=== PATIENT | female | born 1975 | race Caucasian/White ===

== ENCOUNTER 2018-11-13 15:52 | Outpatient (REF) | payer MEDICAID, SELFPAY ==
--- NOTE | 2018-11-13 15:00 | PAPFT_PTH ---
PATIENT: Fide Sandoval LOC: [facility] U#:[id number] AGE/SX: 43/F ROOM: RE11/13/[address]: Sue Sebastian : 1975 BED: DIS: 11/13/2018 SPEC #: [id number] RECD: 11/13/18 17:47 STATUS: BENNETT REQ #: [id number] TRESA: 11/13/18 15:[address]: Sue Sebastian DEPT: [facility] Cytology RECD BY: Mary Ellen Lama ENTERED: 11/13/18 17:48 SP TYPE: PAPFT OTHR DR: Edenilson Ceja Tissues: 1 - CX/ENDOCX FOR PAP SMEARS Procedures: PAP THIN PREP/UVM Screening HPV DNA PROBE Comments: [id number]
== END 2018-11-13 16:12 ==
LOC: LBN 15:52
PROVIDERS: PCP Family Medicine; Visit Provider Obstetrics & Gynecology Gynecology
DX: Z12.4 Encounter for screening for malignant neoplasm of cervix (principal); Z11.51 Encounter for screening for human papillomavirus (HPV)
CPT/HCPCS: 88142; 87624

== ENCOUNTER 2018-11-19 01:19 | Outpatient (CLI) | payer MEDICAID, SELFPAY ==
--- NOTE | 2018-11-19 16:00 | DI.MAMMO_ITS ---
SYMPTOM/DIAGNOSIS: SCREENING, Z12.31 MAMMOGRAM: Mammograms were interpreted according to the usual protocol including computer analysis with CAD system, tomosynthesis and C view imaging. Comparison with prior examinations. Breast density B. No suspicious masses or microcalcifications are seen. There is no definite evidence of malignancy. IMPRESSION: Negative mammogram. Routine screening is recommended. Category I. MQSA ASSESSMENT OF FINDINGS: Negative. Category 1. Patient will receive a letter notifying them of these results. BI-RADS category B. There are scattered areas of fibroglandular density.
== END 2018-11-19 01:39 ==
PROVIDERS: PCP Family Medicine; Visit Provider Obstetrics & Gynecology Gynecology
DX: Z12.31 Encounter for screening mammogram for malignant neoplasm of breast (principal)
CPT/HCPCS: 77063; 77067

== ENCOUNTER 2019-02-28 10:43 | Outpatient (CLI) | payer MEDICAID, SELFPAY ==
[2019-02-28 11:30] LABS: HGB 14.5 g/dL (12.0-15.5)
[2019-02-28 12:08] LABS: Ferritin 163 ng/mL (8-388)
== END 2019-02-28 11:03 ==
PROVIDERS: PCP Family Medicine; Visit Provider Internal Medicine Hematology & Oncology
DX: E83.119 Hemochromatosis, unspecified (principal)
CPT/HCPCS: 36415; 82728; 85018

== ENCOUNTER 2019-03-14 02:01 | Outpatient (RCR) | payer MEDICAID, SELFPAY | END 2019-03-23 23:59 | disposition home or self-care (01) | LOC: INF 02:01 | PROVIDERS: PCP Family Medicine; Visit Provider Family Medicine | DX: E83.119 Hemochromatosis, unspecified (principal) | CPT/HCPCS: 99195 ==

== ENCOUNTER 2019-03-14 02:08 | Outpatient (CLI) | payer MEDICAID, SELFPAY ==
[2019-03-14 11:13] LABS: HGB 13.9 g/dL (12.0-15.5)
[2019-03-14 12:05] LABS: Ferritin 91 ng/mL (8-388)
== END 2019-03-14 02:28 ==
PROVIDERS: PCP Family Medicine; Visit Provider Internal Medicine Hematology & Oncology
DX: E83.119 Hemochromatosis, unspecified (principal)
CPT/HCPCS: 36415; 82728; 85018

== ENCOUNTER 2019-03-21 00:58 | Outpatient (CLI) | payer MEDICAID, SELFPAY | END 2019-03-21 01:18 | PROVIDERS: PCP Family Medicine; Visit Provider Internal Medicine Hematology & Oncology | DX: R69 Illness, unspecified (principal) ==

== ENCOUNTER 2019-03-28 04:29 | Outpatient (RCR) | payer MEDICAID, SELFPAY | END 2019-04-22 23:59 | disposition home or self-care (01) | LOC: INF 04:29 | PROVIDERS: PCP Family Medicine; Visit Provider Family Medicine | DX: R69 Illness, unspecified (principal) ==

== ENCOUNTER 2019-04-22 10:56 | Outpatient (CLI) | payer MEDICAID, SELFPAY ==
[2019-04-22 11:37] LABS: HGB 14.5 g/dL (12.0-15.5)
[2019-04-22 13:18] LABS: Ferritin 68 ng/mL (8-388)
== END 2019-04-22 11:16 ==
PROVIDERS: PCP Family Medicine; Visit Provider Internal Medicine Hematology & Oncology
DX: E83.118 Other hemochromatosis (principal)
CPT/HCPCS: 36415; 82728; 85018

== ENCOUNTER 2019-09-24 14:31 | Emergency (ER) | payer MEDICAID, SELFPAY ==
[2019-09-24 15:06] LABS: Bilirubin Negative (Negative); Blood Trace-intact (Negative); Clarity Clear (Clear); Glucose Negative (Negative); Ketones Negative (Negative); Leukocyte Esterase Negative (Negative); Nitrite Negative (Negative); Specific Gravity 1.025 (1.005-1.025); Urobilinogen 0.2 EU/dL (Up TO 0.2)
[2019-09-24] MEDS: Normal Saline 1,000 ML 1000 ML IV (15:13)
[2019-09-24] MEDS: Ondansetron 4 MG/2 ML VIAL IVP (15:14)
[2019-09-24 15:18] LABS: Abs Immature Grans 0.01 k/cumm (0.0-0.09); Absolute Basophil Count 0.02 k/cumm (0.0-0.2); Absolute Eosinophil Count 0.16 k/cumm (0.0-0.7); Absolute Lymphocyte Count 3.37 k/cumm (1.2-3.4); Absolute Monocyte Count 0.73 k/cumm (0.11-0.7); Absolute Neutrophil Count 4.16 k/cumm (1.2-6.7); Basophils % 0.2; Eosinophils % 1.9; HCT 45.9 % (36.0-46.0); HGB 15.6 g/dL (12.0-15.5); Immature Grans % 0.1 %; Lymphocytes % 39.9; Mean Corpuscular Hemoglobin 29.2 pg (27.0-33.0); Monocytes % 8.6; Neutrophils % 49.3; Platelet Count 337 x1000/uL (130-400); RBC 5.34 m/cumm (4.00-5.20); RBC Distribution Width 12.4 % (11.7-14.6); White Blood Cell Count 8.45 k/cumm (4.4-10.8)
--- NOTE | 2019-09-24 15:29 | ED.GENADUL_ITS ---
Discharge Plan Disposition Patient Disposition: HOME Condition: Good Discharge Details Chief Complaint: Nausea/Vomit/Diar Clinical Impression: Addisons disease, Nausea & vomiting Primary Care Provider: Edenilson Ceja ED Provider: Adelia Wilkes Home Meds and New Rx's Prescriptions: New ondansetron 4 mg tablet,disintegrating 4 mg PO Q6H PRN (Reason: nausea and vomiting) Qty: 10 RF: 0 Continued esomeprazole magnesium [Nexium] 20 mg capsule,delayed release(DR/EC) 20 mg PO DAILY RF: 0 hydrocortisone 10 MG tablet 15 mg PO .QAM RF: 0 fludrocortisone 0.1 MG tablet 1 tab PO DAILY RF: 0 levothyroxine 175 mcg tablet 125 mcg PO DAILY@0730 RF: 0 potassium citrate 10 MEQ tablet extended release 10 meq PO DAILY 3 Days RF: 0 Discharge Instructions Instructions: Acute Nausea and Vomiting (ED) Additional Instructions: Encourage water intake. Zofran as prescribed if you have return of your nausea vomiting. Please follow-up with primary care in the next 48 hours for reevaluation. If you develop new or worsening symptoms please seek care urgently once again. Referrals: Edenilson Ceja [Primary Care Provider] - Discharge Data Discharge Date/Time-TO BE ENTERED AT DEPARTURE: 09/24/19 17:46 Medical Decision Making <ABEL Starks - Last Filed: 09/24/19 15:58> Patient is concerned that she may go into an Norberto's crisis requesting IV steroids. She currently appears well, nontoxic. Examination is non-emergent. Will obtain routine laboratory values, give IV fluids, Zofran, Solu-Cortef. We will then reassess. Labs benign. Upon reevaluation patient has not had any vomiting but reports feeling slightly nauseous. She would like a Tylenol. Will p.o. challenge and reassess. If she can successfully be p.o. challenge she is comfortable going home. Medical Records Medical records reviewed: Yes I reviewed the patient's medical records. Lab Data Lab results reviewed: Yes I reviewed the patient's lab results. Lab results narrative: Laboratory Tests Range/Units 09/24/19 09/24/19 09/24/19 14:50 14:53 14:53 WBC (4.4-10.8) k/cumm 8.45 RBC (4.00-5.20) m/cumm 5.34 H Hgb (12.0-15.5) g/dL 15.6 H Hct (36.0-46.0) % 45.9 MCV (80-95) fL 86.0 MCH (27.0-33.0) pg 29.2 MCHC (32.0-36.0) g/dL 34.0 RDW (11.7-14.6) % 12.4 Plt Count (130-400) x1000/uL 337 MPV (8.0-11.0) fL 10.0 Immature Gran % % 0.1 Neutrophils % 49.3 Lymphocytes % 39.9 Monocytes % 8.6 Eosinophils % 1.9 Basophils % 0.2 Absolute Neutrophils (1.2-6.7) k/cumm 4.16 Absolute Lymphocytes (1.2-3.4) k/cumm 3.37 Absolute Monocytes (0.11-0.7) k/cumm 0.73 H Absolute Eosinophils (0.0-0.7) k/cumm 0.16 Absolute Basophils (0.0-0.2) k/cumm 0.02 Sodium (136-145) mmol/L 138 Potassium (3.5-5.1) mmol/L 3.6 Chloride (98-107) mmol/L 101 Carbon Dioxide (21.0-32.0) mmol/L 26.4 Anion Gap (3-11) mmol/L 10.6 BUN (7-18) mg/dL 15 Creatinine (0.55-1.02) mg/dL 0.83 Estimated GFR/1.73 m2 (mL/min/1.73m2) >= 60.00 Glucose (74-106) mg/dL 80 Calcium (8.5-10.1) mg/dL 9.3 Total Bilirubin (0.2-1.0) mg/dL 0.6 AST (15-37) U/L 27 ALT (14-59) U/L 34 Alkaline Phosphatase (46-116) U/L 61 Total Protein (6.4-8.2) g/dL 8.1 Albumin (3.4-5.0) g/dL 4.1 TSH (0.36-3.74) uIU/mL 3.24 Urine Color (Yellow) Yellow Urine Clarity (Clear) Clear Urine pH (5-8) 7.0 Ur Specific [place] (1.005-1.025) 1.025 Urine Protein (Negative) mg/dL Negative Urine Ketones (Negative) mg/dL Negative Urine Blood (Negative) Trace-intact H Urine Nitrite (Negative) Negative Urine Bilirubin (Negative) Negative Urine Urobilinogen (Up TO 0.2) EU/dL 0.2 Ur Leukocyte Esterase (Negative) Negative Urine RBC (0-2) HPF 0-2 Urine WBC (0-5) HPF 0-2 Ur Epithelial Cells (Negative) HPF Few Urine Crystals (Negative) HPF Negative Urine Bacteria (Negative) HPF Moderate Urine Casts (Negative) LPF Negative Urine Mucus (Negative) Moderate Urine Other (Negative) Negative Ur Culture Indicated? No Urine Glucose (Negative) mg/dL Negative <ABEL Helms - Last Filed: 09/24/19 20:09> Care was transitioned to my self from Grover Plascencia PA-C, please see his note for initial presenting exam, history and laboratory evaluation. The time I assumed care, patient is being p.o. challenged. She received p.o. Tylenol is now endorsing return of her nausea. Is not actively vomiting. She reports that she has responded well to Reglan in the past. Will give 10 of Reglan and 25 Benadryl. Patient feeling much improved. Tolerating p.o. intake. Requesting discharge at this time. I did encourage close follow-up with primary care. She will return with any new or worsening symptoms. Will prescribe ODT Zofran, this is worked well for her historically. All of her questions and concerns were addressed and she is in agreement this plan. HPI <ABEL Starks - Last Filed: 09/24/19 15:58> General Mode of arrival: ambulatory . Date/Time Provider Initiated Documentation: 09/24/19 14:38 . Limitations to Documentation: no limitations . Information obtained by: patient . 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 She reports recently diagnosed with a sinus infection, took doxycycline and is again today initiating another 10-day course to her primary care provider as her infection did not resolve completely. Over the past 24 hours she developed nausea, vomiting, diarrhea and reports that this typically throws her into Norberto's crisis. She reports body aches and mild fever. Denies headache, chest pain, cough, shortness of breath, skin rash. She reports that she has been taking all of her routine medications as directed. She reports that she has had this happen before, wants to aggressively treat and not wait until things get worse. Related Data Home Medications Medication Instructions Recorded Confirmed hydrocortisone 15 mg PO .QAM 02/09/14 09/24/19 fludrocortisone 1 tab PO DAILY 07/06/14 09/24/19 potassium citrate 10 meq PO DAILY 3 Days tablet.er 09/20/17 09/24/19 esomeprazole magnesium 20 mg 20 mg PO DAILY cap 11/13/18 09/24/19 capsule,delayed release levothyroxine 175 mcg tablet 125 mcg PO DAILY@0730 tab 11/13/18 09/24/19 ondansetron 4 mg PO Q6H PRN #10 tab 09/24/19 Previous Rx's Medication Instructions Recorded potassium citrate 10 meq PO DAILY 3 Days tablet.er 09/20/17 ondansetron 4 mg PO Q6H PRN #10 tab 09/24/19 Allergies Allergy/AdvReac Type Severity Reaction Status Date / Time azithromycin Allergy Severe Anaphylaxsi Unverified 09/24/19 14:41 s erythromycin base Allergy Severe Anaphylaxsi Unverified 09/24/19 14:41 [Erythromycin Base] s morphine Allergy Severe extreme Verified 09/24/19 14:41 breathing issues Penicillins Allergy Severe Anaphylaxsi Unverified 09/24/19 14:41 s gabapentin Allergy Intermediate Swelling/Ed Unverified 09/24/19 14:41 rick iv contrast AdvReac Intermediate Swelling/Ed Uncoded 09/24/19 14:41 rick General Stated Complaint: Abd Prob MIKE: 2 Review of Systems <ABEL Starks - Last Filed: 09/24/19 15:58> Constitutional Constitutional: Denies fever(s) and Denies headache(s) Eyes Eyes: Denies change in vision ENT Ears, Nose, Mouth, and Throat: Denies headache(s) and Denies sore throat Cardiovascular Cardiovascular: Denies chest pain Respiratory Respiratory: Denies cough Gastrointestinal Gastrointestinal: Denies abdominal pain, Reports nausea and Reports vomiting Genitourinary Genitourinary: Denies dysuria Musculoskeletal Musculoskeletal: Reports myalgias Integumentary/Breasts Skin/Breast: Denies rash Neurologic Neurologic: Denies headache(s) PFSH <ABEL Starks - Last Filed: 09/24/19 15:58> Medical History Addisons disease (Chronic) Hx of Clostridium difficile infection (Resolved) Hx C/diff after knee surgery in 2010. No recurrences. Hypertension (Chronic) Hypothyroidism (Chronic) IUD (intrauterine device) in place (Chronic) Inserted 2015. On Depo-Provera for contraception (Resolved) Surgical History section (Inactive) X 2 Open Carpal Tunnel release (Inactive 04/24/15) RIGHT WRIST/DR. SCHILLING Family History Mother Diabetes Grandmother Breast cancer Mat Grandmother Breast cancer Pat Maternal Aunt Breast cancer Paternal Maternal Aunt Breast cancer Paternal Maternal Aunt Breast cancer Paternal Maternal Aunt Breast cancer Paternal Social History Smoking/Tobacco Use Status: Former Tobacco Use Alcohol Intake: never Drug use: Never Substance use type: does not use Household members: spouse, children and other Details: H-Oliver, D- teenager, S-Dionicio. 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 Rx with XRT. 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 Female Reproductive History Menstrual control method: progestin IUCD History History 2 Para Hx # Term Pregnancies 2 Multiple births Hx # Pregnancies Ectopic pregnancies AB induced Hx Number of Living Children AB spontaneous Exam <ABEL Starks - Last Filed: 09/24/19 15:58> Const General: cooperative, healthy appearing, comfortable and no acute distress Orientation: alert and awake HENAZ Head: normal to inspection, normocephalic and atraumatic General nose exam: external nose normal Face and sinus: normal facial exam Mouth: moist mucous membranes Throat: posterior oropharynx normal Eyes Conjunctivae: conjunctivae normal Sclera: sclerae normal Neck Neck: normal visual inspection, full ROM, no meningeal signs, trachea midline and supple Resp Effort & Inspection: normal respiratory effort and able to speak in complete sentences Auscultation: clear to auscultation bilaterally Cardio Rate: regular rate Rhythm: regular rhythm GI Inspection: normal to inspection Palpation: soft, not firm, no guarding and nontender Auscultation: normal bowel sounds Back/Spine/Pelvis Back: No back tenderness Skin General skin exam: no rashes or lesions noted Neuro General: alert, awake, moves all extremities and no focal motor deficits Sensory Exam: no sensory deficits noted Psych Appearance: grossly normal Mental Status: mental status grossly normal Course <ABEL Starks - Last Filed: 09/24/19 15:58> Vital Signs Vital signs: Respiratory Effort Non-Labored 09/24/19 14:36 Pain Level 6 09/24/19 14:36 Lab/Test Results Lab/Test Results: Laboratory Tests Range/Units 09/24/19 14:53 WBC (4.4-10.8) k/cumm 8.45 RBC (4.00-5.20) m/cumm 5.34 H Hgb (12.0-15.5) g/dL 15.6 H Hct (36.0-46.0) % 45.9 MCV (80-95) fL 86.0 MCH (27.0-33.0) pg 29.2 MCHC (32.0-36.0) g/dL 34.0 RDW (11.7-14.6) % 12.4 Plt Count (130-400) x1000/uL 337 MPV (8.0-11.0) fL 10.0 Immature Gran % % 0.1 Neutrophils % 49.3 Lymphocytes % 39.9 Monocytes % 8.6 Eosinophils % 1.9 Basophils % 0.2 Absolute Neutrophils (1.2-6.7) k/cumm 4.16 Absolute Lymphocytes (1.2-3.4) k/cumm 3.37 Absolute Monocytes (0.11-0.7) k/cumm 0.73 H Absolute Eosinophils (0.0-0.7) k/cumm 0.16 Absolute Basophils (0.0-0.2) k/cumm 0.02 Sign Out <ABEL Starks - Last Filed: 09/24/19 15:58> Sign Out Data: Sign Out Comment: Laboratory values are back, benign. Patient received medications. Awaiting p.o. challenge and reassessment. Will likely need Zofran prescription for discharge Last updated by Sanjiv Plascencia PA at 09/24/19 16:00
[2019-09-24 15:35] LABS: Epithelial Cells Few HPF (Negative); RBC 0-2 HPF (0-2); WBC 0-2 HPF (0-5)
[2019-09-24 15:36] LABS: Bacteria Moderate HPF (Negative); C & S Indicated? No; Casts Negative LPF (Negative); Crystals Negative HPF (Negative); Mucus Moderate (Negative); Other Cells Negative (Negative)
[2019-09-24 15:38] LABS: ALT 34 U/L (14-59); AST 27 U/L (15-37); Albumin 4.1 g/dL (3.4-5.0); Alkaline Phosphatase 61 U/L (46-116); Anion Gap 10.6 mmol/L (3-11); BUN 15 mg/dL (7-18); Bilirubin, Total 0.6 mg/dL (0.2-1.0); CO2 26.4 mmol/L (21.0-32.0); CREATININE 0.83 mg/dL (0.55-1.02); Calcium 9.3 mg/dL (8.5-10.1); Chloride 101 mmol/L (98-107); Glucose 80 mg/dL (74-106); Potassium 3.6 mmol/L (3.5-5.1); Sodium 138 mmol/L (136-145); TSH 3.24 uIU/mL (0.36-3.74); Total Protein 8.1 g/dL (6.4-8.2)
[2019-09-24] MEDS: Hydrocortisone SOD SUC. 100 MG VIAL IVP (15:39)
[2019-09-24 15:43] VITALS: BP 115/74; PULSE 84; RESP 15; O2SAT 98
[2019-09-24] MEDS: Acetaminophen 500 MG TAB 1000 MG PO (15:48)
--- NOTE | 2019-09-24 15:50 | NUR.NOTE ---
requested and given ice pack
--- NOTE | 2019-09-24 16:18 | NUR.NOTE ---
tolerated crackers and water
[2019-09-24] MEDS: diphenhydrAMINE 50 MG/ML VIAL 25 MG IVP (17:02)
[2019-09-24] MEDS: Metoclopramide 10 MG/2 ML VIAL IVP (17:06)
[2019-09-24] MEDS: Normal Saline 50 ML (17:20)
[2019-09-24 17:27] VITALS: BP 128/70; PULSE 76; RESP 15; O2SAT 98
== END 2019-09-24 17:46 | disposition home or self-care (01) ==
PROVIDERS: Physician Assistant; Emergency Provider Physician Assistant; PCP Family Medicine
DX: E27.1 Primary adrenocortical insufficiency (principal); R11.2 Nausea with vomiting, unspecified; I10 Essential (primary) hypertension
CPT/HCPCS: 80053; 96361; 96374; 96375; 99284; 81003; 81015; 84443; 85025; J1200; J1720; J2405; J2765

== ENCOUNTER 2019-12-31 12:49 | Outpatient (REF) | payer MEDICAID, SELFPAY ==
[2020-01-01 16:50] LABS: Chlamydia Result Negative (Negative); GC Result Negative (Negative)
== END 2019-12-31 13:09 ==
LOC: LBN 12:49
PROVIDERS: PCP Family Medicine; Visit Provider Nurse Practitioner Family
DX: Z11.3 Encounter for screening for infections with a predominantly sexual mode of transmission (principal)
CPT/HCPCS: 87491; 87591

== ENCOUNTER 2020-01-03 02:16 | Outpatient (CLI) | payer MEDICAID, SELFPAY ==
--- NOTE | 2020-01-03 08:00 | DI.US_ITS ---
EXAM: US PELVIS TRANSVAGINAL CLINICAL HISTORY: Pelvic pain with Hx Fibroid and has IUD,R10.2. TECHNIQUE: Transabdominal and transvaginal pelvic ultrasound was performed using standard protocol. COMPARISON: US PELVIS TRANSVAG from 12/14/2015 FINDINGS: KIDNEYS: Kidneys are symmetric in size. No evidence of renal calculi. No evidence of hydronephrosis. No renal mass or cyst identified. UTERUS: Position: Anteverted. Size: 6.9 long by 3.6 AP x 6.5 transverse cm Endometrium: 0.5 cm. Normal for patient's menstrual status. IUD is seen within the endometrial canal. Myometrium: There is a 1.6 x 2 x 2.5 cm mass in fundus of the uterus most consistent with a fibroid. Cervix: Unremarkable. OVARIES: Right: 1.7 x 1.1 x 1.3 cm Cyst or mass: None. Left: 2.9 x 1.9 x 1.7 cm Cyst or mass: Small follicular cyst. DOPPLER: Color: Symmetric and uniform flow to both ovaries. No hyperemia. CUL-DE-SAC: Free fluid: None. Other: None. IMPRESSION: 1. Normal sonographic appearance of the kidneys. 2. Uterine fibroid. IUD within the endometrial canal. 3. Unremarkable bilateral ovaries. DATA REPOSITORY:
== END 2020-01-03 02:36 ==
PROVIDERS: PCP Family Medicine; Visit Provider Nurse Practitioner Family
DX: R10.2 Pelvic and perineal pain (principal); D25.9 Leiomyoma of uterus, unspecified; Z97.5 Presence of (intrauterine) contraceptive device
CPT/HCPCS: 76830; 76856

== ENCOUNTER 2020-01-21 01:29 | Outpatient (CLI) | payer MEDICAID, SELFPAY ==
--- NOTE | 2020-01-21 11:02 | DI.MAMMO_ITS ---
EXAM: MG MAMMO SCREENING CLINICAL HISTORY: screening, Z12.39 TECHNIQUE: Bilateral full field digital CC and MLO mammographic images were obtained with 3D tomosyn thesis and utilizing computer aided detection (CAD). COMPARISON: Available for comparison. FINDINGS: Masses/Architectural Distortion: There is asymmetric breast tissue in the upper-outer quadrant of the right breast. Microcalcifications: No suspicious pleomorphic-type are seen. Skin Thickening/Nipple Retraction: None. IMPRESSION: 1. Asymmetric breast tissue in the upper-outer quadrant of the right breast. 2. Spot compression views and right breast ultrasound requested for further evaluation. BI-RADS Category 0 - Assessment Incomplete: Need additional imaging evaluation Breast Density - Category B - Scattered areas of fibroglandular density A negative radiographic report should not delay biopsy if a dominant or clinically suspicious mass is present. Up to ten percent of cancers are not identified on mammography. A negative report may reinforce clinical impression. Adenosis and dense breasts may obscure an underlying neoplasm. False positive reports average 6 to 10%. Patient will receive a letter notifying them of these results.
== END 2020-01-21 01:49 ==
PROVIDERS: PCP Family Medicine; Visit Provider Nurse Practitioner Family
DX: Z12.31 Encounter for screening mammogram for malignant neoplasm of breast (principal); R92.8 Other abnormal and inconclusive findings on diagnostic imaging of breast
CPT/HCPCS: 77063; 77067

== ENCOUNTER 2020-01-29 01:45 | Outpatient (CLI) | payer MEDICAID, SELFPAY ==
--- NOTE | 2020-01-29 | DI.MAMMO_ITS ---
EXAM: MG MAMMO SCREEN CALL BACK UNI CLINICAL HISTORY: ASYMMETRIC BREAST TISSUE RT BREAST, F/U MAMMO. TECHNIQUE: Spot compression views with tomosynthesis of the right breast and right breast ultrasound were performed. . COMPARISON: MG Screening Bilat Mammo from 06/04/2015 MG R. Spot - Same Day from 06/10/2015 MG Diagnostic Right Mammo from 12/14/2015 MG Screening Bilat Mammo from 08/21/2017 MG SCREENING - Call Back-Uni from 08/25/2017 MG MG mammo screening from 11/19/2018 MG MG MAMMO SCREENING from 01/21/2020 FINDINGS: Mammography/Tomosynthesis: Spot compression views of the superior right breast were performed for a questioned area of asymmetri c tissue. Masses/Architectural Distortion: None seen. Microcalcifictions: No suspicious pleomorphic-type are seen. Skin Thickening/Nipple Retraction: None. Right breast US: Echotexture: Normal appearance of the glandular tissue. Shadowing: No suspicious foci. Cyst: None. Solid lesions: None seen. Ductal dilation: None. IMPRESSION: 1. No evidence of malignancy is noted. 2. Unless there is more urgent need, follow-up screening mammography is recommended, as per [employer] guidelines. 3. The findings were discussed with the patient on the date of the examination. BI-RADS Category 1 - Negative Breast Density - Category B - Scattered areas of fibroglandular density A negative radiographic report should not delay biopsy if a dominant or clinically suspicious mass is present. Up to ten percent of cancers are not identified on mammography. A negative report may reinforce clinical impression. Adenosis and dense breasts may obscure an underlying neoplasm. False positive reports average 6 to 10%. Patient will receive a letter notifying them of these results.
== END 2020-01-29 02:05 ==
PROVIDERS: PCP Family Medicine; Visit Provider Nurse Practitioner Family
DX: Z12.31 Encounter for screening mammogram for malignant neoplasm of breast (principal); R92.8 Other abnormal and inconclusive findings on diagnostic imaging of breast; N64.59 Other signs and symptoms in breast
CPT/HCPCS: 76642; 77063; 77067

== ENCOUNTER 2020-12-08 17:32 | Inpatient (IN) | payer MEDICAID, SELFPAY ==
[2020-12-08] VITALS (23 sets, daily range): BP systolic 103–163; BP diastolic 67–119; PULSE 77–104; RESP 18–20; TEMP 36.6–37; O2SAT 95–100
--- NOTE | 2020-12-08 17:30 | RT.EKG_ITS ---
APPROVED REPORT Exam: Resting ECG Reason for Exam: anxiety Patient Location: E HR:100 bpm ECG Measurements Heart Rate 100 AXIS AL 158 P 65 QRSd 91 QRS 79 QT 336 T 39 QTc 434 Conclusion Sinus tachycardia...rate> 99 Low voltage, precordial leads...precordial leads <1.0mV I have reviewed and interpreted ECG and agree with software generated interpretation.
--- NOTE | 2020-12-08 17:36 | W.ED.GENAD ---
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 Blood pressure hypertensive, heart rate tachycardic. EKG notes a rate of 100, sinus, no STEMI, nondiagnostic. She appears restless and fidgety. She has no focal deficits. Her jaw, neck and anterior chest pain appears reproducible worse with head movement and palpation to her chest. We will check screening labs,, urine , and give a dose of 100 mg Solu-Cortef, 30 mg Toradol, and IV fluids. Will also check a portable chest x-ray to rule any acute disease. Labs reviewed. White blood cell count 11. Hemoglobin 18, which is similar to baseline. Sodium 126. Chloride 89. Potassium 4.7. Calcium 10.3. Troponin negative. TSH within normal limits. 1849 --patient reassessed and she is still complaining of cramping in her neck and legs. Will give a dose of Valium p.o. and Tylenol IV. 1914 --Case discussed with [facility] endocrinology. Would suspect hypotension rather than hypertension in setting of Tripp's crisis. Patient could have a viral process as she has vomiting and diarrhea which may explain her hypertension or stress response. Agree with plan to repeat metabolic panel and plan for admission overnight for repeat electrolytes in the a.m. Agree with plan for 100 mg SoluCortef given here with plan for 50 mg q 12 hr IV tomorrow, then 30 mg q 12 hr for 1 day, then 30 mg in the a.m. and 10 mg in the afternnoon for 1 day, then resume her regular dose of 15 mg in the a.m. and 5 mg in the afternoon. 1999 --repeat metabolic panel notes a minimal increase of sodium from 126 to 127. Calcium now normalized. Patient still complaining of neck pain and leg cramps. She states she cannot take morphine as it causes respiratory symptoms. She has taken tramadol in the past for her Tripp's crisis. Will order a dose of tramadol. 2029 --Case discussed with hospitalist who accepts patient for admission. Medical Records Medical records reviewed: Yes I reviewed the patient's medical records. Imaging Data Radiologic Study: Radiologist's impression: XR Chest Exam date and time: 12/08/2020 6:02 PM Age: 45 years old Clinical indication: Other: Anterior chest pain TECHNIQUE: Imaging protocol: XR of the chest. Views: 1 view. COMPARISON: No relevant prior studies available. FINDINGS: Lungs: Unremarkable. No consolidation. Pleural spaces: Unremarkable. No pleural effusion. No pneumothorax. Heart/Mediastinum: Unremarkable. No cardiomegaly. Bones/joints: Unremarkable. IMPRESSION: No acute findings. Lab Data Lab results reviewed: Yes I reviewed the patient's lab results. Labs: Laboratory Tests Range/Units 12/08/20 12/08/20 12/08/20 17:50 17:50 17:50 WBC (4.4-10.8) 10^3/uL 11.88 H RBC (3.93-5.22) 10^6/uL 6.19 H Hgb (11.2-15.7) g/dL 18.6 H Hct (36.0-46.0) % 52.8 H MCV (80-95) fL 85.3 MCH (27.0-33.0) pg 30.0 MCHC (32.0-36.0) % 35.2 RDW (11.7-14.6) % 11.2 L Plt Count (130-400) 10^3/uL 356 MPV (8.0-11.0) fL 9.9 Immature Gran % 0.5 Neutrophils % 62.3 Lymphocytes % 27.7 Monocytes % 8.0 Eosinophils % 0.8 Basophils % 0.7 Nucleated RBC % % 0 Absolute Neutrophils (1.2-6.7) 10^3/uL 7.40 H Absolute Lymphocytes (1.2-3.4) 10^3/uL 3.29 Absolute Monocytes (0.1-0.8) 10^3/uL 0.95 H Absolute Eosinophils (0.0-0.7) 10^3/uL 0.10 Absolute Basophils (0.0-0.2) 10^3/uL 0.08 PT (9.3-11.0) sec 10.3 INR (0.9-1.1) 1.0 APTT (21.0-27.5) sec 25.6 Sodium (136-145) mmol/L 126 L Potassium (3.5-5.1) mmol/L 4.7 Chloride (98-107) mmol/L 89 L Carbon Dioxide (21.0-32.0) mmol/L 25.0 Anion Gap (3-11) mmol/L 12.0 H BUN (7-18) mg/dL 16 Creatinine (0.55-1.02) mg/dL 1.0 Estimated GFR/1.73 m2 (mL/min/1.73m2) >= 60.00 Glucose (74-106) mg/dL 93 Calcium (8.5-10.1) mg/dL 10.3 H Magnesium (1.8-2.4) mg/dL 2.3 Total Bilirubin (0.2-1.0) mg/dL 0.8 AST (15-37) U/L 34 ALT (14-59) U/L 68 H Alkaline Phosphatase (46-116) U/L 73 Troponin I (<0.06) ng/mL < 0.05 Total Protein (6.4-8.2) g/dL 9.6 H Albumin (3.4-5.0) g/dL 4.9 TSH (0.36-3.74) uIU/mL 3.64 Range/Units 12/08/20 19:05 WBC (4.4-10.8) 10^3/uL RBC (3.93-5.22) 10^6/uL Hgb (11.2-15.7) g/dL Hct (36.0-46.0) % MCV (80-95) fL MCH (27.0-33.0) pg MCHC (32.0-36.0) % RDW (11.7-14.6) % Plt Count (130-400) 10^3/uL MPV (8.0-11.0) fL Immature Gran % Neutrophils % Lymphocytes % Monocytes % Eosinophils % Basophils % Nucleated RBC % % Absolute Neutrophils (1.2-6.7) 10^3/uL Absolute Lymphocytes (1.2-3.4) 10^3/uL Absolute Monocytes (0.1-0.8) 10^3/uL Absolute Eosinophils (0.0-0.7) 10^3/uL Absolute Basophils (0.0-0.2) 10^3/uL PT (9.3-11.0) sec INR (0.9-1.1) APTT (21.0-27.5) sec Sodium (136-145) mmol/L 127 L Potassium (3.5-5.1) mmol/L 4.8 Chloride (98-107) mmol/L 94 L Carbon Dioxide (21.0-32.0) mmol/L 23.9 Anion Gap (3-11) mmol/L 9.1 BUN (7-18) mg/dL 15 Creatinine (0.55-1.02) mg/dL 0.9 Estimated GFR/1.73 m2 (mL/min/1.73m2) >= 60.00 Glucose (74-106) mg/dL 93 Calcium (8.5-10.1) mg/dL 8.6 Magnesium (1.8-2.4) mg/dL Total Bilirubin (0.2-1.0) mg/dL 0.7 AST (15-37) U/L 28 ALT (14-59) U/L 56 Alkaline Phosphatase (46-116) U/L 63 Troponin I (<0.06) ng/mL Total Protein (6.4-8.2) g/dL 7.5 Albumin (3.4-5.0) g/dL 3.9 TSH (0.36-3.74) uIU/mL ECG Data Attestation: I personally reviewed and interpreted this ECG (s) as follows: Interpretation: Rate of 100, sinus, no acute ST elevation or depression. MA 158. QRS 89. QTc 434. HPI General Mode of arrival: wheelchair. Date/Time Provider Initiated Documentation: 12/08/20 17:36. Limitations to Documentation: no limitations. Information obtained by: patient. HPI Narrative: Patient is a 45-year-old female with a history of Norberto's disease, hypertension, hypothyroidism who presents to the ED with concerns for what she feels are consistent with an Tripp's crisis. Patient states she has dizziness that is worse with standing, generalized weakness, leg cramps for the past 2 days consistent with her usual Tripp's crisis. She states she has also had bilateral jaw and bilateral neck pain in addition to intermittent episodes of anterior chest pain that she states she is not does not have with her Norberto's crisis. Patient states she usually takes Solu-Cortef at home when she feels the symptoms but did not have any extra as her primary care provider is no longer in practice. She states she usually takes 15 mg of hydrocortisone in the morning and 5 mg of hydrocortisone in the afternoon and doubled the dose of the past 2 days. She states she was unable to take these doses today due to nausea and a few episodes of vomiting. She does also admits to a few episodes of large watery diarrhea over the past 2 days. She denies any fever, coughing, shortness of breath, urinary symptoms. Related Data Home Medications Medication Instructions Recorded Confirmed hydrocortisone 15 mg PO .QAM 02/09/14 12/08/20 fludrocortisone 1 tab PO DAILY 07/06/14 12/08/20 potassium citrate 10 meq PO DAILY 3 Days tablet.er 09/20/17 12/08/20 esomeprazole magnesium 20 mg 20 mg PO DAILY cap 11/13/18 12/08/20 capsule,delayed release levothyroxine 175 mcg tablet 125 mcg PO DAILY@0730 tab 11/13/18 12/08/20 ondansetron 4 mg PO Q6H PRN #10 tab 09/24/19 12/08/20 estradiol 10 mcg vaginal tablet 10 mcg VG DAILY #24 tab 12/31/19 01/13/20 metoprolol tartrate 25 mg tablet 25 mg PO DAILY 12/31/19 12/08/20 atorvastatin 20 mg tablet 20 mg PO DAILY 01/13/20 12/08/20 hydrocortisone 5 mg tablet 5 mg PO DAILY tab 01/13/20 12/08/20 Previous Rx's Medication Instructions Recorded potassium citrate 10 meq PO DAILY 3 Days tablet.er 09/20/17 ondansetron 4 mg PO Q6H PRN #10 tab 09/24/19 estradiol 10 mcg vaginal tablet 10 mcg VG DAILY #24 tab 12/31/19 Allergies Allergy/AdvReac Type Severity Reaction Status Date / Time azithromycin Allergy Severe Anaphylaxsi Verified 12/08/20 17:38 s erythromycin base Allergy Severe Anaphylaxsi Verified 12/08/20 17:38 [Erythromycin Base] s morphine Allergy Severe extreme Verified 12/08/20 17:38 breathing issues Penicillins Allergy Severe Anaphylaxsi Verified 12/08/20 17:38 s gabapentin Allergy Intermediate Swelling/Ed Verified 12/08/20 17:38 rick green pepper AdvReac Unverified 12/09/20 08:30 lactose AdvReac Unverified 12/09/20 08:30 peach AdvReac Unverified 12/09/20 08:30 iv contrast AdvReac Intermediate Swelling/Ed Uncoded 12/08/20 17:38 rick General MIKE: 2 Review of Systems All systems reviewed & are unremarkable except as noted in HPI and below Constitutional Constitutional: Reports as per HPI, Denies chills and Denies fever(s) Eyes Eyes: Denies blurry vision ENT Ears, Nose, Mouth, and Throat: Reports dizziness, Reports neck pain, Denies sore throat and Denies throat swelling Cardiovascular Cardiovascular: Denies chest pain and Denies dyspnea Respiratory Respiratory: Denies cough and Denies dyspnea Gastrointestinal Gastrointestinal: Denies abdominal pain, Denies diarrhea, Reports nausea and Reports vomiting Genitourinary Genitourinary: Denies hematuria and Denies dysuria Musculoskeletal Musculoskeletal: Denies back pain, Reports arthralgias, Reports muscle cramps, Reports neck pain and Denies numbness Integumentary/Breasts Skin/Breast: Denies lesions and Denies rash Neurologic Neurologic: Reports dizziness, Denies localized weakness and Denies numbness Allergic/Immunologic Allergic/Immunologic: Denies throat swelling PFS Medical History Addisons disease Michelle's syndrome Amenorrhea Hx of Clostridium difficile infection Hx C/diff after knee surgery in 2010. No recurrences. Hypertension Hypothyroidism IUD (intrauterine device) in place Inserted 2015. On Depo-Provera for contraception Surgical History section X 2 Open Carpal Tunnel release (04/24/15) RIGHT WRIST/DR. SCHILLING Family History Mother Diabetes Grandmother Breast cancer Mat Grandmother Breast cancer Pat Maternal Aunt Breast cancer Paternal Maternal Aunt Breast cancer Paternal Maternal Aunt Breast cancer Paternal Maternal Aunt Breast cancer Paternal Social History Smoking/Tobacco Use Status: Former Tobacco Use Smoking risk assessment performed?: Yes Alcohol Intake: never Drug use: Never Substance use type: does not use Household members: spouse, children and other Details: H-Oliver, D- teenager, S-Dionicio. 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 Rx with XRT. 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 Female Reproductive History Menstrual control method: progestin IUCD History History 2 Para Hx # Term Pregnancies 2 Multiple births Hx # Pregnancies Ectopic pregnancies AB induced Hx Number of Living Children AB spontaneous Exam Const General: cooperative and no acute distress Orientation: alert, awake and oriented x3 HENMT Head: normal to inspection Ears: hearing grossly normal bilaterally and external ears normal Face and sinus: normal facial exam Mouth: oral mucosae normal Throat: posterior oropharynx normal Eyes General: appearance normal, both eyes and all related structures Pupils: PERRL EOM: EOM intact bilaterally Neck Neck: normal visual inspection and No submandibular swelling Lymphatic: no lymphadenopathy noted Chest Chest: normal inspection of the chest and no tenderness Resp Effort & Inspection: normal respiratory effort and able to speak in complete sentences Auscultation: clear to auscultation bilaterally Cardio Rate: regular rate Rhythm: regular rhythm GI Inspection: normal to inspection Palpation: soft, not firm, not rigid and nontender Auscultation: normal bowel sounds Back/Spine/Pelvis Cervical Spine: cervical muscular tenderness (Bilateral) and pain with cervical ROM Skin General skin exam: no rashes or lesions noted Neuro General: patient alert, patient awake, patient oriented x3 and moves all extremities Cranial Nerves: CN's II-XI intact bilaterally Cognition: normal cognition Speech: speech normal Motor: muscle tone normal throughout and strength 5/5 throughout Sensory Exam: no sensory deficits noted Extrem General: normal to inspection, full ROM, capillary refill normal, no calf tenderness bilaterally and no edema Psych Appearance: grossly normal Mental Status: mental status grossly normal Speech and Movement: speech and movement normal Affect: normal affect
--- NOTE | 2020-12-08 18:00 | DI.RAD_ITS ---
Exam(s) XR PORTABLE CHEST AP EXAM: XR PORTABLE CHEST AP CLINICAL HISTORY: anterior chest pain, r/o acute disease. TECHNIQUE: 2D digital imaging was performed. COMPARISON: CR CHEST 2 VIEWS PA,LAT from 04/13/2012 FINDINGS: Heart size is normal. The mediastinum is not widened. Lungs are clear. No infiltrates nor obvious pleural effusions. IMPRESSION: No acute pulmonary findings on this single AP portable view of the chest. DATA REPOSITORY: RADIATION DOSE DELIVERED: All CT scans at this facility use at least one of these dose optimization techniques: automated exposure control; mA and/or kV adjustment per patient size (includes targeted e xams where dose is matched to clinical indication); or iterative reconstruction.
[2020-12-08 18:01] LABS: Abs Immature Grans 0.06 10^3/uL (0.0-0.06); Absolute Basophil Count 0.08 10^3/uL (0.0-0.2); Absolute Lymphocyte Count 3.29 10^3/uL (1.2-3.4); Absolute Monocyte Count 0.95 10^3/uL (0.1-0.8); Basophils % 0.7; Eosinophils % 0.8; HCT 52.8 % (36.0-46.0); HGB 18.6 g/dL (11.2-15.7); Immature Grans % 0.5; Lymphocytes % 27.7; MCHC 35.2 % (32.0-36.0); MCV 85.3 fL (80-95); MPV 9.9 fL (8.0-11.0); Neutrophils % 62.3; Nucleated RBC 0 %; Platelet Count 356 10^3/uL (130-400); RBC 6.19 10^6/uL (3.93-5.22); RDW 11.2 % (11.7-14.6); RDW-SD 34.6 fL; WBC 11.88 10^3/uL (4.4-10.8)
[2020-12-08] MEDS: Hydrocortisone SOD SUC. 100 MG VIAL IVP (18:09)
[2020-12-08] MEDS: Ketorolac 30 MG/ML VIAL IVP (18:09)
[2020-12-08] MEDS: Normal Saline 1,000 ML 1000 ML IV (18:10)
[2020-12-08 18:15] LABS: PTT Activated 25.6 sec (21.0-27.5); Prothrombin Time 10.3 sec (9.3-11.0)
[2020-12-08 18:25] LABS: ALT 68 U/L (14-59); AST 34 U/L (15-37); Albumin 4.9 g/dL (3.4-5.0); Alkaline Phosphatase 73 U/L (46-116); BUN 16 mg/dL (7-18); Bilirubin, Total 0.8 mg/dL (0.2-1.0); Calcium 10.3 mg/dL (8.5-10.1); Chloride 89 mmol/L (98-107); Glucose 93 mg/dL (74-106); Magnesium 2.3 mg/dL (1.8-2.4); Potassium 4.7 mmol/L (3.5-5.1); Sodium 126 mmol/L (136-145); TSH (W/Ref FT4) 3.64 uIU/mL (0.36-3.74); Total Protein 9.6 g/dL (6.4-8.2); Troponin I < 0.05 ng/mL (<0.06)
[2020-12-08] MEDS: ACETAMINOPHEN 1,000 MG/100 ML BTL 400 MG IVPB (19:14)
--- NOTE | 2020-12-08 19:14 | DI.VRAD_ITS ---
PROCEDURE INFORMATION: Exam: XR Chest Exam date and time: 12/08/2020 6:02 PM Age: 45 years old Clinical indication: Other: Anterior chest pain TECHNIQUE: Imaging protocol: XR of the chest. Views: 1 view. COMPARISON: No relevant prior studies available. FINDINGS: Lungs: Unremarkable. No consolidation. Pleural spaces: Unremarkable. No pleural effusion. No pneumothorax. Heart/Mediastinum: Unremarkable. No cardiomegaly. Bones/joints: Unremarkable. IMPRESSION: No acute findings. Dictated and Authenticated by: Sophie Rose MD. Ordering:ANN Alvarez MD
[2020-12-08] MEDS: diazePAM 5 MG TAB PO (19:15)
[2020-12-08] MEDS: Normal Saline 1,000 ML 125 ML IV (19:15)
[2020-12-08 19:28] LABS: ALT 56 U/L (14-59); AST 28 U/L (15-37); Albumin 3.9 g/dL (3.4-5.0); Alkaline Phosphatase 63 U/L (46-116); Anion Gap 9.1 mmol/L (3-11); BUN 15 mg/dL (7-18); Bilirubin, Total 0.7 mg/dL (0.2-1.0); CO2 23.9 mmol/L (21.0-32.0); CREATININE 0.9 mg/dL (0.55-1.02); Calcium 8.6 mg/dL (8.5-10.1); Chloride 94 mmol/L (98-107); Glucose 93 mg/dL (74-106); Potassium 4.8 mmol/L (3.5-5.1); Sodium 127 mmol/L (136-145); Total Protein 7.5 g/dL (6.4-8.2)
[2020-12-08] MEDS: Ondansetron 4 MG/2 ML VIAL IVP (19:29)
[2020-12-08] MEDS: traMADol 50 MG TAB 100 MG PO (20:37)
--- NOTE | 2020-12-08 20:53 | W.PM.HP.N ---
Date of service: 12/08/20 Time of Service: 20:54 Assessment and Plan Assessment and plan (1) Hyponatremia: Start date: 12/08/20 Status: Acute Assessment and plan: This is a 45-year-old lady admitted for hyponatremia likely secondary to increased stress recently and being steroid dependent with [place]'s disease. She has responded to IV steroid treatment with IV fluid resuscitation. We will trend labs and adjust treatment accordingly. Plans are for her to be on a 3-day wean of hydrocortisone with 50 mg IV every 8 hours day 1, then 30 mg IV every 12 hours for day 2 with 30 mg in the morning day 3. She is then to be converted to her oral steroid treatment at the usual dose of 15 mg in the morning and 5 mg in the afternoon if she is doing well. Her diet will be advanced as tolerated. (2) Addisons disease: Status: Chronic Assessment and plan: Patient does have occasional exacerbation of adrenal insufficiency and at this time either a viral gastroenteritis and or increased stress with panic and anxiety is the cause of her deficiency and decompensation with hyponatremia. Continue IV steroids with weaning back to her oral regimen as tolerated. (3) Hypothyroidism: Status: Chronic Assessment and plan: Stable with supplements with monitoring of labs. Qualifiers: Hypothyroidism type: acquired Qualified Code(s): E03.9 - Hypothyroidism, unspecified (4) Hypertension: Status: Chronic Assessment and plan: Patient presently is hypertensive and will continue antihypertensive treatment adjusting blood pressure. She does also have episodes of hypoglycemia and has been on Florinef in the past. 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 Not being hypotensive presently does not fit into the picture of adrenal insufficiency but this is multifactorial. Watch closely for overtreatment and hypotension. 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 She had increased stress recently and also possible viral gastroenteritis with nausea, vomiting and diarrhea resulted in hyponatremia and increased muscle spasm over her trunk and extremities diffusely. The patient had increased weakness and began to feel that she was in one of her Norberto's crisis, doubling her oral hydrocortisone for least 48 hours without relief and then reporting to the ED on the day of admission. In the ED she was found to be hyponatremic with a sodium of 126 usually running about 130, hypertensive and not hypotensive and hypoglycemic as one would see with [place]'s crisis. She is treated symptomatically at this point with tramadol for pain, IV fluid resuscitation and IV steroids all initiated in the ED. At the time I saw the patient she was feeling better except for some spasm especially over the neck with chronic neck pain. Recent evaluation of her neck pain revealed no significant arthritis or degenerative disc disease. She does have increased stress with psychological stressors and social chaos with the patient soon to be homeless, no financial support and minimal family support. Presently her 5-year-old child is with her mother with whom she has a stressed relationship. Review of Systems Narrative: 30 more review of systems otherwise unrevealing or stable. Patient has been losing weight without dieting which is of concern but most likely secondary to increased psychological stress and depression with severe panic. She has had no suicidal ideation. [facility] Medical History Addisons disease Michelle's syndrome Amenorrhea Hx of Clostridium difficile infection Hx C/diff after knee surgery in 2010. No recurrences. Hypertension Hypothyroidism IUD (intrauterine device) in place Inserted 2015. On Depo-Provera for contraception Surgical History section X 2 Open Carpal Tunnel release (04/24/15) RIGHT WRIST/DR. SCHILLING Family History Mother Diabetes Grandmother Breast cancer Mat Grandmother Breast cancer Pat Maternal Aunt Breast cancer Paternal Maternal Aunt Breast cancer Paternal Maternal Aunt Breast cancer Paternal Maternal Aunt Breast cancer Paternal Social History Smoking/Tobacco Use Status: Former Tobacco Use Smoking risk assessment performed?: Yes Alcohol Intake: never Drug use: Never Substance use type: does not use Household members: spouse, children and other Details: H-Oliver, D- teenager, S-Dionicio. 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 Rx with XRT. 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 Female Reproductive History Menstrual control method: progestin IUCD History History 2 Para Hx # Term Pregnancies 2 Multiple births Hx # Pregnancies Ectopic pregnancies AB induced Hx Number of Living Children AB spontaneous Meds Allergies and Home Medications Allergies Allergy/AdvReac Type Severity Reaction Status Date / Time azithromycin Allergy Severe Anaphylaxsi Verified 12/08/20 17:38 s erythromycin base Allergy Severe Anaphylaxsi Verified 12/08/20 17:38 [Erythromycin Base] s morphine Allergy Severe extreme Verified 12/08/20 17:38 breathing issues Penicillins Allergy Severe Anaphylaxsi Verified 12/08/20 17:38 s gabapentin Allergy Intermediate Swelling/Ed Verified 12/08/20 17:38 rick green pepper AdvReac Unverified 12/09/20 08:30 lactose AdvReac Unverified 12/09/20 08:30 peach AdvReac Unverified 12/09/20 08:30 iv contrast AdvReac Intermediate Swelling/Ed Uncoded 12/08/20 17:38 rick Home Medications Medication Instructions Recorded Confirmed Type hydrocortisone 15 mg PO .QAM 02/09/14 12/08/20 History fludrocortisone 1 tab PO DAILY 07/06/14 12/08/20 History potassium citrate 10 meq PO DAILY 3 Days tablet.er 09/20/17 12/08/20 Rx esomeprazole magnesium 20 mg 20 mg PO DAILY cap 11/13/18 12/08/20 History capsule,delayed release levothyroxine 175 mcg tablet 125 mcg PO DAILY@0730 tab 11/13/18 12/08/20 History ondansetron 4 mg PO Q6H PRN #10 tab 09/24/19 12/08/20 Rx estradiol 10 mcg vaginal tablet 10 mcg VG DAILY #24 tab 12/31/19 01/13/20 Rx metoprolol tartrate 25 mg tablet 25 mg PO DAILY 12/31/19 12/08/20 History atorvastatin 20 mg tablet 20 mg PO DAILY 01/13/20 12/08/20 History hydrocortisone 5 mg tablet 5 mg PO DAILY tab 01/13/20 12/08/20 History Exam Narrative Exam Narrative: General: Patient appears appropriate for age, alert and oriented x3 and slightly anxious with stable affect and good eye contact. She has moderate distress from her neck comfort. HEENT: Normocephalic, eyes with pupils equal and reactive to light symmetrically, extraocular movement intact and sclera anicteric. Oropharynx with moist mucosa and poor dentition with multiple carious teeth and discoloration. External ears and nose normal. Neck: Supple without JVD. No palpable thyromegaly. Decreased range of motion with stiffness and increased muscle spasm of the trapezius muscles guarding with discomfort to palpation and movement. Back: Normal posture, increased tone in paraspinal muscles diffusely with no spasm palpated. Decreased range of motion. No CVA tenderness. Lungs: Clear to auscultation percussion. Heart: Regular rate and rhythm with no murmurs or gallops appreciated. Breast: Exam deferred. Abdomen: Mildly obese contour, soft nontender to palpation with no palpable hepatosplenomegaly. Bowel sounds positive all quadrants. Genitalia/rectal: Exam deferred. Extremities: Without clubbing, cyanosis or pitting edema. Joints have fair range of motion. Peripheral pulses are intact. Skin: Normal color, warm and dry. Neuro: Cranial nerves II through XII grossly intact, no focalizing motor deficits. No Babinski's. No clonus. No tremors. Psych: Anxious, flattened affect with good eye contact and little variation. Depressed mood, tearful at times. No abnormal thought processes. Remote and recent memory intact. Results Imaging Imaging Studies: Exam: XR Chest Exam date and time: 12/08/2020 6:02 PM Age: 45 years old Clinical indication: Other: Anterior chest pain TECHNIQUE: Imaging protocol: XR of the chest. Views: 1 view. COMPARISON: No relevant prior studies available. FINDINGS: Lungs: Unremarkable. No consolidation. Pleural spaces: Unremarkable. No pleural effusion. No pneumothorax. Heart/Mediastinum: Unremarkable. No cardiomegaly. Bones/joints: Unremarkable. IMPRESSION: No acute findings. Labs Result diagrams: 12/09/20 06:39 12/09/20 06:39 Labs: Laboratory Results - last 24 hr 12/08/20 12/08/20 12/08/20 17:50 17:50 17:50 WBC 11.88 H RBC 6.19 H Hgb 18.6 H Hct 52.8 H MCV 85.3 MCH 30.0 MCHC 35.2 RDW 11.2 L Plt Count 356 MPV 9.9 Immature Gran % 0.5 Neutrophils % 62.3 Lymphocytes % 27.7 Monocytes % 8.0 Eosinophils % 0.8 Basophils % 0.7 Nucleated RBC % 0 Absolute Neutrophils 7.40 H Absolute Lymphocytes 3.29 Absolute Monocytes 0.95 H Absolute Eosinophils 0.10 Absolute Basophils 0.08 PT 10.3 INR 1.0 APTT 25.6 Sodium 126 L Potassium 4.7 Chloride 89 L Carbon Dioxide 25.0 Anion Gap 12.0 H BUN 16 Creatinine 1.0 Estimated GFR/1.73 m2 >= 60.00 Glucose 93 Calcium 10.3 H Magnesium 2.3 Total Bilirubin 0.8 AST 34 ALT 68 H Alkaline Phosphatase 73 Troponin I < 0.05 Total Protein 9.6 H Albumin 4.9 TSH 3.64 12/08/20 19:05 WBC RBC Hgb Hct MCV MCH MCHC RDW Plt Count MPV Immature Gran % Neutrophils % Lymphocytes % Monocytes % Eosinophils % Basophils % Nucleated RBC % Absolute Neutrophils Absolute Lymphocytes Absolute Monocytes Absolute Eosinophils Absolute Basophils PT INR APTT Sodium 127 L Potassium 4.8 Chloride 94 L Carbon Dioxide 23.9 Anion Gap 9.1 BUN 15 Creatinine 0.9 Estimated GFR/1.73 m2 >= 60.00 Glucose 93 Calcium 8.6 Magnesium Total Bilirubin 0.7 AST 28 ALT 56 Alkaline Phosphatase 63 Troponin I Total Protein 7.5 Albumin 3.9 TSH Last Vital Signs Temp 36.9 C 12/08/20 17:36 Pulse 91 H 12/08/20 20:30 Resp 20 12/08/20 17:36 BP 132/92 H 12/08/20 20:30 Pulse Ox 99 12/08/20 20:40 COVID-19 Screening Have you, or household traveled for leisure in last 14 days?: No Had IN PERSON contact w/suspected or confirmed C-19 person: No
[2020-12-08 21:35] LABS: Source Nasal/Nares
[2020-12-08 22:18] LABS: COVID-19 PCR Negative (Negative)
[2020-12-08] MEDS: Atorvastatin 20 MG TAB PO (23:39)
[2020-12-08] MEDS: Metoprolol 25 MG TAB PO (23:39)
[2020-12-08] MEDS: Acetaminophen 325 MG TAB 650 MG PO (23:39)
[2020-12-09] VITALS (10 sets, daily range): BP systolic 96–120; BP diastolic 59–78; PULSE 66–93; RESP 16–19; TEMP 36.1–36.7; O2SAT 98–100
[2020-12-09] MEDS: Hydrocortisone SOD SUC. 100 MG VIAL 50 MG IVP ×3 (02:27→18:08)
[2020-12-09 02:42] LABS: Bilirubin Negative (Negative); Blood Trace-intact (Negative); Clarity Clear (Clear); Glucose Negative (Negative); Ketones Trace mg/dL (Negative); Leukocyte Esterase Negative (Negative); Nitrite Negative (Negative); Specific Gravity >= 1.030 (1.005-1.025); Urobilinogen 0.2 EU/dL (Up TO 0.2)
[2020-12-09 02:44] LABS: Bacteria Few HPF (Negative); Crystals Negative HPF (Negative); Epithelial Cells Few HPF (Negative); RBC 0-2 HPF (0-2); WBC Negative HPF (0-5)
[2020-12-09 02:45] LABS: C & S Indicated? No; Casts Negative LPF (Negative); Mucus Heavy (Negative)
[2020-12-09] MEDS: Metoprolol 25 MG TAB PO ×2 (06:47→14:28)
[2020-12-09] MEDS: traMADol 50 MG TAB PO (06:47)
[2020-12-09] MEDS: Normal Saline 1,000 ML 125 ML IV ×2 (06:53→15:59)
[2020-12-09 07:01] LABS: Abs Immature Grans 0.06 10^3/uL (0.0-0.06); Absolute Basophil Count 0.02 10^3/uL (0.0-0.2); Absolute Eosinophil Count 0.01 10^3/uL (0.0-0.7); Absolute Lymphocyte Count 1.24 10^3/uL (1.2-3.4); Absolute Monocyte Count 0.35 10^3/uL (0.1-0.8); Absolute Neutrophil Count 7.04 10^3/uL (1.2-6.7); Basophils % 0.2; Eosinophils % 0.1; HCT 42.1 % (36.0-46.0); HGB 14.4 g/dL (11.2-15.7); Immature Grans % 0.7; Lymphocytes % 14.2; MCH 29.8 pg (27.0-33.0); MCHC 34.2 % (32.0-36.0); Neutrophils % 80.8; Nucleated RBC 0 %; Platelet Count 267 10^3/uL (130-400); RBC 4.84 10^6/uL (3.93-5.22); RDW 11.7 % (11.7-14.6); RDW-SD 37.4 fL; WBC 8.72 10^3/uL (4.4-10.8)
[2020-12-09 07:18] LABS: ALT 43 U/L (14-59); AST 21 U/L (15-37); Albumin 3.6 g/dL (3.4-5.0); Alkaline Phosphatase 49 U/L (46-116); BUN 10 mg/dL (7-18); Bilirubin, Total 0.8 mg/dL (0.2-1.0); CREATININE 0.8 mg/dL (0.55-1.02); Calcium 8.5 mg/dL (8.5-10.1); Chloride 99 mmol/L (98-107); Glucose 106 mg/dL (74-106); Sodium 130 mmol/L (136-145)
[2020-12-09] MEDS: Levothyroxine 125 MCG TAB PO (07:53)
[2020-12-09] MEDS: Normal Saline Flush 10 ML SYR IVP ×5 (08:39→22:44)
[2020-12-09] MEDS: Pantoprazole 40 MG VIAL IVP (08:39)
[2020-12-09] MEDS: Potassium Chloride 10 MEQ CAPCR PO (08:39)
--- NOTE | 2020-12-09 10:05 | PGE_ITS ---
Date of Service Date of service: 12/09/20 Time of Service: 13:00 Assessment and Plan Assessment and plan (1) Hyponatremia: Status: Acute Assessment and plan: improving with treatment (IV saline and steroids) (2) Hypothyroidism: Status: Chronic Assessment and plan: Stable with supplements with monitoring of labs. TSH 3.64 Qualifiers: Hypothyroidism type: acquired Qualified Code(s): E03.9 - Hypothyroidism, unspecified (3) Addisons disease: Status: Chronic Assessment and plan: Patient does have occasional exacerbation of adrenal insufficiency and at this time either a viral gastroenteritis and or increased stress with panic and anxiety is the cause of her deficiency and decompensation with hyponatremia. Continue IV steroids with weaning back to her oral regimen as tolerated. will also resume home oral steroids, taper tomorrow. (4) Hypertension: Status: Chronic Assessment and plan: Patient presently is hypertensive and not being hypotensive presently does not fit into the picture of adrenal insufficiency but this is multifactorial. Watch closely for overtreatment and hypotension. her fludrocortisone was held on admission, will resume and closely monitor pressure closely discussed with Dr Adams Qualifiers: Hypertension type: essential hypertension Qualified Code(s): I10 - Essential (primary) hypertension Subjective Subjective Patient reports: tolerating liquids well and tolerating a regular diet Interval history since last seen: patient continues to feel off and anxious. has been hemodynamically stable but blood pressures soft in afternoon. started back up on fluodrocortisone. tolerating PO well Exam Const General: cooperative and no acute distress Orientation: alert, awake and oriented x3 HENMT Head: normal to inspection Ears: hearing grossly normal bilaterally and external ears normal Face and sinus: normal facial exam Mouth: oral mucosae normal Throat: posterior oropharynx normal Eyes General: appearance normal, both eyes and all related structures Pupils: PERRL EOM: EOM intact bilaterally Neck Neck: normal visual inspection and No submandibular swelling Lymphatic: no lymphadenopathy noted Chest Chest: normal inspection of the chest and no tenderness Resp Effort & Inspection: normal respiratory effort and able to speak in complete sentences Auscultation: clear to auscultation bilaterally Cardio Rate: regular rate Rhythm: regular rhythm GI Inspection: normal to inspection Palpation: soft, not firm, not rigid and nontender Auscultation: normal bowel sounds Back/Spine/Pelvis Cervical Spine: cervical muscular tenderness (Bilateral) and pain with cervical ROM Skin General skin exam: no rashes or lesions noted Neuro General: patient alert, patient awake, patient oriented x3 and moves all extremities Cranial Nerves: CN's II-XI intact bilaterally Cognition: normal cognition Speech: speech normal Motor: muscle tone normal throughout and strength 5/5 throughout Sensory Exam: no sensory deficits noted Extrem General: normal to inspection, full ROM, capillary refill normal, no calf te nderness bilaterally and no edema Psych Appearance: grossly normal Mental Status: mental status grossly normal Speech and Movement: speech and movement normal Affect: normal affect Objective Last Vital Signs Temp 36.1 C L 12/09/20 07:46 Pulse 67 12/09/20 07:46 Resp 17 12/09/20 07:46 BP 104/71 12/09/20 07:46 Pulse Ox 98 12/09/20 07:46 Laboratory Results - last 24 hr 12/08/20 12/08/20 12/08/20 17:50 17:50 17:50 WBC 11.88 H RBC 6.19 H Hgb 18.6 H Hct 52.8 H MCV 85.3 MCH 30.0 MCHC 35.2 RDW 11.2 L Plt Count 356 MPV 9.9 Immature Gran % 0.5 Neutrophils % 62.3 Lymphocytes % 27.7 Monocytes % 8.0 Eosinophils % 0.8 Basophils % 0.7 Nucleated RBC % 0 Absolute Neutrophils 7.40 H Absolute Lymphocytes 3.29 Absolute Monocytes 0.95 H Absolute Eosinophils 0.10 Absolute Basophils 0.08 PT 10.3 INR 1.0 APTT 25.6 Sodium 126 L Potassium 4.7 Chloride 89 L Carbon Dioxide 25.0 Anion Gap 12.0 H BUN 16 Creatinine 1.0 Estimated GFR/1.73 m2 >= 60.00 Glucose 93 Calcium 10.3 H Magnesium 2.3 Total Bilirubin 0.8 AST 34 ALT 68 H Alkaline Phosphatase 73 Troponin I < 0.05 Total Protein 9.6 H Albumin 4.9 TSH 3.64 Urine Color Urine Clarity Urine pH Ur Specific [place] Urine Protein Urine Ketones Urine Blood Urine Nitrite Urine Bilirubin Urine Urobilinogen Ur Leukocyte Esterase Urine RBC Urine WBC Ur Epithelial Cells Urine Crystals Urine Bacteria Urine Casts Urine Mucus Ur Culture Indicated? Urine Glucose COVID-19 Source SARS-CoV-2 (PCR) 12/08/20 12/08/20 12/09/20 19:05 21:14 02:30 WBC RBC Hgb Hct MCV MCH MCHC RDW Plt Count MPV Immature Gran % Neutrophils % Lymphocytes % Monocytes % Eosinophils % Basophils % Nucleated RBC % Absolute Neutrophils Absolute Lymphocytes Absolute Monocytes Absolute Eosinophils Absolute Basophils PT INR APTT Sodium 127 L Potassium 4.8 Chloride 94 L Carbon Dioxide 23.9 Anion Gap 9.1 BUN 15 Creatinine 0.9 Estimated GFR/1.73 m2 >= 60.00 Glucose 93 Calcium 8.6 Magnesium Total Bilirubin 0.7 AST 28 ALT 56 Alkaline Phosphatase 63 Troponin I Total Protein 7.5 Albumin 3.9 TSH Urine Color Yellow Urine Clarity Clear Urine pH 6.0 Ur Specific [place] >= 1.030 H Urine Protein Negative Urine Ketones Trace H Urine Blood Trace-intact H Urine Nitrite Negative Urine Bilirubin Negative Urine Urobilinogen 0.2 Ur Leukocyte Esterase Negative Urine RBC 0-2 Urine WBC Negative Ur Epithelial Cells Few Urine Crystals Negative Urine Bacteria Few Urine Casts Negative Urine Mucus Heavy Ur Culture Indicated? No Urine Glucose Negative COVID-19 Source Nasal/nares SARS-CoV-2 (PCR) Negative 12/09/20 12/09/20 06:39 06:39 WBC 8.72 RBC 4.84 Hgb 14.4 D Hct 42.1 D MCV 87.0 MCH 29.8 MCHC 34.2 RDW 11.7 Plt Count 267 MPV 10.0 Immature Gran % 0.7 Neutrophils % 80.8 Lymphocytes % 14.2 Monocytes % 4.0 Eosinophils % 0.1 Basophils % 0.2 Nucleated RBC % 0 Absolute Neutrophils 7.04 H Absolute Lymphocytes 1.24 Absolute Monocytes 0.35 Absolute Eosinophils 0.01 Absolute Basophils 0.02 PT INR APTT Sodium 130 L Potassium 5.0 Chloride 99 Carbon Dioxide 22.0 Anion Gap 9.0 BUN 10 Creatinine 0.8 Estimated GFR/1.73 m2 >= 60.00 Glucose 106 Calcium 8.5 Magnesium Total Bilirubin 0.8 AST 21 ALT 43 Alkaline Phosphatase 49 Troponin I Total Protein 7.0 Albumin 3.6 TSH Urine Color Urine Clarity Urine pH Ur Specific [place] Urine Protein Urine Ketones Urine Blood Urine Nitrite Urine Bilirubin Urine Urobilinogen Ur Leukocyte Esterase Urine RBC Urine WBC Ur Epithelial Cells Urine Crystals Urine Bacteria Urine Casts Urine Mucus Ur Culture Indicated? Urine Glucose COVID-19 Source SARS-CoV-2 (PCR)
[2020-12-09] MEDS: Acetaminophen 500 MG TAB 1000 MG PO (12:58)
[2020-12-09] MEDS: Ketorolac 30 MG/ML VIAL IVP (12:58)
[2020-12-09] MEDS: LORazepam 2 MG/ML VIAL 0.5 MG IVP (13:14)
--- NOTE | 2020-12-09 13:57 | CHAPLAIN ---
Fide was sitting up in bed, the room was dark, when I visited. She was clearly uncomfortable and said so. She had not slept well either. She was waiting to meet with the doctor she said, to address the pain. IBIS Rodas, arrived shortly after I left. I explained my role to Adrianna and offered suppont.
[2020-12-09] MEDS: Fludrocortisone 0.1 MG TAB PO (16:26)
[2020-12-09] MEDS: Atorvastatin 20 MG TAB PO (22:44)
[2020-12-09] MEDS: Melatonin 3 MG TAB 6 MG PO (22:44)
[2020-12-09] MEDS: Hydrocortisone 10 MG TAB 5 MG PO (22:45)
[2020-12-10] MEDS: Normal Saline 1,000 ML 125 ML IV ×2 (00:06→08:03)
[2020-12-10] MEDS: Hydrocortisone SOD SUC. 100 MG VIAL 50 MG IVP (01:53)
[2020-12-10 06:35] VITALS: BP 97/63; PULSE 74; RESP 16; TEMP 36.5; O2SAT 97
[2020-12-10] MEDS: Levothyroxine 125 MCG TAB PO (06:36)
[2020-12-10] MEDS: Acetaminophen 325 MG TAB 650 MG PO (06:41)
[2020-12-10] MEDS: Normal Saline Flush 10 ML SYR IVP (07:57)
[2020-12-10] MEDS: Potassium Chloride 10 MEQ CAPCR PO (07:57)
[2020-12-10] MEDS: Hydrocortisone 10 MG TAB 15 MG PO (07:57)
[2020-12-10] MEDS: Pantoprazole 40 MG VIAL IVP (07:57)
[2020-12-10 08:32] VITALS: BP 128/83; PULSE 80; RESP 18; TEMP 36.7; O2SAT 99
[2020-12-10 09:04] VITALS: PULSE 66
[2020-12-10 10:50] LABS: Anion Gap 11.2 mmol/L (3-11); BUN 8 mg/dL (7-18); CO2 21.8 mmol/L (21.0-32.0); CREATININE 0.9 mg/dL (0.55-1.02); Calcium 8.1 mg/dL (8.5-10.1); Chloride 107 mmol/L (98-107); Glucose 117 mg/dL (74-106); Potassium 3.5 mmol/L (3.5-5.1); Sodium 140 mmol/L (136-145)
--- NOTE | 2020-12-10 10:57 | W.PM.DS.N ---
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 She had increased stress recently and also possible viral gastroenteritis with nausea, vomiting and diarrhea resulted in hyponatremia and increased muscle spasm over her trunk and extremities diffusely.? The patient had increased weakness and began to feel that she was in one of her [place]'s crisis, doubling her oral hydrocortisone for least 48 hours without relief and then reporting to the ED on the day of admission.? In the ED she was found to be hyponatremic with a sodium of 126 usually running about 130, hypertensive and not hypotensive and hypoglycemic as one would see with Norberto's crisis.? She was treated symptomatically at this point with tramadol for pain, IV fluid resuscitation and IV steroids all initiated in the ED.? At the time I saw the patient she was feeling better except for some spasm especially over the neck with chronic neck pain.? Recent evaluation of her neck pain revealed no significant arthritis or degenerative disc disease.? She does have increased stress with psychological stressors and social chaos with the patient soon to be homeless, no financial support and minimal family support.? Presently her 5-year-old child is with her mother with whom she has a stressed relationship. she was admitted to med/surg on IV saline and stress dose steroids. She responded to treatment, sodium normalized and symptoms resolved. case management did give her resources for social support in community. She is being discharge on steroid taper and will follow up with pcp outpatient. discharge discussed with Dr Bryan Blum Meds and New Rx's Prescriptions: New hydrocortisone 10 mg tablet 50 mg PO DAILY Qty: 20 RF: 0 Continued metoprolol tartrate 25 mg tablet 25 mg PO DAILY RF: 0 estradiol [Vagifem] 10 mcg tablet 10 mcg VG DAILY Qty: 24 RF: 4 esomeprazole magnesium [Nexium] 20 mg capsule,delayed release(DR/EC) 20 mg PO DAILY RF: 0 hydrocortisone 5 mg tablet 5 mg PO DAILY RF: 0 atorvastatin [Lipitor] 20 mg tablet 20 mg PO DAILY RF: 0 hydrocortisone 10 MG tablet 15 mg PO .QAM RF: 0 fludrocortisone 0.1 MG tablet 0.5 tab PO Q OTHER DAY RF: 0 levothyroxine 175 mcg tablet 125 mcg PO DAILY@0730 RF: 0 potassium citrate 10 MEQ tablet extended release 10 meq PO DAILY 3 Days RF: 0 ondansetron 4 mg tablet,disintegrating 4 mg PO Q6H PRN (Reason: nausea and vomiting) Qty: 10 RF: 0 Discharge Instructions Instructions: [place] Disease (DC) Additional Instructions: take 50 mg of hydrocortisone tomorrow then resume usual dosing, or as directed by endocrine. Stand Alone Forms: Nursing Discharge Form Referrals: ENDOCRINOLOGY,[facility] [place] [OTHER] - 12/14/20 2:45 pm Edenilson Ceja [Primary Care Provider] - 12/28/20 3:00 pm Activity:: Activity as Tolerated Equipment/Supplies:: No Equipment Needed Diet:: As Tolerated Discharge Orders Discharge Orders: Discharge Order (Routine); Ordered 12/10/20 Ordered By: Adrianna Chawla Discharge Data Discharge Date/Time-TO BE ENTERED AT DEPARTURE: 12/10/20 13:01 DS: Summary Time Spent with Patient providing and/or coordinating discharge services: Less than 30 minutes Status at Discharge Functional status at discharge: independent ambulation Overall status at discharge: patient is back to baseline Mental Status: mental status grossly normal Speech and Movement: speech and movement normal Mood: congruent mood Affect: normal affect Exam Const General: cooperative and no acute distress Orientation: alert, awake and oriented x3 HENMT Head: normal to inspection Ears: hearing grossly normal bilaterally and external ears normal Face and sinus: normal facial exam Mouth: oral mucosae normal Throat: posterior oropharynx normal Eyes General: appearance normal, both eyes and all related structures Pupils: PERRL EOM: EOM intact bilaterally Neck Neck: normal visual inspection and No submandibular swelling Lymphatic: no lymphadenopathy noted Chest Chest: normal inspection of the chest and no tenderness Resp Effort & Inspection: normal respiratory effort and able to speak in complete sentences Auscultation: clear to auscultation bilaterally Cardio Rate: regular rate Rhythm: regular rhythm GI Inspection: normal to inspection Palpation: soft, not firm, not rigid and nontender Auscultation: normal bowel sounds Back/Spine/Pelvis Cervical Spine: cervical muscular tenderness (Bilateral) and pain with cervical ROM Skin General skin exam: no rashes or lesions noted Neuro General: patient alert, patient awake, patient oriented x3 and moves all extremities Cranial Nerves: CN's II-XI intact bilaterally Cognition: normal cognition Speech: speech normal Motor: muscle tone normal throughout and strength 5/5 throughout Sensory Exam: no sensory deficits noted Extrem General: normal to inspection, full ROM, capillary refill normal, no calf tenderness bilaterally and no edema Psych Appearance: grossly normal Mental Status: mental status grossly normal Speech and Movement: speech and movement normal Mood: congruent mood Affect: normal affect DS: Data Vitals/I&O Vitals and I&O: Vital Signs Temperature 36.7 C 12/10/20 08:32 Temperature Source Tympanic 12/10/20 08:32 Pulse 66 12/10/20 09:04 Pulse Rhythm Regular 12/10/20 06:30 Respiratory Rate 18 12/10/20 08:32 Respiratory Effort 12/10/20 06:30 Respiratory Depth Normal 12/10/20 06:30 Respiratory Pattern Normal 12/10/20 06:30 Blood Pressure 128/83 12/10/20 08:32 Blood Pressure Mean 100 12/08/20 20:30 Blood Pressure Position Sitting 12/08/20 17:36 Pulse Oximetry 99 12/10/20 08:32 Oxygen Delivery Method Room Air 12/10/20 08:32 Oxygen Flow Rate 0 12/10/20 08:32 Pain Level 4 12/10/20 08:32 Comment 12/10/20 03:12 Intake & Output 12/09/20 12/09/20 12/10/20 11:59 23:59 11:59 Intake Total 1690 / 5250 3560 / 5250 1443.75 / 1443.75 Output Total 450 / 3775 3325 / 3775 Balance 1240 / 1475 235 / 1475 1443.75 / 1443.75 Weight 58.06 kg 60.8 kg Intake: IV 1999 / 1999 993.75 / 993.75 Oral 1690 / 3250 1560 / 3250 450 / 450 Output: Urine 450 / 3775 3325 / 3775 Other: Urine Color Yellow Urine Appearance Clear Clear Comment multiple voids using BR independently Voiding Methods Toilet Toilet Data Completed and Pending Labs on day of discharge: Labs from last 24 hours 12/10/20 10:25 Sodium 140 Potassium 3.5 D Chloride 107 Carbon Dioxide 21.8 Anion Gap 11.2 H BUN 8 Creatinine 0.9 Estimated GFR/1.73 m2 >= 60.00 Glucose 117 H Calcium 8.1 L PFSH Medical History Addisons disease Michelle's syndrome Amenorrhea Hx of Clostridium difficile infection Hx C/diff after knee surgery in 2010. No recurrences. Hypertension Hypothyroidism IUD (intrauterine device) in place Inserted 2015. On Depo-Provera for contraception Surgical History section X 2 Open Carpal Tunnel release (04/24/15) RIGHT WRIST/DR. SCHILLING Family History Mother Diabetes Grandmother Breast cancer Mat Grandmother Breast cancer Pat Maternal Aunt Breast cancer Paternal Maternal Aunt Breast cancer Paternal Maternal Aunt Breast cancer Paternal Maternal Aunt Breast cancer Paternal Social History Smoking/Tobacco Use Status: Former Tobacco Use Smoking risk assessment performed?: Yes Alcohol Intake: never Drug use: Never Substance use type: does not use Household members: spouse, children and other Details: H-Oliver, D- teenager, S-Dionicio. 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 Rx with XRT. 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 Female Reproductive History Menstrual control method: progestin IUCD History History 2 Para Hx # Term Pregnancies 2 Multiple births Hx # Pregnancies Ectopic pregnancies AB induced Hx Number of Living Children AB spontaneous
[2020-12-10 11:27] VITALS: BP 142/83; PULSE 89; RESP 18; TEMP 36.9; O2SAT 100
[2020-12-10] MEDS: Potassium Chloride 20 MEQ TABCR PO (12:41)
[2020-12-10 14:38] VITALS: PULSE 85
--- NOTE | 2020-12-10 16:18 | PDOC.CMDIS ---
Care Management Discharge Reason for Hospitalization: Hyponatremia, Norberto's Disease Discharge Plan: Fide will return home when ready per MD. She will follow up with her PCP and plan of care as prescribed. She will transport via private vehicle with her mother. Patient/Family Education Needs: Review discharge instructions, discuss Ask Me Three.
== END 2020-12-10 13:01 | disposition home or self-care (01) | DRG 641 ==
LOC: ER 20:59 → MS 21:16
PROVIDERS: Nurse Practitioner Acute Care; Physician Assistant; Admitting Provider Family Medicine; Emergency Provider Physician Assistant; PCP Family Medicine; Visit Provider Family Medicine
DX: E87.1 Hypo-osmolality and hyponatremia (principal); E27.1 Primary adrenocortical insufficiency; I10 Essential (primary) hypertension; E03.9 Hypothyroidism, unspecified; Z79.52 Long term (current) use of systemic steroids; E16.1 Other hypoglycemia; D33.3 Benign neoplasm of cranial nerves; Z20.822 Contact with and (suspected) exposure to COVID-19
CPT/HCPCS: 36415; 80048; 80053; 81025; 87635; 93005; 96361; 96365; 96375; 99285; 71045; 81003; 81015; 83735; 84443; 84484; 85025; 85610; 85730; 93010; 99233; 99238; J0131; J1720; J1885; J2060; J2405

== ENCOUNTER 2021-03-05 08:49 | Emergency (ER) | payer MEDICAID, SELFPAY ==
[2021-03-05] VITALS (41 sets, daily range): BP systolic 114–149; BP diastolic 65–95; PULSE 77–94; RESP 15–27; TEMP 36.4; O2SAT 95–100
--- OUTSIDE RECORDS SUMMARY | 2021-03-05 08:55 | XMS_ITS ---
:1975 Author Care Team Providers Name Role Phone NICHELLE SOUZA MD Facilities Officer [phone] TEOFILO CROSS MD Primary Care Provider [phone] HERIBERTO LAZO MD General Surgeon [phone] Allergies Code Code Name Reaction Severity Status Onset System 723 RxNorm Amoxicillin Other ? Active ? 474683 RxNorm Carafate Eye Swelling ? Active ? 20341027 RxNorm Compazine Respiratory ? Active ? Distress 30878 RxNorm Gabapentin Irregular Heart ? Active ? Rate ? ? ? Other ? Active ? Iodinated Arthralgia Severe Active ? Contrast Media (Joint Pain) ? Myalgias Severe Active ? (Muscle Pain) 7052 RxNorm Morphine Respiratory ? Active ? Distress Penicillins Hives Severe Active ? 19403 RxNorm Ropinirole Vomiting Moderate to Active ? Severe Sulfa Nausea Moderate to Active ? (Sulfonamide Severe Antibiotics) 57495 RxNorm Tramadol Respiratory ? Active ? Distress PEN-VEE K ? ? Deactivated ? Notes: No seafood allergy. Contr ast allergy. Updated 08/13/19-laf 08/06/2020 after endoscopies pt reported severe sneezing day of and day after procedure with versed. Medications Name Status Start Date Stop Date ? ? Afluria Qd 2018- (36 mos Completed ? 07/19 up)(PF)60 mcg (15 mcg x4)/0.5 mL IM syringe amitriptyline 25 mg tablet Completed ? 01/03 atorvastatin 20 mg tablet Completed ? 2019 Take 1 tablet every day by oral route for 90 days. benzonatate 100 mg capsule Completed ? 01/03 Carafate 100 mg/mL oral Completed ? 07/19/20 19 suspension clindamycin HCl 300 mg capsule Active ? N ot available Take 1 capsule 3 times a day by oral route as directed for 10 d ays. clotrimazole 10 mg hailee Active ? Not av ailable Take 1 tablet 3 times a day by oral route for 10 days. Compazine 10 mg tablet Completed ? 1 Take 1 tablet every 8 hours by oral route as needed for 30 days . Compazine 25 mg rectal suppository Completed ? 09/18/2020 Insert 1 suppository twice a day by rectal route as needed. cyanocobalamin (vit B-12) 1,000 mcg tablet Active ? Not available Take 1 tablet every day by oral route in the morning for 90 day s. cyclobenzaprine 10 mg tablet Completed ? Take 1 tablet 3 times a day by oral route as needed. dicyclomine 10 mg capsule Completed ? 2017 doxycycline hyclate 100 mg Completed ? 12/28 capsule doxycycline hyclate 100 mg tablet Completed ? 07/08/2020 Take 1 tablet twice a day by oral route for 14 days. erythromycin 5 mg/gram (0.5 %) Completed ? 0 01/11/2018 eye ointment estradiol 10 mcg vaginal tablet Active ? Not available Insert 1 tablet twice a week by vaginal route. famotidine 40 mg tablet Active ? Not avai lable Take 1 tablet twice a day by oral route as needed for 90 days. ferrous gluconate 324 mg (38 mg iron) tablet Completed ? 04/06/2020 take 1 tab with vitamin C 500mg daily ( >3 hours from thyroid med) for 90 days only fludrocortisone 0.1 mg tablet Active ? No t available Take 0.5 tablets every other day by oral route as directed for 90 days. fluticasone propionate 50 Completed ? 2018 mcg/actuation nasal spray,suspension hydrocodone 10 mg-acetaminophen Completed ? 01/03/2018 325 mg tablet hydrocodone 5 mg-acetaminophen Completed ? 1 09/19/2018 325 mg tablet hydrocortisone 10 mg tablet Completed ? 07/25 hydrocortisone 20 mg tablet Completed ? 12/23 hydrocortisone 5 mg tablet Active ? Not a vailable Take 3 tablets twice a day by oral route as directed for 90 day s. ibuprofen 800 mg tablet Completed ? 07/19/20 19 levothyroxine 125 mcg capsule Completed 07/19/2019 Take 1 capsule every day by oral route. levothyroxine 125 mcg tablet Active ? Not available Take 1 tablet every day by oral route for 90 days. levothyroxine 137 mcg tablet Completed ? levothyroxine 150 mcg tablet Completed ? levothyroxine 175 mcg tablet Completed ? levothyroxine 200 mcg tablet Completed ? Lipitor 10 mg tablet Active ? Not availab le Take 1 tablet every day by oral route for 90 days. loratadine 10 mg tablet Completed ? 10/20/19 21 Take 1 tablet every day by oral route for 90 days. lorazepam 0.5 mg tablet Completed ? 05/03/20 18 lorazepam 1 mg tablet Active ? Not availa ble Take 1 tablet twice a day by oral route as needed for 30 days. Lyrica 50 mg capsule Active ? Not availab le Take 1 capsule 3 times a day by oral route for 30 days. magnesium gluconate 27.5 mg magnesium (500 mg) tablet Active ? Not available Take 2 tabs twice daily; if diarrhea, can decrease dose meloxicam 15 mg tablet Completed ? 8 1 po daily prn metoclopramide 10 mg tablet Completed ? 12/22 metoclopramide 5 mg tablet Completed ? 07/19 metoprolol succinate ER 25 mg tablet,extended release 24 hr Acti ve ? Not available Take 2 tablets twice a day by oral route for 90 days. metoprolol tartrate 25 mg tablet Completed ? 08/14/2019 metoprolol tartrate 50 mg tablet Completed ? 01/03/2018 Mirena 20 mcg/24 hours (6 yrs) 52 mg intrauterine device Active 08/14/2019 Not available Take by intrauterine route as directed. mometasone 0.1 % topical cream Completed ? 0 01/03/2018 Nexium 40 mg capsule,delayed release Completed ? 07/19/2019 Take 1 capsule every day by oral route for 90 days. nystatin 100,000 unit/mL oral suspension Completed ? 01/20/2020 Take 5 mL 4 times a day by oral route for 14 days. omeprazole 40 mg capsule,delayed release Active ? Not available Take 1 capsule every day by oral route for 90 days. ondansetron 4 mg disintegrating Completed ? 01/11/2018 tablet ondansetron HCl 8 mg tablet Completed ? 12/22 potassium Completed 07/19/2019 08/05/2019 99 mg once daily potassium 20 mg chewable tablet Completed ? 08/05/2019 Take 1 tablet every day by oral route for 90 days. potassium bicarbonate-citric acid 20 mEq effervescent tablet Com pleted ? 08/05/2019 Take 1 tablet 4 times a day by oral route. potassium chloride ER 10 mEq tablet,extended release Active ? Not available Take 2 tablets every day by oral route for 90 days. potassium chloride ER 10 mEq Completed ? tablet,extended release(part/cryst) potassium chloride ER 20 mEq tablet,extended release Completed 08/14/2019 09/23/2019 Take 1 tablet every day by oral route for 90 days. potassium chloride ER 20 mEq Completed ? tablet,extended release(part/cryst) potassium citrate ER 10 mEq Completed ? 12/22 (1,080 mg) tablet,extended release ProAir HFA 90 mcg/actuation Completed ? 12/22 aerosol inhaler promethazine 25 mg tablet Active 08/14/2019 Not av ailable 1 tablet every 4 hours by oral route as needed. ranitidine 150 mg tablet Completed ? 018 ranitidine 75 mg tablet Completed ? 07/19/20 19 Take 1 tablet every day by oral route. Restasis 0.05 % eye drops in a Completed ? 0 01/11/2018 dropperette ropinirole 1 mg tablet Completed ? 0 Take 1 to 3 tabs at bedtime sertraline 50 mg tablet Completed ? 01/04/20 18 sulfamethoxazole 800 Completed ? 07/16/2018 mg-trimethoprim 160 mg tablet TobraDex 0.3 %-0.1 % eye drops,suspension Completed ? 01/26/2018 INSTILL 1 DROP INTO AFFECTED EYE(S) BY OPHTHALMIC ROUTE EVERY 6 HOURS Toprol XL 50 mg tablet,extended release Completed ? 10/17/2019 Take 1 tablet every day by oral route. tramadol 50 mg tablet Completed 08/14/2019 09/23/2019 Take 1 tablet every 8 hours by oral route as needed for 5 days. triamcinolone acetonide 0.1 % Completed ? topical cream Virtussin AC 10 mg-100 mg/5 mL Completed ? 0 12/28/2018 oral liquid Vitamin D3 50 mcg (2,000 unit) capsule Active ? Not available Take 1 capsule every day by oral route. Vitamins B Complex capsule Active ? Not a vailable Take 1 capsule every day by oral route in the morning. Xiidra 5 % eye drops in a Completed ? 2018 dropperette Zofran 4 mg tablet Active ? Not available Take 1 tablet every 6 hours by oral route as needed. Zylet 0.3 %-0.5 % eye Completed ? 07/19/2019 drops,suspension Notes: med rec updated 09/18/2020 Patient says takes a green otc gas pill before meals, and has tried reglan but i t didnt help Problems Name Status Onset Date Source ? 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 Intermittent Palpitations Unknown 01/26/2018 ? Atypical Chest Pain Active 01/26/2018 ? Irritable Bowel Syndrome with Diarrhea Active 8 ? Diarrhea Unknown 05/03/2018 ? Right Upper Quadrant Pain Active 05/03/2018 ? Elevated Liver Enzymes Level Unknown 05/03/2018 ? Acquired Hypothyroidism Active 05/17/2018 ? Persistent Insomnia Active 05/17/2018 ? Allergic Rhinitis Active 07/16/2018 ? Polyglandular Dysfunction Active 07/19/2018 ? 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 Carpal Tunnel Syndrome Active 07/19/2018 ? 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 Hypertensive Disorder Active 07/19/2018 ? Supraventricular Tachycardia Unknown 07/19/2018 ? Hemorrhoids Unknown 07/19/2018 ? Arthritis Active 07/19/2018 ? Fibromyalgia Active 07/19/2018 ? Sleep Disorder Active 07/19/2018 ? Platypnea Unknown 07/19/2018 ? Abdominal Pain Active 07/19/2018 ? Serum Iron Raised Unknown 01/15/2019 ? Rectal Hemorrhage Unknown 04/25/2019 ? Hypokalemia Active 08/05/2019 ? Premature Atrial Contraction Active 09/23/2019 ? Dental Abscess Active 10/07/2019 ? Hyperlipidemia Active 01/20/2020 ? Low Blood Pressure Active 01/20/2020 ? Elevated Liver Enzymes Level Active 02/18/2020 ? Neck Sprain Active 06/23/2020 ? Neck Pain Active 06/29/2020 ? Vitamin D Deficiency Active 10/05/2020 ? Hyponatremia Active 10/05/2020 ? Secondary Polycythemia Active 10/05/2020 ? Ophthalmic Migraine Active 10/05/2020 ? Cervical Radiculopathy Active 10/05/2020 ? Paresthesia of Upper Limb Active 10/05/2020 ? Claustrophobia Active 10/26/2020 ? Severe Anxiety (Panic) Active 12/07/2020 ? Procedures Date Name Performed by ? 08/05/2020 EGD/Endoscopy Information not avai lable Notes: mild gastritis. 08/05/2020 Upper Endoscopy (Egd) with Information n ot available Colonoscopy (Surg) 08/05/2020 Colonoscopy Information not avai lable Notes: WNL 2016 ? Carpal Tunnel Surgery Information not av ailable Notes: bilateral ? Thumb Surgery Information not avai lable Notes: 2012 right hand- both thumbs f or trigger finger ? Section Information not avai lable Notes: 2003, 2014 ? Arthroscopy Information not avai lable Notes: 2010 patella 01/04/2018 CT, Sinuses, W/o Contrast [facility] (Internal) [address] [place] [address] (Work Place) 01/26/2018 Electrocardiogram [facility] [address] [place] [phone] (Work Place) 05/03/2018 US, Abdomen, Limited [facility] (Internal) [address] [place] [address] (Work Place) 05/17/2018 NM, Hepatobiliary Scan, W/ CCK [facility] Rad[facility] (Internal) [address] [place] [address] (Work Place) 08/05/2019 Event Monitor [facility] Cardio pulmonary [address] [place] [address] (Work Place) 08/05/2019 US, Echocardiogram [facility] Radiology (Internal) [address] [place] [address] (Work Place) 11/07/2019 Exercise Stress Test [facility] (Internal) [address] [place] [address] (Work Place) 02/18/2020 US, Abdomen, Limited [facility] (Internal) [address] [place] [address] (Work Place) 04/06/2020 Electrocardiogram [facility] [address] [place] [phone] (Work Place) 05/05/2020 US, Echocardiogram [facility] (Internal) [address] [place] [address] (Work Place) 05/05/2020 Holter Monitor [facility] Cardio pulmonary [address] [place] [address] (Work Place) 05/26/2020 CT, Sinuses, W/o Contrast [facility] (Internal) [address] [place] [address] (Work Place) 06/29/2020 XR, Cervical Spine, [address] [facility] (Internal) [address] [place] [address] (Work Place) 10/05/2020 [facility] [address] [place] [address] (Work Place) 10/05/2020 MRI, Cervical Spine, W/o Contrast [facility] (Internal) [address] [place] [address] (Work Place) 10/05/2020 XR, Cervical Spine, [address] [facility] (Internal) [address] [place] [address] (Work Place) 10/06/2020 MRI, Brain, W/wo Contrast [facility] ri [address] [place] [address] (Work Place) Results Lab Results Date Name Specimen Result Interpretation Description Value Range Status Address ? 01/20/2021 CBC W/ BLD ? Wbc 9.2 10*3/uL 5.0-10.0 Final [place] Auto Diff 10*3/uL [facility] L ab (Internal) : [address] ? ? BLD ? Rbc 4.98 10*6/uL 4.10-5.30 Final N orth 10*6/uL [facility] L ab (Internal) : [address] ? ? BLD ? Hgb 15.4 g/dL 12.0-16.0 Final Nort h g/dL [facility] L ab (Internal) : [address] ? ? BLD ? Hct 45.3 % 37.0-47.[address] [facility] L ab (Internal) : [address] ? ? BLD ? Mcv 91.0 fL 80.0-96.0 Final [facility] Hospital L ab (Internal) : [address] ? ? BLD ? Mch 30.9 pg 26.0-32.0 Final [facility] L ab (Internal) : [address] ? ? BLD ? Mchc 34.0 g/dL 31.0-35.0 Final Nort h g/dL [facility] L ab (Internal) : [address] ? ? BLD ? Rdw 11.9 % 11.5-14.[address] [facility] L ab (Internal) : [address] ? ? BLD ? Plt 304 10*3/uL 130-450 Final Nort h 10*3/uL [facility] L ab (Internal) : [address] ? ? BLD ? Anc 6.60 10*3/uL ? Final Nort h [facility] L ab (Internal) : [address] ? ? BLD High Nlr 3.88 0.00-3.20 Final [facility] L ab (Internal) : [address] ? ? BLD ? Neutro 72.1 % 40.0-75.[address] [facility] L ab (Internal) : [address] ? ? BLD Low Lymph 18.6 % 20.0-50.[address] [facility] L ab (Internal) : [address] ? ? BLD ? [place] 7.5 % 2.0-10.[address] [facility] L ab (Internal) : [address] ? ? BLD ? Eos 1.0 % 1.0-6.0 % Final [facility] L ab (Internal) : [address] ? ? BLD ? Baso 0.5 % 0.0-1.0 % Final [facility] L ab (Internal) : [address] ? ? BLD ? Ig 0.3 % 0.0-0.9 % Final [facility] L ab (Internal) : [address] 01/20/2021 T4, Free, S ? Ft4 1.43 NG/dL 0.78-2.19 Fin al [place] Serum NG/dL [facility] L ab (Internal) : [address] 01/20/2021 TSH, Serum S ? Tsh 1.01 u[IU]/mL 0.47-4.68 Final [place] or Plasma u[IU]/mL Count Hospital L ab (Internal) : [address] 12/17/2020 Gamma-glut S High Ggt 95 U/L 12-43 U/L Final [facility] Lab e (Ggt), (Interna l): Serum [address] 12/17/2020 CMP, Serum S ? g/r 96 mg/dL 74-106 Final [place] or Plasma mg/dL [facility] L ab (Internal) : [address] t ? ? S ? Bun 13 mg/dL 7-17 Final [place] mg/dL [facility] L ab (Internal) : [address] t ? ? S ? Crea 0.80 mg/dL 0.52-1.04 Final Nor th mg/dL [facility] L ab (Internal) : [address] t ? ? S ? Ca 9.8 mg/dL 8.4-10.2 Final [place] mg/dL [facility] L ab (Internal) : [address] t ? ? S ? Na 139 mmol/L 137-145 Final [place] mmol/L [facility] L ab (Internal) : [address] t ? ? S ? K 4.5 mmol/L 3.5-5.1 Final [place] mmol/L [facility] L ab (Internal) : [address] t ? ? S ? Cl 99 mmol/L 98-107 Final [place] mmol/L [facility] L ab (Internal) : [address] t ? ? S ? Tco2 28.0 mmol/L 22.0-30.0 Final No rth mmol/L [facility] (Internal) : [address] t ? ? S ? Tp 8.2 g/dL 6.3-8.2 Final [place] g/dL [facility] L ab (Internal) : [address] t ? ? S ? Alb 4.7 g/dL 3.5-5.0 Final [place] g/dL [facility] L ab (Internal) : [address] t ? ? S ? Tbil 0.9 mg/dL 0.2-1.3 Final [place] mg/dL [facility] L ab (Internal) : [address] t ? ? S ? Alp 53 U/L 50-136 Final [place] U/L [facility] L ab (Internal) : [address] t ? ? S ? Alt 48 U/L 9-52 U/L Final [place] (Sgpt) [facility] L ab (Internal) : [address] t ? ? S High Ast 65 U/L 14-36 U/L Final [place] (Sgot) [facility] L ab (Internal) : [address] t 12/07/2020 CK S ? Cpk 51 U/L 30-135 Final [place] (Creatine U/L [facility] Hospital Lab Total, (Internal) : Serum [address] 12/07/2020 Hepatic S ? Tbil 0.7 mg/dL 0.2-1.3 Final N orth Function mg/dL [facility] L ab Serum (Internal) : [address] t ? ? S ? Dbil 0.3 mg/dL 0.0-0.3 Final [place] mg/dL [facility] L ab (Internal) : [address] t ? ? S ? Alp 70 U/L 50-136 Final [place] U/L [facility] L [facility] (Internal) : [address] t ? ? S High Alt 62 U/L 9-52 U/L Final [place] (Sgpt) [facility] L [facility] (Internal) : [address] t ? ? S High Ast 51 U/L 14-36 U/L Final [place] (Sgot) [facility] L [facility] (Internal) : [address] t ? ? S High Ggt 115 U/L 12-43 U/L Final [facility] L ab (Internal) : [address] t ? ? S High Tp 8.7 g/dL 6.3-8.2 Final [place] g/dL [facility] L ab (Internal) : [address] t ? ? S ? Alb 5.0 g/dL 3.5-5.0 Final [place] g/dL [facility] L ab (Internal) : [address] 12/07/2020 BMP, Serum S ? g/r 90 mg/dL 74-106 Final [facility] or Plasma mg/dL [facility] L [facility] (Internal) : [address] t ? ? S ? Bun 15 mg/dL 7-17 Final [facility] mg/dL [facility] L [facility] (Internal) : [address] t ? ? S ? Crea 0.80 mg/dL 0.52-1.04 Final Nor th mg/dL [facility] L ab (Internal) : [address] t ? ? S ? Ca 10.1 mg/dL 8.4-10.2 Final Nort h mg/dL [facility] L ab (Internal) : [address] t ? ? S Low Na 134 mmol/L 137-145 Final [place] mmol/L [facility] L [facility] (Internal) : [address] t ? ? S ? K 4.5 mmol/L 3.5-5.1 Final [place] mmol/L [facility] L [facility] (Internal) : [address] t ? ? S Low Cl 94 mmol/L 98-107 Final [place] mmol/L [facility] L [facility] (Internal) : [address] t ? ? S ? Tco2 25.0 mmol/L 22.0-30.0 Final No rth mmol/L [facility] L ab (Internal) : [address] 12/07/2020 Lipid S High Chol 216 mg/dL 50-200 Final Nor th Panel, mg/dL [facility] (Internal) : [address] t ? ? S High Trig 185 mg/dL 10-150 Final [facility] mg/dL [facility] L ab (Internal) : [address] t ? ? S ? Hdl 54 mg/dL 40-60 Final [facility] mg/dL [facility] L [facility] (Internal) : [address] t ? ? S ? Ldl 125 mg/dL 0-130 Final [place] mg/dL [facility] L [facility] (Internal) : [address] 12/07/2020 CRP, High S ? Rcrp 0.22 mg/dL 0.10-0.30 [facility] Sensitivit mg/dL Countr y y, Serum Hospital Lab or Plasma (Swatch Clerk al): [address] 12/07/2020 T4, Free, S ? Ft4 1.54 NG/dL 0.78-2.19 [facility] Serum NG/dL [facility] L ab (Internal) : [address] 12/07/2020 CBC W/ BLD ? Wbc 8.2 10*3/uL 5.0-10.0 Final [place] Auto Diff 10*3/uL [facility] L ab (Internal) : [address] t ? ? BLD High Rbc 5.65 10*6/uL 4.10-5.30 Final N orth 10*6/uL [facility] L ab (Internal) : [address] t ? ? BLD High Hgb 17.1 g/dL 12.0-16.0 Final Nort h g/dL [facility] L ab (Internal) : [address] t ? ? BLD High Hct 50.6 % 37.0-47.0 Final [place] % [facility] L ab (Internal) : [address] t ? ? BLD ? Mcv 89.6 fL 80.0-96.0 Final [place] fL [facility] L ab (Internal) : [address] ? ? BLD ? Mch 30.3 pg 26.0-32.0 Final [place] pg [facility] L ab (Internal) : [address] t ? ? BLD ? Mchc 33.8 g/dL 31.0-35.0 Final Nort h g/dL [facility] (Internal) : [address] [place] ? ? BLD ? Rdw 11.9 % 11.5-14.[address] [facility] L ab (Internal) : [address] ? ? BLD ? Plt 289 10*3/uL 130-450 Final Nort h 10*3/uL [facility] L ab (Internal) : [address] ? ? BLD ? Anc 3.59 10*3/uL ? Final Nort h [facility] L ab (Internal) : [address] [place] ? ? BLD ? Nlr 1.01 0.00-3.20 Final [facility] L ab (Internal) : [address] ? ? BLD ? Neutro 43.9 % 40.0-75.[address] [facility] L ab (Internal) : [address] ? ? BLD ? Lymph 43.4 % 20.0-50.[address] [facility] L ab (Internal) : [address] ? ? BLD ? [place] 9.7 % 2.0-10.[address] [facility] L ab (Internal) : [address] ? ? BLD ? Eos 2.2 % 1.0-6.0 % Final [facility] L ab (Internal) : [address] ? ? BLD ? Baso 0.6 % 0.0-1.0 % Final [facility] L ab (Internal) : [address] ? ? BLD ? Ig 0.2 % 0.0-0.9 % Final [facility] L ab (Internal) : [address] 12/07/2020 TSH, Serum S ? Tsh 2.44 u[IU]/mL 0.47-4.68 Final [facility] Plasma u[IU]/mL Count [facility] L ab (Internal) : [address] 12/07/2020 Ferritin, S ? Ferr 67 NG/mL 11-264 Final N orth Serum or NG/mL [facility] Hospital L ab (Internal) : [address] t 12/07/2020 Iron S ? Iron 158 ug/dL 37-170 Final [facility] Saturation ug/dL Countr y , Serum Hospital Lab (Internal) : [address] ? ? S ? Tibc 318 ug/dL 265-497 Final [place] ug/dL [facility] L ab (Internal) : [address] ? ? S ? Sat 50 % 20-55 % Final [facility] L ab (Internal) : [address] 12/07/2020 Osmolality Low Osmol, P 274 mOsm/kg 280-300 Final [place] , Serum mOsm/kg [facility] L ab (Internal) : [address] 12/07/2020 ESR BLD ? Esr 4 mm/h 0-30 mm/h Final [facility] (Erythrocy Countr y Hospital L ab Sedimentat (Inter nal): ion Rate), [address] 12/07/2020 Vitamin D, S ? 25-[place] <4.0 NG/mL ? Fi nal [place] 25-Hydroxy xy D2 Countr y , Total, Hospital Lab Serum (Internal) : [address] ? ? S ? 25-[place] 52 NG/mL ? Final [place] xy D3 [facility] L ab (Internal) : [address] ? ? S ? 25-[place] 52 NG/mL ? Final [place] xy D [facility] L ab (Internal) : [address] 12/07/2020 T3, Total, S ? T3, 141 NG/dL 97-169 Final [place] Serum Total NG/dL [facility] L ab (Internal) : [address] 11/16/2020 CBC W/ BLD ? Wbc 9.7 10*3/uL 5.0-10.0 Final [place] Auto Diff 10*3/uL [facility] L ab (Internal) : [address] ? ? BLD High Rbc 5.44 10*6/uL 4.10-5.30 Final N orth 10*6/uL [facility] L ab (Internal) : [address] ? ? BLD High Hgb 16.5 g/dL 12.0-16.0 Final Nort h g/dL [facility] L ab (Internal) : [address] ? ? BLD High Hct 49.0 % 37.0-47.0 Final [facility] Hospital L ab (Internal) : [address] ? ? BLD ? Mcv 90.1 fL 80.0-96.0 Final [facility] Hospital L ab (Internal) : [address] ? ? BLD ? Mch 30.3 pg 26.0-32.0 Final [facility] Hospital L ab (Internal) : [address] ? ? BLD ? Mchc 33.7 g/dL 31.0-35.0 [facility] L [facility] (Internal) : [address] ? ? BLD ? Rdw 11.6 % 11.5-14.[address] [facility] L ab (Internal) : [address] ? ? BLD ? Plt 315 10*3/uL 130-450 Final Nort h 10*3/uL [facility] L ab (Internal) : [address] ? ? BLD ? Anc 5.98 10*3/uL ? Final Nort h [facility] L ab (Internal) : [address] Ranjeet Rena Hernandez t ? ? BLD ? Nlr 2.15 0.00-3.20 Final [facility] L ab (Internal) : [address] ? ? BLD ? Neutro 62.0 % 40.0-75.[address] [facility] L ab (Internal) : [address] ? ? BLD ? Lymph 28.8 % 20.0-50.[address] [facility] L ab (Internal) : [address] ? ? BLD ? [place] 6.6 % 2.0-10.[address] [facility] L ab (Internal) : [address] ? ? BLD ? Eos 1.6 % 1.0-6.0 % Final [facility] L ab (Internal) : [address] ? ? BLD ? Baso 0.7 % 0.0-1.0 % Final [facility] L ab (Internal) : [address] ? ? BLD ? Ig 0.3 % 0.0-0.9 % Final [facility] L ab (Internal) : [address] t 11/16/2020 Gamma-glut S High Ggt 96 U/L 12-43 U/L Final [place] [facility] (Ggt), (Interna l): Serum [address] t 11/16/2020 CMP, Serum S High g/r 107 mg/dL 74-106 Final [facility] or Plasma mg/dL [facility] (Internal) : [address] t ? ? S ? Bun 11 mg/dL 7-17 Final [place] mg/dL [facility] L ab (Internal) : [address] t ? ? S ? Crea 0.90 mg/dL 0.52-1.04 Final Nor th mg/dL [facility] L ab (Internal) : [address] t ? ? S ? Ca 9.6 mg/dL 8.4-10.2 Final [facility] mg/dL [facility] L ab (Internal) : [address] t ? ? S Low Na 136 mmol/L 137-145 Final [place] mmol/L [facility] L ab (Internal) : [address] t ? ? S ? K 4.7 mmol/L 3.5-5.1 Final [place] mmol/L [facility] L ab (Internal) : [address] t ? ? S Low Cl 96 mmol/L 98-107 Final [place] mmol/L [facility] L ab (Internal) : [address] t ? ? S ? Tco2 27.0 mmol/L 22.0-30.0 Final No rth mmol/L [facility] ([facility]) : [address] t ? ? S High Tp 8.3 g/dL 6.3-8.2 Final [facility] g/dL [facility] ([facility]) : [address] t ? ? S ? Alb 4.9 g/dL 3.5-5.0 Final [place] g/dL [facility] L ab (Internal) : [address] t ? ? S ? Tbil 0.7 mg/dL 0.2-1.3 Final [facility] mg/dL [facility] ([facility]) : [address] t ? ? S ? Alp 61 U/L 50-136 Final [place] U/L [facility] L ab (Internal) : [address] t ? ? S High Alt 72 U/L 9-52 U/L Final [place] (Sgpt) [facility] L ab (Internal) : [address] t ? ? S High Ast 53 U/L 14-36 U/L Final [place] (Sgot) [facility] L ab (Internal) : [address] [facility] [place] 11/16/2020 TSH, Serum S ? Tsh 2.89 u[IU]/mL 0.47-4.68 Final [place] or Plasma u[IU]/mL [facility] L [facility] (Internal) : [address] [facility] 11/16/2020 Sodium, UR High Na, Spot 130 mmol/L 30-90 Final [place] Urine U mmol/L [facility] (Internal) : [address] [facility] T4, Free, S ? Ft4 1.38 NG/dL 0.78-2.19 Fin [facility] Serum NG/dL [facility] L ab (Internal) : [address] [place] 11/16/2020 Osmolality UR ? Osmol, U 683 mOsm/l 300-1300 Final [place] , Urine mOsm/l [facility] L ab (Internal) : [address] t 10/19/2020 CBC W/ BLD ? Wbc 9.1 10*3/uL 5.0-10.0 Final [place] Auto Diff 10*3/uL Countr [facility] L ab (Internal) : [address] t ? ? BLD ? Rbc 5.26 10*6/uL 4.10-5.30 Final N orth 10*6/uL [facility] L ab (Internal) : [address] t ? ? BLD High Hgb 16.1 g/dL 12.0-16.0 Final Nort h g/dL [facility] L ab (Internal) : [address] t ? ? BLD High Hct 47.4 % 37.0-47.0 Final [place] % [facility] L ab (Internal) : [address] t ? ? BLD ? Mcv 90.1 fL 80.0-96.0 Final [facility] L ab (Internal) : [address] ? ? BLD ? Mch 30.6 pg 26.0-32.0 Final [facility] L ab (Internal) : [address] ? ? BLD ? Mchc 34.0 g/dL 31.0-35.0 Final Nort h g/dL [facility] L ab (Internal) : [address] ? ? BLD ? Rdw 11.6 % 11.5-14.5 Final [facility] Hospital L ab (Internal) : [address] ? ? BLD ? Plt 303 10*3/uL 130-450 Final Nort h 10*3/uL [facility] L ab (Internal) : [address] ? ? BLD ? Anc 6.06 10*3/uL ? Final Nort h [facility] L ab (Internal) : [address] ? ? BLD ? Nlr 2.63 0.00-3.20 Final [facility] L ab (Internal) : [address] ? ? BLD ? Neutro 66.4 % 40.0-75.0 Final [facility] Hospital L ab (Internal) : [address] ? ? BLD ? Lymph 25.2 % 20.0-50.0 Final [facility] L ab (Internal) : [address] ? ? BLD ? [place] 6.1 % 2.0-10.0 Final [facility] Hospital L ab (Internal) : [address] ? ? BLD ? Eos 1.5 % 1.0-6.0 % Final [facility] L ab (Internal) : [address] ? ? BLD ? Baso 0.5 % 0.0-1.0 % Final [facility] L ab (Internal) : [address] ? ? BLD ? Ig 0.3 % 0.0-0.9 % Final [facility] L ab (Internal) : [address] 10/19/2020 BNP S ? Nt-probn <50 pg/mL 0-125 Final [facility] (B-type p pg/mL [facility] (Internal) : Peptide), [address] Prohormone Jennifer Hernandez N-terminal , Quant, Immunoassa y, Blood 10/19/2020 Renal S ? g/r 76 mg/dL 74-106 Final Nort h Function mg/dL [facility] L ab Serum (Internal) : [address] t ? ? S ? Bun 14 mg/dL 7-17 Final [facility] mg/dL [facility] ([facility]) : [address] t ? ? S ? Crea 0.80 mg/dL 0.52-1.04 Final [facility] mg/dL [facility] (Internal) : [address] t ? ? S ? Ca 9.7 mg/dL 8.4-10.2 Final [facility] mg/dL [facility] ([facility]) : [address] t ? ? S ? Phos 3.9 mg/dL 2.5-4.5 Final [facility] mg/dL [facility] (Internal) : [address] t ? ? S Low Na 136 mmol/L 137-145 Final [facility] mmol/L [facility] (Internal) : [address] t ? ? S ? K 4.0 mmol/L 3.5-5.1 Final [facility] mmol/L [facility] (Internal) : [address] t ? ? S Low Cl 97 mmol/L 98-107 Final [facility] mmol/L [facility] (Internal) : [address] t ? ? S ? Tco2 27.0 mmol/L 22.0-30.0 Final No rth mmol/L [facility] (Internal) : [address] t ? ? S ? Alb 4.6 g/dL 3.5-5.0 Final [facility] g/dL [facility] (Internal) : [address] t ? ? S Low GFR 78 >89 Final [facility] (Calc) [facility] (Internal) : [address] 10/19/2020 Hepatic S ? Tbil 0.6 mg/dL 0.2-1.3 Final N orth Function mg/dL [facility] Serum (Internal) : [address] t ? ? S ? Dbil 0.1 mg/dL 0.0-0.3 Final [facility] mg/dL [facility] (Internal) : [address] t ? ? S ? Alp 56 U/L 50-136 Final [place] U/L [facility] L ab (Internal) : [address] t ? ? S ? Alt 39 U/L 9-52 U/L Final [place] (Sgpt) [facility] (Internal) : [address] t ? ? S High Ast 39 U/L 14-36 U/L Final [place] (Sgot) [facility] (Internal) : [address] t ? ? S High Ggt 80 U/L 12-43 U/L Final [facility] L ab (Internal) : [address] t ? ? S ? Tp 7.9 g/dL 6.3-8.2 Final [facility] g/dL [facility] (Internal) : [address] t ? ? S ? Alb 4.6 g/dL 3.5-5.0 Final [facility] g/dL [facility] (Internal) : [address] 10/19/2020 Lipid S ? Chol 158 mg/dL 50-200 Final Nor th Panel, mg/dL [facility] (Internal) : [address] t ? ? S ? Trig 130 mg/dL 10-150 Final [facility] mg/dL [facility] L ab (Internal) : [address] t ? ? S ? Hdl 46 mg/dL 40-60 Final [facility] mg/dL [facility] L ab (Internal) : [address] t ? ? S ? Ldl 86 mg/dL 0-130 Final [facility] mg/dL [facility] L ab (Internal) : [address] 10/14/2020 Hematocrit BLD ? Hct 46.2 % 37.0-47.0 Final [facility] , Blood % [facility] (Internal) : [address] 10/05/2020 CBC W/ BLD ? Wbc 9.3 10*3/uL 5.0-10.0 Final [place] Auto Diff 10*3/uL [facility] L ab (Internal) : [address] ? ? BLD High Rbc 5.42 10*6/uL 4.10-5.30 Final N orth 10*6/uL [facility] L ab (Internal) : [address] ? ? BLD ? Hgb 16.0 g/dL 12.0-16.0 Final Nort h g/dL [facility] L ab (Internal) : [address] ? ? BLD High Hct 49.2 % 37.0-47.[address] [facility] L ab (Internal) : [address] ? ? BLD ? Mcv 90.8 fL 80.0-96.0 Final [facility] L ab (Internal) : [address] ? ? BLD ? Mch 29.5 pg 26.0-32.0 Final [facility] L ab (Internal) : [address] ? ? BLD ? Mchc 32.5 g/dL 31.0-35.0 Final Nort h g/dL [facility] L ab (Internal) : [address] ? ? BLD ? Rdw 11.9 % 11.5-14.[address] [facility] L ab (Internal) : [address] ? ? BLD ? Plt 303 10*3/uL 130-450 Final Nort h 10*3/uL [facility] L ab (Internal) : [address] ? ? BLD ? Anc 4.39 10*3/uL ? Final Nort h [facility] L ab (Internal) : [address] ? ? BLD ? Nlr 1.13 0.00-3.20 Final [facility] L ab (Internal) : [address] ? ? BLD ? Neutro 47.2 % 40.0-75.[address] [facility] L ab (Internal) : [address] ? ? BLD ? Lymph 41.6 % 20.0-50.0 Final [facility] % [facility] (Internal) : [address] ? ? BLD ? [place] 8.4 % 2.0-10.0 Final [facility] % [facility] (Internal) : [address] ? ? BLD ? Eos 2.1 % 1.0-6.0 % Final [facility] L ab (Internal) : [address] ? ? BLD ? Baso 0.5 % 0.0-1.0 % Final [facility] L ab (Internal) : [address] t ? ? BLD ? Ig 0.2 % 0.0-0.9 % Final [facility] L ab (Internal) : [address] 10/05/2020 BMP, Serum S ? g/r 87 mg/dL 74-106 Final [facility] or Plasma mg/dL [facility] (Internal) : [address] t ? ? S ? Bun 13 mg/dL 7-17 Final [place] mg/dL [facility] L ab (Internal) : [address] t ? ? S ? Crea 0.80 mg/dL 0.52-1.04 Final Nor th mg/dL [facility] L ab (Internal) : [address] t ? ? S ? Ca 9.3 mg/dL 8.4-10.2 Final [place] mg/dL [facility] L ab (Internal) : [address] t ? ? S Low Na 135 mmol/L 137-145 Final [place] mmol/L [facility] L ab (Internal) : [address] t ? ? S ? K 4.2 mmol/L 3.5-5.1 Final [facility] mmol/L [facility] (Internal) : [address] t ? ? S ? Cl 99 mmol/L 98-107 Final [facility] mmol/L [facility] L ab (Internal) : [address] t ? ? S ? Tco2 25.0 mmol/L 22.0-30.0 Final No rth mmol/L [facility] L ab (Internal) : [address] 10/05/2020 Iron S ? Iron 100 ug/dL 37-170 Final Nor th Saturation ug/dL Countr y , Serum Hospital Lab (Internal) : [address] t ? ? S ? Tibc 330 ug/dL 265-497 Final [place] ug/dL [facility] L ab (Internal) : [address] t ? ? S ? Sat 30 % 20-55 % Final [facility] L ab (Internal) : [address] 10/05/2020 Osmolality Low Osmol, P 274 mOsm/kg 280-300 Final [place] , Serum mOsm/kg [facility] L ab (Internal) : [address] 10/05/2020 Ferritin, S ? Ferr 43 NG/mL 11-264 Final N orth Serum or NG/mL [facility] Plasma Hospital L ab (Internal) : [address] 10/05/2020 Folate, S ? Folate 8.37 NG/mL 2.76-20.0 [place] Serum 0 NG/mL [facility] Hospital L ab (Internal) : [address] 10/05/2020 Vitamin S ? Vit B12 910.0 pg/mL 239.0-931 Fi [facility] B12, Serum .0 pg/mL Coun [facility] Hospital L ab (Internal) : [address] 10/05/2020 Vitamin D, S ? 25-[place] <4.0 NG/mL ? [facility] 25-Hydroxy xy D2 Countr y , Total, Hospital Lab Serum (Internal) : [address] ? ? S ? 25-[place] 48 NG/mL ? Final [place] xy D3 [facility] L ab (Internal) : [address] ? ? S ? 25-[place] 48 NG/mL ? Final [place] xy D [facility] Total Hospital L ab (Internal) : [address] 10/05/2020 Venipunctu ? Location Right ? ? P_nc Primary re Antecubital Care [place]: [address], [place] ? ? ? Needle 21g ? ? P_nc Prim carolann Vacutainer Care [place]: [address], [place] ? ? ? Number 1 ? ? P_nc Prim carolann of Care Attempts [place]: [address], [place] ? ? ? Successf Yes ? ? P_nc Pr imary ul Care [place]: [address], [place] ? ? ? Dressing Pressure ? ? P_nc Primary Band-aid Care Applied [place] zig[place]: [address], [place] ? ? ? Initials hj ? ? P_nc Pr imary Care [place]: [address], [place] 09/14/2020 CBC W/ BLD ? Wbc 8.5 10*3/uL 5.0-10.0 Final [place] Auto Diff 10*3/uL [facility] Hospital L ab (Internal) : [address] ? ? BLD High Rbc 5.97 10*6/uL 4.10-5.30 Final N orth 10*6/uL [facility] Hospital L ab (Internal) : [address] ? ? BLD High Hgb 17.8 g/dL 12.0-16.0 Final Nort h g/dL [facility] Hospital L ab (Internal) : [address] ? ? BLD High Hct 53.7 % 37.0-47.[address] [facility] L ab (Internal) : [address] ? ? BLD ? Mcv 89.9 fL 80.0-96.0 Final [facility] L ab (Internal) : [address] ? ? BLD ? Mch 29.8 pg 26.0-32.0 Final [facility] L ab (Internal) : [address] ? ? BLD ? Mchc 33.1 g/dL 31.0-35.0 Final Nort h g/dL [facility] Hospital L ab (Internal) : [address] ? ? BLD ? Rdw 11.9 % 11.5-14.[address] [facility] L ab (Internal) : [address] ? ? BLD ? Plt 301 10*3/uL 130-450 Final Nort h 10*3/uL [facility] Hospital L ab (Internal) : [address] ? ? BLD ? Anc 3.71 10*3/uL ? Final Nort h [facility] L ab (Internal) : [address] ? ? BLD ? Nlr 0.97 0.00-3.20 Final [facility] L ab (Internal) : [address] ? ? BLD ? Neutro 43.5 % 40.0-75.0 Final [place] % [facility] Hospital L ab (Internal) : [address] ? ? BLD ? Lymph 44.6 % 20.0-50.0 Final [place] % [facility] Hospital L ab (Internal) : [address] ? ? BLD ? [place] 8.9 % 2.0-10.0 Final [facility] Hospital L ab (Internal) : [address] ? ? BLD ? Eos 2.0 % 1.0-6.0 % Final [facility] L ab (Internal) : [address] ? ? BLD ? Baso 0.8 % 0.0-1.0 % Final [facility] L ab (Internal) : [address] ? ? BLD ? Ig 0.2 % 0.0-0.9 % Final [facility] L ab (Internal) : [address] t 09/14/2020 CMP, Serum S ? g/r 90 mg/dL 74-106 Final [facility] or Plasma mg/dL [facility] (Internal) : [address] ? ? S ? Bun 11 mg/dL 7-17 Final [facility] mg/dL [facility] (Internal) : [address] ? ? S ? Crea 0.90 mg/dL 0.52-1.04 Final [facility] mg/dL [facility] (Internal) : [address] ? ? S ? Ca 9.7 mg/dL 8.4-10.2 Final [facility] mg/dL [facility] (Internal) : [address] ? ? S Low Na 131 mmol/L 137-145 Final [place] mmol/L [facility] L ab (Internal) : [address] ? ? S ? K 4.4 mmol/L 3.5-5.1 Final [place] mmol/L [facility] L ab (Internal) : [address] ? ? S Low Cl 91 mmol/L 98-107 Final [facility] mmol/L [facility] (Internal) : [address] ? ? S ? Tco2 28.0 mmol/L 22.0-30.0 Final No rth mmol/L [facility] (Internal) : [address] t ? ? S High Tp 8.6 g/dL 6.3-8.2 Final [facility] g/dL [facility] (Internal) : [address] t ? ? S ? Alb 4.9 g/dL 3.5-5.0 Final [facility] g/dL [facility] (Internal) : [address] t ? ? S ? Tbil 1.0 mg/dL 0.2-1.3 Final [place] mg/dL [facility] Hospital L ab (Internal) : [address] t ? ? S ? Alp 55 U/L 50-136 Final [place] U/L [facility] Hospital L ab (Internal) : [address] t ? ? S ? Alt 48 U/L 9-52 U/L Final [place] (Sgpt) [facility] L ab (Internal) : [address] t ? ? S High Ast 49 U/L 14-36 U/L Final [place] (Sgot) [facility] L ab (Internal) : [address] 09/14/2020 Lipid S High Chol 259 mg/dL 50-200 Final Nor th Panel, mg/dL [facility] L [facility] (Internal) : [address] t ? ? S High Trig 158 mg/dL 10-150 Final [place] mg/dL [facility] L ab (Internal) : [address] t ? ? S ? Hdl 46 mg/dL 40-60 Final [facility] mg/dL [facility] L ab (Internal) : [address] t ? ? S High Ldl 181 mg/dL 0-130 Final [place] mg/dL [facility] L ab (Internal) : [address] 09/14/2020 T4, Free, S ? Ft4 1.61 NG/dL 0.78-2.19 Fin al [facility] Serum NG/dL [facility] (Internal) : [address] 09/14/2020 TSH, Serum S ? Tsh 2.48 u[IU]/mL 0.47-4.68 Final [place] or Plasma u[IU]/mL Count Hospital L ab (Internal) : [address] 08/05/2020 Pathology TISS ? Report (see below) ? Salena moreno [facility] L ab (Internal) : [address] 07/29/2020 SARS CoV 2 SWAB ? Covid-19 negative negative Fi nal [place] RNA Result [facility] (COVID-19) Hospit al Lab , , (Internal) : cold mill inspector-PCR, [address] Res[address]ator Jennifer Hernandez wport y Specimen ? ? SWAB ? Performi the broad ? Final Nort h ng [facility] L ab (Internal) : [address] 06/23/2020 CBC W/ BLD ? Wbc 8.3 10*3/uL 5.0-10.0 Final [place] Auto Diff 10*3/uL [facility] L ab (Internal) : [address] ? ? BLD ? Rbc 4.90 10*6/uL 4.10-5.30 Final N orth 10*6/uL [facility] Hospital L ab (Internal) : [address] ? ? BLD ? Hgb 14.6 g/dL 12.0-16.0 Final Nort h g/dL [facility] L ab (Internal) : [address] ? ? BLD ? Hct 43.7 % 37.0-47.[address] [facility] L ab (Internal) : [address] ? ? BLD ? Mcv 89.2 fL 80.0-96.0 Final [facility] L ab (Internal) : [address] ? ? BLD ? Mch 29.8 pg 26.0-32.0 Final [place] pg [facility] L ab (Internal) : [address] ? ? BLD ? Mchc 33.4 g/dL 31.0-35.0 Final Nort h g/dL [facility] L ab (Internal) : [address] ? ? BLD ? Rdw 11.9 % 11.5-14.5 Final [facility] Hospital L ab (Internal) : [address] ? ? BLD ? Plt 294 10*3/uL 130-450 Final Nort h 10*3/uL [facility] Hospital L ab (Internal) : [address] ? ? BLD ? Anc 5.58 10*3/uL ? Final Nort h [facility] L ab (Internal) : [address] ? ? BLD ? Nlr 3.08 0.00-3.20 Final [facility] L ab (Internal) : [address] ? ? BLD ? Neutro 67.7 % 40.0-75.0 Final [facility] Hospital L ab (Internal) : [address] ? ? BLD ? Lymph 21.9 % 20.0-50.[address] [facility] L ab (Internal) : [address] ? ? BLD ? [place] 8.2 % 2.0-10.[address] [facility] L ab (Internal) : [address] ? ? BLD ? Eos 1.5 % 1.0-6.0 % Final [facility] L ab (Internal) : [address] ? ? BLD ? Baso 0.5 % 0.0-1.0 % Final [facility] L ab (Internal) : [address] ? ? BLD ? Ig 0.2 % 0.0-0.9 % Final [facility] L ab (Internal) : [address] 06/23/2020 Hepatic S ? Tbil 0.6 mg/dL 0.2-1.3 Final N orth Function mg/dL [facility] L ab Serum (Internal) : [address] ? ? S ? Dbil 0.0 mg/dL 0.0-0.3 Final [place] mg/dL [facility] Hospital L ab (Internal) : [address] ? ? S ? Alp 58 U/L 50-136 Final [place] U/L [facility] Hospital L ab (Internal) : [address] ? ? S ? Alt 44 U/L 9-52 U/L Final [place] (Sgpt) [facility] Hospital L ab (Internal) : [address] t ? ? S High Ast 38 U/L 14-36 U/L Final [place] (Sgot) [facility] L ab (Internal) : [address] t ? ? S High Ggt 72 U/L 12-43 U/L Final [facility] L ab (Internal) : [address] t ? ? S ? Tp 7.5 g/dL 6.3-8.2 Final [facility] g/dL [facility] (Internal) : [address] t ? ? S ? Alb 4.3 g/dL 3.5-5.0 Final [facility] g/dL [facility] (Internal) : [address] 06/23/2020 BMP, Serum S ? g/r 93 mg/dL 74-106 Final [facility] or Plasma mg/dL [facility] (Internal) : [address] t ? ? S ? Bun 10 mg/dL 7-17 Final [facility] mg/dL [facility] (Internal) : [address] t ? ? S ? Crea 0.80 mg/dL 0.52-1.04 Final Nor th mg/dL [facility] (Internal) : [address] t ? ? S ? Ca 9.2 mg/dL 8.4-10.2 Final [facility] mg/dL [facility] (Internal) : [address] t ? ? S Low Na 136 mmol/L 137-145 Final [place] mmol/L [facility] Hospital L ab (Internal) : [address] t ? ? S ? K 3.9 mmol/L 3.5-5.1 Final [facility] mmol/L [facility] (Internal) : [address] t ? ? S ? Cl 100 mmol/L 98-107 Final [place] mmol/L [facility] Hospital L ab (Internal) : [address] t ? ? S ? Tco2 28.0 mmol/L 22.0-30.0 Final No rth mmol/L [facility] (Internal) : [address] 05/26/2020 CBC W/ BLD ? Wbc 9.8 10*3/uL 5.0-10.0 Final [place] Auto Diff 10*3/uL [facility] Hospital L ab (Internal) : [address] ? ? BLD ? Rbc 5.23 10*6/uL 4.10-5.30 Final N orth 10*6/uL [facility] Hospital L ab (Internal) : [address] ? ? BLD ? Hgb 15.9 g/dL 12.0-16.0 Final Nort h g/dL [facility] Hospital L ab (Internal) : [address] ? ? BLD ? Hct 45.4 % 37.0-47.0 Final [facility] Hospital L ab (Internal) : [address] ? ? BLD ? Mcv 86.8 fL 80.0-96.0 Final [facility] L ab (Internal) : [address] ? ? BLD ? Mch 30.4 pg 26.0-32.0 Final [facility] L ab (Internal) : [address] ? ? BLD ? Mchc 35.0 g/dL 31.0-35.0 Final Nort h g/dL [facility] Hospital L ab (Internal) : [address] ? ? BLD ? Rdw 11.9 % 11.5-14.[address] [facility] L ab (Internal) : [address] ? ? BLD ? Plt 335 10*3/uL 130-450 Final Nort h 10*3/uL [facility] Hospital L ab (Internal) : [address] ? ? BLD ? Anc 6.01 10*3/uL ? Final Nort h [facility] L ab (Internal) : [address] ? ? BLD ? Nlr 2.03 0.00-3.20 Final [facility] L ab (Internal) : [address] ? ? BLD ? Neutro 61.2 % 40.0-75.[address] [facility] L ab (Internal) : [address] ? ? BLD ? Lymph 30.1 % 20.0-50.[address] [facility] L ab (Internal) : [address] [place] ? ? BLD ? [place] 6.5 % 2.0-10.0 Final [place] % [facility] L ab (Internal) : [address] ? ? BLD ? Eos 1.3 % 1.0-6.0 % Final [facility] L ab (Internal) : [address] ? ? BLD ? Baso 0.6 % 0.0-1.0 % Final [facility] L ab (Internal) : [address] ? ? BLD ? Ig 0.3 % 0.0-0.9 % Final [facility] L ab (Internal) : [address], [place] t 05/26/2020 T4, Free, S ? Ft4 1.16 NG/dL 0.78-2.19 Fin al [place] Serum NG/dL [facility] L ab (Internal) : [address] t 05/26/2020 TSH, Serum S ? Tsh 0.95 u[IU]/mL 0.47-4.68 Final [place] or Plasma u[IU]/mL [facility] (Internal) : [address] 05/26/2020 CMP, Serum S High g/r 113 mg/dL 74-106 Final [place] or Plasma mg/dL [facility] L ab (Internal) : [address] t ? ? S ? Bun 17 mg/dL 7-17 Final [place] mg/dL [facility] L ab (Internal) : [address] t ? ? S ? Crea 0.80 mg/dL 0.52-1.04 Final Nor th mg/dL [facility] L ab (Internal) : [address] t ? ? S ? Ca 9.5 mg/dL 8.4-10.2 Final [place] mg/dL [facility] L ab (Internal) : [address] t ? ? S Low Na 136 mmol/L 137-145 Final [place] mmol/L [facility] L ab (Internal) : [address] t ? ? S ? K 4.4 mmol/L 3.5-5.1 Final [place] mmol/L [facility] L ab (Internal) : [address] t ? ? S ? Cl 101 mmol/L 98-107 Final [place] mmol/L [facility] L ab (Internal) : [address] t ? ? S ? Tco2 23.0 mmol/L 22.0-30.0 Final No rth mmol/L [facility] L ab (Internal) : [address] t ? ? S High Tp 8.5 g/dL 6.3-8.2 Final [place] g/dL [facility] L ab (Internal) : [address] t ? ? S ? Alb 4.9 g/dL 3.5-5.0 Final [place] g/dL [facility] L [facility] (Internal) : [address] t ? ? S ? Tbil 0.5 mg/dL 0.2-1.3 Final [place] mg/dL [facility] L [facility] (Internal) : [address] t ? ? S ? Alp 75 U/L 50-136 Final [place] U/L [facility] L [facility] (Internal) : [address] t ? ? S ? Alt 32 U/L 9-52 U/L Final [place] (Sgpt) [facility] L ab (Internal) : [address] t ? ? S High Ast 95 U/L 14-36 U/L Final [place] (Sgot) [facility] L [facility] (Internal) : [address] t 05/05/2020 CBC W/ BLD ? Wbc 8.3 10*3/uL 5.0-10.0 Final [place] Auto Diff 10*3/uL [facility] L ab (Internal) : [address] t ? ? BLD ? Rbc 5.02 10*6/uL 4.10-5.30 Final N orth 10*6/uL [facility] L [facility] (Internal) : [address] t ? ? BLD ? Hgb 15.1 g/dL 12.0-16.0 Final Nort h g/dL [facility] L ab (Internal) : [address] t ? ? BLD ? Hct 44.4 % 37.0-47.0 Final [place] % [facility] L [facility] (Internal) : [address] t ? ? BLD ? Mcv 88.4 fL 80.0-96.0 Final [facility] Hospital L ab (Internal) : [address] [place] ? ? BLD ? Mch 30.1 pg 26.0-32.0 Final [facility] L ab (Internal) : [address] [place] ? ? BLD ? Mchc 34.0 g/dL 31.0-35.0 Final [facility] h g/dL [facility] L ab (Internal) : [address] [place] ? ? BLD ? Rdw 12.0 % 11.5-14.5 Final [facility] Hospital L ab (Internal) : [address] , [place] ? ? BLD ? Plt 310 10*3/uL 130-450 Final Nort h 10*3/uL [facility] L ab (Internal) : [address] [place] ? ? BLD ? Anc 5.51 10*3/uL ? Final [facility] L ab (Internal) : [address] [place] ? ? BLD ? Nlr 2.85 0.00-3.20 Final [facility] L ab (Internal) : [address] [place] ? ? BLD ? Neutro 66.4 % 40.0-75.[address] [facility] L ab (Internal) : [address] [place] ? ? BLD ? Lymph 23.3 % 20.0-50.[address] [facility] L ab (Internal) : [address] [place] ? ? BLD ? [place] 8.2 % 2.0-10.[address] [facility] L [facility] (Internal) : [address] [place] ? ? BLD ? Eos 1.4 % 1.0-6.0 % Final [facility] L ab (Internal) : [address] [place] ? ? BLD ? Baso 0.5 % 0.0-1.0 % Final [facility] L [facility] (Internal) : [address] [place] ? ? BLD ? Ig 0.2 % 0.0-0.9 % Final [facility] L [facility] (Internal) : [address] [place] 05/05/2020 BMP, Serum S High g/r 110 mg/dL 74-106 Final [place] or Plasma mg/dL [facility] ([facility] : [address] t ? ? S ? Bun 12 mg/dL 7-17 Final [place] mg/dL [facility] L [facility] (Internal) : [address] t ? ? S ? Crea 0.80 mg/dL 0.52-1.04 Final [facility] mg/dL [facility] (Internal) : [address] t ? ? S ? Ca 9.7 mg/dL 8.4-10.2 Final [facility] mg/dL [facility] (Internal) : [address] t ? ? S ? Na 138 mmol/L 137-145 Final [place] mmol/L [facility] L [facility] (Internal) : [address] t ? ? S ? K 4.2 mmol/L 3.5-5.1 Final [place] mmol/L [facility] L [facility] (Internal) : [address] t ? ? S ? Cl 102 mmol/L 98-107 Final [place] mmol/L [facility] L [facility] (Internal) : [address] t ? ? S ? Tco2 27.0 mmol/L 22.0-30.0 Final No rth mmol/L [facility] (Internal) : [address] 05/05/2020 BNP S ? Nt-probn 68 pg/mL 0-125 Final N orth (B-type p pg/mL [facility] (Internal) : Peptide), [address] Prohormone Jennifer Hernandez N-terminal , Quant, Immunoassa y, Blood 05/05/2020 EKG Done ? No ? ? ? Nort h by Lab [facility] on Hospital L ab recorded. (Swatch Clerk al): [address] [facility] 04/24/2020 EKG Done ? No ? ? ? [facility]. (Swatch Clerk al): [address] 04/24/2020 CBC W/ BLD ? Wbc 7.9 10*3/uL 5.0-10.0 Final [place] Auto Diff 10*3/uL [facility] L [facility] (Internal) : [address] t ? ? BLD High Rbc 5.76 10*6/uL 4.10-5.30 Final N orth 10*6/uL [facility] L [facility] (Internal) : [address] ? ? BLD High Hgb 17.0 g/dL 12.0-16.0 Final Nort h g/dL [facility] L ab (Internal) : [address] ? ? BLD High Hct 50.1 % 37.0-47.0 Final [facility] Hospital L ab (Internal) : [address] ? ? BLD ? Mcv 87.0 fL 80.0-96.0 Final [facility] L ab (Internal) : [address] ? ? BLD ? Mch 29.5 pg 26.0-32.0 Final [facility] L ab (Internal) : [address] ? ? BLD ? Mchc 33.9 g/dL 31.0-35.0 Final Nort h g/dL [facility] L ab (Internal) : [address] ? ? BLD ? Rdw 11.9 % 11.5-14.[address] [facility] L [facility] (Internal) : [address] ? ? BLD ? Plt 301 10*3/uL 130-450 Final Nort h 10*3/uL [facility] L [facility] (Internal) : [address] ? ? BLD ? Anc 4.09 10*3/uL ? Final Nort h [facility] L ab (Internal) : [address] ? ? BLD ? Nlr 1.35 0.00-3.20 Final [facility] L [facility] (Internal) : [address] ? ? BLD ? Neutro 51.6 % 40.0-75.0 Final [facility] L ab (Internal) : [address] ? ? BLD ? Lymph 38.1 % 20.0-50.[address] [facility] L [facility] (Internal) : [address] ? ? BLD ? [place] 8.3 % 2.0-10.0 Final [facility] L ab (Internal) : [address] ? ? BLD ? Eos 1.3 % 1.0-6.0 % Final [facility] L ab (Internal) : [address] t ? ? BLD ? Baso 0.4 % 0.0-1.0 % Final [facility] L ab (Internal) : [address] t ? ? BLD ? Ig 0.3 % 0.0-0.9 % Final [facility] L ab (Internal) : [address] t 04/24/2020 CMP, Serum S ? g/r 102 mg/dL 74-106 Final [place] or Plasma mg/dL [facility] (Internal) : [address] t ? ? S ? Bun 14 mg/dL 7-17 Final [place] mg/dL [facility] L [facility] (Internal) : [address] t ? ? S ? Crea 0.80 mg/dL 0.52-1.04 Final Nor th mg/dL [facility] (Internal) : [address] t ? ? S ? Ca 9.8 mg/dL 8.4-10.2 Final [facility] mg/dL [facility] (Internal) : [address] t ? ? S Low Na 135 mmol/L 137-145 Final [place] mmol/L [facility] L [facility] (Internal) : [address] t ? ? S ? K 4.2 mmol/L 3.5-5.1 Final [place] mmol/L [facility] L [facility] (Internal) : [address] t ? ? S ? Cl 99 mmol/L 98-107 Final [place] mmol/L [facility] L [facility] (Internal) : [address] t ? ? S ? Tco2 27.0 mmol/L 22.0-30.0 Final No rth mmol/L [facility] (Internal) : [address] t ? ? S High Tp 8.3 g/dL 6.3-8.2 Final [place] g/dL [facility] L [facility] (Internal) : [address] t ? ? S ? Alb 4.8 g/dL 3.5-5.0 Final [facility] g/dL [facility] (Internal) : [address] t ? ? S ? Tbil 0.9 mg/dL 0.2-1.3 Final [place] mg/dL [facility] L [facility] (Internal) : [address] t ? ? S ? Alp 57 U/L 50-136 Final [place] U/L [facility] L [facility] (Internal) : [address] t ? ? S ? Alt 18 U/L 9-52 U/L Final [place] (Sgpt) [facility] L [facility] (Internal) : [address] t ? ? S ? Ast 31 U/L 14-36 U/L Final [place] (Sgot) [facility] L [facility] (Internal) : [address] 04/24/2020 Lipase, S ? Lip 77 U/L 23-300 Final [place] Serum or U/L [facility] L ab (Internal) : [address] 04/10/2020 Electrocar ? Rate & ? ? ? P _nc Primary diogram Rhythm Care [place]l [place]: [address], [place] ? ? ? Qrs ? ? ? P_nc Prima ry Care [place]: [address], [place] ? ? ? [place] ? ? ? P_nc Prima ry Interval [facility] [place] ns: [address], [place] ? ? ? QRS ? ? ? P_nc Prima ry Duration [facility] [place]: [address], [place] ? ? ? QT ? ? ? P_nc Prima ry Interval [facility] [place] ns: [address], [place] 03/18/2020 SARS CoV 2 SWAB ? Covid-19 negative negative Fi nal [place] RNA Result [facility] (COVID-[facility] Hospit al Lab , QL, (Internal) : cold mill inspector-PCR, [address] Respirator Jennifer Hernandez wport y Specimen ? ? SWAB ? Performi the broad ? Final Nort h ng Lab institute [facility] L ab (Internal) : [address] 03/16/2020 Gamma-glut S High Ggt 125 U/L 12-43 U/L Final [place] amyl [facility] e (Ggt), (Interna l): Serum [address] 03/16/2020 CMP, Serum S ? g/r 92 mg/dL 74-106 Final [place] or Plasma mg/dL [facility] (Internal) : [address] t ? ? S ? Bun 11 mg/dL 7-17 Final [place] mg/dL [facility] (Internal) : [address] t ? ? S ? Crea 0.70 mg/dL 0.52-1.04 Final [facility] mg/dL [facility] (Internal) : [address] t ? ? S ? Ca 9.6 mg/dL 8.4-10.2 Final [place] mg/dL [facility] (Internal) : [address] t ? ? S Low Na 136 mmol/L 137-145 Final [place] mmol/L [facility] (Internal) : [address] t ? ? S ? K 4.0 mmol/L 3.5-5.1 Final [place] mmol/L [facility] (Internal) : [address] t ? ? S ? Cl 101 mmol/L 98-107 Final [place] mmol/L [facility] (Internal) : [address] t ? ? S ? Tco2 25.0 mmol/L 22.0-30.0 Final No rth mmol/L [facility] (Internal) : [address] t ? ? S ? Tp 7.7 g/dL 6.3-8.2 Final [facility] g/dL [facility] (Internal) : [address] t ? ? S ? Alb 4.2 g/dL 3.5-5.0 Final [facility] g/dL [facility] (Internal) : [address] t ? ? S ? Tbil 0.4 mg/dL 0.2-1.3 Final [place] mg/dL [facility] (Internal) : [address] t ? ? S ? Alp 72 U/L 50-136 Final [facility] U/L [facility] (Internal) : [address] t ? ? S ? Alt 45 U/L 9-52 U/L Final [place] (Sgpt) [facility] (Internal) : [address], [place] ? ? S High Ast 47 U/L 14-36 U/L Final [place] (Sgot) [facility] L [facility] (Internal) : [address] 03/16/2020 CBC W/ BLD ? Wbc 6.8 10*3/uL 5.0-10.0 Final [place] Auto Diff 10*3/uL [facility] (Internal) : [address] t ? ? BLD ? Rbc 5.15 10*6/uL 4.10-5.30 Final N orth 10*6/uL [facility] L ab (Internal) : [address] ? ? BLD ? Hgb 15.2 g/dL 12.0-16.0 Final Nort h g/dL [facility] L ab (Internal) : [address] t ? ? BLD ? Hct 46.0 % 37.0-47.0 Final [facility] L ab (Internal) : [address] t ? ? BLD ? Mcv 89.3 fL 80.0-96.0 Final [facility] L ab (Internal) : [address] t ? ? BLD ? Mch 29.5 pg 26.0-32.0 Final [place] pg [facility] L [facility] (Internal) : [address] t ? ? BLD ? Mchc 33.0 g/dL 31.0-35.0 Final Nort h g/dL [facility] L ab (Internal) : [address] t ? ? BLD ? Rdw 11.9 % 11.5-14.5 Final [facility] L ab (Internal) : [address] t ? ? BLD ? Plt 304 10*3/uL 130-450 Final Nort h 10*3/uL [facility] L ab (Internal) : [address] t ? ? BLD ? Anc 2.83 10*3/uL ? Final Nort h [facility] L ab (Internal) : [address] t ? ? BLD ? Nlr 0.90 0.00-3.20 Final [facility] L ab (Internal) : [address] t ? ? BLD ? Neutro 41.6 % 40.0-75.[address] [facility] L ab (Internal) : [address] ? ? BLD ? Lymph 46.0 % 20.0-50.0 Final [facility] L ab (Internal) : [address] [place] ? ? BLD ? [place] 9.1 % 2.0-10.[address] [facility] L ab (Internal) : [address] ? ? BLD ? Eos 2.3 % 1.0-6.0 % Final [facility] L ab (Internal) : [address] ? ? BLD ? Baso 0.7 % 0.0-1.0 % Final [facility] L ab (Internal) : [address] ? ? BLD ? Ig 0.3 % 0.0-0.9 % Final [facility] L ab (Internal) : [address] t 03/04/2020 CBC W/ BLD ? Wbc 6.7 10*3/uL 5.0-10.0 Final [place] Auto Diff 10*3/uL [facility] L ab (Internal) : [address] ? ? BLD High Rbc 5.43 10*6/uL 4.10-5.30 Final N orth 10*6/uL [facility] L ab (Internal) : [address] t ? ? BLD ? Hgb 16.0 g/dL 12.0-16.0 Final Nort h g/dL [facility] L ab (Internal) : [address] ? ? BLD High Hct 49.1 % 37.0-47.0 Final [facility] L ab (Internal) : [address] ? ? BLD ? Mcv 90.4 fL 80.0-96.0 Final [facility] Hospital L ab (Internal) : [address] ? ? BLD ? Mch 29.5 pg 26.0-32.0 Final [facility] L ab (Internal) : [address] ? ? BLD ? Mchc 32.6 g/dL 31.0-35.0 Final Nort h g/dL [facility] L ab (Internal) : [address] ? ? BLD ? Rdw 11.9 % 11.5-14.5 Final [facility] Hospital L ab (Internal) : [address] ? ? BLD ? Plt 273 10*3/uL 130-450 Final Nort h 10*3/uL [facility] L ab (Internal) : [address] ? ? BLD ? Anc 3.24 10*3/uL ? Final Nort h [facility] L ab (Internal) : [address] ? ? BLD ? Nlr 1.20 0.00-3.20 Final [facility] L ab (Internal) : [address] ? ? BLD ? Neutro 48.5 % 40.0-75.[address] [facility] L ab (Internal) : [address] [place] ? ? BLD ? Lymph 40.4 % 20.0-50.0 Final [facility] L ab (Internal) : [address] Rena t ? ? BLD ? [place] 8.4 % 2.0-10.[address] [facility] L ab (Internal) : [address] ? ? BLD ? Eos 2.0 % 1.0-6.0 % Final [facility] L ab (Internal) : [address] ? ? BLD ? Baso 0.5 % 0.0-1.0 % Final [facility] L ab (Internal) : [address], [place] ? ? BLD ? Ig 0.2 % 0.0-0.9 % Final [facility] L ab (Internal) : [address], [place] t 03/04/2020 Gamma-glut S High Ggt 252 U/L 12-43 U/L Final [facility] Lab e (Ggt), (Interna l): Serum [address] 03/04/2020 CMP, Serum S ? g/r 88 mg/dL 74-106 Final [place] or Plasma mg/dL [facility] L ab (Internal) : [address] t ? ? S ? Bun 12 mg/dL 7-17 Final [place] mg/dL [facility] L ab (Internal) : [address], [place] ? ? S ? Crea 0.80 mg/dL 0.52-1.04 Final Nor th mg/dL [facility] (Internal) : [address] t ? ? S ? Ca 9.8 mg/dL 8.4-10.2 Final [facility] mg/dL [facility] (Internal) : [address] t ? ? S ? Na 140 mmol/L 137-145 Final [facility] mmol/L [facility] (Internal) : [address] ? ? S ? K 4.2 mmol/L 3.5-5.1 Final [place] mmol/L [facility] (Internal) : [address] t ? ? S ? Cl 100 mmol/L 98-107 Final [place] mmol/L [facility] L ab (Internal) : [address] t ? ? S ? Tco2 30.0 mmol/L 22.0-30.0 Final No rth mmol/L [facility] (Internal) : [address] t ? ? S ? Tp 8.0 g/dL 6.3-8.2 Final [facility] g/dL [facility] (Internal) : [address] t ? ? S ? Alb 4.5 g/dL 3.5-5.0 Final [place] g/dL [facility] L [facility] (Internal) : [address] t ? ? S ? Tbil 0.6 mg/dL 0.2-1.3 Final [facility] mg/dL [facility] (Internal) : [address] t ? ? S ? Alp 110 U/L 50-136 Final [place] U/L [facility] L ab (Internal) : [address] t ? ? S High Alt 172 U/L 9-52 U/L Final [place] (Sgpt) [facility] L ab (Internal) : [address] t ? ? S High Ast 90 U/L 14-36 U/L Final [place] (Sgot) [facility] L ab (Internal) : [address] t 02/18/2020 Iron, SERUM ? Iron 87 ug/dL 37-170 Final Nort h Serum ug/dL [facility] L [facility] (Internal) : [address] [facility] 02/18/2020 CRP, High S ? Rcrp 0.16 mg/dL 0.10-0.30 Fin [facility] Sensitivit mg/dL Countr y y, Serum Hospital Lab or Plasma (Swatch Clerk al): [address] [facility] 02/18/2020 CK S ? Cpk 49 U/L 30-135 Final [place] (Creatine U/L [facility] Kinase) Hospital Lab Total, (Internal) : Serum [address] [facility] 02/18/2020 Hepatic S ? Tbil 0.5 mg/dL 0.2-1.3 Final N orth Function mg/dL [facility] L ab Serum (Internal) : [address] t ? ? S ? Dbil 0.1 mg/dL 0.0-0.3 Final [place] mg/dL [facility] L ab (Internal) : [address] t ? ? S ? Alp 95 U/L 50-136 Final [place] U/L [facility] L ab (Internal) : [address] t ? ? S High Alt 97 U/L 9-52 U/L Final [place] (Sgpt) [facility] L ab (Internal) : [address] t ? ? S High Ast 51 U/L 14-36 U/L Final [place] (Sgot) [facility] L ab (Internal) : [address] ? ? S High Ggt 177 U/L 12-43 U/L Final [facility] L ab (Internal) : [address] t ? ? S ? Tp 8.1 g/dL 6.3-8.2 Final [place] g/dL [facility] L ab (Internal) : [address] ? ? S ? Alb 4.4 g/dL 3.5-5.0 Final [place] g/dL [facility] L ab (Internal) : [address] [facility] 02/18/2020 ESR BLD ? Esr 9 mm/h 0-30 mm/h Final Nor th (Erythrocy Countr y te Hospital L ab Sedimentat (Inter nal): ion Rate), [address] [facility] 02/18/2020 Hepatitis S ? Hepatiti negative negative Fin [facility] Panel s a IgM Country (A+B+C), Ab, S Hospital Lab Acute, (Internal) : Serum [address] ? ? S ? Hbs negative negative Final [place] Antigen, Country S Hospital L ab (Internal) : [address] ? ? S ? Hbc IgM negative negative Final Nort h Ab, S [facility] Hospital L ab (Internal) : [address] ? ? S ? HCV Ab, negative negative Final Nort h S [facility] Hospital L ab (Internal) : [address] t 02/06/2020 Gamma-glut S High Ggt 88 U/L 12-43 U/L Final [facility] amyl [facility] e (Ggt), (Interna l): Serum [address] 02/06/2020 CK S ? Cpk 54 U/L 30-135 Final [place] (Creatine U/L [facility] Kinase), Hospital Lab Total, (Internal) : Serum [address] gabe 02/06/2020 CMP, Serum S ? g/r 89 mg/dL 74-106 Final [facility] or Plasma mg/dL [facility] (Internal) : [address] t ? ? S ? Bun 10 mg/dL 7-17 Final [place] mg/dL [facility] (Internal) : [address] t ? ? S ? Crea 0.70 mg/dL 0.52-1.04 Final Nor th mg/dL [facility] (Internal) : [address] t ? ? S ? Ca 8.9 mg/dL 8.4-10.2 Final [facility] mg/dL [facility] (Internal) : [address] t ? ? S ? Na 137 mmol/L 137-145 Final [facility] mmol/L [facility] (Internal) : [address] t ? ? S ? K 4.3 mmol/L 3.5-5.1 Final [place] mmol/L [facility] Hospital L ab (Internal) : [address] t ? ? S ? Cl 103 mmol/L 98-107 Final [place] mmol/L [facility] Hospital L ab (Internal) : [address] t ? ? S ? Tco2 25.0 mmol/L 22.0-30.0 Final No rth mmol/L [facility] (Internal) : [address] t ? ? S ? Tp 7.5 g/dL 6.3-8.2 Final [facility] g/dL [facility] (Internal) : [address] t ? ? S ? Alb 4.1 g/dL 3.5-5.0 Final [facility] g/dL [facility] (Internal) : [address] ? ? S ? Tbil 0.6 mg/dL 0.2-1.3 Final [place] mg/dL [facility] (Internal) : [address] ? ? S ? Alp 66 U/L 50-136 Final [facility] U/L [facility] (Internal) : [address] t ? ? S ? Alt 52 U/L 9-52 U/L Final [place] (Sgpt) [facility] (Internal) : [address] t ? ? S High Ast 50 U/L 14-36 U/L Final [place] (Sgot) [facility] Hospital L ab (Internal) : [address] t 01/23/2020 Gamma-glut S High Ggt 83 U/L 12-43 U/L Final [place] amyl [facility] Lab e (Ggt), (Interna l): Serum [address] t 01/23/2020 CK S ? Cpk 105 U/L 30-135 Final [place] (Creatine U/L [facility] Kinase), Hospital Lab Total, (Internal) : Serum [address] t 01/23/2020 CMP, Serum S ? g/r 85 mg/dL 74-106 Final [facility] or Plasma mg/dL [facility] (Internal) : [address] ? ? S ? Bun 14 mg/dL 7-17 Final [place] mg/dL [facility] (Internal) : [address] t ? ? S ? Crea 0.80 mg/dL 0.52-1.04 Final Nor th mg/dL [facility] (Internal) : [address] t ? ? S ? Ca 9.3 mg/dL 8.4-10.2 Final [facility] mg/dL [facility] (Internal) : [address] ? ? S ? Na 138 mmol/L 137-145 Final [place] mmol/L [facility] Hospital L ab (Internal) : [address] ? ? S ? K 3.9 mmol/L 3.5-5.1 Final [place] mmol/L [facility] Hospital L ab (Internal) : [address] t ? ? S ? Cl 101 mmol/L 98-107 Final [place] mmol/L [facility] Hospital L ab (Internal) : [address] ? ? S ? Tco2 27.0 mmol/L 22.0-30.0 Final No rth mmol/L [facility] (Internal) : [address] t ? ? S ? Tp 7.8 g/dL 6.3-8.2 Final [place] g/dL [facility] Hospital L ab (Internal) : [address] ? ? S ? Alb 4.5 g/dL 3.5-5.0 Final [facility] g/dL [facility] : [address] t ? ? S ? Tbil 0.5 mg/dL 0.2-1.3 Final [place] mg/dL [facility] L ab (Internal) : [address] t ? ? S ? Alp 72 U/L 50-136 Final [place] U/L [facility] L ab (Internal) : [address] t ? ? S ? Alt 50 U/L 9-52 U/L Final [place] (Sgpt) [facility] L ab (Internal) : [address] t ? ? S High Ast 53 U/L 14-36 U/L Final [place] (Sgot) [facility] L [facility] (Internal) : [address] 01/23/2020 T4, Free, S ? Ft4 1.29 NG/dL 0.78-2.19 Fin al [place] Serum NG/dL [facility] L ab (Internal) : [address] 01/23/2020 Ferritin, S ? Ferr 27 NG/mL 11-264 Final N orth Serum or NG/mL [facility] (Internal) : [address] 01/23/2020 TSH, Serum S Low Tsh 0.16 u[IU]/mL 0.47-4.68 Final [place] or Plasma u[IU]/mL [facility] L ab (Internal) : [address] 01/23/2020 Vitamin S ? Vit B12 274.0 pg/mL 239.0-931 Fi [facility] B12, Serum .0 pg/mL Coun try Hospital L ab (Internal) : [address] 01/23/2020 Vitamin D, S ? 25-[place] <4.0 NG/mL ? Fi [facility] 25-Hydroxy xy D2 Countr y , Total, Hospital Lab Serum (Internal) : [address] t ? ? S ? 25-[place] 27 NG/mL ? Final [place] xy D3 [facility] ([facility]) : [address] t ? ? S ? 25-[place] 27 NG/mL ? Final [place] xy D [facility] L [facility] (Internal) : [address] 01/12/2020 CBC W/ BLD ? Wbc 8.0 10*3/uL 5.0-10.0 Final [place] Auto Diff 10*3/uL [facility] L ab (Internal) : [address] ? ? BLD High Rbc 5.49 10*6/uL 4.10-5.30 Final N orth 10*6/uL [facility] ([facility]) : [address] ? ? BLD High Hgb 16.4 g/dL 12.0-16.0 Final Nort h g/dL [facility] L ab (Internal) : [address] ? ? BLD High Hct 48.6 % 37.0-47.0 Final [place] % [facility] (Internal) : [address] ? ? BLD ? Mcv 88.5 fL 80.0-96.0 Final [place] fL [facility] L [facility] (Internal) : [address] ? ? BLD ? Mch 29.9 pg 26.0-32.0 Final [place] pg [facility] (Internal) : [address] ? ? BLD ? Mchc 33.7 g/dL 31.0-35.0 Final Nort h g/dL [facility] L ab (Internal) : [address] ? ? BLD ? Rdw 11.6 % 11.5-14.5 Final [facility] L ab (Internal) : [address] ? ? BLD ? Plt 254 10*3/uL 130-450 Final Nort h 10*3/uL [facility] L ab (Internal) : [address] ? ? BLD ? Anc 3.91 10*3/uL ? Final Nort h [facility] L ab (Internal) : [address] ? ? BLD ? Nlr 1.22 0.00-3.20 Final [facility] L ab (Internal) : [address] t ? ? BLD ? Neutro 49.0 % 40.0-75.[address] [facility] L ab (Internal) : [address] ? ? BLD ? Lymph 40.3 % 20.0-50.0 Final [facility] L ab (Internal) : [address] t ? ? BLD ? [place] 8.2 % 2.0-10.0 Final [facility] L ab (Internal) : [address] ? ? BLD ? Eos 1.8 % 1.0-6.0 % Final [facility] L ab (Internal) : [address] t ? ? BLD ? Baso 0.4 % 0.0-1.0 % Final [facility] L ab (Internal) : [address] ? ? BLD ? Ig 0.3 % 0.0-0.9 % Final [facility] L ab (Internal) : [address] t 01/12/2020 CMP, Serum S ? g/r 80 mg/dL 74-106 Final [place] or Plasma mg/dL [facility] (Internal) : [address] t ? ? S ? Bun 11 mg/dL 7-17 Final [place] mg/dL [facility] (Internal) : [address] t ? ? S ? Crea 0.70 mg/dL 0.52-1.04 Final [facility] th mg/dL [facility] ([facility] : [address] t ? ? S ? Ca 9.5 mg/dL 8.4-10.2 Final [facility] mg/dL [facility] ([facility] : [address] t ? ? S ? Na 139 mmol/L 137-145 Final [place] mmol/L [facility] (Internal) : [address] t ? ? S ? K 3.9 mmol/L 3.5-5.1 Final [facility] mmol/L [facility] ([facility] : [address] t ? ? S ? Cl 99 mmol/L 98-107 Final [place] mmol/L [facility] ([facility]) : [address] t ? ? S ? Tco2 28.0 mmol/L 22.0-30.0 Final No rth mmol/L [facility] (Internal) : [address] t ? ? S High Tp 8.5 g/dL 6.3-8.2 Final [facility] g/dL [facility] ([facility]) : [address] t ? ? S ? Alb 4.7 g/dL 3.5-5.0 Final [facility] g/dL [facility] ([facility] : [address] t ? ? S ? Tbil 0.9 mg/dL 0.2-1.3 Final [facility] mg/dL [facility] ([facility] : [address] t ? ? S ? Alp 86 U/L 50-136 Final [place] U/L [facility] (Internal) : [address] t ? ? S High Alt 77 U/L 9-52 U/L Final [place] (Sgpt) [facility] (Internal) : [address] t ? ? S High Ast 58 U/L 14-36 U/L Final [place] (Sgot) [facility] (Internal) : [address] 01/12/2020 Lipase, S ? Lip 60 U/L 23-300 Final [place] Serum or U/L [facility] (Internal) : [address] 01/12/2020 Urinalysis UR ? UA-color pale yellow pale F inal [place] , yellow [facility] Dipstick, Hospita l Lab Reflex (Internal) : Micro [address] [address] ? ? UR ? UA-appea clear clear Final [facility] ab (Internal) : [address], [place] ? ? UR ? UA-spec 1.015 1.003-1.0 Final [place] Grav 35 [facility] : [address] [place] [address] ? ? UR ? UA-pH 7.0 [pH] 4.6-8.0 Final [place] [pH] [facility] ([facility]) : [address] [place] ? ? UR ? UA-leuk negative negative Final [facility] ab (Internal) : [address] [place] ? ? UR ? UA-nitri negative negative Final [facility] ab (Internal) : [address] ? ? UR ? UA-prot negative negative Final [facility] ab (Internal) : [address] [place] ? ? UR ? UA-gluc negative negative Final [facility] (Internal) : [address] ? ? UR ? UA-[place] negative negative Final [facility] ab (Internal) : [address] ? ? UR ? UA-urobi normal normal Final [facility] ab (Internal) : [address] ? ? UR ? UA-bili negative negative Final [facility] ab (Internal) : [address] ? ? UR ? UA-blood negative negative Final [facility] ab (Internal) : [address] t 01/09/2020 EKG Done ? No ? ? ? [facility] [place] [facility] recorded. (Swatch Clerk al): [address] t 01/08/2020 CBC W/ BLD ? Wbc 7.1 10*3/uL 5.0-10.0 Final [place] Auto Diff 10*3/uL [facility] ab (Internal) : [address] t ? ? BLD ? Rbc 4.85 10*6/uL 4.10-5.30 Final N orth 10*6/uL [facility] L ab (Internal) : [address] ? ? BLD ? Hgb 14.2 g/dL 12.0-16.0 Final Nort h g/dL [facility] L ab (Internal) : [address] ? ? BLD ? Hct 44.1 % 37.0-47.[address] [facility] L ab (Internal) : [address] ? ? BLD ? Mcv 90.9 fL 80.0-96.0 Final [facility] L ab (Internal) : [address] ? ? BLD ? Mch 29.3 pg 26.0-32.0 Final [facility] L ab (Internal) : [address] ? ? BLD ? Mchc 32.2 g/dL 31.0-35.0 Final Nort h g/dL [facility] ab (Internal) : [address] ? ? BLD ? Rdw 11.9 % 11.5-14.[address] [facility] L ab (Internal) : [address] ? ? BLD ? Plt 249 10*3/uL 130-450 Final Nort h 10*3/uL [facility] L ab (Internal) : [address] ? ? BLD ? Anc 3.51 10*3/uL ? Final Nort h [facility] L ab (Internal) : [address] ? ? BLD ? Nlr 1.25 0.00-3.20 Final [facility] L ab (Internal) : [address] ? ? BLD ? Neutro 49.6 % 40.0-75.[address] [facility] L ab (Internal) : [address] ? ? BLD ? Lymph 39.6 % 20.0-50.[address] [facility] L ab (Internal) : [address] ? ? BLD ? [place] 7.6 % 2.0-10.[address] [facility] L ab (Internal) : [address] ? ? BLD ? Eos 2.5 % 1.0-6.0 % Final [facility] : [address] ? ? BLD ? Baso 0.4 % 0.0-1.0 % Final [facility] L ab (Internal) : [address] ? ? BLD ? Ig 0.3 % 0.0-0.9 % Final [facility] L ab (Internal) : [address] 01/08/2020 Lipid S ? Chol 151 mg/dL 50-200 Final [facility] th Panel, mg/dL [facility] (Internal) : [address] t ? ? S ? Trig 136 mg/dL 10-150 Final [place] mg/dL [facility] (Internal) : [address] t ? ? S ? Hdl 44 mg/dL 40-60 Final [place] mg/dL [facility] ab (Internal) : [address] t ? ? S ? Ldl 80 mg/dL 0-130 Final [place] mg/dL [facility] (Internal) : [address] 01/08/2020 Hepatic S ? Tbil 0.7 mg/dL 0.2-1.3 Final N orth Function mg/dL [facility] L ab Serum (Internal) : [address] t ? ? S ? Dbil 0.0 mg/dL 0.0-0.3 Final [place] mg/dL [facility] ab (Internal) : [address] ? ? S ? Alp 69 U/L 50-136 Final [place] U/L [facility] (Internal) : [address] t ? ? S High Alt 59 U/L 9-52 U/L Final [place] (Sgpt) [facility] (Internal) : [address] ? ? S High Ast 41 U/L 14-36 U/L Final [place] (Sgot) [facility] (Internal) : [address] t ? ? S High Ggt 92 U/L 12-43 U/L Final [facility] L ab (Internal) : [address] ? ? S ? Tp 7.2 g/dL 6.3-8.2 Final [place] g/dL [facility] ab (Internal) : [address] ? ? S ? Alb 4.1 g/dL 3.5-5.0 Final [place] g/dL [facility] ab (Internal) : [address] t 11/07/2019 CBC W/ BLD ? Wbc 8.3 10*3/uL 5.0-10.0 Final [place] Auto Diff 10*3/uL [facility] L ab (Internal) : [address] ? ? BLD High Rbc 5.32 10*6/uL 4.10-5.30 Final N orth 10*6/uL [facility] L ab (Internal) : [address] ? ? BLD ? Hgb 15.6 g/dL 12.0-16.0 Final Nort h g/dL [facility] ab (Internal) : [address] ? ? BLD ? Hct 46.2 % 37.0-47.[address] [facility] L ab (Internal) : [address] ? ? BLD ? Mcv 86.8 fL 80.0-96.0 Final [facility] L ab (Internal) : [address] ? ? BLD ? Mch 29.3 pg 26.0-32.0 Final [facility] L ab (Internal) : [address] ? ? BLD ? Mchc 33.8 g/dL 31.0-35.0 Final Nort h g/dL [facility] L ab (Internal) : [address] t ? ? BLD ? Rdw 12.0 % 11.5-14.[address] [facility] L ab (Internal) : [address] ? ? BLD ? Plt 298 10*3/uL 130-450 Final Nort h 10*3/uL [facility] L ab (Internal) : [address] ? ? BLD ? Anc 5.91 10*3/uL ? Final Nort h [facility] L ab (Internal) : [address] t ? ? BLD High Nlr 3.27 0.00-3.20 Final [facility] L ab (Internal) : [address] ? ? BLD ? Neutro 70.8 % 40.0-75.0 Final [facility] % [facility] (Internal) : [address] ? ? BLD ? Lymph 21.7 % 20.0-50.0 Final [facility] % [facility] (Internal) : [address] ? ? BLD ? [place] 5.5 % 2.0-10.0 Final [facility] % [facility] (Internal) : [address] ? ? BLD ? Eos 1.1 % 1.0-6.0 % Final [facility] (Internal) : [address] ? ? BLD ? Baso 0.5 % 0.0-1.0 % Final [facility] (Internal) : [address] t ? ? BLD ? Ig 0.4 % 0.0-0.9 % Final [facility] (Internal) : [address] t 11/07/2019 BMP, Serum S ? g/r 96 mg/dL 74-106 Final [place] or Plasma mg/dL [facility] (Internal) : [address] t ? ? S ? Bun 11 mg/dL 7-17 Final [place] mg/dL [facility] (Internal) : [address] t ? ? S ? Crea 0.70 mg/dL 0.52-1.04 Final [facility] th mg/dL [facility] (Internal) : [address] t ? ? S ? Ca 9.4 mg/dL 8.4-10.2 Final [facility] mg/dL [facility] (Internal) : [address] t ? ? S ? Na 140 mmol/L 137-145 Final [facility] mmol/L [facility] (Internal) : [address] t ? ? S ? K 4.1 mmol/L 3.5-5.1 Final [place] mmol/L [facility] (Internal) : [address] t ? ? S ? Cl 103 mmol/L 98-107 Final [place] mmol/L [facility] (Internal) : [address] ? ? S ? Tco2 25.0 mmol/L 22.0-30.0 Final No rth mmol/L [facility] L ab (Internal) : [address] 11/07/2019 Troponin S ? Trop <0.06 NG/mL 0.00-0.06 [facility], Serum NG/mL [facility] or Plasma Hospita l Lab (Internal) : [address] 11/07/2019 Troponin S ? Trop <0.06 NG/mL 0.00-0.06 [facility], Serum NG/mL [facility] or Plasma Hospita l Lab (Internal) : [address] t 10/10/2019 CBC W/ BLD ? Wbc 8.1 10*3/uL 5.0-10.0 Final [place] Auto Diff 10*3/uL [facility] L ab (Internal) : [address] t ? ? BLD High Rbc 5.82 10*6/uL 4.10-5.30 Final N orth 10*6/uL [facility] L ab (Internal) : [address] t ? ? BLD High Hgb 17.0 g/dL 12.0-16.0 Final Nort h g/dL [facility] L ab (Internal) : [address] t ? ? BLD High Hct 50.0 % 37.0-47.[address] [facility] L ab (Internal) : [address] t ? ? BLD ? Mcv 85.9 fL 80.0-96.0 Final [facility] L ab (Internal) : [address] t ? ? BLD ? Mch 29.2 pg 26.0-32.0 Final [facility] L ab (Internal) : [address] t ? ? BLD ? Mchc 34.0 g/dL 31.0-35.0 Final Nort h g/dL [facility] L ab (Internal) : [address] t ? ? BLD ? Rdw 11.9 % 11.5-14.[address] [facility] L ab (Internal) : [address] ? ? BLD ? Plt 295 10*3/uL 130-450 Final Nort h 10*3/uL [facility] (Internal) : [address] ? ? BLD ? Anc 4.02 10*3/uL ? Final Nort h [facility] L ab (Internal) : [address] ? ? BLD ? Neutro 50.0 % 40.0-75.0 Final [facility] Hospital L ab (Internal) : [address] ? ? BLD ? Lymph 38.9 % 20.0-50.0 Final [facility] Hospital L ab (Internal) : [address] ? ? BLD ? [place] 7.8 % 2.0-10.0 Final [facility] L ab (Internal) : [address] ? ? BLD ? Eos 2.5 % 1.0-6.0 % Final [facility] L ab (Internal) : [address] ? ? BLD ? Baso 0.6 % 0.0-1.0 % Final [facility] L ab (Internal) : [address] ? ? BLD ? Ig 0.2 % 0.0-0.9 % Final [facility] L ab (Internal) : [address] t 10/10/2019 CMP, Serum S ? g/r 83 mg/dL 74-106 Final [place] or Plasma mg/dL [facility] L ab (Internal) : [address] ? ? S ? Bun 14 mg/dL 7-17 Final [place] mg/dL [facility] (Internal) : [address] ? ? S ? Crea 0.90 mg/dL 0.52-1.04 Final [place] th mg/dL [facility] (Internal) : [address] ? ? S ? Ca 9.4 mg/dL 8.4-10.2 Final [place] mg/dL [facility] L ab (Internal) : [address] ? ? S ? Na 138 mmol/L 137-145 Final [place] mmol/L [facility] L ab (Internal) : [address] ? ? S ? K 3.9 mmol/L 3.5-5.1 Final [place] mmol/L [facility] L ab (Internal) : [address] t ? ? S ? Cl 98 mmol/L 98-107 Final [place] mmol/L [facility] (Internal) : [address] t ? ? S ? Tco2 23.0 mmol/L 22.0-30.0 Final No rth mmol/L [facility] (Internal) : [address] t ? ? S High Tp 8.7 g/dL 6.3-8.2 Final [place] g/dL [facility] (Internal) : [address] t ? ? S ? Alb 4.8 g/dL 3.5-5.0 Final [place] g/dL [facility] (Internal) : [address] t ? ? S ? Tbil 1.0 mg/dL 0.2-1.3 Final [place] mg/dL [facility] (Internal) : [address] t ? ? S ? Alp 71 U/L 50-136 Final [place] U/L [facility] (Internal) : [address] t ? ? S ? Alt 19 U/L 9-52 U/L Final [place] (Sgpt) [facility] (Internal) : [address] t ? ? S ? Ast 25 U/L 14-36 U/L Final [place] (Sgot) [facility] (Internal) : [address] 10/10/2019 Troponin S ? Trop <0.06 NG/mL 0.00-0.06 Fin al [place] I, Serum NG/mL [facility] or Plasma Hospita l Lab (Internal) : [address] 08/24/2019 Lipid S High Chol 246 mg/dL 50-200 Final Nor th Panel, mg/dL [facility] (Internal) : [address] t ? ? S High Trig 177 mg/dL 10-150 Final [place] mg/dL [facility] (Internal) : [address] ? ? S ? Hdl 49 mg/dL 40-60 Final [place] mg/dL [facility] (Internal) : [address] ? ? S High Ldl 162 mg/dL 0-130 Final [place] mg/dL [facility] (Internal) : [address] [facility] 08/24/2019 Magnesium, S ? mg 2.1 mg/dL 1.6-2.3 Final [place] QN, Serum mg/dL [facility] or [facility] Hospita l Lab (Internal) : [address] [facility] 08/24/2019 ESR BLD ? Esr 5 mm/h 0-30 mm/h Final [facility] th (Erythrocy Countr y Hospital L ab Sedimentat (Inter nal): ion Rate), [address] [facility] 08/24/2019 Iron S ? Iron 110 ug/dL 37-170 Final [facility] Saturation ug/dL Countr y , Serum Hospital Lab (Internal) : [address] [facility] t ? ? S ? Tibc 283 ug/dL 265-497 Final [place] ug/dL [facility] L ab (Internal) : [address] [facility] t ? ? S ? Sat 39 % 20-55 % Final [facility] L ab (Internal) : [address] [facility] 08/24/2019 TSH, Serum S ? Tsh 1.65 u[IU]/mL 0.47-4.68 Final [place] or Plasma u[IU]/mL [facility] Hospital L ab (Internal) : [address] [facility] 08/24/2019 Ferritin, S ? Ferr 43 NG/mL 11-264 Final N orth Serum or NG/mL [facility] L ab (Internal) : [address] [facility] 08/24/2019 T3, Total, S ? T3, 131 NG/dL 97-169 Final [place] Serum Total NG/dL [facility] L ab (Internal) : [address] [facility] 08/24/2019 Borrelia S ? Lyme negative negative Final [place]fer Antibody Coun try i Ab, Qual Hospit al Lab Immunoassa (Inter nal): y, Serum [address] [facility] 08/24/2019 Cortisol, S High Cortisol 1.910 mcg/dL ? F inal [place] Free, , Free, S [facility] L ab (Internal) : [address] [facility] 08/13/2019 CBC W/ BLD - Wbc 6.8 10*3/uL 5.0-10.0 Final [place] Auto Diff 10*3/uL [facility] Hospital L ab (Internal) : [address] ? ? BLD - Rbc 5.20 10*6/uL 4.10-5.30 Final N orth 10*6/uL [facility] ab (Internal) : [address] ? ? BLD - Hgb 15.2 g/dL 12.0-16.0 Final Nort h g/dL [facility] L ab (Internal) : [address] ? ? BLD - Hct 45.0 % 37.0-47.0 Final [facility] Hospital L ab (Internal) : [address] ? ? BLD - Mcv 86.5 fL 80.0-96.0 Final [facility] Hospital L ab (Internal) : [address] ? ? BLD - Mch 29.2 pg 26.0-32.0 Final [facility] Hospital L ab (Internal) : [address] ? ? BLD - Mchc 33.8 g/dL 31.0-35.0 Final Nort h g/dL [facility] L ab (Internal) : [address] ? ? BLD - Rdw 12.1 % 11.5-14.5 Final [facility] Hospital L ab (Internal) : [address] ? ? BLD - Plt 242 10*3/uL 130-450 Final Nort h 10*3/uL [facility] L ab (Internal) : [address] ? ? BLD - Anc 3.45 10*3/uL ? Final Nort [facility] L ab (Internal) : [address] [place] ? ? BLD - Neutro 50.5 % 40.0-75.0 Final [facility] Hospital L ab (Internal) : [address] gabe ? ? BLD - Lymph 38.1 % 20.0-50.0 Final [facility] Hospital L ab (Internal) : [address] ? ? BLD - [place] 7.6 % 2.0-10.0 Final [facility] Hospital L ab (Internal) : [address] ? ? BLD - Eos 2.9 % 1.0-6.0 % Final [facility] L ab (Internal) : [address] ? ? BLD - Baso 0.6 % 0.0-1.0 % Final [facility] L ab (Internal) : [address] t ? ? BLD - Ig 0.3 % 0.0-0.9 % Final [facility] L ab (Internal) : [address] t 08/13/2019 CMP, Serum S - g/r 88 mg/dL 74-106 Final [place] or Plasma mg/dL [facility] (Internal) : [address] t ? ? S - Bun 16 mg/dL 7-17 Final [place] mg/dL [facility] L ab (Internal) : [address] t ? ? S - Crea 0.80 mg/dL 0.52-1.04 Final [facility] th mg/dL [facility] ab (Internal) : [address] t ? ? S - Ca 9.8 mg/dL 8.4-10.2 Final [place] mg/dL [facility] (Internal) : [address] t ? ? S - Na 138 mmol/L 137-145 Final [place] mmol/L [facility] L ab (Internal) : [address] t ? ? S - K 3.6 mmol/L 3.5-5.1 Final [place] mmol/L [facility] (Internal) : [address] t ? ? S - Cl 99 mmol/L 98-107 Final [place] mmol/L [facility] L ab (Internal) : [address] t ? ? S - Tco2 29.0 mmol/L 22.0-30.0 Final No rth mmol/L [facility] ab (Internal) : [address] t ? ? S High Tp 8.3 g/dL 6.3-8.2 Final [place] g/dL [facility] (Internal) : [address] t ? ? S - Alb 4.6 g/dL 3.5-5.0 Final [place] g/dL [facility] (Internal) : [address] ? ? S - Tbil 0.7 mg/dL 0.2-1.3 Final [place] mg/dL [facility] L ab (Internal) : [address] [facility] ? ? S - Alp 59 U/L 50-136 Final [place] U/L [facility] L ab (Internal) : [address] [facility] ? ? S - Alt 16 U/L 9-52 U/L Final [place] (Sgpt) [facility] L ab (Internal) : [address] ? ? S - Ast 29 U/L 14-36 U/L Final [place] (Sgot) [facility] L ab (Internal) : [address] [facility] 08/13/2019 Troponin S - Trop <0.06 NG/mL 0.00-0.06 Fin [facility] I, Serum NG/mL [facility] Lab [facility] : [address] [facility] 08/13/2019 T4, Free, S - Ft4 1.35 NG/dL 0.78-2.19 Fin [facility] Serum NG/dL [facility] L ab (Internal) : [address] [facility] 08/13/2019 TSH, Serum S - Tsh 2.49 u[IU]/mL 0.47-4.68 Final [place] or Plasma u[IU]/mL Count Hospital L ab (Internal) : [address] [facility] 08/13/2019 Renin ? Renin 27 NG/mL/h ? Final No rth Activity, Activity, Coun try Plasma P Hospital L ab (Pra) (Internal) : [address] [facility] CBC W/ BLD - Wbc 6.7 10*3/uL 5.0-10.0 Final [place] Auto Diff 10*3/uL [facility] Hospital L ab (Internal) : [address] ? ? BLD - Rbc 4.94 10*6/uL 4.10-5.30 Final N orth 10*6/uL [facility] L ab (Internal) : [address] ? ? BLD - Hgb 14.3 g/dL 12.0-16.0 Final Nort h g/dL [facility] L ab (Internal) : [address] ? ? BLD - Hct 43.6 % 37.0-47.0 Final [facility] Hospital L ab (Internal) : [address] ? ? BLD - Mcv 88.3 fL 80.0-96.0 Final [facility] Hospital L ab (Internal) : [address] ? ? BLD - Mch 28.9 pg 26.0-32.0 Final [facility] Hospital L ab (Internal) : [address] ? ? BLD - Mchc 32.8 g/dL 31.0-35.0 [facility] Hospital L ab (Internal) : [address] ? ? BLD - Rdw 12.2 % 11.5-14.5 Final [facility] Hospital L ab (Internal) : [address] Rena t ? ? BLD - Plt 296 10*3/uL 130-450 Final Nort h 10*3/uL [facility] Hospital L ab (Internal) : [address], [place] ? ? BLD - Anc 4.20 10*3/uL ? [facility] Hospital L ab (Internal) : [address] ? ? BLD - Neutro 62.5 % 40.0-75.0 Final [facility] Hospital L ab (Internal) : [address] ? ? BLD - Lymph 29.5 % 20.0-50.[address] [facility] L ab (Internal) : [address], [place] ? ? BLD - [place] 4.9 % 2.0-10.[address] [facility] L ab (Internal) : [address] ? ? BLD - Eos 2.1 % 1.0-6.0 % Final [facility] Hospital L ab (Internal) : [address] ? ? BLD - Baso 0.7 % 0.0-1.0 % Final [facility] Hospital L ab (Internal) : [address] ? ? BLD - Ig 0.3 % 0.0-0.9 % Final [facility] Hospital L ab (Internal) : [address] t 08/01/2019 CK S - Cpk 31 U/L 30-135 Final [facility] (Creatine U/L [facility] Kinase), Hospital Lab Total, (Internal) : Serum [address] t 08/01/2019 CRP, High S High Rcrp 0.31 mg/dL 0.10-0.30 Fin [facility] Sensitivit mg/dL Countr y y, Serum Hospital Lab or Plasma (Swatch Clerk al): [address] [facility] t 08/01/2019 Troponin S - Trop <0.06 NG/mL 0.00-0.06 Fin tg [place] I, Serum NG/mL Country or Plasma Hospita l Lab (Internal) : [address] [facility] t 08/01/2019 CMP, Serum S High g/r 109 mg/dL 74-106 Final [facility] or Plasma mg/dL [facility] L ab (Internal) : [address] t ? ? S - Bun 13 mg/dL 7-17 Final [facility] mg/dL [facility] L ab (Internal) : [address] t ? ? S - Crea 0.70 mg/dL 0.52-1.04 Final Nor th mg/dL [facility] L ab (Internal) : [address] t ? ? S - Ca 9.3 mg/dL 8.4-10.2 Final [facility] mg/dL [facility] L ab (Internal) : [address] t ? ? S - Na 140 mmol/L 137-145 Final [facility] mmol/L [facility] L [facility] (Internal) : [address] t ? ? S Low K 3.4 mmol/L 3.5-5.1 Final [facility] mmol/L [facility] L [facility] (Internal) : [address] t ? ? S - Cl 102 mmol/L 98-107 Final [facility] mmol/L [facility] L [facility] (Internal) : [address] t ? ? S - Tco2 28.0 mmol/L 22.0-30.0 Final No rth mmol/L [facility] L [facility] (Internal) : [address] t ? ? S - Tp 7.7 g/dL 6.3-8.2 Final [facility] g/dL [facility] L [facility] (Internal) : [address] t ? ? S - Alb 4.1 g/dL 3.5-5.0 Final [place] g/dL [facility] Hospital L ab (Internal) : [address] ? ? S - Tbil 0.4 mg/dL 0.2-1.3 Final [place] mg/dL [facility] Hospital L ab (Internal) : [address] [place] ? ? S - Alp 54 U/L 50-136 Final [place] U/L [facility] Hospital L ab (Internal) : [address] ? ? S - Alt 20 U/L 9-52 U/L Final [place] (Sgpt) [facility] Hospital L ab (Internal) : [address] ? ? S - Ast 32 U/L 14-36 U/L Final [place] (Sgot) [facility] Hospital L ab (Internal) : [address] t 07/19/2019 CBC W/ BLD - Wbc 8.7 10*3/uL 5.0-10.0 Final [place] Auto Diff 10*3/uL [facility] Hospital L ab (Internal) : [address] ? ? BLD - Rbc 4.61 10*6/uL 4.10-5.30 Final N orth 10*6/uL [facility] Hospital L ab (Internal) : [address] t ? ? BLD - Hgb 13.4 g/dL 12.0-16.0 Final Nort h g/dL [facility] L ab (Internal) : [address] t ? ? BLD - Hct 39.8 % 37.0-47.0 Final [facility] Hospital L ab (Internal) : [address] t ? ? BLD - Mcv 86.3 fL 80.0-96.0 Final [place] fL [facility] Hospital L ab (Internal) : [address] t ? ? BLD - Mch 29.1 pg 26.0-32.0 Final [place] pg [facility] Hospital L ab (Internal) : [address] t ? ? BLD - Mchc 33.7 g/dL 31.0-35.0 Final Nort h g/dL [facility] Hospital L ab (Internal) : [address] t ? ? BLD - Rdw 11.9 % 11.5-14.5 Final [facility] Hospital L ab (Internal) : [address] ? ? BLD - Plt 211 10*3/uL 130-450 Final Nort h 10*3/uL [facility] Hospital L ab (Internal) : [address] ? ? BLD - Anc 6.78 10*3/uL ? Final Nort h [facility] Hospital L ab (Internal) : [address] ? ? BLD High Neutro 78.5 % 40.0-75.0 Final [facility] Hospital L ab (Internal) : [address], Rena t ? ? BLD Low Lymph 15.0 % 20.0-50.0 Final [facility] Hospital L ab (Internal) : [address] ? ? BLD - [place] 5.7 % 2.0-10.[address] [facility] L ab (Internal) : [address] t ? ? BLD Low Eos 0.2 % 1.0-6.0 % Final [facility] L ab (Internal) : [address] ? ? BLD - Baso 0.3 % 0.0-1.0 % Final [facility] Hospital L ab (Internal) : [address] ? ? BLD - Ig 0.3 % 0.0-0.9 % Final [facility] Hospital L ab (Internal) : [address] bernal 07/19/2019 BMP, Serum S High g/r 133 mg/dL 74-106 Final [place] or Plasma mg/dL [facility] Hospital L ab (Internal) : [address] t ? ? S Low Bun 3 mg/dL 7-17 Final [place] mg/dL [facility] Hospital L ab (Internal) : [address] t ? ? S Low Crea 0.50 mg/dL 0.52-1.04 Final Nor th mg/dL [facility] Hospital L ab (Internal) : [address] t ? ? S - Ca 8.5 mg/dL 8.4-10.2 Final [place] mg/dL [facility] Hospital L ab (Internal) : [address] t ? ? S - Na 139 mmol/L 137-145 Final [place] mmol/L [facility] Hospital L ab (Internal) : [address] t ? ? S - K 3.7 mmol/L 3.5-5.1 Final [place] mmol/L [facility] Hospital L ab (Internal) : [address] t ? ? S High Cl 109 mmol/L 98-107 Final [place] mmol/L [facility] Hospital L ab (Internal) : [address] ? ? S Low Tco2 21.0 mmol/L 22.0-30.0 Final No rth mmol/L [facility] Hospital L ab (Internal) : [address] 07/18/2019 Culture, BLD - Final microbiology ? Final [place] Blood 1 results [facility] Hospital L ab (Internal) : [address] 07/18/2019 CBC W/ BLD High Wbc 13.8 10*3/uL 5.0-10.0 Final [place] Auto Diff 10*3/uL [facility] Hospital L ab (Internal) : [address] ? ? BLD - Rbc 5.20 10*6/uL 4.10-5.30 Final N orth 10*6/uL [facility] Hospital L ab (Internal) : [address] ? ? BLD - Hgb 15.0 g/dL 12.0-16.0 Final Nort h g/dL [facility] Hospital L ab (Internal) : [address] ? ? BLD - Hct 44.1 % 37.0-47.[address] [facility] L ab (Internal) : [address] ? ? BLD - Mcv 84.8 fL 80.0-96.0 Final [facility] Hospital L ab (Internal) : [address] ? ? BLD - Mch 28.8 pg 26.0-32.0 Final [place] pg [facility] Hospital L ab (Internal) : [address] ? ? BLD - Mchc 34.0 g/dL 31.0-35.0 Final Nort h g/dL [facility] Hospital L ab (Internal) : [address] ? ? BLD - Rdw 11.8 % 11.5-14.[address] [facility] L ab (Internal) : [address], [place] ? ? BLD - Plt 240 10*3/uL 130-450 Final Nort h 10*3/uL [facility] Hospital L ab (Internal) : [address] gabe ? ? BLD - Anc 8.63 10*3/uL ? Final Nort h [facility] Hospital L ab (Internal) : [address] ? ? BLD - Neutro 62.8 % 40.0-75.[address] [facility] L ab (Internal) : [address] t ? ? BLD - Lymph 25.9 % 20.0-50.[address] [facility] L ab (Internal) : [address] ? ? BLD - [place] 9.8 % 2.0-10.[address] [facility] L ab (Internal) : [address] ? ? BLD Low Eos 0.9 % 1.0-6.0 % Final [facility] L ab (Internal) : [address] ? ? BLD - Baso 0.2 % 0.0-1.0 % Final [facility] L ab (Internal) : [address] ? ? BLD - Ig 0.4 % 0.0-0.9 % Final [facility] L ab (Internal) : [address] t 07/18/2019 Culture, BLD - Final microbiology ? Final [place] Blood 2 results [facility] Hospital L ab (Internal) : [address] 07/18/2019 Rapid THRT - Final microbiology ? Final [place] Strep results [facility] Lab Throat (Internal) : [address] t 07/18/2019 BMP, Serum S Low g/r 61 mg/dL 74-106 Final [place] or Plasma mg/dL [facility] Hospital L ab (Internal) : [address] ? ? S - Bun 11 mg/dL 7-17 Final [place] mg/dL [facility] Hospital L ab (Internal) : [address] ? ? S - Crea 0.80 mg/dL 0.52-1.04 Final Nor th mg/dL [facility] Hospital L ab (Internal) : [address] ? ? S - Ca 9.5 mg/dL 8.4-10.2 Final [facility] mg/dL [facility] (Internal) : [address] t ? ? S Low Na 134 mmol/L 137-145 Final [place] mmol/L [facility] L [facility] (Internal) : [address] t ? ? S Low K 3.1 mmol/L 3.5-5.1 Final [facility] mmol/L [facility] L [facility] (Internal) : [address] t ? ? S Low Cl 97 mmol/L 98-107 Final [place] mmol/L [facility] L [facility] (Internal) : [address] t ? ? S Low Tco2 20.0 mmol/L 22.0-30.0 Final No rth mmol/L [facility] L [facility] (Internal) : [address] t 07/18/2019 Rapid Flu NASAL - Final microbiology ? [place] l [place] (A+B) results [facility] L ab (Internal) : [address] t 07/18/2019 Lactic S - La 1.0 mmol/L 0.7-2.1 Final N orth Acid, mmol/L [facility] L ab (Internal) : [address] t 07/18/2019 Urinalysis UR - UA-color pale yellow pale F inal [place] , yellow [facility] Dipstick, Hospita l Lab Reflex (Internal) : Micro [address] ? ? UR - UA-appea clear clear Final North r [facility] Hospital L ab (Internal) : [address] ? ? UR - UA-spec 1.025 1.003-1.0 Final [facility] Grav 35 [facility] L ab (Internal) : [address] ? ? UR - UA-pH 5.5 [pH] 4.6-8.0 Final [place] [pH] [facility] L [facility] (Internal) : [address] ? ? UR - UA-leuk negative negative Final Nort [facility] L [facility] (Internal) : [address] ? ? UR - UA-nitri negative negative Final Nor th te [facility] L ab (Internal) : [address] ? ? UR - UA-prot negative negative Final Nort [facility] L ab (Internal) : [address] t ? ? UR - UA-gluc negative negative Final [facility] ([facility]) : [address] t ? ? UR ABNORMA UA-ket[place] 4+ negative Final [facility] e [facility] (Internal) : [address] ? ? UR - UA-urobi normal normal Final [facility] ab (Internal) : [address] t ? ? UR - UA-bili negative negative Final [facility] ab (Internal) : [address] ? ? UR ABNORMA UA-blood small negative Final [facility] ab (Internal) : [address] 07/18/2019 Urinalysis UR - UA-WBC 0-3 [hpf] 0-3 [hpf] Fi nal [place] , [facility] Lab c (Internal) : [address] ? ? UR - UA-RBC 0-2 [hpf] 0-2 [hpf] Final [facility] ab (Internal) : [address] ? ? UR - UA-bacte rare [hpf] none seen Final [place] veronica [hpf] [facility] (Internal) : [address] ? ? UR ABNORMA UA-epith few [hpf] none seen Final [place] L elial [hpf] [facility] (Internal) : [address] ? ? UR - UA-mucus none seen none seen Final N orth [hpf] [hpf] [facility] (Internal) : [address] 06/21/2019 Urinalysis UR - UA-color yellow pale Final [place] , yellow [facility] Dipstick, Hospita l Lab Reflex (Internal) : Micro [address] ? ? UR - UA-appea clear clear Final [place] [facility] (Internal) : [address] ? ? UR - UA-spec 1.015 1.003-1.0 Final [place] Grav 35 [facility] (Internal) : [address] ? ? UR - UA-pH 8.0 [pH] 4.6-8.0 Final [place] [pH] [facility] L ab (Internal) : [address] t ? ? UR - UA-leuk negative negative Final Nort h Est [facility] L ab (Internal) : [address] t ? ? UR - UA-nitri negative negative Final Nor th te [facility] L ab (Internal) : [address] t ? ? UR - UA-prot negative negative Final Nort h [facility] L ab (Internal) : [address] t ? ? UR - UA-gluc negative negative Final Nort [facility] (Internal) : [address] t ? ? UR - UA-[place] negative negative Final Nor [place] e [facility] (Internal) : [address] t ? ? UR - UA-urobi normal normal Final [facility] ab (Internal) : [address] t ? ? UR - UA-bili negative negative Final [facility] (Internal) : [address] t ? ? UR - UA-blood negative negative Final [facility] ab (Internal) : [address] t 06/21/2019 CBC W/ BLD - Wbc 7.4 10*3/uL 5.0-10.0 Final [place] Auto Diff 10*3/uL [facility] L ab (Internal) : [address] ? ? BLD - Rbc 5.14 10*6/uL 4.10-5.30 Final N orth 10*6/uL [facility] L ab (Internal) : [address] t ? ? BLD - Hgb 15.1 g/dL 12.0-16.0 Final Nort h g/dL [facility] L ab (Internal) : [address] ? ? BLD - Hct 44.4 % 37.0-47.[address] [facility] L ab (Internal) : [address] ? ? BLD - Mcv 86.4 fL 80.0-96.0 Final [facility] L ab (Internal) : [address] t ? ? BLD - Mch 29.4 pg 26.0-32.0 Final [place] pg [facility] Hospital L ab (Internal) : [address] ? ? BLD - Mchc 34.0 g/dL 31.0-35.0 Final Nort h g/dL [facility] Hospital L ab (Internal) : [address] ? ? BLD - Rdw 11.7 % 11.5-14.5 Final [facility] Hospital L ab (Internal) : [address] ? ? BLD - Plt 283 10*3/uL 130-450 Final Nort h 10*3/uL [facility] L ab (Internal) : [address] ? ? BLD - Anc 4.76 10*3/uL ? Final Nort h [facility] Hospital L ab (Internal) : [address] ? ? BLD - Neutro 64.0 % 40.0-75.0 Final [facility] Hospital L ab (Internal) : [address] ? ? BLD - Lymph 26.5 % 20.0-50.0 Final [facility] Hospital L ab (Internal) : [address] ? ? BLD - [place] 6.7 % 2.0-10.0 Final [facility] Hospital L ab (Internal) : [address] ? ? BLD - Eos 2.0 % 1.0-6.0 % Final [facility] Hospital L ab (Internal) : [address] ? ? BLD - Baso 0.5 % 0.0-1.0 % Final [facility] Hospital L ab (Internal) : [address] ? ? BLD - Ig 0.3 % 0.0-0.9 % Final [facility] Hospital L ab (Internal) : [address] 06/21/2019 CMP, Serum S - g/r 102 mg/dL 74-106 Final [place] or Plasma mg/dL [facility] Hospital L ab (Internal) : [address] ? ? S - Bun 14 mg/dL 7-17 Final [place] mg/dL [facility] L ab (Internal) : [address] ? ? S - Crea 0.70 mg/dL 0.52-1.04 Final Nor th mg/dL [facility] L ab (Internal) : [address] t ? ? S - Ca 9.3 mg/dL 8.4-10.2 Final [facility] mg/dL [facility] L ab (Internal) : [address] t ? ? S - Na 139 mmol/L 137-145 Final [facility] mmol/L [facility] L [facility] (Internal) : [address] t ? ? S - K 4.0 mmol/L 3.5-5.1 Final [facility] mmol/L [facility] L ab (Internal) : [address] t ? ? S - Cl 104 mmol/L 98-107 Final [facility] mmol/L [facility] L [facility] (Internal) : [address] t ? ? S - Tco2 24.0 mmol/L 22.0-30.0 Final No rth mmol/L [facility] L ab (Internal) : [address] ? ? S - Tp 8.1 g/dL 6.3-8.2 Final [facility] g/dL [facility] L [facility] (Internal) : [address] t ? ? S - Alb 4.3 g/dL 3.5-5.0 Final [facility] g/dL [facility] L [facility] (Internal) : [address] t ? ? S - Tbil 0.3 mg/dL 0.2-1.3 Final [facility] mg/dL [facility] L ab (Internal) : [address] ? ? S - Alp 70 U/L 50-136 Final [facility] U/L [facility] L [facility] (Internal) : [address] ? ? S - Alt 35 U/L 9-52 U/L Final [place] (Sgpt) [facility] L ab (Internal) : [address] ? ? S High Ast 44 U/L 14-36 U/L Final [place] (Sgot) [facility] L ab (Internal) : [address] 06/21/2019 Lipase, S - Lip 97 U/L 23-300 Final [place] Serum or U/L [facility] L ab (Internal) : [address] 06/21/2019 Troponin S - Trop <0.06 NG/mL 0.00-0.06 Fin al [place] I, Serum NG/mL [facility] or Plasma Hospita l Lab (Internal) : [address] t 06/21/2019 Mononucleo BLD - [place] negative negative Final [facility] Lab e Ab, (Internal) : Serum [address] 06/21/2019 TSH, Serum S Low Tsh 0.06 u[IU]/mL 0.47-4.68 Final [place] or Plasma u[IU]/mL Count Hospital L ab (Internal) : [address] 04/24/2019 CBC W/ BLD - Wbc 8.9 10*3/uL 5.0-10.0 Final [place] Auto Diff 10*3/uL [facility] Hospital L ab (Internal) : [address] ? ? BLD - Rbc 5.19 10*6/uL 4.10-5.30 Final N orth 10*6/uL [facility] L ab (Internal) : [address] ? ? BLD - Hgb 15.5 g/dL 12.0-16.0 Final Nort h g/dL [facility] L ab (Internal) : [address] ? ? BLD - Hct 45.6 % 37.0-47.[address] [facility] L ab (Internal) : [address] ? ? BLD - Mcv 87.9 fL 80.0-96.0 Final [facility] L ab (Internal) : [address] ? ? BLD - Mch 29.9 pg 26.0-32.0 Final [facility] L ab (Internal) : [address] ? ? BLD - Mchc 34.0 g/dL 31.0-35.0 Final Nort h g/dL [facility] L ab (Internal) : [address] ? ? BLD - Rdw 11.9 % 11.5-14.[address] [facility] L ab (Internal) : [address] ? ? BLD - Plt 282 10*3/uL 130-450 Final Nort h 10*3/uL [facility] L ab (Internal) : [address] ? ? BLD - Anc 5.24 10*3/uL ? Final Nort h [facility] Hospital L ab (Internal) : [address] Rena t ? ? BLD - Neutro 59.1 % 40.0-75.0 Final [facility] Hospital L ab (Internal) : [address] ? ? BLD - Lymph 33.9 % 20.0-50.0 Final [facility] Hospital L ab (Internal) : [address], Rena t ? ? BLD - [place] 5.3 % 2.0-10.0 Final [place] % [facility] Hospital L ab (Internal) : [address], [place] ? ? BLD Low Eos 0.9 % 1.0-6.0 % Final [facility] Hospital L ab (Internal) : [address] ? ? BLD - Baso 0.6 % 0.0-1.0 % Final [facility] Hospital L ab (Internal) : [address], [place] t ? ? BLD - Ig 0.2 % 0.0-0.9 % Final [facility] Hospital L ab (Internal) : [address] 04/24/2019 CMP, Serum S - g/r 97 mg/dL 74-106 Final [place] or Plasma mg/dL [facility] Hospital L ab (Internal) : [address] ? ? S - Bun 15 mg/dL 7-17 Final [place] mg/dL [facility] L ab (Internal) : [address] ? ? S - Crea 0.70 mg/dL 0.52-1.04 Final Nor th mg/dL [facility] Hospital L ab (Internal) : [address] ? ? S - Ca 9.6 mg/dL 8.4-10.2 Final [place] mg/dL [facility] Hospital L ab (Internal) : [address] ? ? S - Na 140 mmol/L 137-145 Final [place] mmol/L [facility] L ab (Internal) : [address] ? ? S - K 3.8 mmol/L 3.5-5.1 Final [place] mmol/L [facility] Hospital L ab (Internal) : [address] ? ? S - Cl 102 mmol/L 98-107 Final [place] mmol/L [facility] L ab (Internal) : [address] ? ? S - Tco2 27.0 mmol/L 22.0-30.0 Final No rth mmol/L [facility] L ab (Internal) : [address] ? ? S High Tp 8.9 g/dL 6.3-8.2 Final [place] g/dL [facility] L ab (Internal) : [address] ? ? S - Alb 4.6 g/dL 3.5-5.0 Final [place] g/dL [facility] Hospital L ab (Internal) : [address] ? ? S - Tbil 0.3 mg/dL 0.2-1.3 Final [place] mg/dL [facility] L ab (Internal) : [address] ? ? S - Alp 73 U/L 50-136 Final [place] U/L [facility] L ab (Internal) : [address] ? ? S - Alt 18 U/L 9-52 U/L Final [place] (Sgpt) [facility] L ab (Internal) : [address] ? ? S - Ast 28 U/L 14-36 U/L Final [place] (Sgot) [facility] L ab (Internal) : [address] 04/24/2019 Lipase, S - Lip 110 U/L 23-300 Final Nort h Serum or U/L [facility] L ab (Internal) : [address] 04/24/2019 Urinalysis UR - UA-color straw pale Final North , yellow [facility] Dipstick, Hospita l Lab Reflex (Internal) : Micro [address] ? ? UR - UA-appea clear clear Final [place] r [facility] L ab (Internal) : [address] ? ? UR - UA-spec 1.015 1.003-1.0 Final [place] Grav 35 [facility] L ab (Internal) : [address] ? ? UR - UA-pH 8.0 [pH] 4.6-8.0 Final [place] [pH] [facility] (Internal) : [address] t ? ? UR - UA-leuk negative negative Final Nort [facility] (Internal) : [address] ? ? UR - UA-nitri negative negative Final [place] te [facility] (Internal) : [address] ? ? UR - UA-prot negative negative Final Nort [facility] (Internal) : [address] t ? ? UR - UA-gluc negative negative Final [place] [facility] (Internal) : [address] t ? ? UR - UA-[place]on negative negative Final Nor [place] e [facility] (Internal) : [address] t ? ? UR - UA-urobi normal normal Final [facility] ab (Internal) : [address] t ? ? UR - UA-bili negative negative Final Nort [facility] ab (Internal) : [address] t ? ? UR ABNORMA UA-blood small negative [facility] [address] 04/24/2019 Urinalysis UR - UA-WBC 0-3 [hpf] 0-3 [hpf] Fi [facility] Hospit al Lab c (Internal) : [address] t ? ? UR - UA-RBC 0-2 [hpf] 0-2 [hpf] Final St [facility] ab (Internal) : [address] t ? ? UR - UA-bacte rare [hpf] none seen Final [place] veronica [hpf] [facility] [place] [address] t ? ? UR - UA-epith rare [hpf] none seen Final [place] elial [hpf] [facility] [place] [address] t ? ? UR - UA-mucus none seen none seen Final N [place] [hpf] [hpf] [facility] [place] [address] 11/28/2018 CBC W/ BLD - Wbc 6.7 10*3/uL 5.0-10.0 Final [place] Auto Diff 10*3/uL [facility] (Internal) : [address] ? ? BLD - Rbc 5.28 10*6/uL 4.10-5.30 Final N orth 10*6/uL [facility] ([facility] : [address] ? ? BLD - Hgb 15.9 g/dL 12.0-16.0 Final Nort h g/dL [facility] ab (Internal) : [address] ? ? BLD High Hct 47.1 % 37.0-47.0 Final [facility] (Internal) : [address] ? ? BLD - Mcv 89.2 fL 80.0-96.0 Final [facility] ab (Internal) : [address] ? ? BLD - Mch 30.1 pg 26.0-32.0 Final [facility] L ab (Internal) : [address] ? ? BLD - Mchc 33.8 g/dL 31.0-35.0 Final Nort h g/dL [facility] ab (Internal) : [address] ? ? BLD - Rdw 11.9 % 11.5-14.5 Final [facility] L ab (Internal) : [address] ? ? BLD - Plt 245 10*3/uL 130-450 Final Nort h 10*3/uL [facility] ab (Internal) : [address] ? ? BLD - Anc 4.64 10*3/uL ? Final Nort h [facility] ab (Internal) : [address] ? ? BLD - Neutro 69.7 % 40.0-75.0 Final [facility] ab (Internal) : [address] ? ? BLD - Lymph 22.7 % 20.0-50.0 Final [facility] ab (Internal) : [address] ? ? BLD - [place] 5.3 % 2.0-10.0 Final [facility] ab (Internal) : [address] ? ? BLD - Eos 1.5 % 1.0-6.0 % Final [facility] L ab (Internal) : [address] ? ? BLD - Baso 0.6 % 0.0-1.0 % Final [facility] ab (Internal) : [address] ? ? BLD - Ig 0.2 % 0.0-0.9 % Final [facility] ab (Internal) : [address] 11/28/2018 BMP, Serum S - g/r 83 mg/dL 74-106 Final [facility] or Plasma mg/dL [facility] ab (Internal) : [address] ? ? S - Bun 12 mg/dL 7-17 Final North mg/dL [facility] ab (Internal) : [address] ? ? S - Crea 0.60 mg/dL 0.52-1.04 Final Nor th mg/dL [facility] ab (Internal) : [address] ? ? S - Ca 9.2 mg/dL 8.4-10.2 Final [place] mg/dL [facility] ab (Internal) : [address] ? ? S - Na 141 mmol/L 137-145 Final [place] mmol/L [facility] ab (Internal) : [address] ? ? S - K 3.8 mmol/L 3.5-5.1 Final [place] mmol/L [facility] ab (Internal) : [address] ? ? S - Cl 101 mmol/L 98-107 Final [place] mmol/L [facility] ab (Internal) : [address] ? ? S - Tco2 29.0 mmol/L 22.0-30.0 Final No rth mmol/L [facility] ab (Internal) : [address] 10/05/2018 CBC W/ BLD - Wbc 8.6 10*3/uL 5.0-10.0 Final [place] Auto Diff 10*3/uL [facility] (Internal) : [address] ? ? BLD High Rbc 5.43 10*6/uL 4.10-5.30 Final N orth 10*6/uL [facility] (Internal) : [address] ? ? BLD High Hgb 16.4 g/dL 12.0-16.0 Final Nort h g/dL [facility] ab (Internal) : [address] ? ? BLD High Hct 47.8 % 37.0-47.0 Final [facility] ab (Internal) : [address] ? ? BLD - Mcv 88.0 fL 80.0-96.0 Final [facility] L ab (Internal) : [address] ? ? BLD - Mch 30.2 pg 26.0-32.0 Final [place] pg [facility] ab (Internal) : [address] ? ? BLD - Mchc 34.3 g/dL 31.0-35.0 Final Nort h g/dL [facility] ab (Internal) : [address] t ? ? BLD - Rdw 11.8 % 11.5-14.5 Final [facility] ab (Internal) : [address] ? ? BLD - Plt 302 10*3/uL 130-450 Final Nort h 10*3/uL [facility] ab (Internal) : [address] ? ? BLD - Anc 4.64 10*3/uL ? Final Nort h [facility] ab (Internal) : [address] ? ? BLD - Neutro 53.8 % 40.0-75.0 Final [facility] L ab (Internal) : [address] ? ? BLD - Lymph 34.8 % 20.0-50.0 Final [facility] L ab (Internal) : [address] ? ? BLD - [place] 8.9 % 2.0-10.[address] [facility] L ab (Internal) : [address] ? ? BLD - Eos 1.6 % 1.0-6.0 % Final [facility] L ab (Internal) : [address] ? ? BLD - Baso 0.7 % 0.0-1.0 % Final [facility] L ab (Internal) : [address] t ? ? BLD - Ig 0.2 % 0.0-0.9 % Final [facility] L ab (Internal) : [address] 10/05/2018 CMP, Serum S Low g/r 56 mg/dL 74-106 Final [facility] or Plasma mg/dL [facility] (Internal) : [address] t ? ? S - Bun 15 mg/dL 7-17 Final [place] mg/dL [facility] ab (Internal) : [address] t ? ? S - Crea 0.80 mg/dL 0.52-1.04 Final [facility] mg/dL [facility] (Internal) : [address] t ? ? S - Ca 9.1 mg/dL 8.4-10.2 Final [facility] mg/dL [facility] (Internal) : [address] t ? ? S - Na 137 mmol/L 137-145 Final [place] mmol/L [facility] ab (Internal) : [address] t ? ? S - K 4.2 mmol/L 3.5-5.1 Final [facility] mmol/L [facility] (Internal) : [address] t ? ? S - Cl 100 mmol/L 98-107 Final [place] mmol/L [facility] ab (Internal) : [address] t ? ? S - Tco2 26.0 mmol/L 22.0-30.0 Final No rth mmol/L [facility] (Internal) : [address] t ? ? S High Tp 8.5 g/dL 6.3-8.2 Final [facility] g/dL [facility] (Internal) : [address] t ? ? S - Alb 4.6 g/dL 3.5-5.0 Final [facility] g/dL [facility] (Internal) : [address] t ? ? S - Tbil 0.7 mg/dL 0.2-1.3 Final [facility] mg/dL [facility] (Internal) : [address] t ? ? S - Alp 73 U/L 50-136 Final [place] U/L [facility] ab (Internal) : [address] ? ? S - Alt 25 U/L 9-52 U/L Final [place] (Sgpt) [facility] ab (Internal) : [address] ? ? S High Ast 42 U/L 14-36 U/L Final [place] (Sgot) [facility] ab (Internal) : [address] [facility] [place] [facility] 10/05/2018 T4, Free, S - Ft4 1.27 NG/dL 0.78-2.19 [facility] Serum NG/dL [facility] ab (Internal) : [address] [facility] 10/05/2018 TSH, Serum S High Tsh 6.66 u[IU]/mL 0.47-4.68 Final [place] or Plasma u[IU]/mL [facility] (Internal) : [address] [facility] 10/05/2018 T3, Free, S - T3, Free 3.3 pg/mL 2.8-5.3 [facility] Serum or pg/mL [facility] Hospital L ab (Internal) : [address], Rena t 07/27/2018 CBC W/ BLD - Wbc 7.1 10*3/uL 5.0-10.0 Final [place] Auto Diff 10*3/uL [facility] L ab (Internal) : [address] ? ? BLD - Rbc 4.61 10*6/uL 4.10-5.30 Final N orth 10*6/uL [facility] ab (Internal) : [address] ? ? BLD - Hgb 14.1 g/dL 12.0-16.0 Final Nort h g/dL [facility] ab (Internal) : [address] ? ? BLD - Hct 42.5 % 37.0-47.0 Final [place] % [facility] ab (Internal) : [address] ? ? BLD - Mcv 92.2 fL 80.0-96.0 Final [facility] fL [facility] ab (Internal) : [address] t ? ? BLD - Mch 30.6 pg 26.0-32.0 Final [facility] pg [facility] (Internal) : [address] ? ? BLD - Mchc 33.2 g/dL 31.0-35.0 Final Nort h g/dL [facility] L ab (Internal) : [address] ? ? BLD - Rdw 11.9 % 11.5-14.5 Final [facility] L ab (Internal) : [address] ? ? BLD - Plt 255 10*3/uL 130-450 Final Nort h 10*3/uL [facility] L ab (Internal) : [address] ? ? BLD - Anc 3.84 10*3/uL ? Final Nort h [facility] L ab (Internal) : [address] ? ? BLD - Neutro 54.3 % 40.0-75.[address] [facility] L ab (Internal) : [address] ? ? BLD - Lymph 36.2 % 20.0-50.[address] [facility] L ab (Internal) : [address] ? ? BLD - [place] 7.1 % 2.0-10.[address] [facility] L ab (Internal) : [address] ? ? BLD - Eos 1.7 % 1.0-6.0 % Final [facility] L ab (Internal) : [address] ? ? BLD - Baso 0.6 % 0.0-1.0 % Final [facility] ab (Internal) : [address] ? ? BLD - Ig 0.1 % 0.0-0.9 % Final [facility] ab (Internal) : [address] t 07/27/2018 T4, Free, S - Ft4 1.84 NG/dL 0.78-2.19 Fin al [facility] Serum NG/dL [facility] L ab (Internal) : [address] t 07/27/2018 CMP, Serum S - g/r 94 mg/dL 74-106 Final [place] or Plasma mg/dL [facility] L ab (Internal) : [address] t ? ? S - Bun 14 mg/dL 7-17 Final [facility] mg/dL [facility] (Internal) : [address] ? ? S - Crea 0.70 mg/dL 0.52-1.04 Final [facility] mg/dL [facility] (Internal) : [address] ? ? S - Ca 8.6 mg/dL 8.4-10.2 Final [facility] mg/dL [facility] (Internal) : [address] t ? ? S - Na 140 mmol/L 137-145 Final [facility] mmol/L [facility] (Internal) : [address] t ? ? S - K 3.5 mmol/L 3.5-5.1 Final [facility] mmol/L [facility] (Internal) : [address] t ? ? S - Cl 101 mmol/L 98-107 Final [facility] mmol/L [facility] (Internal) : [address] t ? ? S - Tco2 28.0 mmol/L 22.0-30.0 Final No rth mmol/L [facility] (Internal) : [address] t ? ? S - Tp 7.1 g/dL 6.3-8.2 Final [facility] g/dL [facility] (Internal) : [address] t ? ? S - Alb 4.0 g/dL 3.5-5.0 Final [facility] g/dL [facility] (Internal) : [address] t ? ? S - Tbil 0.7 mg/dL 0.2-1.3 Final [facility] mg/dL [facility] (Internal) : [address] t ? ? S Low Alp 44 U/L 50-136 Final [facility] U/L [facility] (Internal) : [address] t ? ? S - Alt 24 U/L 9-52 U/L Final [place] (Sgpt) [facility] ab (Internal) : [address] t ? ? S - Ast 28 U/L 14-36 U/L Final [place] (Sgot) [facility] ab (Internal) : [address] 07/27/2018 TSH, Serum S Low Tsh 0.15 u[IU]/mL 0.47-4.68 Final [place] or Plasma u[IU]/mL [facility] ab (Internal) : [address] 07/27/2018 T3, Free, S - T3, Free 3.8 pg/mL 2.8-5.3 Fin al [place] Serum or pg/mL [facility] (Internal) : [address] 07/18/2018 Venipunctu ? No ? ? ? P_ nc Primary re observati Care on [place]/Or ea recorded. ns: 488 [facility] [place] 07/12/2018 CMP, Serum S - g/r 76 mg/dL 74-106 Final [place] or Plasma mg/dL [facility] ab (Internal) : [address] t ? ? S - Bun 14 mg/dL 7-17 Final [place] mg/dL [facility] ab (Internal) : [address] ? ? S - Crea 0.70 mg/dL 0.52-1.04 Final Nor th mg/dL [facility] ab (Internal) : [address] t ? ? S - Ca 9.3 mg/dL 8.4-10.2 Final [place] mg/dL [facility] ab (Internal) : [address] t ? ? S - Na 139 mmol/L 137-145 Final [place] mmol/L [facility] ab (Internal) : [address] ? ? S - K 4.2 mmol/L 3.5-5.1 Final [place] mmol/L [facility] ab (Internal) : [address] t ? ? S - Cl 101 mmol/L 98-107 Final [place] mmol/L [facility] ab (Internal) : [address] t ? ? S - Tco2 28.0 mmol/L 22.0-30.0 Final No rth mmol/L [facility] (Internal) : [address] t ? ? S - Tp 7.7 g/dL 6.3-8.2 Final [place] g/dL [facility] ab (Internal) : [address] t ? ? S - Alb 4.3 g/dL 3.5-5.0 Final [facility] g/dL [facility] (Internal) : [address] t ? ? S - Tbil 0.6 mg/dL 0.2-1.3 Final [facility] mg/dL [facility] (Internal) : [address] t ? ? S - Alp 58 U/L 50-136 Final [facility] U/L [facility] (Internal) : [address] t ? ? S High Alt 103 U/L 9-52 U/L Final [facility] (Sgpt) [facility] (Internal) : [address] t ? ? S High Ast 92 U/L 14-36 U/L Final [facility] (Sgot) [facility] (Internal) : [address] t 06/28/2018 CMP, Serum S Low g/r 53 mg/dL 74-106 Final [facility] or Plasma mg/dL [facility] (Internal) : [address] t ? ? S - Bun 16 mg/dL 7-17 Final [facility] mg/dL [facility] (Internal) : [address] t ? ? S - Crea 0.90 mg/dL 0.52-1.04 Final [facility] mg/dL [facility] (Internal) : [address] t ? ? S - Ca 9.3 mg/dL 8.4-10.2 Final [facility] mg/dL [facility] (Internal) : [address] t ? ? S Low Na 136 mmol/L 137-145 Final [facility] mmol/L [facility] (Internal) : [address] t ? ? S - K 4.5 mmol/L 3.5-5.1 Final [facility] mmol/L [facility] (Internal) : [address] t ? ? S - Cl 98 mmol/L 98-107 Final [facility] mmol/L [facility] (Internal) : [address] t ? ? S High Tco2 32.0 mmol/L 22.0-30.0 Final No rth mmol/L [facility] (Internal) : [address] t ? ? S - Tp 8.2 g/dL 6.3-8.2 Final [facility] g/dL [facility] (Internal) : [address] t ? ? S - Alb 4.5 g/dL 3.5-5.0 Final [facility] g/dL [facility] (Internal) : [address] t ? ? S - Tbil 0.6 mg/dL 0.2-1.3 Final [facility] mg/dL [facility] (Internal) : [address] t ? ? S - Alp 59 U/L 50-136 Final [facility] U/L [facility] (Internal) : [address] t ? ? S - Alt 30 U/L 9-52 U/L Final [facility] (Sgpt) [facility] (Internal) : [address] t ? ? S - Ast 34 U/L 14-36 U/L Final [facility] (Sgot) [facility] (Internal) : [address] 05/31/2018 CMP, Serum S Low g/r 69 mg/dL 74-106 Final [facility] or Plasma mg/dL [facility] (Internal) : [address] t ? ? S - Bun 10 mg/dL 7-17 Final [facility] mg/dL [facility] (Internal) : [address] t ? ? S - Crea 0.70 mg/dL 0.52-1.04 Final [facility] mg/dL [facility] (Internal) : [address] t ? ? S - Ca 9.4 mg/dL 8.4-10.2 Final [facility] mg/dL [facility] (Internal) : [address] t ? ? S - Na 142 mmol/L 137-145 Final [facility] mmol/L [facility] (Internal) : [address] t ? ? S - K 4.0 mmol/L 3.5-5.1 Final [facility] mmol/L [facility] (Internal) : [address] t ? ? S - Cl 101 mmol/L 98-107 Final [facility] mmol/L [facility] (Internal) : [address] t ? ? S - Tco2 30.0 mmol/L 22.0-30.0 Final No rth mmol/L [facility] ab (Internal) : [address] ? ? S - Tp 8.0 g/dL 6.3-8.2 Final [place] g/dL [facility] ab (Internal) : [address] ? ? S - Alb 4.5 g/dL 3.5-5.0 Final [place] g/dL [facility] ab (Internal) : [address] ? ? S - Tbil 0.4 mg/dL 0.2-1.3 Final [place] mg/dL [facility] ab (Internal) : [address] ? ? S - Alp 67 U/L 50-136 Final [place] U/L [facility] ab (Internal) : [address] ? ? S High Alt 98 U/L 9-52 U/L Final [place] (Sgpt) [facility] ab (Internal) : [address] ? ? S High Ast 86 U/L 14-36 U/L Final [place] (Sgot) [facility] ab (Internal) : [address] 05/04/2018 CBC W/ BLD - Wbc 7.7 10*3/uL 5.0-10.0 Final [place] Auto Diff 10*3/uL [facility] L ab (Internal) : [address] ? ? BLD - Rbc 4.80 10*6/uL 4.10-5.30 Final N orth 10*6/uL [facility] ab (Internal) : [address] ? ? BLD - Hgb 14.4 g/dL 12.0-16.0 Final Nort h g/dL [facility] L ab (Internal) : [address] ? ? BLD - Hct 43.1 % 37.0-47.0 Final [place] % [facility] ab (Internal) : [address] ? ? BLD - Mcv 89.8 fL 80.0-96.0 Final [place] fL [facility] ab (Internal) : [address] gabe ? ? BLD - Mch 30.0 pg 26.0-32.0 Final [facility] L ab (Internal) : [address] ? ? BLD - Mchc 33.4 g/dL 31.0-35.0 Final Nort h g/dL [facility] ab (Internal) : [address] ? ? BLD - Rdw 11.9 % 11.5-14.[address] [facility] L ab (Internal) : [address] t ? ? BLD - Plt 268 10*3/uL 130-450 Final Nort h 10*3/uL [facility] ab (Internal) : [address] Rena t ? ? BLD - Anc 3.52 10*3/uL ? Final Nort h [facility] ab (Internal) : [address], [place] t ? ? BLD - Neutro 45.7 % 40.0-75.[address] [facility] L ab (Internal) : [address] t ? ? BLD - Lymph 45.3 % 20.0-50.[address] [facility] L ab (Internal) : [address], [address] t ? ? BLD - [place] 6.4 % 2.0-10.[address] [facility] L ab (Internal) : [address] ? ? BLD - Eos 2.0 % 1.0-6.0 % Final [facility] L ab (Internal) : [address] ? ? BLD - Baso 0.5 % 0.0-1.0 % Final [facility] L ab (Internal) : [address], [place] t ? ? BLD - Ig 0.1 % 0.0-0.9 % Final [facility] L ab (Internal) : [address] t 05/04/2018 CMP, Serum S Low g/r 67 mg/dL 74-106 Final [place] or Plasma mg/dL [facility] L ab (Internal) : [address] t ? ? S - Bun 12 mg/dL 7-17 Final [place] mg/dL [facility] ab (Internal) : [address] t ? ? S - Crea 0.80 mg/dL 0.52-1.04 Final [facility] mg/dL [facility] (Internal) : [address] ? ? S - Ca 8.9 mg/dL 8.4-10.2 Final [facility] mg/dL [facility] (Internal) : [address] ? ? S - Na 139 mmol/L 137-145 Final [place] mmol/L [facility] L ab (Internal) : [address] t ? ? S Low K 3.0 mmol/L 3.5-5.1 Final [facility] mmol/L [facility] (Internal) : [address] ? ? S - Cl 101 mmol/L 98-107 Final [facility] mmol/L [facility] (Internal) : [address] t ? ? S - Tco2 30.0 mmol/L 22.0-30.0 Final No rth mmol/L [facility] (Internal) : [address] t ? ? S - Tp 7.2 g/dL 6.3-8.2 Final [facility] g/dL [facility] (Internal) : [address] ? ? S - Alb 4.1 g/dL 3.5-5.0 Final [facility] g/dL [facility] (Internal) : [address] ? ? S - Tbil 0.5 mg/dL 0.2-1.3 Final [facility] mg/dL [facility] (Internal) : [address] t ? ? S Low Alp 41 U/L 50-136 Final [place] U/L [facility] ab (Internal) : [address] t ? ? S - Alt 25 U/L 9-52 U/L Final [place] (Sgpt) [facility] ab (Internal) : [address] t ? ? S - Ast 23 U/L 14-36 U/L Final [place] (Sgot) [facility] L ab (Internal) : [address] t 05/04/2018 T4, Free, S - Ft4 1.24 NG/dL 0.78-2.19 Fin al [facility] Serum NG/dL [facility] ([facility]) : [address] t 05/04/2018 TSH, Serum S High Tsh 5.77 u[IU]/mL 0.47-4.68 Final [place] or Plasma u[IU]/mL [facility] L ab (Internal) : [address] 05/04/2018 T3, Total, S - T3, 117 NG/dL 97-169 Final [place] Serum Total NG/dL [facility] (Internal) : [address] 05/04/2018 Nidhi-ba S - Ebv Vca negative negative Fin [facility] rr Virus IgM Ab, S Count ry (Ebv) IgG Hospita l Lab + IgM (Internal) : Panel, [address] [place] gabe ? ? S - Ebv Vca positive negative Final Nort h IgG Ab, S [facility] Hospital L ab (Internal) : [address] ? ? S - Ebna Ab, positive negative Final Nor th S [facility] Hospital L ab (Internal) : [address] ? ? S - Interpre results ? Final [place] tation suggest past Coun try infection. Hospit al Lab (Internal) : [address] Roscoe[place] 04/30/2018 Giardia STL - Giardia negative negative Final [place] [facility] Ag, EIA, Hospital Lab Stool (Internal) : [address] Rena 04/30/2018 C Diff STL - C. Diff negative negative Final [place] Toxin (Nc) [facility] Genes, Hospital L ab Qual, PCR, (Inter nal): Stool [address] Rena 04/30/2018 Enteric STL - Salmonel see comments ? Fin tg [facility] Bacteria, la PCR [facility] Organism Hospital Lab Specific (Interna l): Culture, [address] t ? ? STL - Shigella see comments ? Final N orth PCR [facility] (Internal) : [address] ? ? STL - Campylob see comments ? Final N orth acter PCR [facility] (Internal) : [address] ? ? STL - Shiga see comments ? Final Nort h Toxin PCR [facility] (Internal) : [address] 04/27/2018 CBC W/ BLD - Wbc 6.4 10*3/uL 5.0-10.0 Final [place] Auto Diff 10*3/uL [facility] Hospital L ab (Internal) : [address] ? ? BLD High Rbc 5.38 10*6/uL 4.10-5.30 Final N orth 10*6/uL [facility] Hospital L ab (Internal) : [address] ? ? BLD High Hgb 16.2 g/dL 12.0-16.0 Final Nort h g/dL [facility] Hospital L ab (Internal) : [address] ? ? BLD High Hct 47.4 % 37.0-47.0 Final [facility] Hospital L ab (Internal) : [address] ? ? BLD - Mcv 88.1 fL 80.0-96.0 Final [facility] Hospital L ab (Internal) : [address] ? ? BLD - Mch 30.1 pg 26.0-32.0 Final [facility] Hospital L ab (Internal) : [address] ? ? BLD - Mchc 34.2 g/dL 31.0-35.0 Final Nort h g/dL [facility] L ab (Internal) : [address] ? ? BLD - Rdw 11.8 % 11.5-14.[address] [facility] L ab (Internal) : [address] ? ? BLD - Plt 291 10*3/uL 130-450 Final Nort h 10*3/uL [facility] L ab (Internal) : [address] ? ? BLD - Anc 3.13 10*3/uL ? Final Nort h [facility] L ab (Internal) : [address] ? ? BLD - Neutro 49.0 % 40.0-75.0 Final [facility] Hospital L ab (Internal) : [address] ? ? BLD - Lymph 36.8 % 20.0-50.[address] [facility] L ab (Internal) : [address] ? ? BLD High [place] 11.0 % 2.0-10.[address] [facility] L ab (Internal) : [address] ? ? BLD - Eos 2.5 % 1.0-6.0 % Final [facility] L ab (Internal) : [address] t ? ? BLD - Baso 0.5 % 0.0-1.0 % Final [facility] L ab (Internal) : [address] ? ? BLD - Ig 0.2 % 0.0-0.9 % Final [facility] L ab (Internal) : [address] 04/27/2018 Lipase, S - Lip 54 U/L 23-300 Final [place] Serum or U/L [facility] Hospital L ab (Internal) : [address] 04/27/2018 CMP, Serum S - g/r 81 mg/dL 74-106 Final [place] or Plasma mg/dL [facility] [facility] Hospital L ab (Internal) : [address] ? ? S - Bun 8 mg/dL 7-17 Final [place] mg/dL [facility] Hospital L ab (Internal) : [address] ? ? S - Crea 0.70 mg/dL 0.52-1.04 Final Nor th mg/dL [facility] L ab (Internal) : [address] ? ? S - Ca 9.3 mg/dL 8.4-10.2 Final [place] mg/dL [facility] Hospital L ab (Internal) : [address] ? ? S - Na 138 mmol/L 137-145 Final [place] mmol/L [facility] Hospital L ab (Internal) : [address] ? ? S - K 3.6 mmol/L 3.5-5.1 Final [place] mmol/L [facility] Hospital L ab (Internal) : [address] t ? ? S - Cl 102 mmol/L 98-107 Final [place] mmol/L [facility] Hospital L ab (Internal) : [address] ? ? S - Tco2 29.0 mmol/L 22.0-30.0 Final No rth mmol/L [facility] Hospital L ab (Internal) : [address] ? ? S - Tp 8.1 g/dL 6.3-8.2 Final [place] g/dL [facility] Hospital L ab (Internal) : [address] t ? ? S - Alb 4.5 g/dL 3.5-5.0 Final [place] g/dL [facility] Hospital L ab (Internal) : [address] ? ? S - Tbil 0.7 mg/dL 0.2-1.3 Final [place] mg/dL [facility] Hospital L ab (Internal) : [address] ? ? S - Alp 76 U/L 50-136 Final [place] U/L [facility] Hospital L ab (Internal) : [address] ? ? S High Alt 81 U/L 9-52 U/L Final [place] (Sgpt) [facility] Hospital L ab (Internal) : [address] ? ? S High Ast 105 U/L 14-36 U/L Final [place] (Sgot) [facility] Hospital L ab (Internal) : [address] 04/27/2018 Iron, SERUM - Iron 96 ug/dL 37-170 Final Nort h Serum ug/dL [facility] L ab (Internal) : [address] 04/27/2018 Ferritin, S - Ferr 147 NG/mL 11-264 Final [place] Serum or NG/mL [facility] Hospital L ab (Internal) : [address] 04/27/2018 Urinalysis UR - UA-color yellow pale Final [place] , yellow [facility] Dipstick, Hospita l Lab Reflex (Internal) : Micro [address] ? ? UR - UA-appea clear clear Final [place] r [facility] L ab (Internal) : [address] ? ? UR - UA-spec 1.010 1.003-1.0 Final [place] Grav 35 [facility] Hospital L ab (Internal) : [address] ? ? UR - UA-pH 7.0 [pH] 4.6-8.0 Final [place] [pH] [facility] Hospital L ab (Internal) : [address] ? ? UR - UA-leuk negative negative Final Nort h Est [facility] Hospital L ab (Internal) : [address] ? ? UR - UA-nitri negative negative Final Nor th te [facility] Hospital L ab (Internal) : [address] ? ? UR - UA-prot negative negative Final Nort h [facility] Hospital L ab (Internal) : [address] t ? ? UR - UA-gluc negative negative Final Nort h [facility] Hospital L ab (Internal) : [address] t ? ? UR - UA-keton negative negative Final Nor th e [facility] Hospital L ab (Internal) : [address] t ? ? UR - UA-urobi normal normal Final [facility] Hospital L ab (Internal) : [address] t ? ? UR - UA-bili negative negative Final Nort h [facility] Hospital L ab (Internal) : [address] t ? ? UR - UA-blood negative negative Final Nor [facility] Hospital L ab (Internal) : [address] 04/27/2018 Hepatitis S - Hepatiti negative negative Fin al [place] Panel s a IgM Country (A+B+C), Ab, S Hospital Lab Acute, (Internal) : Serum [address] t ? ? S - Hbs negative negative Final [facility] Hospital L ab (Internal) : [address] t ? ? S - Hbc IgM negative negative Final Nort h Ab, S [facility] Hospital L ab (Internal) : [address] ? ? S - HCV Ab, negative negative Final Nort h S [facility] Hospital L ab (Internal) : [address] 02/01/2018 Venipunctu ? No ? ? ? P_ nc Primary re observati Care on [place] recorded. ns: [address] [facility] [place] 01/29/2018 Electrocar ? Rate & 72, sinus ? ? P_nc Primary diogram Rhythm Care [place] ns: [address], [place] ? ? ? Qrs normal ? ? P_nc Prima ry Care [place] ns: 488 [facility], [place] ? ? ? [place] 172 ? ? P_nc Prima ry Interval Care [place] ns: 488 [facility], [place] ? ? ? QRS 92 ? ? P_nc Prima ry Duration Care [place] ns: 488 [facility], [place] ? ? ? QT 420 ? ? P_nc Prima ry Interval Care [place] [facility] ns: [address] [facility] CMP, Serum S - g/r 91 mg/dL 74-106 Final [place] or Plasma mg/dL [facility] (Internal) : [address] ? ? S - Bun 14 mg/dL 7-17 Final [place] mg/dL [facility] L [facility] (Internal) : [address] ? ? S - Crea 0.70 mg/dL 0.52-1.04 Final Nor th mg/dL [facility] L [facility] (Internal) : [address] t ? ? S - Ca 8.9 mg/dL 8.4-10.2 Final [place] mg/dL [facility] (Internal) : [address] t ? ? S - Na 137 mmol/L 137-145 Final [place] mmol/L [facility] (Internal) : [address] t ? ? S - K 4.1 mmol/L 3.5-5.1 Final [place] mmol/L [facility] (Internal) : [address] t ? ? S - Cl 102 mmol/L 98-107 Final [place] mmol/L [facility] (Internal) : [address] t ? ? S - Tco2 24.0 mmol/L 22.0-30.0 Final No rth mmol/L [facility] (Internal) : [address] t ? ? S - Tp 7.8 g/dL 6.3-8.2 Final [place] g/dL [facility] (Internal) : [address] t ? ? S - Alb 4.5 g/dL 3.5-5.0 Final [place] g/dL [facility] (Internal) : [address] t ? ? S - Tbil 0.6 mg/dL 0.2-1.3 Final [place] mg/dL [facility] (Internal) : [address] t ? ? S - Alp 58 U/L 50-136 Final [place] U/L [facility] (Internal) : [address] t ? ? S - Alt 36 U/L 9-52 U/L Final [place] (Sgpt) [facility] L [facility] (Internal) : [address] [place] t ? ? S - Ast 34 U/L 14-36 U/L Final [place] (Sgot) [facility] Hospital L ab (Internal) : [address] 01/26/2018 Troponin S - Trop <0.06 NG/mL 0.00-0.06 Fin al [place] I, Serum NG/mL Country or Plasma Hospita l Lab (Internal) : [address] Rena 01/26/2018 TSH, Serum S - Tsh 3.33 u[IU]/mL 0.47-4.68 Final [place] or Plasma u[IU]/mL Count Hospital L ab (Internal) : [address] Rena 01/26/2018 ESR BLD - Esr 11 mm/h 0-30 mm/h Final No rth (Erythrocy Countr y Hospital L ab Sedimentat (Inter nal): ion Rate), [address] Rena 01/13/2018 CBC W/ BLD - Wbc 7.1 10*3/uL 5.0-10.0 Final [place] Auto Diff 10*3/uL [facility] Hospital L ab (Internal) : [address] ? ? BLD - Rbc 5.30 10*6/uL 4.10-5.30 Final N orth 10*6/uL [facility] Hospital L ab (Internal) : [address] ? ? BLD - Hgb 16.0 g/dL 12.0-16.0 Final Nort h g/dL [facility] L ab (Internal) : [address] ? ? BLD - Hct 46.8 % 37.0-47.0 Final [place] % [facility] Hospital L ab (Internal) : [address] ? ? BLD - Mcv 88.3 fL 80.0-96.0 Final [place] fL [facility] Hospital L ab (Internal) : [address] ? ? BLD - Mch 30.2 pg 26.0-32.0 Final [place] pg [facility] L ab (Internal) : [address] ? ? BLD - Mchc 34.2 g/dL 31.0-35.0 Final Nort h g/dL [facility] Hospital L ab (Internal) : [address] ? ? BLD - Rdw 11.9 % 11.5-14.5 Final [facility] Hospital L ab (Internal) : [address] ? ? BLD - Plt 265 10*3/uL 130-450 Final Nort h 10*3/uL [facility] Hospital L ab (Internal) : [address] 01/13/2018 Differenti BLD Low Polys 25 % 40-75 % Final N orth al, Country Manual, Hospital Lab Blood (Internal) : [address] ? ? BLD - Bands 3 % 0-5 % Final [facility] Hospital L ab (Internal) : [address] ? ? BLD High Lymphs 60 % 20-50 % Final [facility] Hospital L ab (Internal) : [address] ? ? BLD High [place] 11 % 2-10 % Final [facility] Hospital L ab (Internal) : [address] ? ? BLD - Eos 1 % 0-6 % Final [facility] Hospital L ab (Internal) : [address] ? ? BLD - Baso 0 % 0-1 % Final [facility] Hospital L ab (Internal) : [address] ? ? BLD - Atyp 0 % ? Final [facility] Hospital L ab (Internal) : [address] ? ? BLD - Plts, adequate adequate Final [place] [facility] [address] ? ? BLD - RBC normal normal Final [place] Morpholog [facility] L ab (Internal) : [address] 01/13/2018 Neutrophil BLD - Anc-manu 1.99 10*3/uL ? Final [place] Count, al [facility] Lab (Anc), (Internal) : Blood [address] 01/13/2018 CMP, Serum S - g/r 83 mg/dL 74-106 Final [place] or Plasma mg/dL [facility] Hospital L ab (Internal) : [address] ? ? S - Bun 16 mg/dL 7-17 Final [place] mg/dL [facility] Hospital L ab (Internal) : [address] ? ? S - Crea 0.80 mg/dL 0.52-1.04 Final Nor th mg/dL [facility] (Internal) : [address] t ? ? S - Ca 9.2 mg/dL 8.4-10.2 Final [place] mg/dL [facility] (Internal) : [address] t ? ? S Low Na 135 mmol/L 137-145 Final [place] mmol/L [facility] (Internal) : [address] t ? ? S - K 3.8 mmol/L 3.5-5.1 Final [place] mmol/L [facility] (Internal) : [address] t ? ? S Low Cl 97 mmol/L 98-107 Final [place] mmol/L [facility] (Internal) : [address] t ? ? S - Tco2 25.0 mmol/L 22.0-30.0 Final No rth mmol/L [facility] L [facility] (Internal) : [address] t ? ? S High Tp 8.4 g/dL 6.3-8.2 Final [place] g/dL [facility] (Internal) : [address] t ? ? S - Alb 4.6 g/dL 3.5-5.0 Final [place] g/dL [facility] (Internal) : [address] t ? ? S - Tbil 0.4 mg/dL 0.2-1.3 Final [place] mg/dL [facility] (Internal) : [address] t ? ? S - Alp 70 U/L 50-136 Final [place] U/L [facility] (Internal) : [address] t ? ? S - Alt 50 U/L 9-52 U/L Final [place] (Sgpt) [facility] (Internal) : [address] t ? ? S High Ast 46 U/L 14-36 U/L Final [place] (Sgot) [facility] (Internal) : [address] 01/03/2018 BMP, Serum S - g/r 88 mg/dL 74-106 Final [place] or Plasma mg/dL [facility] (Internal) : [address] t ? ? S - Bun 15 mg/dL 7-17 Final [place] mg/dL [facility] (Internal) : [address] t ? ? S - Crea 0.60 mg/dL 0.52-1.04 Final Nor th mg/dL [facility] (Internal) : [address] t ? ? S - Ca 9.2 mg/dL 8.4-10.2 Final [place] mg/dL [facility] (Internal) : [address] t ? ? S - Na 137 mmol/L 137-145 Final [place] mmol/L [facility] (Internal) : [address] t ? ? S Low K 3.4 mmol/L 3.5-5.1 Final [place] mmol/L [facility] (Internal) : [address] t ? ? S - Cl 101 mmol/L 98-107 Final [place] mmol/L [facility] (Internal) : [address] t ? ? S - Tco2 26.0 mmol/L 22.0-30.0 Final No rth mmol/L [facility] (Internal) : [address] 12/05/2017 Culture, UR - Final microbiology ? Final [place] Urine results [facility] L [facility] (Internal) : [address] 11/08/2017 BMP, Serum S Low g/r 68 mg/dL 74-106 Final [place] or Plasma mg/dL [facility] L [facility] (Internal) : [address] t ? ? S ? Bun 12 mg/dL 7-17 Final [place] mg/dL [facility] (Internal) : [address] t ? ? S ? Crea 0.80 mg/dL 0.52-1.04 Final Nor th mg/dL [facility] L [facility] (Internal) : [address] t ? ? S ? Ca 9.2 mg/dL 8.4-10.2 Final [place] mg/dL [facility] (Internal) : [address] t ? ? S ? Na 138 mmol/L 137-145 Final [place] mmol/L [facility] (Internal) : [address] ? ? S Low K 3.2 mmol/L 3.5-5.1 Final [place] mmol/L [facility] Hospital L ab (Internal) : [address] ? ? S ? Cl 99 mmol/L 98-107 Final [place] mmol/L [facility] L ab (Internal) : [address] ? ? S ? Tco2 29.0 mmol/L 22.0-30.0 Final No rth mmol/L [facility] Hospital L ab (Internal) : [address] 11/05/2017 Venipunctu BLD ? Venpn* ? ? Final N orth re [facility] Hospital L ab (Internal) : [address] 11/05/2017 Cyclic S ? Cyclic <15.6 U <20.0 Final Nort h Citrullina Citrullin (negative Country ammy ated ) U Hospital L ab Peptide Peptide (Interna l): Ab, Quant Ab, S [address] , [place] w[place] y, Serum 11/05/2017 FRANK S ABNORMA FRANK positive negat Final Nor th (Antinucle L Interpret Cou ntry ar [facility] Hospital L ab Antibodies (Inter nal): ) Screen, [address] ? ? S ? Antibody see comments ? Final N orth Titer Country [facility] Hospital Lab (Internal) : [address] 11/05/2017 Rf BLD ? Rf negative < 10 negative [place] [facility] (Rheumatoi [IU]/mL < 10 Count ry d Factor), [IU]/mL Hospi randal Lab Serum (Internal) : [address] 11/05/2017 CRP, High S High Rcrp 0.44 mg/dL 0.10-0.30 Fin al [place] Sensitivit mg/dL Countr y y, Serum Hospital Lab or Plasma (Swatch Clerk al): [address] 11/05/2017 Urinalysis UR ? UA-color yellow pale Final [place] , Complete yellow Countr Hospital L ab (Internal) : [address] ? ? UR ABNORMA UA-appea hazy clear Final [place] L r [facility] L ab (Internal) : [address] ? ? UR ? UA-spec 1.020 1.003-1.0 Final [place] Grav 35 [facility]Internal[facility] : [address], [place] ? ? UR ? UA-pH 6.0 [pH] 4.6-8.0 Final [place] [pH] [facility] (Internal) : [address], [place] ? ? UR ABNORMA UA-leuk small negative Final [facility] ab (Internal) : [address], [place] ? ? UR ? UA-nitri negative negative Final [facility] ab (Internal) : [address], [place] ? ? UR ? UA-prot negative negative Final [facility] ab (Internal) : [address], [place] ? ? UR ? UA-gluc negative negative Final [facility] ab (Internal) : [address], [place] ? ? UR ? UA-keton negative negative Final [facility] ab (Internal) : [address], [place] ? ? UR ? UA-urobi normal normal Final [facility] ab (Internal) : [address], [place] ? ? UR ? UA-bili negative negative Final [facility] ab (Internal) : [address], [place] ? ? UR ABNORMA UA-blood moderate negative Final No rth [facility] ab (Internal) : [address], [place] ? ? UR ? UA-WBC 0-3 [hpf] 0-3 [hpf] Final [facility] ab (Internal) : [address], [place] ? ? UR ? UA-RBC 0-2 [hpf] 0-2 [hpf] Final [facility] ab (Internal) : [address] [place] ? ? UR ABNORMA UA-bacte many [hpf] none seen Final [place] L veronica [hpf] [facility] (Internal) : [address], [place] ? ? UR ABNORMA UA-epith many [hpf] none seen Final [facility] elial [hpf] [facility] (Internal) : [address] [place] ? ? UR ABNORMA UA-mucus few [hpf] none seen Final [place] L [hpf] [facility] (Internal) : [address] t ? ? UR ? Sperm, few [hpf] ? Final [facility] UA [facility] L [facility] (Internal) : [address] 10/25/2017 BMP, Serum S ? g/r 79 mg/dL 74-106 Final [place] or Plasma mg/dL [facility] L ab (Internal) : [address] t ? ? S ? Bun 14 mg/dL 7-17 Final [place] mg/dL [facility] L [facility] (Internal) : [address] t ? ? S ? Crea 0.80 mg/dL 0.52-1.04 Final Nor th mg/dL [facility] L [facility] (Internal) : [address] t ? ? S ? Ca 9.5 mg/dL 8.4-10.2 Final [place] mg/dL [facility] L [facility] (Internal) : [address] t ? ? S ? Na 137 mmol/L 137-145 Final [place] mmol/L [facility] (Internal) : [address] t ? ? S ? K 3.6 mmol/L 3.5-5.1 Final [place] mmol/L [facility] (Internal) : [address] t ? ? S ? Cl 100 mmol/L 98-107 Final [place] mmol/L [facility] (Internal) : [address] t ? ? S ? Tco2 28.0 mmol/L 22.0-30.0 Final No rth mmol/L [facility] L [facility] (Internal) : [address] 10/10/2017 Venipunctu BLD ? Venpn* ? ? Final N orth re [facility] L [facility] (Internal) : [address] 10/10/2017 BMP, Serum S ? g/r 83 mg/dL 74-106 Final [place] or Plasma mg/dL [facility] L [facility] (Internal) : [address] t ? ? S ? Bun 11 mg/dL 7-17 Final [place] mg/dL [facility] (Internal) : [address] t ? ? S ? Crea 0.80 mg/dL 0.52-1.04 Final Nor th mg/dL [facility] L [facility] (Internal) : [address] t ? ? S ? Ca 9.5 mg/dL 8.4-10.2 Final [place] mg/dL [facility] L ab (Internal) : [address] [facility] ? ? S ? Na 138 mmol/L 137-145 Final [place] mmol/L [facility] L ab (Internal) : [address] [facility] ? ? S Low K 3.4 mmol/L 3.5-5.1 Final [place] mmol/L [facility] L ab (Internal) : [address] [facility] ? ? S ? Cl 98 mmol/L 98-107 Final [place] mmol/L [facility] L ab (Internal) : [address] [facility] ? ? S ? Tco2 30.0 mmol/L 22.0-30.0 Final No rth mmol/L [facility] L ab (Internal) : [address] [facility] 10/10/2017 T3, Total, S ? T3, 128 NG/dL 97-169 Final [place] Serum Total NG/dL [facility] L ab (Internal) : [address] [facility] 10/10/2017 T4, Free, S ? Ft4 1.06 NG/dL 0.78-2.19 Fin al [place] Serum NG/dL [facility] L ab (Internal) : [address] [facility] 10/10/2017 TSH, Serum S ? Tsh 0.60 u[IU]/mL 0.47-4.68 Final [place] or Plasma u[IU]/mL Count Hospital L ab (Internal) : [address] [facility] 09/26/2017 Venipunctu BLD ? Venpn* ? ? Final N orth re [facility] L ab (Internal) : [address] [facility] 09/26/2017 TSH, Serum S Low Tsh <0.05 0.47-4.68 Final [place] or Plasma u[IU]/mL u[IU]/mL Cou [facility] L ab (Internal) : [address] [facility] 09/26/2017 BMP, Serum S ? g/r 105 mg/dL 74-106 Final [place] or Plasma mg/dL [facility] L ab (Internal) : [address] [facility] ? ? S ? Bun 11 mg/dL 7-17 Final [place] mg/dL [facility] L ab (Internal) : [address] [facility] t ? ? S ? Crea 0.60 mg/dL 0.52-1.04 Final Nor th mg/dL [facility] L ab (Internal) : [address] [facility] t ? ? S ? Ca 9.4 mg/dL 8.4-10.2 Final [place] mg/dL [facility] L ab (Internal) : [address] [facility] ? ? S ? Na 138 mmol/L 137-145 Final [place] mmol/L [facility] L ab (Internal) : [address] [facility] t ? ? S ? K 3.7 mmol/L 3.5-5.1 Final [place] mmol/L [facility] L ab (Internal) : [address] [facility] ? ? S ? Cl 99 mmol/L 98-107 Final [place] mmol/L [facility] L ab (Internal) : [address] t ? ? S ? Tco2 27.0 mmol/L 22.0-30.0 Final No rth mmol/L [facility] L ab (Internal) : [address] [facility] t 08/09/2017 T3, Total, S ? T3, 124 NG/dL 97-169 Final [place] Serum Total NG/dL [facility] L ab (Internal) : [address] [facility] t 08/09/2017 T4, Total, S ? T4 9.9 ug/dL 5.5-11.0 Sal[place] l [place] Serum ug/dL [facility] L ab (Internal) : [address] [facility] 08/09/2017 TSH, Serum S ? Tsh 2.72 u[IU]/mL 0.47-4.68 Final [place] or Plasma u[IU]/mL Count [facility] L ab (Internal) : [address] [facility] 06/13/2017 T3, Total, S ? T3, 145 NG/dL 97-169 Final [place] Serum Total NG/dL [facility] L ab (Internal) : [address] [facility] 06/13/2017 T4, Free, S ? Ft4 1.69 NG/dL 0.78-2.19 Fin al [place] Serum NG/dL [facility] L ab (Internal) : [address] [facility] 06/13/2017 CMP, Serum S Low g/r 70 mg/dL 74-106 Final [place] or Plasma mg/dL [facility] (Internal) : [address] t ? ? S ? Bun 12 mg/dL 7-17 Final [place] mg/dL [facility] (Internal) : [address] t ? ? S ? Crea 0.70 mg/dL 0.52-1.04 Final Nor th mg/dL [facility] L [facility] (Internal) : [address] t ? ? S ? Ca 8.7 mg/dL 8.4-10.2 Final [place] mg/dL [facility] L [facility] (Internal) : [address] t ? ? S ? Na 140 mmol/L 137-145 Final [place] mmol/L [facility] (Internal) : [address] t ? ? S Low K 3.2 mmol/L 3.5-5.1 Final [place] mmol/L [facility] (Internal) : [address] t ? ? S ? Cl 101 mmol/L 98-107 Final [place] mmol/L [facility] (Internal) : [address] t ? ? S ? Tco2 27.0 mmol/L 22.0-30.0 Final No rth mmol/L [facility] L [facility] (Internal) : [address] t ? ? S ? Tp 7.3 g/dL 6.3-8.2 Final [place] g/dL [facility] (Internal) : [address] t ? ? S ? Alb 4.1 g/dL 3.5-5.0 Final [place] g/dL [facility] (Internal) : [address] t ? ? S ? Tbil 0.4 mg/dL 0.2-1.3 Final [place] mg/dL [facility] (Internal) : [address] t ? ? S ? Alp 64 U/L 50-136 Final [place] U/L [facility] (Internal) : [address] t ? ? S ? Alt 38 U/L 9-52 U/L Final [place] (Sgpt) [facility] (Internal) : [address] t ? ? S ? Ast 29 U/L 14-36 U/L Final [place] (Sgot) [facility] L [facility] (Internal) : [address] 06/13/2017 CBC W/ BLD ? Wbc 7.8 10*3/uL 5.0-10.0 Final [place] Auto Diff 10*3/uL Countr y Hospital L ab (Internal) : [address] ? ? BLD ? Rbc 4.84 10*6/uL 4.10-5.30 Final N orth 10*6/uL [facility] L ab (Internal) : [address] ? ? BLD ? Hgb 14.5 g/dL 12.0-16.0 Final Nort h g/dL [facility] L ab (Internal) : [address] t ? ? BLD ? Hct 43.1 % 37.0-47.0 Final [facility] Hospital L ab (Internal) : [address] ? ? BLD ? Mcv 89.0 fL 80.0-96.0 Final [facility] Hospital L ab (Internal) : [address] ? ? BLD ? Mch 30.0 pg 26.0-32.0 Final [place] pg [facility] L [facility] (Internal) : [address] ? ? BLD ? Mchc 33.6 g/dL 31.0-35.0 Final Nort h g/dL [facility] L [facility] (Internal) : [address] ? ? BLD ? Rdw 11.6 % 11.5-14.5 Final [facility] Hospital L ab (Internal) : [address] ? ? BLD ? Plt 269 10*3/uL 130-450 Final Nort h 10*3/uL [facility] L [facility] (Internal) : [address] ? ? BLD ? Anc 3.20 10*3/uL ? Final Nort h [facility] Hospital L ab (Internal) : [address] ? ? BLD ? Neutro 41.2 % 40.0-75.0 Final [facility] Hospital L ab (Internal) : [address] ? ? BLD ? Lymph 48.1 % 20.0-50.0 Final [place] % [facility] Hospital L ab (Internal) : [address] ? ? BLD ? [place] 7.5 % 2.0-10.0 Final [place] % [facility] Hospital L ab (Internal) : [address] ? ? BLD ? Eos 2.6 % 1.0-6.0 % Final [facility] Hospital L ab (Internal) : [address] ? ? BLD ? Baso 0.5 % 0.0-1.0 % Final [facility] [facility] L ab (Internal) : [address] ? ? BLD ? Ig 0.1 % 0.0-0.9 % Final [facility] L ab (Internal) : [address] 06/13/2017 TSH, Serum S Low Tsh <0.05 0.47-4.68 Final [place] or Plasma u[IU]/mL u[IU]/mL [facility] L ab (Internal) : [address] 05/17/2017 CMP, Serum S ? g/r 95 mg/dL 74-106 Final [place] or Plasma mg/dL [facility] L [facility] (Internal) : [address] t ? ? S ? Bun 13 mg/dL 7-17 Final [place] mg/dL [facility] (Internal) : [address] t ? ? S ? Crea 0.70 mg/dL 0.52-1.04 Final Nor th mg/dL [facility] (Internal) : [address] t ? ? S ? Ca 9.0 mg/dL 8.4-10.2 Final [place] mg/dL [facility] (Internal) : [address] t ? ? S ? Na 137 mmol/L 137-145 Final [place] mmol/L [facility] (Internal) : [address] t ? ? S Low K 3.3 mmol/L 3.5-5.1 Final [place] mmol/L [facility] (Internal) : [address] t ? ? S ? Cl 101 mmol/L 98-107 Final [place] mmol/L [facility] (Internal) : [address] t ? ? S ? Tco2 25.0 mmol/L 22.0-30.0 Final No rth mmol/L [facility] (Internal) : [address] ? ? S ? Tp 7.4 g/dL 6.3-8.2 Final [place] g/dL [facility] (Internal) : [address] t ? ? S ? Alb 4.3 g/dL 3.5-5.0 Final [place] g/dL [facility] (Internal) : [address] ? ? S ? Tbil 0.8 mg/dL 0.2-1.3 Final [place] mg/dL [facility] (Internal) : [address] ? ? S ? Alp 60 U/L 50-136 Final [place] U/L [facility] (Internal) : [address] t ? ? S ? Alt 48 U/L 9-52 U/L Final [place] (Sgpt) [facility] (Internal) : [address] t ? ? S High Ast 42 U/L 14-36 U/L Final [place] (Sgot) [facility] (Internal) : [address] t 05/17/2017 CBC W/ BLD ? Wbc 9.3 10*3/uL 5.0-10.0 Final [place] Auto Diff 10*3/uL [facility] L [facility] (Internal) : [address] t ? ? BLD ? Rbc 4.65 10*6/uL 4.10-5.30 Final N orth 10*6/uL [facility] (Internal) : [address] t ? ? BLD ? Hgb 14.0 g/dL 12.0-16.0 Final Nort h g/dL [facility] (Internal) : [address] t ? ? BLD ? Hct 41.7 % 37.0-47.0 Final [place] % [facility] (Internal) : [address] t ? ? BLD ? Mcv 89.7 fL 80.0-96.0 Final [facility] (Internal) : [address] t ? ? BLD ? Mch 30.1 pg 26.0-32.0 Final [facility] L ab (Internal) : [address] ? ? BLD ? Mchc 33.6 g/dL 31.0-35.0 [facility] (Internal) : [address] ? ? BLD ? Rdw 12.0 % 11.5-14.[address] [facility] L ab (Internal) : [address] ? ? BLD ? Plt 311 10*3/uL 130-450 Final Nort h 10*3/uL [facility] (Internal) : [address] t ? ? BLD ? Anc 7.06 10*3/uL ? Final Nort h [facility] L [facility] (Internal) : [address] [place] ? ? BLD High Neutro 76.1 % 40.0-75.[address] [facility] L ab (Internal) : [address], [place] ? ? BLD Low Lymph 16.6 % 20.0-50.[address] [facility] L ab (Internal) : [address] t ? ? BLD ? [place] 5.2 % 2.0-10.[address] [facility] L ab (Internal) : [address] t ? ? BLD ? Eos 1.2 % 1.0-6.0 % Final [facility] L ab (Internal) : [address], [place] ? ? BLD ? Baso 0.5 % 0.0-1.0 % Final [facility] L [facility] (Internal) : [address], [place] ? ? BLD ? Ig 0.4 % 0.0-0.9 % Final [facility] (Internal) : [address] 04/30/2017 Venipunctu BLD ? Venpn* ? ? Final N orth re [facility] (Internal) : [address] 04/30/2017 Neutrophil BLD ? Anc-manu 9.56 10*3/uL ? Final [place] Count, al [facility] (Anc), (Internal) : Blood [address] 04/30/2017 Differenti BLD High Polys 85 % 40-75 % Final N orth al, [facility], [facility] Lab Blood (Internal) : [address] t ? ? BLD ? Bands 0 % 0-5 % Final [facility] (Internal) : [address] t ? ? BLD Low Lymphs 13 % 20-50 % Final [facility] (Internal) : [address] t ? ? BLD ? [place] 2 % 2-10 % Final [facility] (Internal) : [address] t ? ? BLD ? Eos 0 % 0-6 % Final [facility] (Internal) : [address] t ? ? BLD ? Baso 0 % 0-1 % Final [facility] (Internal) : [address] t ? ? BLD ? Atyp 0 % ? Final [facility] L ab (Internal) : [address] t ? ? BLD ? Plts, adequate adequate Final [facility] L ab (Internal) : [address] t ? ? BLD ? RBC normal normal Final [facility] L ab (Internal) : [address] 04/30/2017 CBC W/ BLD High Wbc 11.3 10*3/uL 5.0-10.0 Final [place] Auto Diff 10*3/uL [facility] L [facility] (Internal) : [address] t ? ? BLD ? Rbc 4.19 10*6/uL 4.10-5.30 Final N orth 10*6/uL [facility] (Internal) : [address] t ? ? BLD ? Hgb 12.6 g/dL 12.0-16.0 Final Nort h g/dL [facility] (Internal) : [address] t ? ? BLD ? Hct 37.4 % 37.0-47.0 Final [facility] L ab (Internal) : [address] t ? ? BLD ? Mcv 89.3 fL 80.0-96.0 Final [facility] L [facility] (Internal) : [address] ? ? BLD ? Mch 30.1 pg 26.0-32.0 Final [facility] (Internal) : [address] ? ? BLD ? Mchc 33.7 g/dL 31.0-35.0 Final Nort h g/dL [facility] (Internal) : [address] ? ? BLD ? Rdw 12.2 % 11.5-14.5 Final [facility] % [facility] (Internal) : [address] t ? ? BLD ? Plt 211 10*3/uL 130-450 Final Nort h 10*3/uL [facility] (Internal) : [address] 04/30/2017 BMP, Serum PLASMA High g/r 107 mg/dL 74-106 Final [place] or Plasma mg/dL [facility] (Internal) : [address] t ? ? PLASMA ? Bun 7 mg/dL 7-17 Final [place] mg/dL [facility] (Internal) : [address] ? ? PLASMA ? Crea 0.60 mg/dL 0.52-1.04 Final Nor th mg/dL [facility] (Internal) : [address] ? ? PLASMA Low Ca 7.9 mg/dL 8.4-10.2 Final [facility] mg/dL [facility] (Internal) : [address] ? ? PLASMA ? Na 139 mmol/L 137-145 Final [place] mmol/L [facility] (Internal) : [address] t ? ? PLASMA Low K 3.4 mmol/L 3.5-5.1 Final [place] mmol/L [facility] (Internal) : [address] t ? ? PLASMA High Cl 111 mmol/L 98-107 Final [place] mmol/L [facility] (Internal) : [address] ? ? PLASMA Low Tco2 20.0 mmol/L 22.0-30.0 Final No rth mmol/L [facility] (Internal) : [address] 04/29/2017 Venipunctu BLD ? Venpn* ? ? Final N orth re [facility] (Internal) : [address] 04/29/2017 Streptococ THT ? Final microbiology ? Fin al [facility] results [facility] L ab Screen (Internal) : [address] 04/29/2017 Drug UR ? Thc negative neg (50 Final Nor th Screen, NG/mL NG/mL) [facility] NG/mL [facility] L ab (Internal) : [address] t ? ? UR ? Pcp negative neg (25 Final North NG/mL) [facility] (Internal) : [address] t ? ? UR ? [place] negative neg (150 Final North NG/mL) [facility] (Internal) : [address] t ? ? UR ? Met negative neg (500 Final [place] NG/mL) [facility] : [address] t ? ? UR ? Opi negative neg (100 Final [place] NG/mL) [facility] ([facility]) : [address] t ? ? UR ? Amp negative neg (500 Final [place] NG/mL) [facility] (Internal) : [address] t ? ? UR ? Bzo negative neg (150 Final [place] NG/mL) [facility] (Internal) : [address] t ? ? UR ? Tca negative neg (300 Final [place] NG/mL) [facility] (Internal) : [address] t ? ? UR ? Mtd negative neg (200 Final [place] NG/mL) [facility] (Internal) : [address] t ? ? UR ? Bar negative neg (200 Final North NG/mL) [facility] (Internal) : [address] t ? ? UR ? Oxy negative neg (100 Final [place] NG/mL) [facility] (Internal) : [address] t ? ? UR ? Ppx negative neg (300 Final [place] NG/mL) [facility] (Internal) : [address] t ? ? UR ? Bup negative neg (10 Final [place] NG/mL) [facility] (Internal) : [address] 04/29/2017 Urinalysis UR ? UA-color pale yellow pale F inal North , yellow [facility] Dipstick, Hospita l Lab Reflex (Internal) : Micro [address], [place] ? ? UR ? UA-appea clear clear Final North r [facility] (Internal) : [address], [place] ? ? UR ? UA-spec <=1.005 1.003-1.0 Final Nort h Grav 35 [facility] (Internal) : [address], [place] ? ? UR ? UA-pH 6.0 [pH] 4.6-8.0 Final North [pH] [facility] (Internal) : [address], [place] ? ? UR ? UA-leuk negative negative Final Nort h Est [facility] (Internal) : [address], [place] ? ? UR ? UA-nitri negative negative Final Nor th te [facility] (Internal) : [address] t ? ? UR ? UA-prot negative negative Final Nort h [facility] (Internal) : [address], [place] ? ? UR ? UA-gluc negative negative Final Nort h [facility] (Internal) : [address] t ? ? UR ? UA-keton negative negative Final Nor th e [facility] (Internal) : [address] [place] ? ? UR ? UA-urobi normal normal Final [facility] ab (Internal) : [address] t ? ? UR ? UA-bili negative negative Final Nort h [facility] (Internal) : [address] [place] ? ? UR ? UA-blood negative negative Final Nor th [facility] (Internal) : [address] [place] 04/29/2017 Culture, BLD ? Final microbiology ? Final [place] Blood results [facility] (Internal) : [address] [place] 04/29/2017 Influenza NASAL ? Final microbiology ? Salena josh Decker (A+B) Ag, results Countr y Qual, Hospital L ab Rapid, (Internal) : Nose [address] t 04/29/2017 TSH, Serum S High Tsh 14.80 0.47-4.68 Final [place] or Plasma u[IU]/mL u[IU]/mL [facility] (Internal) : [address] t 04/29/2017 CMP, Serum S ? g/r 84 mg/dL 74-106 Final [place] or Plasma mg/dL [facility] (Internal) : [address] t ? ? S ? Bun 9 mg/dL 7-17 Final [place] mg/dL [facility] (Internal) : [address] t ? ? S ? Crea 1.00 mg/dL 0.52-1.04 Final Nor th mg/dL [facility] (Internal) : [address] t ? ? S ? Ca 9.7 mg/dL 8.4-10.2 Final [place] mg/dL [facility] (Internal) : [address] t ? ? S ? Na 138 mmol/L 137-145 Final [place] mmol/L [facility] L ab (Internal) : [address] t ? ? S ? K 3.8 mmol/L 3.5-5.1 Final [place] mmol/L [facility] L ab (Internal) : [address] t ? ? S Low Cl 96 mmol/L 98-107 Final [place] mmol/L [facility] L ab (Internal) : [address] t ? ? S ? Tco2 27.0 mmol/L 22.0-30.0 Final No rth mmol/L [facility] (Internal) : [address] t ? ? S High Tp 9.1 g/dL 6.3-8.2 Final [place] g/dL [facility] (Internal) : [address] t ? ? S High Alb 5.1 g/dL 3.5-5.0 Final [place] g/dL [facility] (Internal) : [address] t ? ? S High Tbil 1.5 mg/dL 0.2-1.3 Final [place] mg/dL [facility] (Internal) : [address] t ? ? S ? Alp 98 U/L 50-136 Final [place] U/L [facility] (Internal) : [address] t ? ? S High Alt 88 U/L 9-52 U/L Final [place] (Sgpt) [facility] (Internal) : [address] t ? ? S High Ast 96 U/L 14-36 U/L Final [place] (Sgot) [facility] (Internal) : [address] t 04/29/2017 CBC W/ BLD High Wbc 10.9 10*3/uL 5.0-10.0 Final [place] Auto Diff 10*3/uL [facility] (Internal) : [address] t ? ? BLD High Rbc 5.82 10*6/uL 4.10-5.30 Final N orth 10*6/uL [facility] (Internal) : [address] t ? ? BLD High Hgb 17.9 g/dL 12.0-16.0 Final Nort h g/dL [facility] (Internal) : [address] t ? ? BLD High Hct 51.2 % 37.0-47.0 Final [facility] L ab (Internal) : [address] t ? ? BLD ? Mcv 88.0 fL 80.0-96.0 Final [facility] L [facility] (Internal) : [address] t ? ? BLD ? Mch 30.8 pg 26.0-32.0 Final [facility] L ab (Internal) : [address] t ? ? BLD ? Mchc 35.0 g/dL 31.0-35.0 Final Nort h g/dL [facility] (Internal) : [address] t ? ? BLD ? Rdw 11.9 % 11.5-14.5 Final [facility] L ab (Internal) : [address] t ? ? BLD ? Plt 270 10*3/uL 130-450 Final Nort h 10*3/uL [facility] (Internal) : [address] t ? ? BLD ? Anc 7.74 10*3/uL ? Final Nort h [facility] (Internal) : [address] t ? ? BLD ? Neutro 70.7 % 40.0-75.0 Final [facility] ab (Internal) : [address] [place] ? ? BLD ? Lymph 20.6 % 20.0-50.0 Final [facility] ab (Internal) : [address] , [place] ? ? BLD ? [place] 6.4 % 2.0-10.0 Final [facility] ab (Internal) : [address] [place] ? ? BLD ? Eos 1.6 % 1.0-6.0 % Final [facility] ab (Internal) : [address] [place] ? ? BLD ? Baso 0.4 % 0.0-1.0 % Final [facility] ab (Internal) : [address] , [place] ? ? BLD ? Ig 0.3 % 0.0-0.9 % Final [facility] ab (Internal) : [address] [place] 04/29/2017 Culture, BLD ? Final microbiology ? Final [place] Blood [facility] (Internal) : [address] , [place] ? Venipunctu ? Location Right ? ? P_n c Primary re Antecubital Care [place] ns: [address], [place] ? ? ? Needle 21g ? ? P_nc Prim carolann Vacutainer Care [place]: [address], [place] ? ? ? Number 1 ? ? P_nc Prim carolann of Care Attempts [place] ns: [address], [place] ? ? ? Successf Yes ? ? P_nc Pr imary ul Care [place]: [address], [place] ? ? ? Dressing Pressure ? ? P_nc Primary Band-aid Care Applied [place] ziggy ns: [address], [place] ? ? ? Initials hj ? ? P_nc Pr imary Care [place] ns: [address], [place] ? Venipunctu ? Location Right ? ? P_n c Primary re Antecubital Care [place] ns: [address], [place] ? ? ? Needle 21g ? ? P_nc Prim carolann Vacutainer Care [place] ns: [address], [place] ? ? ? Number 1 ? ? P_nc Prim carolann of Care Attempts [place] ns: [address], [place] ? ? ? Successf Yes ? ? P_nc Pr imary ul Care [place] ns: [address], [place] ? ? ? Dressing Pressure ? ? P_nc Primary Band-aid Care Applied [place] ziggy ns: [address], [place] ? ? ? Initials hj ? ? P_nc Pr imary Care [place] ns: [address], [place] ? Venipunctu ? No ? ? ? P_nc P rimary re observati Care on [place]l [place] recorded. ns: [address], [place] ? Venipunctu ? Location Right ? ? P_n c Primary re Antecubital Care [place] ns: [address], [place] ? ? ? Needle 21g ? ? P_nc Prim carolann Vacutainer Care [place] ns: [address], [place] ? ? ? Number 1 ? ? P_nc Prim carolann of Care Attempts [place] ns: [address], [place] ? ? ? Successf Yes ? ? P_nc Pr imary ul Care [place] ns: [address], [place] ? ? ? Dressing Pressure ? ? P_nc Primary Band-aid Care Applied [place] ziggy ns: [address], [place] ? ? ? Initials hj ? ? P_nc Pr imary Care [place] ns: [address], [place] ? Venipunctu ? Location Right ? ? P_n c Primary re Antecubital Care [place] ns: [address], [place] ? ? ? Needle 21g ? ? P_nc Prim carolann Vacutainer Care [place] ns: [address], [place] ? ? ? Number 1 ? ? P_nc Prim carolann of Care Attempts [place] ns: [address], [place] ? ? ? Successf Yes ? ? P_nc Pr imary ul Care [place] ns: [address], [place] ? ? ? Dressing Pressure ? ? P_nc Primary Band-aid Care Applied [place] zig[place] ns: [address], [place] ? ? ? Initials HJ ? ? P_nc Pr imary Care [place] ns: [address], [place] ? Venipunctu ? Location Right ? ? P_n c Primary re Antecubital Care [place] ns: [address], [place] ? ? ? Needle 23g Butterfly ? ? P_ nc Primary Care [place]: [address], [place] ? ? ? Number 1 ? ? P_nc Prim carolann of Care Attempts [place] ns: [address], [place] ? ? ? Successf Yes ? ? P_nc Pr imary ul Care [place] ns: [address], [place] ? ? ? Dressing Pressure ? ? P_nc Primary Band-aid Care Applied [place] ziggy ns: [address], [place] ? ? ? Initials LMK ? ? P_nc Pr imary Care [place] ns: [address], [place] ? Venipunctu ? Location Right ? ? P_n c Primary re Antecubital Care [place] ns: [address], [place] ? ? ? Needle 23g Butterfly ? ? P_ nc Primary Care [place]: [address], [place] ? ? ? Number 1 ? ? P_nc Prim carolann of Care Attempts [place] ns: [address], [place] ? ? ? Successf Yes ? ? P_nc Pr imary ul Care [place] ns: [address], [place] ? ? ? Dressing Pressure ? ? P_nc Primary Band-aid Care Applied [place] ziggy ns: [address], [place] ? ? ? Initials LMK ? ? P_nc Pr imary Care [place] ns: [address], [place] ? Venipunctu ? Location Right ? ? P_n c Primary re Antecubital Care [place] ns: [address], [place] ? ? ? Needle 23g Butterfly ? ? P_ nc Primary Care [place]: [address], [place] ? ? ? Number 3 ? ? P_nc Prim carolann of Care Attempts [place] ns: [address], [place] ? ? ? Successf Yes ? ? P_nc Pr imary ul Care [place] ns: [address], [place] ? ? ? Dressing Pressure ? ? P_nc Primary Band-aid Care Applied [place] ziggy ns: [address], [place] ? ? ? Initials rs/kb ? ? P_nc Pr imary Care [place] ns: [address], [place] ? Venipunctu ? Location Right ? ? P_n c Primary re Antecubital Care [place] ns: [address], [place] ? ? ? Needle 21g ? ? P_nc Prim carolann Vacutainer Care [place] ns: [address], [place] ? ? ? Number 1 ? ? P_nc Prim carolann of Care Attempts [place] ns: [address], [place] ? ? ? Successf Yes ? ? P_nc Pr imary ul Care [place] ns: [address], [place] ? ? ? Dressing Pressure ? ? P_nc Primary Band-aid Care Applied [place] ziggy ns: [address], [place] ? Venipunctu ? Location Right ? ? P_n c Primary re Antecubital Care [place] ns: [address], [place] ? ? ? Needle 21g ? ? P_nc Prim carolann Vacutainer Care [place] ns: [address], [place] ? ? ? Number 1 ? ? P_nc Prim carolann of Care Attempts [place] ns: [address], [place] ? ? ? Successf Yes ? ? P_nc Pr imary ul Care [place] ns: [address], [place] ? ? ? Dressing Pressure ? ? P_nc Primary Band-aid Care Applied [place] zig[place] ns: [address], [place] ? ? ? Initials hj ? ? P_nc Pr imary Care [place] ns: [address], [place] ? Venipunctu ? Location Right ? ? P_n c Primary re Antecubital Care [place] ns: [address], [place] ? ? ? Needle 23g Butterfly ? ? P_ nc Primary Care [place] ns: [address], [place] ? ? ? Number 1 ? ? P_nc Prim carolann of Care Attempts [place] ns: [address], [place] ? ? ? Successf Yes ? ? P_nc Pr imary ul Care [place] ns: [address], [place] ? ? ? Dressing Pressure ? ? P_nc Primary Band-aid Care Applied [place] zig[place] ns: [address], [place] ? ? ? Initials LMK ? ? P_nc Pr imary Care [place] ns: [address], [place] ? Venipunctu ? Location Right ? ? P_n c Primary re Antecubital Care [place] ns: [address], [place] ? ? ? Needle 23g Butterfly ? ? P_ nc Primary Care [place] ns: [address], [place] ? ? ? Number 1 ? ? P_nc Prim carolann of Care Attempts [place] ns: [address], [place] ? ? ? Successf Yes ? ? P_nc Pr imary ul Care [place] ns: [address], [place] ? ? ? Dressing Pressure ? ? P_nc Primary Band-aid Care Applied [place] zig[place] ns: [address], [place] ? ? ? Initials LMK ? ? P_nc Pr imary Care [place] ns: [address], [place] ? Venipunctu ? Location Right ? ? P_n c Primary re Antecubital Care [place] ns: [address], [place] ? ? ? Needle 23g Butterfly ? ? P_ nc Primary Care [place] ns: [address], [place] ? ? ? Number 1 ? ? P_nc Prim carolann of Care Attempts [place] ns: [address], [place] ? ? ? Successf Yes ? ? P_nc Pr imary ul Care [place] ns: [address], [place] ? ? ? Dressing Pressure ? ? P_nc Primary Band-aid Care Applied [place] ziggy ns: [address], [place] ? ? ? Initials LMK ? ? P_nc Pr imary Care [place] ns: [address], [place] ? Venipunctu ? Location Right ? ? P_n c Primary re Antecubital Care [place] ns: [address], [place] ? ? ? Needle 23g Butterfly ? ? P_ nc Primary Care [place] ns: [address], [place] ? ? ? Number 1 ? ? P_nc Prim carolann of Care Attempts [place] ns: [address], [place] ? ? ? Successf Yes ? ? P_nc Pr imary ul Care [place] ns: [address], [place] ? ? ? Dressing Pressure ? ? P_nc Primary Band-aid Care Applied [place] ziggy ns: [address], [place] ? ? ? Initials LMK ? ? P_nc Pr imary Care [place] ns: [address], [place] ? Venipunctu ? Location Right ? ? P_n c Primary re Antecubital Care [place] ns: [address], [place] ? ? ? Needle 23g Butterfly ? ? P_ nc Primary Care [place] ns: [address], [place] ? ? ? Number 1 ? ? P_nc Prim carolann of Care Attempts [place]lea ns: [address], [place] ? ? ? Successf Yes ? ? P_nc Pr imary ul Care [place] ns: [address], [place] ? ? ? Dressing Pressure ? ? P_nc Primary Band-aid Care Applied [place] zig[place] ns: [address], [place] ? ? ? Initials LMK ? ? P_nc Pr imary Care [place] ns: [address], [place] Past Encounters 12/17/2020 Hyperlipidemia Teofilo Cross MD: [address] [place] [address], Ph. 12/07/2020 Hyperlipidemia; Acquired Hypothyroidism; Alger's Disease; Fibromyalgia; Cervical Radiculopathy; Hypokalemia; Hyponatremia; Irritable Bowel Syndrome with Diarrhea; Elevated Liver Enzymes Level; Vitamin D Deficiency; Secondary Polycythemia; S evere Anxiety (Panic); Fatigue; Gastroesophageal Reflux Disease; Low Blood Pressure Teofilo Cross MD: [address] [place] [address], Ph. 10/19/2020 Nichelle Souza MD: [address] [place] [address], Ph. 10/05/2020 Alger's Disease; Acquired Hypothyroidi sm; Hyponatremia; Secondary Polycythemia; Ophthalmic Migraine; Paresthesia of Upper Limb; Vitamin D Deficiency; Hyperlipidemia; Cervical Radiculopathy Teofilo Cross MD: [address] [place] [phone], Ph. 09/30/2020 Neck Sprain; Stiff Neck Timothy Steinberg, PT: [address] [place] [phone], Ph. 09/18/2020 Dysfunction of Eustachian Tube; Allergic Reaction to Food; Hyperlipidemia; Acquired Hypothyroidism; Familial Polycythemia Vera; Acute Hyponatremia Priti Nash BOARD MEMBER: [address] [place] [phone], Ph. 09/14/2020 Familial Polycythemia Vera Teofilo Cross MD: [address] [place] [address], Ph. 08/19/2020 Neck Sprain; Stiff Neck Timothy Steinberg, PT: [address] [place] [address], [address] [phone], Ph. 08/12/2020 Neck Sprain; Stiff Neck Timothy Steinberg, PT: [address] [place] [address], [address] [phone], Ph. 07/08/2020 Nausea; Change in Stool Caliber Heriberto Lazo MD: [address] [place] [address] [place] [address], Ph. 06/29/2020 Neck Pain; Fibromyalgia; Irritable Bowel Syndrome with Diarrhea; Nausea Teofilo Cross MD: [address] [place] [phone], Ph. 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 05/26/2020 Sinusitis; Hypokalemia ANTONIETTA ArmendarizC: [address] [place] [phone], Ph. 05/05/2020 Nichelle Souza MD: [address] [place] [address], Ph. 04/06/2020 Acquired Hypothyroidism; Norberto's Disea se; Hypertensive Disorder; Intermittent Palpitations LYLE GodinezP: [address] [place] [phone], Ph. 03/16/2020 Fibromyalgia; Acquired Hypothyroidism; A ddison's Disease; Elevated Liver Enzymes Level Teofilo Cross MD: [address] [place] [phone], Ph. 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 02/18/2020 Elevated Liver Enzymes Level; Fibromyalg ia; Familial Polycythemia Vera; Hyperlipidemia Teofilo Cross MD: [address] [place] [phone], Ph. 02/06/2020 Acquired Hypothyroidism Teofilo Cross MD: [address] [place] [phone], Ph. 01/23/2020 Acquired Hypothyroidism Teofilo Cross MD: [address] [place] [phone], Ph. 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 01/20/2020 Norberto's Disease; Acquired Hypothyroidi sm; Low Blood Pressure; Hyperlipidemia; Familial Polycythemia Vera Teofilo Cross MD: [address] [place] [address], Ph. 01/08/2020 Hyperlipidemia Nichelle Souza MD: [address] [place] [address], Ph. 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 10/15/2019 Hyperlipidemia; Obstructive Sleep Apnea Syndrome Nichelle Souza MD: [address] [place] [address], Ph. 09/23/2019 Norberto's Disease; Premature Atrial Cont raction; Sleep Disorder; Acquired Hypothyroidism; Mixed Hyperlipidemia; Persistent Insomnia; Hypokalemia; Acute Maxillary Sinusitis; Nausea; Gastroesophageal Reflux Disease Teofilo Cross MD: [address] [place] [address], Ph. Social History Tobacco Smoking Status Former Smoker (1 pack per Notes: s tarted smoking at week) age 17. quit 2003 Vaccine List Vaccine Type COVID-19, mRNA, LNP-S, PF, 30 mcg/0.3 mL dose 10/09/2020 influenza, injectable, quadrivalent 06/06/2019 04/15/2020 Plan of Care Patient Instructions Follow-up as scheduled. For your leg symptoms, increase mag nesium gluconate 500mg up to 2 tabs twice daily. If you get diarrhea, may need to back down on dose. Try to split into twice daily as it may get absorbed better that way. Discontinue ropinirole, and I put it on your allergy list, as this cause severe vomiting for hours on 3 different days. The lyrica that you are starting with DR Cross may also help your restless legs symptoms in sleep, so I wont start anything else. We also discussed your lab results, and these can contribute to both leg movements in sleep and fatigue, so we will supplement: -borderline low vitamin D, start vitamin D3 2000 iu. daily; -low vitamin B12 level, start vitamin B1 2 1000mcg qAM and vitamin B complex qAM; -low ferritin (iron stores): we will be careful and only do 90 day supply as your iron has also been high before; will do ferrous gluconate 324mg with Vitamin C 500mg daily (like magnesium, take > 3 hrs from thyroid med). If you can't find vitamin C, that's ok. It is suggested you take at same time as iron to increase absorption. We will continue to think about whether we should repeat a sleep study, as your previous test was very borderline and if we repeat with more back sleep, we may get diagnosis of sleep apnea. Meanwhile I' d like to try to optimally treat the res tless legs/periodic limb movement condition. We will plan for follow up about 2 lashell hs.. My recruiting scheduler will put you on a cancellation list. We can do telehealth again as long as your insurance is still allowing this. Contact me with any questions sooner. Wishing you the best. Your sleep study showed moderate pe riodic limb movement disorder and borderline respiratory events that were very close but not quite meeting sleep apnea diagnosis. We we treat the leg movements: first tit rate up the magnesium gluconate (Rx sent to pharmacy) to highest tolerate dose. If you are not noticing benefit or are limited by diarrhea side effect, I recommen d you buy OTC product on [employer] Best High Absorption Magnesium 100mg tabs : work up to 2 tabs twice daily. This high absoprtion magnesium tends to have less side effects and is more potent. After you get to ful dose of magnesium, then you can add Ropinirole 1mg tab. STart with 1mg at bedtime, and increase every 3 nights for sensation of restless sleep, up to 3mg at bedtime. We talked about common side effect of drowsiness and ra re side effect of impulse control issues, the latter if you experience, you can discontinue immediately and contact me to let me know. We will also get lab work, vitamin D, B12 levels and ferritin levels We will plan for follow up in 3 weeks or so. My recruiting scheduler will put you on a cancellation list. We can do telehealth again as long as your insurance is still allowing this. Contact me with any questions sooner. THanks! We discussed signs and symptoms you are exhibiting that may be due to Obstructive Sleep Apnea or other sleep disorders. We went over sleep conditions that I suspect you may have that will benefit f rom further evaluation. The next step is to diagnose your sleep disorder through sleep study testing. We will get permission from your insurance to do the sleep study. Call us back in 2 to 3 weeks if yo u do not get a call from us about schedu ling your sleep study. Bring all your home medications to the sleep study including any sleep aids. If you have further concerns on falling asleep for the sleep study, we do have Ambien 5 to 10 mg to be used as needed. Lilly jennifer, please note you should make arrange ments for a ride home in case you get morning drowsiness from taking sleep aid. Please call [facility] if you ar e not able to make it to your sleep study For Sleep quality/overly active mind/mus kirk cramps: I recommend Magnesium Gluconate 500mg. Start with 1 tablet in evening. If leg c ramps persist and NO loose stools, may increase to 1 tablet twice daily. If you get loose stools, decrease to 1/2 tablet. For insomnia, I recommend after you son falls asleep around 10:30pm, you take 1 to 2 hours to make your relaxation routine, to unwind before bedtime. Preferable to do this in another room, in a dim envi ronment. In general, try to avoid spendi ng awake hours in bed, so your brain/body can associate the bed with only sleep and sexual activity. Follow up in 2 weeks to see how you are doing with the relaxation routine and spending less awake time in bed. Reminders Provider Appointments None recorded. ? ? Lab None recorded. ? ? Referral None recorded. ? ? Procedures None recorded. ? ? Surgeries None recorded. ? ? Imaging None recorded. ? ? Vitals 12/07/2020 11:00AM Follow Up 20 Height Weight BMI Blood Pressure 154.94 cm 58.06 kg 24.2 kg/m2 130/84 mm[Hg] 10/19/2020 11:30AM Follow Up 30 Height Weight BMI Blood Pressure 154.94 cm 60.2 kg 25.1 kg/m2 121/86 mm[Hg] 10/05/2020 10:20AM Acute 20 Height Weight BMI Blood Pressure 154.94 cm 60.33 kg 25.1 kg/m2 140/88 mm[Hg] 09/18/2020 10:40AM Follow Up 20 Height Weight BMI Blood Pressure 154.94 cm 60.92 kg 25.4 kg/m2 124/76 mm[Hg] 07/08/2020 12:15PM Office 15 Height Blood Pressure 154.94 cm 130/80 mm[Hg] 06/29/2020 11:20AM Acute 20 Height Blood Pressure 154.94 cm 138/84 mm[Hg] 06/23/2020 12:40PM Follow Up 20 Height Weight BMI Blood Pressure 154.94 cm 63.73 kg 26.5 kg/m2 140/90 mm[Hg] 05/26/2020 01:20PM Follow Up 20 Height Weight BMI Blood Pressure 154.94 cm 63.22 kg 26.3 kg/m2 122/84 mm[Hg] 05/05/2020 10:45AM Follow Up 30 Height Weight BMI Blood Pressure 154.94 cm 63.5 kg 26.5 kg/m2 (1) 123/87 mm[H g] (2) 123/78 mm[Hg ] (3) 124/88 mm[Hg ] (4) 118/93 mm[Hg ] 04/06/2020 03:00PM Acute 20 Height Weight BMI Blood Pressure 154.94 cm 63.5 kg 26.5 kg/m2 128/74 mm[Hg] 03/16/2020 09:20AM Follow Up 20 Height Weight BMI Blood Pressure 154.94 cm 62.77 kg 26.1 kg/m2 124/74 mm[Hg] 02/18/2020 01:40PM Follow Up 20 Height Weight BMI Blood Pressure 154.94 cm 62.2 kg 25.9 kg/m2 128/74 mm[Hg] 02/18/2020 03:30PM Office 30 Height Weight BMI 154.94 cm 62.2 kg 25.9 kg/m2 01/21/2020 09:00AM Office 30 Height Weight BMI 154.94 cm 61.23 kg 25.5 kg/m2 01/20/2020 11:20AM Follow Up 20 Height Weight BMI Blood Pressure 154.94 cm 61.41 kg 25.6 kg/m2 130/80 mm[Hg] 12/10/2019 01:30PM New Patient 45 Height Weight BMI 154.94 cm 60.33 kg 25.1 kg/m2 09/23/2019 11:00AM Follow Up 20 Height Weight BMI Blood Pressure 154.94 cm 60.33 kg 25.1 kg/m2 108/62 mm[Hg] 08/05/2019 01:00PM Follow Up 20 Height Weight BMI Blood Pressure 154.94 cm 60.47 kg 25.2 kg/m2 110/68 mm[Hg] 10/19/2018 03:00PM Acute 20 Height Weight BMI Blood Pressure 154.94 cm 60.33 kg 25.1 kg/m2 120/72 mm[Hg] 08/15/2018 01:00PM Acute 20 Height Weight BMI Blood Pressure 154.94 cm 60.33 kg 25.1 kg/m2 120/82 mm[Hg] 07/16/2018 09:20AM Follow Up 40 Height Weight BMI Blood Pressure 154.94 cm 59.93 kg 25 kg/m2 112/62 mm[Hg] 05/17/2018 02:40PM Follow Up 40 Height Weight BMI Blood Pressure 154.94 cm 56.44 kg 23.5 kg/m2 110/58 mm[Hg] 05/03/2018 03:00PM Follow Up 20 Height Weight BMI Blood Pressure 154.94 cm 56.87 kg 23.7 kg/m2 118/68 mm[Hg] 01/26/2018 03:30PM Acute 30 Height Weight BMI Blood Pressure 154.94 cm 56.97 kg 23.7 kg/m2 (1) 110/80 mm[H g] (2) 126/76 mm[Hg ] (3) 120/90 mm[Hg ] 01/11/2018 04:00PM Follow Up 20 Height Weight BMI Blood Pressure 154.94 cm 56.25 kg 23.4 kg/m2 120/80 mm[Hg] 01/04/2018 08:00AM Follow Up 30 Height Weight BMI Blood Pressure 154.94 cm 55.97 kg 23.3 kg/m2 124/86 mm[Hg] 01/03/2018 09:30AM Acute 30 Height Weight BMI Blood Pressure 154.94 cm 55.7 kg 23.2 kg/m2 130/100 mm[Hg]
--- OUTSIDE RECORDS SUMMARY | 2021-03-05 08:56 | XMS_ITS | Encounter Summary ---
:1975 Author Care Team Providers Name Role Phone Edenilson Ceja MD Primary Care Provider [phone] Oliver Souza MD News Copy Editor [phone] Heriberto Wan MD General Surgeon [phone] Reason for Visit lab follow-up; chronic care management; imaging follow up Assessment and Plan Assessment Note This is a 45-year-old lady here for follow-up of multiple medical issues. She recently was told that she would not be able to stay on her present rental and will be homeless within the next couple of mo nths. She has increased anxiety with a history of panic attacks and anxiety chr onically being an adult child of alcoholics and untreated for depression with anxiet y. She is not presently seeing psychiatry or having counseling. She is attempting to advance Lyrica for her myalgias which is reasonable. She will need her medication list updated today. 1. Hyperlipidemia Marked improvement on low-dose Lipitor and dietary changes with some exercise. She is having some myalgias over her thighs with this drug and CPK will be checked. She also has elevated liver f unction test which will be followed on t his medication. If needed we may decrease her to 10 mg daily but continue treatment with such a good response. 02/18/2020: Patient is concerned that Lip itor may be increasing myalgias and this will be held for now. 12/07/2020: Patient is stable on Lipitor with mild myalgias with a history of fibromyalgia. Check fasting lab along with CPK and if reasonable continue low- dose Lipitor long-term. Patient does have atraumatic response to low-dose statin. ? Lipitor 10 mg tablet ? lipid panel, serum 2. Acquired hypothyroidism Continue to follow-up lab on s upplement adjusting to goal with the patient's TSH being somewhat misleading and we should follow more of her free T4 is and total T3 to adjust treatment. Her usu al dose was 175 mcg a day this may be th e best dose long-term if the free T4 stays within normal range. She is presently on 125 mcg a day. 01/20/2020: Follow-up lab now and every 3 -month. Adjust with guidance from endocrinology with continued 125 mcg daily for now. 12/07/2020: Patient has been stable on th is decreased dose with follow-up lab adjusting to goal. ? TSH, serum or plasma ? T4, free, serum ? T3, total, serum ? venipuncture ? 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 Continue increasing st ress steroids as needed. Patient is to follow-up with endocrinology as scheduled with some restrictions recently with COVID-19 pandemic. Patient will have labs ch ecked more frequently because of change in use of Florinef. 12/07/2020: Patient electrolytes are stab le with sodium slightly low at 136 otherwise within normal range. Continue follow-up with endocrinology and follow- up locally with labs. ? hydrocortisone 5 mg tablet 4. Fibromyalgia Recheck lab and start Lyrica f or myalgias. If positive sed rate / CRP, consider low-dose prednisone. 03/16/2020: Patient feels much better wit h low-dose Lyrica and lab did not indicate PMR with no indication for prednisone at this time. 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 12/07/2020: This is contributing to her g eneralized body aches and may be contributing to her increased pain over her trapezius muscles especially on the left. Symptomatic care with slowly advancing Lyri ca with patient only on 50 mg daily to b e advanced to 3 times daily.. ? CK (creatine kinase), tota l, serum ? ESR (erythrocyte sedimenta tion rate), blood ? CRP, high sensitivity, ser um or plasma ? Lyrica 50 mg capsule 5. Cervical radiculopathy This is a recurrent symptom an d patient has failed physical therapy with plain film imaging revealing no degenera tive disc disease or arthritis but simply straightening of lordotic curve of the c ervical spine indicating spasm. 6. Hypokalemia Stable on present medical shakir men but patient needs to have a more palatable supplement. Lower dose potassi um supplement with 2 pills daily instead of 1 and if needed attempt effervescent liqui d form of potassium though this may not be palatable. ? potassium, 24-hour urine ? potassium chloride ER 10 m Eq tablet,extended release 7. Hyponatremia Most likely secondary to Edwards on's disease, check for SIADH with low sodium patient was advised to restrict free jaswinder er and liberalize salt as she has done since a young adult. She will appear to quanti fy sodium ingestion by bouillon cubes for daily sodium tablets. ? sodium, 24-hour urine ? osmolality, serum ? osmolality, urine 8. Irritable bowel syndrome with diarrhea GI follow-up as scheduled with advancing medical therapy as discussed on recent GI consult. 06/29/2020: Patient has had a change in c aliber of her stool and requires colonoscopy locally with referral to [place], [place] gastroenterology for long-term follow-up. 12/07/2020: Continue follow-up with GI. T his does cause increased abdominal discomfort especially with increased stress. 9. Elevated liver enzymes level Patient will have acute hepati tis profile and follow-up labs with imaging. Observant care off Lipitor for now. 03/16/2020: Patient is off Lipitor and vera s had a slow normalizing of her elevated liver function test with follow-up today and appropriate follow-up at least in 6 months if not sooner depending on today' s measurements. She is asymptomatic with negative hepatitis screen and ultrasound of the liver. This may be a consequence of statin and if so we can hold this indefinitely. Risk-benefit for treatment of hyperlipidemia is to tolerate some elev ation of liver function test if lipid control is more important. He did have a negative CPK while having increased muscle aches. 12/07/2020: Patient is tolerating Lipitor low-dose we will continue the same with follow-up lipid profile and CPK because of chronic issues with myalgias ? venipuncture ? hepatic function panel, se rum ? BMP, serum or plasma 10. Vitamin D deficiency Check levels and supplement as indicated. ? vitamin D, 25-hydroxy, tot al, serum 11. Secondary polycythemia Check lab and therapeutic phle botomy if indicated. Patient should consider treating obstructive sleep apnea which m ay be potentially causing polycythemia. ? CBC w/ auto diff ? ferritin, serum or plasma ? iron saturation, serum 12. Severe anxiety (panic) ? lorazepam 1 mg tablet 13. Fatigue ? cyanocobalamin (vit B-12) 1,000 mcg tablet 14. Gastroesophageal reflux dise ase ? famotidine 40 mg tablet ? omeprazole 40 mg capsule,d elayed release ? Zofran 4 mg tablet 15. Low blood pressure Continue adjusting Florinef wi th recent need for decreasing dose with home monitoring of blood pressure. ? fludrocortisone 0.1 mg tab let Discussion Note: None recorded.Patient educational handouts: No information available. Plan of Care Reminders Provider Appointments Follow up 03/09/2021 Da vid 10:40AM MD Marcial ? OTC Phlebotomy 04/02/2021 OT C Room 3 2:00PM Inj/Port ? Follow up 05/27/2021 Beltran dougiejosh Cassiejonna 11:30AM MD Harley ? Nurse 20 11/29/2021 Nurse Pc maximino 8:00AM ? Follow up 12/07/2021 Bonifacio d 11:00AM MD Marcial ? Return to on or around Asya Wan, Office 08/07/2030 Lab Venipuncture 12/07/2020 [facility] [place] ? Vitamin D, 12/07/2020 [facility] 25-Hydroxy, Total, Serum Hospita l Lab (Internal) ? Hepatic 12/07/2020 [facility] Cou ntry Function Panel, Serum Hospital L ab (Internal) ? CK (Creatine [facility] Kinase), Total, Serum Hospital L ab (Internal) ? ESR 12/07/2020 [facility] Count ry (Erythrocyte Hospital Lab Sedimentation Rate), (Internal) Blood ? CRP, High 12/07/2020 [facility] o[facility] Sensitivity, Serum or Hospital L ab Plasma (Internal) ? Sodium, 24-Hour 12/07/2020 [facility] Urine Hospital Lab (Internal) ? Potassium, 12/07/2020 [facility] 24-Hour Urine Hospital Lab (Internal) ? CBC W/ Auto 12/07/2020 [facility] Diff Hospital Lab (Internal) ? Ferritin, Serum 12/07/[address] [facility] Country or Plasma Hospital Lab (Internal) ? Iron 12/07/2020 [facility] ry Saturation, Serum Hospital Lab (Internal) ? BMP, Serum or 12/07/2020 [facility] Plasma Hospital Lab (Internal) ? Osmolality, 12/07/2020 [facility] Serum Hospital Lab (Internal) ? Osmolality, 12/07/2020 [facility] Urine Hospital Lab (Internal) ? TSH, Serum or 12/07/2020 [facility] Hospital Lab (Internal) ? T4, Free, Serum 12/07/2020 N [facility] Hospital Lab (Internal) ? T3, Total, 12/07/2020 [facility] Hospital Lab (Internal) ? Lipid Panel, 12/07/2020 [facility] Hospital Lab (Internal) ? Venipuncture 12/07/2020 [facility] [place] Referral None recorded. ? ? Procedures None recorded. ? ? Surgeries None recorded. ? ? Imaging None recorded. ? ? Medications Name Start Date ? ? clindamycin HCl 300 mg capsule ? Take 1 capsule 3 times a day by oral route as directe d for 10 days. clotrimazole 10 mg hailee ? Take 1 tablet 3 times a day by oral route for 10 days . cyanocobalamin (vit B-12) 1,000 mcg tablet ? Take 1 tablet every day by oral route in the morning for 90 days. estradiol 10 mcg vaginal tablet ? Insert 1 tablet twice a week by vaginal route. famotidine 40 mg tablet ? Take 1 tablet twice a day by oral route as needed for 90 days. fludrocortisone 0.1 mg tablet ? Take 0.5 tablets every other day by oral route as dir ected for 90 days. hydrocortisone 5 mg tablet ? Take 3 tablets twice a day by oral route as directed for 90 days. levothyroxine 125 mcg tablet ? Take 1 tablet every day by oral route for 90 days. Lipitor 10 mg tablet ? Take 1 tablet every day by oral route for 90 days. lorazepam 1 mg tablet ? Take 1 tablet twice a day by oral route as needed for 30 days. Lyrica 50 mg capsule ? Take 1 capsule 3 times a day by oral route for 30 day s. magnesium gluconate 27.5 mg magnesium (500 mg) tablet ? Take 2 tabs twice daily; if diarrhea, can decrease do se metoprolol succinate ER 25 mg tablet,extended release 24 hr ? Take 2 tablets twice a day by oral route for 90 days. Mirena 20 mcg/24 hours (6 yrs) 52 mg intrauterine amy ce 08/14/2019 Take by intrauterine route as directed. omeprazole 40 mg capsule,delayed release ? Take 1 capsule every day by oral route for 90 days. potassium chloride ER 10 mEq tablet,extended release ? Take 2 tablets every day by oral route for 90 days. promethazine 25 mg tablet 08/14/2019 1 tablet every 4 hours by oral route as needed. Vitamin D3 50 mcg (2,000 unit) capsule ? Take 1 capsule every day by oral route. Vitamins B Complex capsule ? Take 1 capsule every day by oral route in the morning . Zofran 4 mg tablet ? Take 1 tablet every 6 hours by oral route as needed. Notes: med rec updated 09/18/2020 Patient says takes a green otc gas pill before meals, and has tried reglan but i t didnt help Medications Administered None recorded. Vitals Height Weight BMI Blood Pressure 5 ft 1 in 127 lbs 16 oz 24.2 kg/m2 130/84 mm[Hg] Results Lab Results Date Name Specimen Result Interpretation Description Value Range Status Address ? 12/07/2020 CK (Creatine S ? Cpk 51 U/L 30-135 Final [facility] Kinase), U/L Country Total, Serum Hosp ital Lab (Internal) : [address] 12/07/2020 Hepatic S ? Tbil 0.7 mg/dL 0.2-1.3 Final N orth Function mg/dL Country Panel, Serum Hosp ital Lab (Internal) : [address] ? ? S ? Dbil 0.3 mg/dL 0.0-0.3 Final North mg/dL [facility] Hospital L ab (Internal) : [address] t ? ? S ? Alp 70 U/L 50-136 Final [facility] U/L [facility] Hospital L ab (Internal) : [address] ? ? S High Alt (Sgpt) 62 U/L 9-52 Final [facility] U/L [facility] Hospital L ab (Internal) : [address] ? ? S High Ast (Sgot) 51 U/L 14-36 Final [facility] U/L [facility] L ab (Internal) : [address] ? ? S High Ggt 115 U/L 12-43 Final North U/L [facility] Hospital L ab (Internal) : [address] ? ? S High Tp 8.7 g/dL 6.3-8.2 Final [facility] g/dL [facility] L ab (Internal) : [address] ? ? S ? Alb 5.0 g/dL 3.5-5.0 Final [facility] g/dL [facility] Hospital L ab (Internal) : [address] 12/07/2020 BMP, Serum or S ? g/r 90 mg/dL 74-106 [place] [facility] Plasma mg/dL [facility] L ab (Internal) : [address] ? ? S ? Bun 15 mg/dL 7-17 Final [facility] mg/dL [facility] L [facility] (Internal) : [address] ? ? S ? Crea 0.80 mg/dL 0.52-1. Final North 04 Country mg/dL Hospital L ab (Internal) : [address] ? ? S ? Ca 10.1 mg/dL 8.4-10. Final North 2 mg/dL [facility] L ab (Internal) : [address] ? ? S Low Na 134 mmol/L 137-145 Final [facility] mmol/L [facility] L [facility] (Internal) : [address] t ? ? S ? K 4.5 mmol/L 3.5-5.1 Final [facility] mmol/L [facility] L [facility] (Internal) : [address] ? ? S Low Cl 94 mmol/L 98-107 Final [facility] mmol/L [facility] (Internal) : [address] ? ? S ? Tco2 25.0 mmol/L 22.0-30 Final Nort h .0 Country mmol/L Hospital L ab (Internal) : [address] 12/07/2020 Lipid Panel, S High Chol 216 mg/dL 50-200 [place] [facility] Serum mg/dL [facility] L [facility] (Internal) : [address] ? ? S High Trig 185 mg/dL 10-150 Final [facility] mg/dL [facility] L [facility] (Internal) : [address] t ? ? S ? Hdl 54 mg/dL 40-60 Final [facility] mg/dL [facility] L [facility] (Internal) : [address] ? ? S ? Ldl 125 mg/dL 0-130 Final [facility] mg/dL [facility] L ab (Internal) : [address] 12/07/2020 CRP, High S ? Rcrp 0.22 mg/dL 0.10-0. Final [facility] Sensitivity, 30 Coun try Serum or mg/dL Hospital Lab Plasma (Internal) : [address] 12/07/2020 T4, Free, S ? Ft4 1.54 NG/dL 0.78-2. Final [facility] Serum 19 Country NG/dL Hospital L ab (Internal) : [address] 12/07/2020 CBC W/ Auto BLD ? Wbc 8.2 10*3/uL 5.0-10. Fi nal North Diff 0 Country 10*3/uL Hospital Lab (Internal) : [address] ? ? BLD High Rbc 5.65 10*6/uL 4.10-5. Final Nor th 30 Country 10*6/uL Hospital Lab (Internal) : [address] ? ? BLD High Hgb 17.1 g/dL 12.0-16 Final North .0 g/dL [facility] Hospital L ab (Internal) : [address] ? ? BLD High Hct 50.6 % 37.0-47 Final North .0 % [facility] Hospital L ab (Internal) : [address] ? ? BLD ? Mcv 89.6 fL 80.0-96 Final North .0 fL [facility] Hospital L ab (Internal) : [address] ? ? BLD ? Mch 30.3 pg 26.0-32 Final North .0 pg [facility] Hospital L ab (Internal) : [address] ? ? BLD ? Mchc 33.8 g/dL 31.0-35 Final North .0 g/dL [facility] Hospital L ab (Internal) : [address] ? ? BLD ? Rdw 11.9 % 11.5-14 Final North .5 % [facility] Hospital L ab (Internal) : [address] ? ? BLD ? Plt 289 10*3/uL 130-450 Final Nort h 10*3/uL [facility] Hospital L ab (Internal) : [address], [place] ? ? BLD ? Anc 3.59 10*3/uL ? Final Nort h [facility] Hospital L ab (Internal) : [address] ? ? BLD ? Nlr 1.01 0.00-3. Final North 20 [facility] Hospital L ab (Internal) : [address] ? ? BLD ? Neutro 43.9 % 40.0-75 Final North .0 % [facility] Hospital L ab (Internal) : [address] ? ? BLD ? Lymph 43.4 % 20.0-50 Final North .0 % [facility] Hospital L ab (Internal) : [address] ? ? BLD ? Cole 9.7 % 2.0-10. Final North 0 % [facility] Hospital L ab (Internal) : [address] ? ? BLD ? Eos 2.2 % 1.0-6.0 Final North % [facility] L ab (Internal) : [address] ? ? BLD ? Baso 0.6 % 0.0-1.0 Final North % [facility] Hospital L ab (Internal) : [address] ? ? BLD ? Ig 0.2 % 0.0-0.9 Final [facility] % [facility] L ab (Internal) : [address] 12/07/2020 TSH, Serum or S ? Tsh 2.44 0.47-4. Final [facility] Plasma u[IU]/mL 68 Country u[IU]/m Hospital Lab L (Internal) : [address] 12/07/2020 Ferritin, S ? Ferr 67 NG/mL 11-264 Final N orth Serum or NG/mL [facility] Plasma Hospital L ab (Internal) : [address] 12/07/2020 Iron S ? Iron 158 ug/dL 37-170 Final Nor th Saturation, ug/dL Count Serum Hospital L ab (Internal) : [address] ? ? S ? Tibc 318 ug/dL 265-497 Final [facility] ug/dL [facility] Hospital L ab (Internal) : [address] ? ? S ? Sat 50 % 20-55 % Final [facility] Hospital L ab (Internal) : [address] 12/07/2020 Osmolality, Low Osmol, P 274 mOsm/kg 280-300 Final [facility] Serum mOsm/kg [facility] L ab (Internal) : [address] 12/07/2020 ESR BLD ? Esr 4 mm/h 0-30 Final [facility] (Erythrocyte mm/h Coun try Sedimentation Hos pital Lab Rate), Blood (Int ernal): [address] 12/07/2020 Vitamin D, S ? 25-Hydroxy <4.0 NG/mL ? Final [facility] 25-Hydroxy, D2 Count ry Total, Serum Hosp ital Lab (Internal) : [address] ? ? S ? 25-Hydroxy 52 NG/mL ? Final Nor th D3 [facility] Hospital L ab (Internal) : [address] ? ? S ? 25-Hydroxy 52 NG/mL ? Final Nor th D Total [facility] Hospital L ab (Internal) : [address] 12/07/2020 T3, Total, S ? T3, Total 141 NG/dL 97-169 Fi nal [facility] Serum NG/dL [facility] Hospital L ab (Internal) : [address] ? Venipuncture ? Location Right ? ? P [facility]nc [facility] [place]: [address], [place] ? ? ? Needle 21g ? ? P_nc Prim carolann Vacutainer Care [place]: [address], [place] ? ? ? Number of 1 ? ? P_nc P rimary Attempts Care [place]: [address], [place] ? ? ? Successful Yes ? ? [facility] [place]: [address], [place] ? ? ? Dressing Pressure ? ? P[facility]nc Primary Band-aid Care Applied [place]: [address], [place] ? ? ? Initials hj ? ? P[facility]nc Pr imary Care [place]: [address], [place] ? Venipuncture ? No ? ? ? P_nc Primary observation Care recorded. [place]: [address], [place] Allergies Code Code System Name Reaction Severity Onset 723 RxNorm Amoxicillin Other ? ? 522570 RxNorm [place] Eye Swelling ? ? 195708 RxNorm Compazine Respiratory ? ? Distress 22975 RxNorm Gabapentin Irregular Heart ? ? Rate ? ? ? Other ? ? Iodinated Contrast Arthralgia (Joint Severe ? Media Pain) ? Myalgias (Muscle Severe ? Pain) 7052 RxNorm Morphine Respiratory ? ? Distress Penicillins Hives Severe ? 21639 RxNorm Ropinirole Vomiting Moderate to ? Severe Sulfa (Sulfonamide Nausea Moderate to ? Antibiotics) Severe 70065 RxNorm Tramadol Respiratory ? ? Distress Notes: No seafood allergy. Contr ast allergy. Updated 08/13/19-laf 08/06/2020 after endoscopies pt reported severe sneezing day of and day after procedure with versed. Problems Name Status Onset Date Source ? 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 Atypical Chest Pain Active 01/26/2018 ? Irritable Bowel Syndrome with Diarrhea Active 8 ? Right Upper Quadrant Pain Active 05/03/2018 ? Acquired Hypothyroidism Active 05/17/2018 ? Persistent Insomnia Active 05/17/2018 ? Allergic Rhinitis Active 07/16/2018 ? Polyglandular Dysfunction Active 07/19/2018 ? 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 Carpal Tunnel Syndrome Active 07/19/2018 ? 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 Hypertensive Disorder Active 07/19/2018 ? Arthritis Active 07/19/2018 ? Fibromyalgia Active 07/19/2018 ? Sleep Disorder Active 07/19/2018 ? Abdominal Pain Active 07/19/2018 ? Hypokalemia Active 08/05/2019 ? Premature Atrial [...] Thumb Surgery Information not avai lable Notes: 2011 right hand- both thumbs f or trigger finger ? Section Information not avai lable Notes: 2003, 2014 ? Arthroscopy Information not avai lable Notes: 2010 patella Vaccine List Vaccine Type COVID-19, mRNA, LNP-S, PF, 30 mcg/0.3 mL dose 10/09/2020 influenza, injectable, quadrivalent 06/06/2019 04/15/2020 Social History Tobacco Smoking Status Former Smoker (1 pack per Notes: s tarted smoking week) at age 17. quit 2003 Are you currently employed? N Have you used IV drugs? N Are you blind or do you have N Notes: W ears reading difficulty seeing? glasses What is your code status? 0 How much tobacco do you chew? none What was the date of your most 12/07/2020 recent tobacco screening? Do you have an advanced N directive? What is your exercise level? Occasional Notes: h ousehold chores, daily walks Live alone or with others? with others Notes: 2 c nasra What is your level of alcohol None consumption? Which of your hands is Right dominant? Animal exposure? Y Notes: dog cat ra t and fish Education 12 Notes: Some colle ge Language Difficulties No Current Method of Intrautrine device Notes: Mirena Control Hard of hearing or deaf in one N or both ears? Are you passively exposed to N smoke? What is your level of caffeine None consumption? 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 Past Encounters 12/07/2020 Hyperlipidemia; Acquired Hypothyroidism; Fluvanna's Disease; Fibromyalgia; Cervical Radiculopathy; Hypokalemia; Hyponatremia; Irritable Bowel Syndrome with Diarrhea; Elevated Liver Enzymes Level; Vitamin D Deficiency; Secondary Polycythemia; S evere Anxiety (Panic); Fatigue; Gastroesophageal Reflux Disease; Low Blood Pressure Edenilson Ceja MD: [address] [place] [phone], Ph. History of Present Illness ? Hypertension F/U Reported By: Patient HPI: Medications: taking medicati ons as directed, no side effects from medication, checks blood pre ssure at home, range:; 136/98. Lifestyle: not exercising regularly. As sociated Symptoms: no chest pain, no shortness of breath, no neil a, dizziness, lightheadedness, headache Notes: <p>stress has increased, solo ght has decreased. Stress has increased because her landlord sold [employer] when they did not know it was on the market, and she is havin g a hard time finding any places to rent, and nothing on the market. S he has 30 days to find a new place for her and her two kids to live. </ p> Note: <p>This is a 45-year-old female patient here to see provider to follow up [place], labs and imaging. She does need a 90 day script of the Lipitor if her liver functions are tolerating it which will be reviewed. Her last labs were 11/16/20. If she needs her labs done more frequently she willneed new orders. Patient is having increased anxiety with recent increased social stress. She has anadult child of an alcoholic. She does lost an income with her 5-year-old child's father now not helping her with income. She does need to apply for disability has not worked for 6 years. 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 Notes: <p>13 point review of system s otherwise unrevealing or stable.</p> Physical Exam ? Comprehensive PE (female) Reported By: Patient Constitutional: General Appearance: healthy- appearing, well-nourished, well-developed. Level of Dis tress: moderate distress. Ambulation: ambulating normally Head: Head: normocephalic, atrauma tic Eyes: Pupils & Irises: PERRLA: bot h. Extraocular Movement: intact left eye, intact right eye. Lens: clear left eye, clear right eye. Sclerae: non-icteric: both. Vision: acuity grossly intact ENMT: Nose: no sinus tenderness, n o nasal discharge. Lips, Teeth, and Gums: no bleeding gums, poor dentition Neck: Neck: supple, no masses. Thy roid: no enlargement Respiratory: Respiratory effort: unlabore d respirations, no use of accessory muscles; Ausc: mostly clear all garcia Cardiovascular: Heart Auscultation: regular rate and rhythm (RRR) Gastrointestinal: Bowel Sounds: LLQ hyperactiv e, LUQ hyperactive, RUQ hyperactive, RLQ hyperactive. Inspection and Palpation: LUQ soft, LUQ non-distended, LUQ no guardi ng, LLQ non-distended, LLQ no tenderness, LLQ no guarding, RUQ soft, RUQ non-distended, RLQ soft, RLQ non-distended, RLQ no te nderness, no rebound tenderness, no costovertebral angle (CVA) t enderness: bilateral, LUQ tenderness, RUQ tenderness. Liver: no he patomegaly. Spleen: no splenomegaly Musculoskeletal:: Joints, Bones, and Muscles: limited range of motion; tight neck muscles, especially on the l eft side. tight L rhomboid; tight L shoulder, L upper chest. Ext remities: no edema Skin: Inspection and palpation: no rash Neurologic: Orientation: oriented to per son, place, time and situation. Memory: recent memory normal, remote memory normal. Cranial Nerves: 2-12 grossly intact. Sensation: g rossly intact. Reflexes: deep tendon reflexes (DTRs) 2+bilateral ly. Coordination and Cerebellum: no tremor, negative Romberg Psychiatric: Mental Status: normal mood, normal affect
--- OUTSIDE RECORDS SUMMARY | 2021-03-05 08:56 | XMS_ITS | Encounter Summary ---
:1975 Author Care Team Providers Name Role Phone Edenilson Ceja MD Primary Care Provider [phone] Oliver Souza MD Truck Engine Technician [phone] Heriberto Wan MD General Surgeon [phone] Reason for Visit None recorded. Assessment and Plan 1. Hyperlipidemia ? venipuncture Discussion Note: None recorded.Patient educational handouts: No information available. Plan of Care Reminders Provider Appointments Follow up 03/09/2021 Da vid 10:40AM MD Marcial ? OTC Phlebotomy 04/02/2021 OT C Room 3 2:00PM Inj/Port ? Follow up 05/27/2021 Beltran ael Chuckie 11:30AM MD Harley ? Nurse 20 11/29/2021 Nurse Pc maximino 8:00AM ? Follow up 12/07/2021 Bonifacio d 11:00AM MD Marcial ? Return to on or around Asya Wan, Office 08/07/2030 Lab Venipuncture 12/17/2020 [facility] [place] ans Referral None recorded. ? ? Procedures [...] didnt help Medications Administered None recorded. Vitals None recorded. Results Lab Results Date Name Specimen Result Interpretation Description Value Range Status Address ? ? Venipuncture ? Location Right ? ? [facility] Antecubital [place]: [address] [place], [place] ? ? ? Needle 21g Vacutainer ? ? P [facility] [place]: [address] [place], [place] ? ? ? Number of 1 ? ? P_nc P [facility] Care Attempts [place]: [address] [place], [place] ? ? ? Successful Yes ? ? [facility] [place]: [address] [place], [place] ? ? ? Dressing Pressure ? ? [facility] Band-aid [place]: Applied [address] [place] ? ? ? Initials hj ? ? P[facility] Pr imary Care [place]: [address] [place] Allergies Code Code System Name Reaction Severity Onset 723 RxNorm Amoxicillin Other ? ? 003512 RxNorm [place] [facility] Swelling ? ? 20341027 RxNorm Compazine Respiratory ? ? Distress 64910 RxNorm Gabapentin Irregular Heart ? ? Rate ? ? ? Other ? ? Iodinated Contrast Arthralgia (Joint Severe ? Media Pain) ? Myalgias (Muscle Severe ? Pain) 7052 RxNorm Morphine Respiratory ? ? Distress Penicillins Hives Severe ? 44260 RxNorm Ropinirole Vomiting Moderate to ? Severe Sulfa (Sulfonamide Nausea Moderate to ? Antibiotics) Severe 27151 RxNorm Tramadol Respiratory ? ? Distress Notes: No seafood allergy. Contr ast allergy. Updated 08/13/19-laf 08/06/2020 after endoscopies pt reported severe sneezing day of and day after procedure with versed. Problems Name Status Onset Date Source ? 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 Atypical Chest Pain [...] Information) Functional Status No Impairment. Past Encounters 12/17/2020 Hyperlipidemia Edenilson Ceja MD: [address] [place] [phone], Ph. 12/07/2020 Hyperlipidemia; Acquired Hypothyroidism; Norberto's Disease; Fibromyalgia; Cervical Radiculopathy; Hypokalemia; Hyponatremia; Irritable Bowel Syndrome with Diarrhea; Elevated Liver Enzymes Level; Vitamin D Deficiency; Secondary Polycythemia; S evere Anxiety (Panic); Fatigue; Gastroesophageal Reflux Disease; Low Blood Pressure Edenilson Ceja MD: [address] [place] [phone], Ph. History of Present Illness None recorded. Review of Systems None recorded. Physical Exam None recorded.
--- NOTE | 2021-03-05 09:00 | ED.GENADUL_ITS ---
Discharge Plan Disposition Patient Disposition: HOME Condition: Stable Discharge Details Clinical Impression: Abdominal pain, Diarrhea, Hyponatremia Primary Care Provider: Edenilson Ceja ED Provider: Valerie Angel Home Meds and New Rx's Prescriptions: Continued metoprolol tartrate 25 mg tablet 50 mg PO BID RF: 0 estradiol [Vagifem] 10 mcg tablet 10 mcg VG DAILY Qty: 24 RF: 4 estradiol [Vagifem] 10 mcg tablet 10 mcg vaginal .COMPLEX 14 Days Qty: 60 RF: 4 esomeprazole magnesium [Nexium] 20 mg capsule,delayed release(DR/EC) 20 mg PO DAILY RF: 0 hydrocortisone 5 mg tablet 5 mg PO DAILY RF: 0 atorvastatin [Lipitor] 20 mg tablet 10 mg PO DAILY RF: 0 hydrocortisone 10 MG tablet 15 mg PO .QAM RF: 0 fludrocortisone 0.1 MG tablet 0.5 tab PO Q OTHER DAY RF: 0 levothyroxine 175 mcg tablet 125 mcg PO DAILY@0730 RF: 0 potassium citrate 10 MEQ tablet extended release 10 meq PO DAILY 3 Days RF: 0 hydrocortisone 10 mg tablet 50 mg PO DAILY Qty: 20 RF: 0 ondansetron 4 mg tablet,disintegrating 4 mg PO Q6H PRN (Reason: nausea and vomiting) Qty: 10 RF: 0 magnesium 500 mg Tablet 1,000 mg PO BID RF: 0 famotidine 40 mg tablet 40 mg PO BID RF: 0 cyanocobalamin (vitamin B-12) 1,000 mcg tablet 1,000 mcg PO DAILY RF: 0 cholecalciferol (vitamin D3) 50 mcg (2,000 unit) capsule 50 mcg PO DAILY RF: 0 Discharge Instructions Instructions: Hyponatremia (ED), Acute Diarrhea (ED), Abdominal Pain (ED) Additional Instructions: Please return immediately to the emergency department if you develop any new or worsening symptoms, if your condition does not improve as expected, or if you become otherwise concerned. It is extremely important that you call soon as possible to make an appointment to be seen in follow-up for this visit by your primary care doctor. Referrals: Edenilson Ceja [Primary Care Provider] - Discharge Data Discharge Date/Time-TO BE ENTERED AT DEPARTURE: 03/05/21 15:15 Medical Decision Making Fide Sandoval is a 46 y/o woman with h/o Addisons disease, HTN, hypothyroidism who presented to the emergency department with diarrhea, b/l finger tingling, and abd pain. On exam Pt is well and non-toxic appearing, diffuse mild abd TTP worse on right at level of umbilicus, benign neuro exam. Concern for addisonian crisis, electrolyte derangement, dehydration, appendicitis, other. Exam/hx at this time is not c/w acute coronary syndrome, pulmonary embolism, acute aortic pathology, ovarian torsion, PID, sepsis. Plan for IV placement, telemetry, IVF hydration, screening labs. Pt requests IV solumedrol, will order for presumed early crisis (BP WNL). Low suspicion for acute emergent intra-abdominal process given mild TTP--Pt with IV dye allergy, will obtain CT without contrast and reassess. Labs reviewed, Na 135, K 4.1, WBC normal, UA normal. Pt reports feeling improved after 2L IVF and steroids. CT negative for acute process per radiology. At this time no indication for further testing, Pt feeling improved, w/u essentially negative. Pt to discuss continued stress dose of steroids with her PCP. Plan for d/c to home. I had a lengthy discussion with Patient regarding return to emergency department precautions, home care, and importance of outpatient follow-up. Pt verbalizes understanding of the plan and is amenable. Patient discharged to home with clear plan for outpatient follow-up. All questions were answered. Disposition decision was made weighing the risks and benefits of hospitalization versus outpatient treatment, the risk for further decompensation, and the patient's wishes. Medical Records Medical records reviewed: Yes I reviewed the patient's medical records. Imaging Data Radiologic Study: Attestation: I personally reviewed and interpreted this imaging study as follows: Radiologist's impression: CT ABDOMEN PELVIS WO EXAM: CT ABDOMEN PELVIS WO CLINICAL HISTORY: RLQ abd pain. TECHNIQUE: Imaging Protocol: Axial computed tomography images with coronal and sagittal reformatted images were created and reviewed. COMPARISON: No exams were available for comparison FINDINGS: ABDOMEN: Lung Bases: Normal where visualized. Liver: Normal density. No measurable mass. Gallbladder and biliary tract: No radiodense calculus or biliary ductal dilation. Pancreas: Normal density, no abnormal calcifications or inflammatory process. Spleen: Normal. Kidneys: Normal size, contour and axis.There is a 3 mm nonobstructing stone in the lower pole of the left kidney. There is a tiny nonobstructing calculus in the midpole of the right kidney. No hydronephrosis or ureterolithiasis. No masses seen. Adrenal glands: No mass is seen. Lymph nodes: Within normal limits. Abdominal Aorta: Abdominal portion non-dilated. Mild atherosclerosis. PELVIS: Bladder:Symmetric distention, no gross wall thickening. Bowel: No obstruction or bowel wall thickening. Appendix is unremarkable. Peritoneal cavity: No ascites, collection or mesenteric inflammatory response. No free air. Reproductive organs: The patient has an IUD in good position. The reproductive organs are otherwise unremarkable. Bones: Within normal limits. Soft Tissues: Within normal limits. IMPRESSION: 1. No acute abdominal or pelvic process. 2. Normal appendix is visualized. 3. Bilateral nephrolithiasis but no evidence of hydronephrosis. 4. Results of this exam have been verbally communicated with provider. Lab Data Lab results reviewed: Yes I reviewed the patient's lab results. Labs: Laboratory Tests Range/Units 03/05/21 03/05/21 03/05/21 09:58 10:30 11:05 WBC (4.4-10.8) 10^3/uL RBC (3.93-5.22) 10^6/uL Hgb (11.2-15.7) g/dL Hct (36.0-46.0) % MCV (80-95) fL MCH (27.0-33.0) pg MCHC (32.0-36.0) % RDW (11.7-14.6) % Plt Count (130-400) 10^3/uL MPV (8.0-11.0) fL Immature Gran % Neutrophils % Lymphocytes % Monocytes % Eosinophils % Basophils % Nucleated RBC % % Absolute Neutrophils (1.2-6.7) 10^3/uL Absolute Lymphocytes (1.2-3.4) 10^3/uL Absolute Monocytes (0.1-0.8) 10^3/uL Absolute Eosinophils (0.0-0.7) 10^3/uL Absolute Basophils (0.0-0.2) 10^3/uL VBG Lactate (0.6-1.4) mmol/L Sodium Cancelled Potassium Cancelled Chloride Cancelled Carbon Dioxide Cancelled Anion Gap Cancelled BUN Cancelled Creatinine Cancelled Estimated GFR/1.73 m2 Cancelled Glucose Cancelled Calcium Cancelled Magnesium Cancelled Total Bilirubin Cancelled AST Cancelled ALT Cancelled Alkaline Phosphatase Cancelled Total Protein Cancelled Albumin Cancelled TSH Cancelled Urine Color (Yellow) Straw Urine Clarity (Clear) Clear Urine pH (5-8) 7.5 Ur Specific [place] (1.005-1.025) 1.015 Urine Protein (Negative) mg/dL Negative Urine Ketones (Negative) mg/dL Negative Urine Blood (Negative) Negative Urine Nitrite (Negative) Negative Urine Bilirubin (Negative) Negative Urine Urobilinogen (Up TO 0.2) EU/dL 0.2 Ur Leukocyte Esterase (Negative) Negative Urine Glucose (Negative) mg/dL Negative Stl C.difficile Tox PCR Cancelled Range/Units 03/05/21 03/05/21 03/05/21 11:05 11:05 11:34 WBC (4.4-10.8) 10^3/uL 7.74 RBC (3.93-5.22) 10^6/uL 4.97 Hgb (11.2-15.7) g/dL 15.2 Hct (36.0-46.0) % 44.8 MCV (80-95) fL 90.1 MCH (27.0-33.0) pg 30.6 MCHC (32.0-36.0) % 33.9 RDW (11.7-14.6) % 11.7 Plt Count (130-400) 10^3/uL 267 MPV (8.0-11.0) fL 9.7 Immature Gran % 0.4 Neutrophils % 78.6 Lymphocytes % 16.0 Monocytes % 4.1 Eosinophils % 0.4 Basophils % 0.5 Nucleated RBC % % 0 Absolute Neutrophils (1.2-6.7) 10^3/uL 6.08 Absolute Lymphocytes (1.2-3.4) 10^3/uL 1.24 Absolute Monocytes (0.1-0.8) 10^3/uL 0.32 Absolute Eosinophils (0.0-0.7) 10^3/uL 0.03 Absolute Basophils (0.0-0.2) 10^3/uL 0.04 VBG Lactate (0.6-1.4) mmol/L 1.1 Sodium 135 L Potassium 4.1 Chloride 103 Carbon Dioxide 23.6 Anion Gap 8.4 BUN 7 Creatinine 0.8 Estimated GFR/1.73 m2 >= 60.00 Glucose 102 Calcium 8.8 Magnesium 2.1 Total Bilirubin 0.5 AST 26 ALT 40 Alkaline Phosphatase 67 Total Protein 7.8 Albumin 4.0 TSH 1.39 Urine Color (Yellow) Urine Clarity (Clear) Urine pH (5-8) Ur Specific [place] (1.005-1.025) Urine Protein (Negative) mg/dL Urine Ketones (Negative) mg/dL Urine Blood (Negative) Urine Nitrite (Negative) Urine Bilirubin (Negative) Urine Urobilinogen (Up TO 0.2) EU/dL Ur Leukocyte Esterase (Negative) Urine Glucose (Negative) mg/dL Stl C.difficile Tox PCR HPI General Mode of arrival: ambulatory . Date/Time Provider Initiated Documentation: 03/05/21 08:59 . Limitations to Documentation: no limitations . Information obtained by: patient, RN notes reviewed and old records reviewed . HPI Narrative: Fide Sandoval is a 46-year-old woman with history of Drew's disease, hypertension, hypothyroidism, recurrent hyponatremia presenting to the emergency department with chief complaint diarrhea. Pt states that she has been on vacation in [place] with her son and returned yesterday. Pt states that her son has autism and the trip was difficult for him and overall quite stressful. Pt reports that she is concerned that the very hot weather while she was away in addition to the stress of the trip may have put her into an addisonian crisis. Pt reports that she developed symptoms when she woke up at 1am or so today with diarrhea. She has also had nausea, lightheadedness, and tingling in her fingers. Pt reports these symptoms are all typical for her when her sodium is low. Pt also reports that she has RLQ starting this am. Pt notes that she feels that when she wakes up from sleep she needs to take a deep breath and is concerned that she may have sleep apnea. Related Data Home Medications Medication Instructions Recorded Confirmed hydrocortisone 15 mg PO .QAM 02/09/14 03/05/21 fludrocortisone 0.5 tab PO Q OTHER DAY 07/06/14 03/05/21 potassium citrate 10 meq PO DAILY 3 Days tablet.er 09/20/17 03/05/21 esomeprazole magnesium 20 mg 20 mg PO DAILY cap 11/13/18 03/05/21 capsule,delayed release levothyroxine 175 mcg tablet 125 mcg PO DAILY@0730 tab 11/13/18 03/05/21 ondansetron 4 mg PO Q6H PRN #10 tab 09/24/19 03/05/21 estradiol 10 mcg vaginal tablet 10 mcg VG DAILY #24 tab 12/31/19 01/13/20 metoprolol tartrate 25 mg tablet 50 mg PO BID 12/31/19 03/05/21 atorvastatin 20 mg tablet 10 mg PO DAILY 01/13/20 03/05/21 hydrocortisone 5 mg tablet 5 mg PO DAILY tab 01/13/20 03/05/21 hydrocortisone 50 mg PO DAILY #20 tab 12/10/20 estradiol 10 mcg vaginal tablet 10 mcg VAGINAL .COMPLEX 14 Days 01/18/21 03/05/21 #60 tab cholecalciferol (vitamin D3) 50 mcg PO DAILY 03/05/21 03/05/21 cyanocobalamin (vitamin B-12) 1,000 mcg PO DAILY 03/05/21 03/05/21 famotidine 40 mg PO BID 03/05/21 03/05/21 magnesium 1,000 mg PO BID 03/05/21 03/05/21 Previous Rx's Medication Instructions Recorded potassium citrate 10 meq PO DAILY 3 Days tablet.er 09/20/17 ondansetron 4 mg PO Q6H PRN #10 tab 09/24/19 estradiol 10 mcg vaginal tablet 10 mcg VG DAILY #24 tab 12/31/19 hydrocortisone 50 mg PO DAILY #20 tab 12/10/20 estradiol 10 mcg vaginal tablet 10 mcg VAGINAL .COMPLEX 14 Days 01/18/21 #60 tab Allergies Allergy/AdvReac Type Severity Reaction Status Date / Time azithromycin Allergy Severe Anaphylaxsi Verified 03/05/21 09:12 s erythromycin base Allergy Severe Anaphylaxsi Verified 03/05/21 09:12 [Erythromycin Base] s morphine Allergy Severe extreme Verified 03/05/21 09:12 breathing issues Penicillins Allergy Severe Anaphylaxsi Verified 03/05/21 09:12 s gabapentin Allergy Intermediate Swelling/Ed Verified 03/05/21 09:12 rick green pepper AdvReac Verified 03/05/21 09:12 lactose AdvReac Verified 03/05/21 09:12 peach AdvReac Verified 03/05/21 09:12 iv contrast AdvReac Intermediate Swelling/Ed Uncoded 03/05/21 09:12 rick General Stated Complaint: Nausea/Vomit/Diar MIKE: 3 Review of Systems Narrative: Constitutional: denies fevers Eyes: denies eye pain ENT: denies ear pain, dental pain, sore throat Cardiovascular: denies chest pain, edema, reports lightheadedness Respiratory: denies SOB, cough GI: denies vomiting, reports nausea, abdominal pain, diarrhea : denies flank pain MSK: denies back pain, neck pain, arthralgias, myalgias Skin: denies rash Neuro: denies headaches, numbness, weakness, reports tingling in b/l fingers [facility] Medical History Addisons disease Michelle's syndrome Amenorrhea Hx of Clostridium difficile infection Hx C/diff after knee surgery in 2010. No recurrences. Hypertension Hypothyroidism IUD (intrauterine device) in place Inserted 2015. Urinary incontinence Urinary frequency and unprovoked urine loss along with symptoms of stress incontinence. 12/2020 will refer to urology Vaginal dryness 2019. Initial Rx with vaginal estrogen. 12/2020 will restart vaginal estrogen. Surgical History section X 2 Open Carpal Tunnel release (04/24/15) RIGHT WRIST/DR. SCHILLING Family History Mother Diabetes Grandmother Breast cancer Mat Grandmother Breast cancer Pat Maternal Aunt Breast cancer Paternal Maternal Aunt Breast cancer Paternal Maternal Aunt Breast cancer Paternal Maternal Aunt Breast cancer Paternal Social History Smoking/Tobacco Use Status: Former Tobacco Use Smoking risk assessment performed?: Yes Alcohol Intake: never Drug use: Never Substance use type: does not use Household members: spouse, children and other Details: H-Oliver,living together but estranged. D- teenager, S-Dionicio. 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 Oliver diagnosed with schwannomas . Rx with XRT. He and pt are planning divorce in 07/2021. Female Reproductive History Menstrual control method: progestin IUCD History History 2 Para Hx # Term Pregnancies 2 Multiple births Hx # Pregnancies Ectopic pregnancies AB induced Hx Number of Living Children AB spontaneous Exam Narrative Exam Narrative: Constitutional: well and [id number], pleasant, conversing normally HENT: head atraumatic/normocephalic/normal inspection, mucous membranes moist Eyes: conjunctiva normal, sclera normal, pupils 3mm b/l Neck: no stridor, normal ROM, trachea midline Chest: normal inspection Resp: normal work of breathing, LCTAB Cardio: normal rate, normal rhythm, no murmur appreciated GI: abdomen soft, TTP throughout, worse on right at level of umbilicus, no focal McBPt TTP, no suprapubic/pelvic TTP, neg murphys, no rebound, no guarding, non- distended Back: normal inspection, no rash Skin: warm, dry, normal color, no rash Neuro: alert, not altered, grossly non-focal, normal tone Ext: no edema, no posterior calf TTP Psych: normal mood, normal affect, normal behavior Course Vital Signs Vital signs: Vital Signs Temperature 36.4 C L 03/05/21 08:55 Pulse 89 03/05/21 08:55 Respiratory Rate 18 03/05/21 08:55 Blood Pressure 149/85 H 03/05/21 08:55 Pulse Oximetry 100 03/05/21 08:55 Temperature 36.4 C L 03/05/21 08:55 Temperature Source Temporal Artery Scan 03/05/21 08:55 Pulse 89 03/05/21 08:55 Respiratory Rate 18 03/05/21 08:55 Respiratory Effort Non-Labored 03/05/21 08:59 Blood Pressure 149/85 H 03/05/21 08:55 Blood Pressure Position Supine 03/05/21 08:55 Pulse Oximetry 100 03/05/21 08:55
--- NOTE | 2021-03-05 09:30 | DI.CT_ITS ---
Exam(s) CT ABDOMEN PELVIS WO EXAM: CT ABDOMEN PELVIS WO CLINICAL HISTORY: RLQ abd pain. TECHNIQUE: Imaging Protocol: Axial computed tomography images with coronal and sagittal reformatted images were created and reviewed. COMPARISON: No exams were available for comparison FINDINGS: ABDOMEN: Lung Bases: Normal where visualized. Liver: Normal density. No measurable mass. Gallbladder and biliary tract: No radiodense calculus or biliary ductal dilation. Pancreas: Normal density, no abnormal calcifications or inflammatory process. Spleen: Normal. Kidneys: Normal size, contour and axis.There is a 3 mm nonobstructing stone in the lower pole of the left kidney. There is a tiny nonobstructing calculus in the midpole of the right kidney. No hydrone phrosis or ureterolithiasis. No masses seen. Adrenal glands: No mass is seen. Lymph nodes: Within normal limits. Abdominal Aorta: Abdominal portion non-dilated. Mild atherosclerosis. PELVIS: Bladder:Symmetric distention, no gross wall thickening. Bowel: No obstruction or bowel wall thickening. Appendix is unremarkable. Peritoneal cavity: No ascites, collection or mesenteric inflammatory response. No free air. Reproductive organs: The patient has an IUD in good position. The reproductive organs are otherwise unremarkable. Bones: Within normal limits. Soft Tissues: Within normal limits. IMPRESSION: 1. No acute abdominal or pelvic process. 2. Normal appendix is visualized. 3. Bilateral nephrolithiasis but no evidence of hydronephrosis. 4. Results of this exam have been verbally communicated with provider. RADIATION DOSE DELIVERED: 767.05mGy.cm Total DLP DATA REPOSITORY: All CT scans at this facility are submitted to the National Radiology Data Registry (NRDR) Dose Index Registry (DIR) with the [employer] ([employer]). RADIATION OPTIMIZATION: All CT scans at this facility use at least one of these dose optimization te chniques: automated exposure control; mA and/or kV adjustment per patient size (includes targeted exa ms where dose is matched to clinical indication); or iterative reconstruction.
[2021-03-05] MEDS: methylPREDNISolone SUCC 125 MG VIAL IVP (09:58)
[2021-03-05] MEDS: Normal Saline 1,000 ML 1000 ML IV ×2 (09:58→12:14)
[2021-03-05 10:49] LABS: Bilirubin Negative (Negative); Blood Negative (Negative); Clarity Clear (Clear); Glucose Negative (Negative); Ketones Negative (Negative); Leukocyte Esterase Negative (Negative); Nitrite Negative (Negative); Specific Gravity 1.015 (1.005-1.025); Urobilinogen 0.2 EU/dL (Up TO 0.2); pH 7.5 (5-8)
[2021-03-05 11:09] LABS: Lactate 1.1 mmol/L (0.6-1.4)
[2021-03-05 11:11] LABS: Abs Immature Grans 0.03 10^3/uL (0.0-0.06); Absolute Basophil Count 0.04 10^3/uL (0.0-0.2); Absolute Eosinophil Count 0.03 10^3/uL (0.0-0.7); Absolute Lymphocyte Count 1.24 10^3/uL (1.2-3.4); Absolute Monocyte Count 0.32 10^3/uL (0.1-0.8); Absolute Neutrophil Count 6.08 10^3/uL (1.2-6.7); Basophils % 0.5; Eosinophils % 0.4; HCT 44.8 % (36.0-46.0); HGB 15.2 g/dL (11.2-15.7); Immature Grans % 0.4; MCH 30.6 pg (27.0-33.0); MCHC 33.9 % (32.0-36.0); MCV 90.1 fL (80-95); MPV 9.7 fL (8.0-11.0); Monocytes % 4.1; Neutrophils % 78.6; Nucleated RBC 0 %; Platelet Count 267 10^3/uL (130-400); RBC 4.97 10^6/uL (3.93-5.22); RDW 11.7 % (11.7-14.6); RDW-SD 38.5 fL; WBC 7.74 10^3/uL (4.4-10.8)
[2021-03-05 12:01] LABS: ALT 40 U/L (14-59); AST 26 U/L (15-37); Alkaline Phosphatase 67 U/L (46-116); Anion Gap 8.4 mmol/L (3-11); BUN 7 mg/dL (7-18); Bilirubin, Total 0.5 mg/dL (0.2-1.0); CO2 23.6 mmol/L (21.0-32.0); CREATININE 0.8 mg/dL (0.55-1.02); Calcium 8.8 mg/dL (8.5-10.1); Chloride 103 mmol/L (98-107); Glucose 102 mg/dL (74-106); Magnesium 2.1 mg/dL (1.8-2.4); Potassium 4.1 mmol/L (3.5-5.1); Sodium 135 mmol/L (136-145); TSH (W/Ref FT4) 1.39 uIU/mL (0.36-3.74); Total Protein 7.8 g/dL (6.4-8.2)
== END 2021-03-05 15:15 | disposition home or self-care (01) ==
PROVIDERS: Emergency Provider Student in an Organized Health Care Education/Training Program; PCP Family Medicine
DX: E87.1 Hypo-osmolality and hyponatremia (principal); R19.7 Diarrhea, unspecified; R10.31 Right lower quadrant pain
CPT/HCPCS: 36415; 80053; 81025; 87493; 96361; 96374; 99285; 74176; 81003; 83605; 83735; 84443; 85025; J2930

== ENCOUNTER 2022-03-09 15:35 | Outpatient (REF) | payer MEDICAID, SELFPAY ==
--- NOTE | 2022-03-09 15:20 | PAPFT_PTH ---
PATIENT: Fide Sandoval LOC: [facility] U#:[id number] AGE/SX: 47/F ROOM: RE03/09/[address]: Sue Sebastian : 1975 BED: DIS: 03/09/2022 SPEC #: [id number] RECD: 03/09/22 18:03 STATUS: BENNETT REMahi #: [id number] TRESA: 03/09/22 15:[address]: Sue Sebastian DEPT: [facility] Cytology RECD BY: Mary Ellen Lama ENTERED: 03/09/22 18:03 SP TYPE: PAPFT OTHR DR: Edenilson Ceja Tissues: 1 - CX/ENDOCX FOR PAP SMEARS Procedures: PAP THIN PREP/UVM Screening HPV DNA PROBE Comments: [id number]
== END 2022-03-09 15:36 | disposition home or self-care (01) ==
LOC: LBN 15:35
PROVIDERS: PCP Family Medicine; Visit Provider Obstetrics & Gynecology Gynecology
DX: Z12.4 Encounter for screening for malignant neoplasm of cervix (principal); Z11.51 Encounter for screening for human papillomavirus (HPV)
CPT/HCPCS: 88142; 87624

== ENCOUNTER 2022-07-15 12:45 | Emergency (ER) | payer MEDICAID, SELFPAY ==
[2022-07-15] VITALS (8 sets, daily range): BP systolic 94–128; BP diastolic 59–83; PULSE 85–102; RESP 16–19; TEMP 36.5–39.4; O2SAT 93–95
--- NOTE | 2022-07-15 14:00 | RT.EKG_ITS ---
APPROVED REPORT Exam: Resting ECG Reason for Exam: chest pain Patient Location: E HR:97 bpm ECG Measurements Heart Rate 97 AXIS FL 147 P 26 QRSd 85 QRS 70 QT 335 T 12 QTc 427 Conclusion Sinus rhythm...normal P axis, V-rate 60- 99 Nonspecific T abnormalities, anterior leads...T <-0.10mV, V2-V4. Sinus. Normal axis. No STEMI. I have reviewed and interpreted ECG and agree with software generated interpretation.
[2022-07-15 14:16] LABS: COVID-19 PCR Negative (Negative); Influenza A PCR Positive (Negative); Influenza B PCR Negative (Negative); RSV PCR Negative (Negative); Source Nasopharynx
[2022-07-15 14:30] LABS: Abs Immature Grans 0.02 10^3/uL (0.0-0.06); Absolute Basophil Count 0.04 10^3/uL (0.0-0.2); Absolute Eosinophil Count 0.04 10^3/uL (0.0-0.7); Absolute Lymphocyte Count 0.68 10^3/uL (1.2-3.4); Basophils % 0.6; Eosinophils % 0.6; HCT 50.2 % (36.0-46.0); HGB 17.2 g/dL (11.2-15.7); Immature Grans % 0.3; MCH 29.9 pg (27.0-33.0); MCHC 34.3 % (32.0-36.0); MCV 87 fL (80-95); MPV 9.8 fL (8.0-11.0); Monocytes % 14.6; Neutrophils % 72.9; Platelet Count 259 10^3/uL (130-400); RBC 5.75 10^6/uL (3.93-5.22); RDW 11.9 % (11.7-14.6); RDW-SD 37.7 fL; WBC 6.18 10^3/uL (4.4-10.8)
--- NOTE | 2022-07-15 14:30 | DI.RAD_ITS ---
Exam(s) XR CHEST 2V PA LATERAL EXAM: XR CHEST 2V PA LATERAL CLINICAL HISTORY: cough, fever TECHNIQUE: 2D digital imaging was performed of the chest. Two images were obtained. PA and lateral views were obtained. COMPARISON: CR,XR XR PORTABLE CHEST AP from 12/08/2020 FINDINGS: MEDIASTINUM: Normal. HEART: Normal. PULMONARY VASCULATURE: Normal. LUNGS: Clear. PLEURAL SPACE: No pleural effusion or pneumothorax. BONE:Within normal limits for the patient's age. OTHER FINDINGS:Normal. IMPRESSION: No acute pulmonary findings. DATA REPOSITORY: RADIATION DOSE DELIVERED:
[2022-07-15 15:01] LABS: ALT 69 U/L (14-59); AST 49 U/L (15-37); Albumin 4.8 g/dL (3.4-5.0); Alkaline Phosphatase 87 U/L (46-116); Anion Gap 9.7 mmol/L (3-11); BUN 12 mg/dL (7-18); Bilirubin, Total 1.1 mg/dL (0.2-1.0); CO2 27.3 mmol/L (21.0-32.0); CREATININE 1.3 mg/dL (0.55-1.02); Calcium 9.8 mg/dL (8.5-10.1); Chloride 92 mmol/L (98-107); Estimated GFR 51.68 (mL/min/1.73m2); Glucose 84 mg/dL (74-106); Lipase 73 U/L (73-393); Potassium 4.4 mmol/L (3.5-5.1); Sodium 129 mmol/L (136-145); Total Protein 9.7 g/dL (6.4-8.2); Troponin I < 50 ng/L (<or=60)
[2022-07-15] MEDS: Normal Saline 1,000 ML 1000 ML IV ×2 (15:24→16:34)
[2022-07-15] MEDS: Prochlorperazine 10 MG/2 ML VIAL IVP (15:24)
[2022-07-15] MEDS: Ketorolac 15 MG/ML VIAL IVP (15:25)
[2022-07-15] MEDS: Acetaminophen 500 MG TAB 1000 MG PO (15:25)
--- NOTE | 2022-07-15 15:49 | ED.GENADUL_ITS ---
Discharge Plan Disposition Patient Disposition: Home Condition: Improving Discharge Details Clinical Impression: Flu, Hyponatremia, Nausea & vomiting Primary Care Provider: Edenilson Ceja ED Provider: Sanjiv Plascencia [place] Meds and New Rx's Prescriptions: Continued metoprolol tartrate 25 mg tablet 50 mg PO BID Myrbetriq 25 mg tablet extended release 24 hr 25 mg PO DAILY Qty: 28 0RF Rx Instructions: samples hydrocortisone 10 mg tablet 5 mg PO DAILY Rx Instructions: taper as directed Mirena 20 mcg/24 hours (7 yrs) 52 mg intrauterine device 1 device intrauterine ONCE Rx Instructions: as a single dose lidocaine 5 % ointment 1 applic topical QID PRN (Reason: pain) Qty: 60 1RF clobetasol-emollient 0.05 % cream 1 applic topical DAILY Qty: 30 4RF Rx Instructions: rub small amount to vulva daily for one month then twice weekly esomeprazole magnesium [Nexium] 20 mg capsule,delayed release(DR/EC) 20 mg PO DAILY hydrocortisone 5 mg tablet 5 mg PO DAILY Label Comments: at night atorvastatin [Lipitor] 20 mg tablet 10 mg PO DAILY fluconazole 150 mg tablet 150 mg PO ONCE Qty: 3 0RF Rx Instructions: Repeat in 72hrs if still symptoms or still on antibiotics estradiol [Vagifem] 10 mcg tablet 10 mcg vaginal .COMPLEX Qty: 24 4RF Rx Instructions: 10 mcg vaginally Twice weekly; hydrocortisone 10 MG tablet 15 mg PO .QAM Label Comments: 5 mg in the afternoon fludrocortisone 0.1 MG tablet 0.5 tab PO Q OTHER DAY levothyroxine 175 mcg tablet 125 mcg PO DAILY@0730 potassium citrate 10 MEQ tablet extended release 10 meq PO DAILY 3 Days 0RF ondansetron 4 mg tablet,disintegrating 4 mg PO Q6H PRN (Reason: nausea and vomiting) Qty: 10 0RF magnesium 500 mg Tablet 1,000 mg PO BID famotidine 40 mg tablet 40 mg PO BID Label Comments: TAKE ONE TABLET BY MOUTH TWICE A DAY NEEDED cyanocobalamin (vitamin B-12) 1,000 mcg tablet 1,000 mcg PO DAILY Label Comments: TAKE ONE TABLET BY MOUTH EVERY MORNING FOR 90 DAYS cholecalciferol (vitamin D3) 50 mcg (2,000 unit) capsule 50 mcg PO DAILY Label Comments: TAKE 1 CAPSULE BY MOUTH EVERY DAY Discharge Instructions Instructions: Hyponatremia (ED), Influenza (ED), Acute Nausea and Vomiting (ED) Additional Instructions: Zofran as directed. Plenty of fluids to avoid dehydration, be sure this fluid includes electrolytes. Please watch for new or worsening symptoms and return to the ER for any concerns. Please contact both your primary care provider and contract associate to discuss your ER visit, ongoing symptoms, need for outpatient reevaluation. Zofran plan. 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 Coy Banuelos, endocrinology fellow who recommends taking 3 of her steroid for the next 3 days If patient is able to tolerate p.o., she will likely need antiemetics and tamiflu for home She will need to manage her fever She should not be discharged home if she cannot tolerate p.o. She will be signed out to Sanjiv Plascencia pending 1 additional liter of LR, reassessment, and p.o. 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 Coy Banuelos, endocrinology fellow who recommends taking 3 of her steroid for the next 3 days If patient is able to tolerate p.o., she will likely need antiemetics and tamiflu for home She will need to manage her fever She should not be discharged home if she cannot tolerate p.o. She will be signed out to Sanjiv Plascencia pending 1 additional liter of LR, reassessment, and p.o. challenge, and tamiflu at dc 1530: Sanjiv Plascencia PA-C I assumed care of this 47-year-old female from my colleague ABEL Lezama, please see her initial HPI and examination. Patient is flu positive. Noted to have hyponatremia, is receiving IV fluid, awaiting administration of another liter. Her endocrinology team was contacted. At time of signout awaiting IV hydration reassessment and p.o. challenge. Patient received her additional IV fluid, reports feeling much improved, able to tolerate p.o. intake and is requesting discharge. We discussed Tamiflu. She is concerned that this may increase her overall nausea and vomiting which would worsen her potential Midkiff's crisis. She understands that Tamiflu is not a cure for the flu and rather decreases the duration and severity of symptoms. She would prefer to deal with her flulike symptoms rather than take Tamiflu and increase her chances of the nausea and vomiting. She has the capacity to make this decision and I believe this to be reasonable. Patient states that she already has a prescription for Zofran and does not require any additional medications at this time. Clinically she appears well, nontoxic, speaking in full sentences, heart rate in the 90s. She is afebrile. Standard discharge and return precautions were provided. Patient understands, is agreeable to this plan, and has no additional questions or concerns upon discharge. This documentation was generated using [employer] system, please disregard any oddities of phrase or misspellings. Medical Records Medical records reviewed: Yes I reviewed the patient's medical records. Lab Data Lab results reviewed: Yes I reviewed the patient's lab results. Labs: 07/15/22 14:34 Blood Blood Culture - Pending 07/15/22 14:35 Blood Blood Culture - Pending Laboratory Tests Range/Units 07/15/22 07/15/22 07/15/22 13:14 14:20 14:20 WBC (4.4-10.8) 10^3/uL 6.18 RBC (3.93-5.22) 10^6/uL 5.75 H Hgb (11.2-15.7) g/dL 17.2 H Hct (36.0-46.0) % 50.2 H MCV (80-95) fL 87 MCH (27.0-33.0) pg 29.9 MCHC (32.0-36.0) % 34.3 RDW (11.7-14.6) % 11.9 Plt Count (130-400) 10^3/uL 259 MPV (8.0-11.0) fL 9.8 Immature Gran % 0.3 Neutrophils % 72.9 Lymphocytes % 11.0 Monocytes % 14.6 Eosinophils % 0.6 Basophils % 0.6 Nucleated RBC % (0.0-0.3) % 0.0 Absolute Neutrophils (1.2-6.7) 10^3/uL 4.50 Absolute Lymphocytes (1.2-3.4) 10^3/uL 0.68 L Absolute Monocytes (0.1-0.8) 10^3/uL 0.90 H Absolute Eosinophils (0.0-0.7) 10^3/uL 0.04 Absolute Basophils (0.0-0.2) 10^3/uL 0.04 Sodium (136-145) mmol/L 129 L Potassium (3.5-5.1) mmol/L 4.4 Chloride (98-107) mmol/L 92 L Carbon Dioxide (21.0-32.0) mmol/L 27.3 Anion Gap (3-11) mmol/L 9.7 BUN (7-18) mg/dL 12 Creatinine (0.55-1.02) mg/dL 1.3 H Est GFR (CKD-EPI 2020) (mL/min/1.73m2) 51.68 Glucose (74-106) mg/dL 84 Calcium (8.5-10.1) mg/dL 9.8 Total Bilirubin (0.2-1.0) mg/dL 1.1 H AST (15-37) U/L 49 H ALT (14-59) U/L 69 H Alkaline Phosphatase (46-116) U/L 87 Troponin I (<or=60) ng/L < 50 Total Protein (6.4-8.2) g/dL 9.7 H Albumin (3.4-5.0) g/dL 4.8 Lipase (73-393) U/L 73 Urine Color (Yellow) Urine Clarity (Clear) Urine pH (5-8) Ur Specific [place] (1.005-1.025) Urine Protein (Negative) mg/dL Urine Ketones (Negative) mg/dL Urine Blood (Negative) Urine Nitrite (Negative) Urine Bilirubin (Negative) Urine Urobilinogen (Up TO 0.2) EU/dL Ur Leukocyte Esterase (Negative) Urine Glucose (Negative) mg/dL COVID-19 Source Nasopharynx SARS-CoV-2 (PCR) (Negative) Negative Influenza Type A (PCR) (Negative) Positive A Influenza Type B (PCR) (Negative) Negative RSV (PCR) (Negative) Negative Range/Units 07/15/22 07/15/22 16:00 17:12 WBC (4.4-10.8) 10^3/uL RBC (3.93-5.22) 10^6/uL Hgb (11.2-15.7) g/dL Hct (36.0-46.0) % MCV (80-95) fL MCH (27.0-33.0) pg MCHC (32.0-36.0) % RDW (11.7-14.6) % Plt Count (130-400) 10^3/uL MPV (8.0-11.0) fL Immature Gran % Neutrophils % Lymphocytes % Monocytes % Eosinophils % Basophils % Nucleated RBC % (0.0-0.3) % Absolute Neutrophils (1.2-6.7) 10^3/uL Absolute Lymphocytes (1.2-3.4) 10^3/uL Absolute Monocytes (0.1-0.8) 10^3/uL Absolute Eosinophils (0.0-0.7) 10^3/uL Absolute Basophils (0.0-0.2) 10^3/uL Sodium (136-145) mmol/L Potassium (3.5-5.1) mmol/L Chloride (98-107) mmol/L Carbon Dioxide (21.0-32.0) mmol/L Anion Gap (3-11) mmol/L BUN (7-18) mg/dL Creatinine (0.55-1.02) mg/dL Est GFR (CKD-EPI 2020) (mL/min/1.73m2) Glucose (74-106) mg/dL Calcium (8.5-10.1) mg/dL Total Bilirubin (0.2-1.0) mg/dL AST (15-37) U/L ALT (14-59) U/L Alkaline Phosphatase (46-116) U/L Troponin I (<or=60) ng/L < 50 Total Protein (6.4-8.2) g/dL Albumin (3.4-5.0) g/dL Lipase (73-393) U/L Urine Color (Yellow) Yellow Urine Clarity (Clear) Clear Urine pH (5-8) 5.5 Ur Specific [place] (1.005-1.025) 1.025 Urine Protein (Negative) mg/dL Negative Urine Ketones (Negative) mg/dL 80 H Urine Blood (Negative) Negative Urine Nitrite (Negative) Negative Urine Bilirubin (Negative) Negative Urine Urobilinogen (Up TO 0.2) EU/dL 0.2 Ur Leukocyte Esterase (Negative) Negative Urine Glucose (Negative) mg/dL Negative COVID-19 Source SARS-CoV-2 (PCR) (Negative) Influenza Type A (PCR) (Negative) Influenza Type B (PCR) (Negative) RSV (PCR) (Negative) HPI <ABEL Christianson - Last Filed: 07/16/22 10:58> General Date/Time Provider Initiated Documentation: 07/15/22 14:00 . 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 Symptoms started approximately 48 hours prior to arrival. She states that she took 3 of her steroids today. She denies any Tylenol and ibuprofen. She denies any chest pain or shortness of breath. She has generalized myalgias. Related Data Home Medications Medication Instructions Recorded Confirmed hydrocortisone 10 mg tablet 15 mg PO .QAM 02/09/14 07/15/22 fludrocortisone 0.1 mg tablet 0.5 tab PO Q OTHER DAY 07/06/14 07/15/22 potassium citrate 10 mEq (1,080 10 meq PO DAILY 3 days 09/20/17 07/15/22 mg) tablet,extended release esomeprazole magnesium 20 mg 20 mg PO DAILY 11/13/18 07/15/22 capsule,delayed release (Nexium) levothyroxine 175 mcg tablet 125 mcg PO DAILY@0730 11/13/18 07/15/22 ondansetron 4 mg disintegrating 4 mg PO Q6H PRN nausea and 09/24/19 07/15/22 tablet vomiting #10 tabs metoprolol tartrate 25 mg tablet 50 mg PO BID 12/31/19 07/15/22 atorvastatin 20 mg tablet (Lipitor) 10 mg PO DAILY 01/13/20 07/15/22 hydrocortisone 5 mg tablet 5 mg PO DAILY 01/13/20 07/15/22 cholecalciferol (vitamin D3) 50 50 mcg PO DAILY 03/05/21 07/15/22 mcg (2,000 unit) capsule cyanocobalamin (vitamin B-12) 1,000 mcg PO DAILY 03/05/21 07/15/22 1,000 mcg tablet famotidine 40 mg tablet 40 mg PO BID 03/05/21 07/15/22 magnesium 500 mg tablet 1,000 mg PO BID 03/05/21 07/15/22 mirabegron 25 mg tablet,extended 25 mg PO DAILY #28 tabs 03/31/21 03/10/22 release 24 hr (Myrbetriq) clobetasol-emollient 0.05 % 1 applic topical DAILY #30 grams 03/09/22 03/09/22 topical cream hydrocortisone 10 mg tablet 5 mg PO DAILY 03/09/22 03/10/22 levonorgestrel 20 mcg/24 hours (8 1 device intrauterine ONCE 03/09/22 07/15/22 yrs) 52 mg intrauterine device (Mirena) lidocaine 5 % topical ointment 1 applic topical QID PRN pain #60 03/09/22 07/15/22 grams fluconazole 150 mg tablet 150 mg PO ONCE #3 tabs 04/04/22 estradiol 10 mcg vaginal tablet 10 mcg vaginal .COMPLEX #24 tabs 07/11/22 (Vagifem) Previous Rx's Medication Instructions Recorded potassium citrate 10 mEq (1,080 10 meq PO DAILY 3 days 09/20/17 mg) tablet,extended release ondansetron 4 mg disintegrating 4 mg PO Q6H PRN nausea and 09/24/19 tablet vomiting #10 tabs mirabegron 25 mg tablet,extended 25 mg PO DAILY #28 tabs 03/31/21 release 24 hr (Myrbetriq) clobetasol-emollient 0.05 % 1 applic topical DAILY #30 grams 03/09/22 topical cream lidocaine 5 % topical ointment 1 applic topical QID PRN pain #60 03/09/22 grams fluconazole 150 mg tablet 150 mg PO ONCE #3 tabs 04/04/22 estradiol 10 mcg vaginal tablet 10 mcg vaginal .COMPLEX #24 tabs 07/11/22 (Vagifem) Allergies Allergy/AdvReac Type Severity Reaction Status Date / Time azithromycin Allergy Severe Anaphylaxsi Verified 07/15/22 13:16 s erythromycin base Allergy Severe Anaphylaxsi Verified 07/15/22 13:16 [Erythromycin Base] s morphine Allergy Severe extreme Verified 07/15/22 13:16 breathing issues Penicillins Allergy Severe Anaphylaxsi Verified 07/15/22 13:16 s gabapentin Allergy Intermediate Swelling/Ed Verified 07/15/22 13:16 rick green pepper AdvReac Verified 07/15/22 13:16 lactose AdvReac Verified 07/15/22 13:16 peach AdvReac Verified 07/15/22 13:16 iv contrast AdvReac Intermediate Swelling/Ed Uncoded 07/15/22 13:16 rick General Stated Complaint: GenMedical MIKE: 3 Review of Systems <ABEL Christianson - Last Filed: 07/16/22 10:58> All systems reviewed & are unremarkable except as noted in HPI and below PFSH <ABEL Christianson - Last Filed: 07/16/22 10:58> All Active Problems (Updated 07/15/22 @ 18:01 by ABEL Starks) Flu (Acute) Hyponatremia (Acute) Nausea & vomiting (Acute) Urinary incontinence (Acute) Rectal mucosa prolapse (Acute) Steroid dependent (Acute) Scalp pain (Acute) Vulvar pain (Acute) Abdominal pain (Acute) Diarrhea (Acute) Hyponatremia (Acute) Vaginal dryness (Acute) 2019. Initial Rx with vaginal estrogen. 12/2020 will restart vaginal estrogen. 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 Hypertension (Chronic) Hypothyroidism (Chronic) Addisons disease (Chronic) Medical History (Updated 07/15/22 @ 18:01 by ABEL Starks) Hx of Clostridium difficile infection Hx C/diff after knee surgery in 2010. No recurrences. Urinary incontinence Urinary frequency and unprovoked urine loss along with symptoms of stress incontinence. resolved 2020. 2021. PABLO symptoms recurred. Referral to urology at [facility] Surgical History section X 2 Open Carpal Tunnel release (04/24/15) RIGHT WRIST/DR. SCHILLING Family History Mother Diabetes Grandmother Breast cancer Mat Grandmother Breast cancer Pat Maternal Aunt Breast cancer Paternal Maternal Aunt Breast cancer Paternal Maternal Aunt Breast cancer Paternal Maternal Aunt Breast cancer Paternal Social History Smoking/Tobacco Use Status: Never Smoking risk assessment performed?: Yes Alcohol Intake: never Drug use: Never Substance use type: does not use Household members: spouse, children and other Details: H-Oliver,living together but estranged. D- teenager, S-Dionicio. Number of Children: 2 current occupation: unemployed-stop work at [employer] in 2019 to care for partner Sexually active: Yes (No intercourse for 1 year) Do you feel safe at home: Yes Do you feel safe in your relationship?: Yes Additional Social history: father at bedside Female Reproductive History Menstrual control method: progestin IUCD History History 2 Para Hx # Term Pregnancies 2 Multiple births Hx # Pregnancies Ectopic pregnancies AB induced Hx Number of Living Children AB spontaneous Exam <ABEL Christianson - Last Filed: 07/16/22 10:58> Const General: cooperative and acute distress HENMT Head: normal to inspection Mouth: oral mucosae normal Eyes Sclera: sclerae normal Neck Other: no meningismus Resp Effort & Inspection: normal respiratory effort Auscultation: clear to auscultation bilaterally Cardio Rate: tachycardic Rhythm: regular rhythm GI Inspection: normal to inspection Neuro General: patient alert and patient oriented x3 Course <ABEL Christianson Last Filed: 07/16/22 10:58> Vital Signs Vital signs: Vital Signs Temperature 36.5 C 07/15/22 13:11 Pulse 102 H 07/15/22 13:11 Respiratory Rate 16 07/15/22 13:11 Blood Pressure 128/83 07/15/22 13:11 Pulse Oximetry 95 07/15/22 13:11 Temperature 39.4 C H 07/15/22 15:25 Temperature Source Oral 07/15/22 15:23 Pulse 102 H 07/15/22 13:11 Respiratory Rate 18 07/15/22 15:32 Respiratory Effort Non-Labored 07/15/22 15:32 Respiratory Depth Normal 07/15/22 15:32 Respiratory Pattern Normal 07/15/22 15:32 Blood Pressure 128/83 07/15/22 13:11 Blood Pressure Position Supine 07/15/22 13:11 Pulse Oximetry 95 07/15/22 13:11 Oxygen Delivery Method Room Air 07/15/22 13:11 Oxygen Flow Rate 0 07/15/22 13:11 Pain Level 7 07/15/22 13:11 Lab/Test Results Lab/Test Results: 07/15/22 14:34 Blood Blood Culture - Pending 07/15/22 14:35 Blood Blood Culture - Pending Laboratory Tests Range/Units 07/15/22 07/15/22 07/15/22 13:14 14:20 14:20 WBC (4.4-10.8) 10^3/uL 6.18 RBC (3.93-5.22) 10^6/uL 5.75 H Hgb (11.2-15.7) g/dL 17.2 H Hct (36.0-46.0) % 50.2 H MCV (80-95) fL 87 MCH (27.0-33.0) pg 29.9 MCHC (32.0-36.0) % 34.3 RDW (11.7-14.6) % 11.9 Plt Count (130-400) 10^3/uL 259 MPV (8.0-11.0) fL 9.8 Immature Gran % 0.3 Neutrophils % 72.9 Lymphocytes % 11.0 Monocytes % 14.6 Eosinophils % 0.6 Basophils % 0.6 Nucleated RBC % (0.0-0.3) % 0.0 Absolute Neutrophils (1.2-6.7) 10^3/uL 4.50 Absolute Lymphocytes (1.2-3.4) 10^3/uL 0.68 L Absolute Monocytes (0.1-0.8) 10^3/uL 0.90 H Absolute Eosinophils (0.0-0.7) 10^3/uL 0.04 Absolute Basophils (0.0-0.2) 10^3/uL 0.04 Sodium (136-145) mmol/L 129 L Potassium (3.5-5.1) mmol/L 4.4 Chloride (98-107) mmol/L 92 L Carbon Dioxide (21.0-32.0) mmol/L 27.3 Anion Gap (3-11) mmol/L 9.7 BUN (7-18) mg/dL 12 Creatinine (0.55-1.02) mg/dL 1.3 H Est GFR (CKD-EPI 2020) (mL/min/1.73m2) 51.68 Glucose (74-106) mg/dL 84 Calcium (8.5-10.1) mg/dL 9.8 Total Bilirubin (0.2-1.0) mg/dL 1.1 H AST (15-37) U/L 49 H ALT (14-59) U/L 69 H Alkaline Phosphatase (46-116) U/L 87 Troponin I (<or=60) ng/L < 50 Total Protein (6.4-8.2) g/dL 9.7 H Albumin (3.4-5.0) g/dL 4.8 Lipase (73-393) U/L 73 COVID-19 Source Nasopharynx SARS-CoV-2 (PCR) (Negative) Negative Influenza Type A (PCR) (Negative) Positive A Influenza Type B (PCR) (Negative) Negative RSV (PCR) (Negative) Negative Sign Out <ABEL Christianson - Last Filed: 07/16/22 10:58> Sign Out Data: Sign Out Comment: pending fluids, po challenge, tamiflu Last updated by Mary Ellen Lezama PA at 07/15/22 16:16
[2022-07-15 16:39] LABS: Troponin I < 50 ng/L (<or=60)
[2022-07-15 17:35] LABS: Bilirubin Negative (Negative); Blood Negative (Negative); Clarity Clear (Clear); Glucose Negative (Negative); Ketones 80 mg/dL (Negative); Leukocyte Esterase Negative (Negative); Nitrite Negative (Negative); Specific Gravity 1.025 (1.005-1.025); Urobilinogen 0.2 EU/dL (Up TO 0.2); pH 5.5 (5-8)
--- NOTE | 2022-07-16 07:38 | NUR.NOTE ---
Nursing Note: Accessed patient chart to determine how many EKG orders were in the chart from the ED. There was an outstanding EKG in ordered status. There are no EKG's in the [employer] system that are outstanding. EKG order was deleted.
== END 2022-07-15 18:11 | disposition home or self-care (01) ==
PROVIDERS: Physician Assistant; Emergency Provider Physician Assistant; PCP Family Medicine
DX: J10.1 Influenza due to other identified influenza virus with other respiratory manifestations (principal); E87.1 Hypo-osmolality and hyponatremia; I10 Essential (primary) hypertension; Z20.822 Contact with and (suspected) exposure to COVID-19
CPT/HCPCS: 36410; 36415; 80053; 83690; 87040; 87637; 93005; 96361; 96374; 96375; 99284; 71046; 81003; 84484; 85025; 93010; 99285; J0780; J1885

== ENCOUNTER 2022-08-25 02:16 | Outpatient (CLI) | payer MEDICAID, SELFPAY ==
--- NOTE | 2022-08-25 07:45 | DI.MAMMO_ITS ---
Exam(s) MAMMO SCREENING EXAM: MAMMO SCREENING CLINICAL HISTORY: screening,z12.39 TECHNIQUE: Mammograms were interpreted according to the usual protocol including computer analysis w [employer] CAD system, tomosynthesis and C-view imaging. COMPARISON: 2012 through 2021 FINDINGS: The breasts are composed of scattered fibroglandular densities, Breast Density category B. No suspicious masses or suspicious microcalcifications are seen. Biopsy marker clip is again noted i n the upper outer quadrant of the right breast. No skin thickening or abnormal axillary lymph nodes are seen. There has been no significant change from prior exams. IMPRESSION: BI-RADS Category 1, Negative mammogram Yearly screening mammography is recommended. Breast Density - Category B, scattered fibroglandular densities. A negative radiographic report should not delay biopsy if a dominant or clinically suspicious mass is present. Up to ten percent of cancers are not identified on mammography. A negative report may reinforce clinical impression. Adenosis and dense breasts may obscure an underlying neoplasm. False positive reports average 6 to 10%. Patient will receive a letter notifying them of these results.
== END 2022-08-25 02:36 ==
LOC: DI 02:16
PROVIDERS: PCP Family Medicine; Visit Provider Obstetrics & Gynecology Gynecology
DX: Z12.31 Encounter for screening mammogram for malignant neoplasm of breast (principal)
CPT/HCPCS: 77063; 77067

== ENCOUNTER 2022-12-09 09:08 | Emergency (ER) | payer MEDICAID, SELFPAY ==
[2022-12-09] VITALS (20 sets, daily range): BP systolic 95–170; BP diastolic 57–104; PULSE 65–88; RESP 13–29; TEMP 36.6–37.1; O2SAT 97–100
--- NOTE | 2022-12-09 09:15 | RT.EKG_ITS ---
APPROVED REPORT Exam: Resting ECG Reason for Exam: dizzy Patient Location: E HR:76 bpm ECG Measurements Heart Rate 76 AXIS GA 145 P 28 QRSd 85 QRS 63 QT 377 T 37 QTc 426 Conclusion Sinus rhythm...normal P axis, V-rate 60- 99 Nonspecific T abnormalities, anterior leads...T <-0.10mV, V2-V4. Sinus. Normal axis. Normal intervals. No STEMI. I have reviewed and interpreted ECG and agree with software generated interpretation.
--- NOTE | 2022-12-09 09:20 | W.ED.GENAD ---
Discharge Plan Disposition Patient Disposition: Home Condition: Improving Discharge Details Clinical Impression: Nausea, Diarrhea, Constipation, History of [place]'s disease Primary Care Provider: Edenilson Ceja ED Provider: Kim Bettencourt Home Meds and New Rx's Prescriptions: Continued metoprolol tartrate 25 mg tablet 50 mg PO BID Myrbetriq 25 mg tablet extended release 24 hr 25 mg PO DAILY Qty: 28 0RF Rx Instructions: samples hydrocortisone 10 mg tablet 5 mg PO DAILY Rx Instructions: taper as directed Mirena 20 mcg/24 hours (7 yrs) 52 mg intrauterine device 1 device intrauterine ONCE Rx Instructions: as a single dose lidocaine 5 % ointment 1 applic topical QID PRN (Reason: pain) Qty: 60 1RF clobetasol-emollient 0.05 % cream 1 applic topical DAILY Qty: 30 4RF Rx Instructions: rub small amount to vulva daily for one month then twice weekly esomeprazole magnesium [Nexium] 20 mg capsule,delayed release(DR/EC) 20 mg PO DAILY hydrocortisone 5 mg tablet 5 mg PO DAILY Patient Comments: at night atorvastatin [Lipitor] 20 mg tablet 10 mg PO DAILY fluconazole 150 mg tablet 150 mg PO ONCE Qty: 3 0RF Rx Instructions: Repeat in 72hrs if still symptoms or still on antibiotics estradiol [Vagifem] 10 mcg tablet 10 mcg vaginal .COMPLEX Qty: 24 4RF Rx Instructions: 10 mcg vaginally Twice weekly; hydrocortisone 10 MG tablet 15 mg PO .QAM Patient Comments: 5 mg in the afternoon fludrocortisone 0.1 MG tablet 0.5 tab PO Q OTHER DAY levothyroxine 175 mcg tablet 125 mcg PO DAILY@0730 potassium citrate 10 MEQ tablet extended release 10 meq PO DAILY 3 Days 0RF ondansetron 4 mg tablet,disintegrating 4 mg PO Q6H PRN (Reason: nausea and vomiting) Qty: 10 0RF magnesium 500 mg Tablet 1,000 mg PO BID famotidine 40 mg tablet 40 mg PO BID Patient Comments: TAKE ONE TABLET BY MOUTH TWICE A DAY NEEDED cyanocobalamin (vitamin B-12) 1,000 mcg tablet 1,000 mcg PO DAILY Patient Comments: TAKE ONE TABLET BY MOUTH EVERY MORNING FOR 90 DAYS cholecalciferol (vitamin D3) 50 mcg (2,000 unit) capsule 50 mcg PO DAILY Patient Comments: TAKE 1 CAPSULE BY MOUTH EVERY DAY Discharge Instructions Instructions: Constipation (ED), Acute Nausea and Vomiting (ED), Acute Diarrhea (ED) Additional Instructions: Your blood tests and imaging today are reassuring and show no evidence of acute concerning findings. Continue your stress dose of steroids as directed by [facility] endocrinology. You were given 3 doses of the desipramine to go while you are waiting for your pharmacy to fill this prescription per Dr. Fair from [facility]. Drink plenty of fluids and get plenty of rest. Follow-up with your primary care doctor in 1 week and with [facility] gastroenterology and endocrinology as directed. Return to the emergency department with any worsening or new concerning symptoms. 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 EKG notes a rate of 76, sinus, T wave inversion in V2 but no acute ischemic findings. Patient appears anxious. Her abdomen is soft and diffusely tender but she has no rigidity, guarding, distention or peritoneal signs. In the case of an addisonian crisis, would suspect her blood pressure to be hypotensive and her blood pressure is significantly hypertensive at 170/104. She does have a history of hypertension and did take her metoprolol this morning. There may be an element of pain contributing to this. She is nontoxic-appearing. Differential diagnosis includes gastroenteritis, UTI, influenza, electrolyte abnormality, Norberto's crisis. Will obtain screening labs, CT abdomen and pelvis and give a dose of IV Tylenol, IV Zofran, IV Solu-Cortef and fluid bolus. 1030 --radiology called to report that patient has an IV contrast allergy which causes swelling. Will change CT from IV contrast to oral contrast only. 1120 --patient is reporting that she cannot tolerate oral contrast as it is causing increased pain. Her blood pressure has improved to 146/88. She does appear uncomfortable. She denies any nausea at this time. She states she drove herself to the ED and cannot get a ride home so discussed that I cannot give her IV narcotics at this time. She states she is fine with dealing with the pain but cannot tolerate anymore the oral contrast. She does report that she had a history of chest pressure with IV contrast years ago but denies any difficulty breathing at that time. Case discussed with pharmacy --as patient received 100 mg of Solu-Cortef this is comparable to 20 mg of Solu-Medrol. We will give an additional 100 mg of Solu-Medrol for the appropriate pretreatment in cases of allergy to IV contrast. We will also give 50 mg of Benadryl IV. Patient is agreeable with this plan. 1420 --Labs and imaging reviewed. Normal white blood cell count. Hemoglobin 17.6 which is similar to her usual baseline. Sodium 132. Troponin negative. Lipase within normal limits. Urinalysis negative. FLUVID negative. CT reviewed and negative. Patient reassessed and she feels much better. Patient is requesting p.o. which she usually eats and these events when her sodium is low. Patient feels comfortable going home. She states she has guidelines she follows per [facility] endocrinology in which she is stressed doses her steroids for 3 days which she will continue to do tonight and tomorrow. As she is feeling better and her sodium is reassuring at 132, do not see an indication for urgent endocrinology consult at this time. Patient feels comfortable with this plan. She is awaiting a prescription for despiramine 10 mg once nightly prescribed by Dr. Mariusz Fair, GI at [facility] but the pharmacy has not yet received it. We will send her home with a dose for this evening and this weekend until the pharmacy is able to fill this as she states that Dr. Fair had prescribed this for her ongoing nausea. Advised to follow up with the primary care doctor for re-evaluation. Usual and customary return precautions given prior to discharge. Medical Records Medical records reviewed: Yes I reviewed the patient's medical records. Medical records narrative: 08/13/20 [facility] Upper endoscopy/Colonoscopy Preoperative diagnosis: Nausea, abdominal pain, change in caliber of her stools Postoperative diagnosis: Mild gastritis, normal colonoscopy Imaging Data Radiologic Study: Radiologist's impression: CT ABDOMEN ? PELVIS W CLINICAL HISTORY: ? diffuse abd pain, nausea/diarrhea,idoinated contrast allergy, oral only ? TECHNIQUE:? Imaging Protocol: Axial computed tomography images with coronal and sagittal reformatted images were created and reviewed CONTRAST MATERIAL:? Intravenous: Omnipaque 350 Contrast volume:100 mL Oral: Yes COMPARISON:? CT CT ABDOMEN ? PELVIS WO from 03/05/2021 FINDINGS: The patient was pre-medicated for their identity contrast allergy prior to the examination. The examination is limited due to patient motion artifact. ? ABDOMEN: Lung Bases: Normal where visualized. Liver: Normal density. No measurable mass. Portal, Superior Mesenteric, and Splenic Veins: Unremarkable.? Gallbladder and Biliary Tract: No radiodense calculus or dilation. Pancreas: Normal density, no abnormal calcifications or inflammatory process. Spleen: Normal. Adrenals: No masses seen. Kidneys: Normal size, contour and axis. No radiodense stones or obstructive uropathy. There is a tiny hypodensity in the right kidney.? It is too small for further characterization but likely reflects a small cyst.? No follow-up is recommended.? Abdominal Aorta: Abdominal portion non-dilated. There is atherosclerosis present. Bowel: No obstruction or bowel wall thickening. Appendix is unremarkable. Peritoneal Cavity: No ascites, collection or mesenteric inflammatory response.? No free air. Lymph Nodes: Within normal limits. Bones: Within normal limits for the patient's age.? Soft Tissues: Unremarkable. PELVIS: Bladder: Symmetric distention, no gross wall thickening. Reproductive Organs: Unremarkable as visualized. There is an IUD in good position. Lymph Nodes: Within normal limits. Bones: Within normal limits for the patient's age.? IMPRESSION: 1. No acute abdominal or pelvic process.? Lab Data Lab results reviewed: Yes I reviewed the patient's lab results. Labs: Laboratory Tests Range/Units 12/09/22 12/09/22 12/09/22 09:50 09:50 09:50 WBC (4.4-10.8) 10^3/uL 8.91 RBC (3.93-5.22) 10^6/uL 5.84 H Hgb (11.2-15.7) g/dL 17.6 H Hct (36.0-46.0) % 50.0 H MCV (80-95) fL 86 MCH (27.0-33.0) pg 30.1 MCHC (32.0-36.0) % 35.2 RDW (11.7-14.6) % 11.5 L Plt Count (130-400) 10^3/uL 320 MPV (8.0-11.0) fL 9.7 Immature Gran % 0.3 Neutrophils % 62.6 Lymphocytes % 26.8 Monocytes % 8.4 Eosinophils % 1.2 Basophils % 0.7 Nucleated RBC % (0.0-0.3) % 0.0 Absolute Neutrophils (1.2-6.7) 10^3/uL 5.57 Absolute Lymphocytes (1.2-3.4) 10^3/uL 2.39 Absolute Monocytes (0.1-0.8) 10^3/uL 0.75 Absolute Eosinophils (0.0-0.7) 10^3/uL 0.11 Absolute Basophils (0.0-0.2) 10^3/uL 0.06 Sodium (136-145) mmol/L 132 L Potassium (3.5-5.1) mmol/L 3.6 Chloride (98-107) mmol/L 94 L Carbon Dioxide (21.0-32.0) mmol/L 26.2 Anion Gap (3-11) mmol/L 11.8 H BUN (7-18) mg/dL 14 Creatinine (0.55-1.02) mg/dL 1.1 H Est GFR (CKD-EPI 2020) (mL/min/1.73m2) 63.15 Glucose (74-106) mg/dL 103 Calcium (8.5-10.1) mg/dL 9.6 Magnesium (1.8-2.4) mg/dL 2.1 Total Bilirubin (0.2-1.0) mg/dL 1.0 AST (15-37) U/L 23 ALT (14-59) U/L 47 Alkaline Phosphatase (46-116) U/L 80 Troponin I (<or=60) ng/L < 50 Total Protein (6.4-8.2) g/dL 8.9 H Albumin (3.4-5.0) g/dL 4.4 Lipase (16-77) U/L 40 Urine Color (Yellow) Urine Clarity (Clear) Urine pH (5-8) Ur Specific [place] (1.005-1.025) Urine Protein (Negative) mg/dL Urine Ketones (Negative) mg/dL Urine Blood (Negative) Urine Nitrite (Negative) Urine Bilirubin (Negative) Urine Urobilinogen (Up to 0.2) mg/dL Ur Leukocyte Esterase (Negative) Urine Glucose (Negative) mg/dL COVID-19 Source SARS-CoV-2 (PCR) (Negative) Influenza Type A (PCR) (Negative) Influenza Type B (PCR) (Negative) RSV (PCR) (Negative) Range/Units 12/09/22 12/09/22 10:25 10:30 WBC (4.4-10.8) 10^3/uL RBC (3.93-5.22) 10^6/uL Hgb (11.2-15.7) g/dL Hct (36.0-46.0) % MCV (80-95) fL MCH (27.0-33.0) pg MCHC (32.0-36.0) % RDW (11.7-14.6) % Plt Count (130-400) 10^3/uL MPV (8.0-11.0) fL Immature Gran % Neutrophils % Lymphocytes % Monocytes % Eosinophils % Basophils % Nucleated RBC % (0.0-0.3) % Absolute Neutrophils (1.2-6.7) 10^3/uL Absolute Lymphocytes (1.2-3.4) 10^3/uL Absolute Monocytes (0.1-0.8) 10^3/uL Absolute Eosinophils (0.0-0.7) 10^3/uL Absolute Basophils (0.0-0.2) 10^3/uL Sodium (136-145) mmol/L Potassium (3.5-5.1) mmol/L Chloride (98-107) mmol/L Carbon Dioxide (21.0-32.0) mmol/L Anion Gap (3-11) mmol/L BUN (7-18) mg/dL Creatinine (0.55-1.02) mg/dL Est GFR (CKD-EPI 2020) (mL/min/1.73m2) Glucose (74-106) mg/dL Calcium (8.5-10.1) mg/dL Magnesium (1.8-2.4) mg/dL Total Bilirubin (0.2-1.0) mg/dL AST (15-37) U/L ALT (14-59) U/L Alkaline Phosphatase (46-116) U/L Troponin I (<or=60) ng/L Total Protein (6.4-8.2) g/dL Albumin (3.4-5.0) g/dL Lipase (16-77) U/L Urine Color (Yellow) Yellow Urine Clarity (Clear) Clear Urine pH (5-8) 7.0 Ur Specific [place] (1.005-1.025) 1.020 Urine Protein (Negative) mg/dL Negative Urine Ketones (Negative) mg/dL Negative Urine Blood (Negative) Negative Urine Nitrite (Negative) Negative Urine Bilirubin (Negative) Negative Urine Urobilinogen (Up to 0.2) mg/dL 0.2 Ur Leukocyte Esterase (Negative) Negative Urine Glucose (Negative) mg/dL Negative COVID-19 Source Nasopharynx SARS-CoV-2 (PCR) (Negative) Negative Influenza Type A (PCR) (Negative) Negative Influenza Type B (PCR) (Negative) Negative RSV (PCR) (Negative) Negative ECG Data Attestation: I personally reviewed and interpreted this ECG (s) as follows: Interpretation: Rate of 76, sinus, normal axis, normal intervals, no STEMI. HPI General Mode of arrival: ambulatory. Date/Time Provider Initiated Documentation: 12/09/22 09:11. Limitations to Documentation: no limitations. Information obtained by: patient. 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 She reports the diarrhea has not been occurring every day but has been mainly watery mixed with particles and green or yellow. She states she has not been vomiting but has been nauseous and dry heaving. She states she had an episode of diarrhea today. She denies any hematemesis or hematochezia. She states the abdominal pain is constant, sharp and diffuse. She states she has not been able to eat or drink due to symptoms of nausea and pain and states that her pain is worse with sitting up and walking around and when attempting to eat or drink anything. She is followed by GI and endocrinology at [facility] and saw them 4 days ago for this complaint. Patient states she has been referred for a liver biopsy and an endoscopic ultrasound. She states they called her in nausea and other GI medications for the symptoms but has not been able to receive them other than her scopolamine patch. Patient states she has had the symptoms of nausea, alternating constipation and diarrhea for the past 6 months. She states she has had an upper endoscopy and colonoscopy at [facility] within the last year which she reports was unremarkable. Patient states today she was at [facility] with her son and felt like she was going into an Norberto's crisis so came here for evaluation. She reports symptoms consistent with a crisis include dizziness, palpitations, tingling in her fingertips of which she has felt since yesterday. Patient states she took an extra dose of her hydrocortisone yesterday morning which was a total of 30 mg and an extra dose of her hydrocortisone this morning which was 30 mg. She reports she would like a stress dose of Solu-Cortef. Patient states she was on doxycycline for a sinus infection a few weeks ago. Related Data Home Medications Medication Instructions Recorded Confirmed hydrocortisone 10 mg tablet 15 mg PO .QAM 02/09/14 07/15/22 fludrocortisone 0.1 mg tablet 0.5 tab PO Q OTHER DAY 07/06/14 07/15/22 potassium citrate 10 mEq (1,080 10 meq PO DAILY 3 days 09/20/17 07/15/22 mg) tablet,extended release esomeprazole magnesium 20 mg 20 mg PO DAILY 11/13/18 07/15/22 capsule,delayed release (Nexium) levothyroxine 175 mcg tablet 125 mcg PO DAILY@0730 11/13/18 07/15/22 ondansetron 4 mg disintegrating 4 mg PO Q6H PRN nausea and 09/24/19 07/15/22 tablet vomiting #10 tabs metoprolol tartrate 25 mg tablet 50 mg PO BID 12/31/19 07/15/22 atorvastatin 20 mg tablet (Lipitor) 10 mg PO DAILY 01/13/20 07/15/22 hydrocortisone 5 mg tablet 5 mg PO DAILY 01/13/20 07/15/22 cholecalciferol (vitamin D3) 50 50 mcg PO DAILY 03/05/21 07/15/22 mcg (2,000 unit) capsule cyanocobalamin (vitamin B-12) 1,000 mcg PO DAILY 03/05/21 07/15/22 1,000 mcg tablet famotidine 40 mg tablet 40 mg PO BID 03/05/21 07/15/22 magnesium 500 mg tablet 1,000 mg PO BID 03/05/21 07/15/22 mirabegron 25 mg tablet,extended 25 mg PO DAILY #28 tabs 03/31/21 03/10/22 release 24 hr (Myrbetriq) clobetasol-emollient 0.05 % 1 applic topical DAILY #30 grams 03/09/22 03/09/22 topical cream hydrocortisone 10 mg tablet 5 mg PO DAILY 03/09/22 03/10/22 levonorgestrel 21 mcg/24 hours (8 1 device intrauterine ONCE 03/09/22 07/15/22 yrs) 52 mg intrauterine device (Mirena) lidocaine 5 % topical ointment 1 applic topical QID PRN pain #60 03/09/22 07/15/22 grams fluconazole 150 mg tablet 150 mg PO ONCE #3 tabs 04/04/22 estradiol 10 mcg vaginal tablet 10 mcg vaginal .COMPLEX #24 tabs 07/11/22 (Vagifem) Previous Rx's Medication Instructions Recorded potassium citrate 10 mEq (1,080 10 meq PO DAILY 3 days 09/20/17 mg) tablet,extended release ondansetron 4 mg disintegrating 4 mg PO Q6H PRN nausea and 09/24/19 tablet vomiting #10 tabs mirabegron 25 mg tablet,extended 25 mg PO DAILY #28 tabs 03/31/21 release 24 hr (Myrbetriq) clobetasol-emollient 0.05 % 1 applic topical DAILY #30 grams 03/09/22 topical cream lidocaine 5 % topical ointment 1 applic topical QID PRN pain #60 03/09/22 grams fluconazole 150 mg tablet 150 mg PO ONCE #3 tabs 04/04/22 estradiol 10 mcg vaginal tablet 10 mcg vaginal .COMPLEX #24 tabs 07/11/22 (Vagifem) Allergies Allergy/AdvReac Type Severity Reaction Status Date / Time azithromycin Allergy Severe Anaphylaxsi Verified 12/09/22 09:18 s erythromycin base Allergy Severe Anaphylaxsi Verified 12/09/22 09:18 [Erythromycin Base] s morphine Allergy Severe extreme Verified 12/09/22 09:18 breathing issues Penicillins Allergy Severe Anaphylaxsi Verified 12/09/22 09:18 s gabapentin Allergy Intermediate Swelling/Ed Verified 12/09/22 09:18 rick green pepper AdvReac Verified 12/09/22 09:18 lactose AdvReac Verified 12/09/22 09:18 peach AdvReac Verified 12/09/22 09:18 iv contrast AdvReac Intermediate Swelling/Ed Uncoded 12/09/22 09:18 rick General Stated Complaint: Dizzy/Sync MIKE: 2 Review of Systems All systems reviewed & are unremarkable except as noted in HPI and below Constitutional Constitutional: Reports as per HPI, Denies chills and Denies fever(s) Eyes Eyes: Denies blurry vision ENT Ears, Nose, Mouth, and Throat: Reports dizziness, Denies sore throat and Denies throat swelling Cardiovascular Cardiovascular: Denies chest pain and Denies dyspnea Respiratory Respiratory: Denies cough and Denies dyspnea Gastrointestinal Gastrointestinal: Reports abdominal pain, Reports constipation, Reports diarrhea, Reports nausea and Denies vomiting Genitourinary Genitourinary: Denies hematuria and Denies dysuria Musculoskeletal Musculoskeletal: Denies back pain and Denies numbness Integumentary/Breasts Skin/Breast: Denies lesions and Denies rash Neurologic Neurologic: Reports dizziness, Denies localized weakness and Denies numbness Allergic/Immunologic Allergic/Immunologic: Denies throat swelling PFSH All Active Problems (Updated 12/09/22 @ 15:32 by Kim Bettencourt DO) Nausea (Acute) Diarrhea (Acute) Constipation (Acute) History of [place]'s disease (Acute) Urinary incontinence (Acute) Rectal mucosa prolapse (Acute) Steroid dependent (Acute) Scalp pain (Acute) Vulvar pain (Acute) Abdominal pain (Acute) Diarrhea (Acute) Hyponatremia (Acute) Vaginal dryness (Acute) 2018. Initial Rx with vaginal estrogen. 12/2020 will restart vaginal estrogen. 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 Hypertension (Chronic) Hypothyroidism (Chronic) Addisons disease (Chronic) Medical History (Updated 12/09/22 @ 15:32 by Kim Bettencourt DO) Hx of Clostridium difficile infection Hx C/diff after knee surgery in 2010. No recurrences. Urinary incontinence Urinary frequency and unprovoked urine loss along with symptoms of stress incontinence. resolved 2020. 2021. PABLO symptoms recurred. Referral to urology at [facility] Surgical History section X 2 Open Carpal Tunnel release (04/24/15) RIGHT WRIST/DR. DREISBACH Family History Mother Diabetes Grandmother Breast cancer Mat Grandmother Breast cancer Pat Maternal Aunt Breast cancer Paternal Maternal Aunt Breast cancer Paternal Maternal Aunt Breast cancer Paternal Maternal Aunt Breast cancer Paternal Social History Smoking/Tobacco Use Status: Never Smoking risk assessment performed?: Yes Alcohol Intake: never Drug use: Never Substance use type: does not use Household members: spouse, children and other Details: H-Oliver,living together but estranged. D- teenager, S-Dionicio. 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 partner Sexually active: Yes (No intercourse for 1 year) Do you feel safe at home: Yes Do you feel safe in your relationship?: Yes Additional Social history: son at bedside Female Reproductive History Menstrual control method: progestin IUCD History History 2 Para Hx # Term Pregnancies 2 Multiple births Hx # Pregnancies Ectopic pregnancies AB induced Hx Number of Living Children AB spontaneous Exam Const General: cooperative and anxious Orientation: alert, awake and oriented x3 HENMT Head: normal to inspection Face and sinus: normal facial exam Eyes General: appearance normal, both eyes and all related structures Pupils: PERRL EOM: EOM intact bilaterally Neck Neck: normal visual inspection and No submandibular swelling Lymphatic: no lymphadenopathy noted Chest Chest: normal inspection of the chest and no tenderness Resp Effort & Inspection: normal respiratory effort and able to speak in complete sentences Auscultation: clear to auscultation bilaterally Cardio Rate: regular rate Rhythm: regular rhythm GI Inspection: normal to inspection and non-distended Palpation: soft, not firm, no guarding, not rigid and tender (diffuse) Auscultation: normal bowel sounds Skin General skin exam: no rashes or lesions noted Neuro General: patient alert, patient awake and patient oriented x3 Cognition: normal cognition Speech: speech normal Motor: muscle tone normal throughout Sensory Exam: no sensory deficits noted Extrem General: normal to inspection, full ROM, capillary refill normal, no calf tenderness bilaterally and no edema Psych Appearance: grossly normal Mental Status: mental status grossly normal Speech and Movement: speech and movement normal Affect: normal affect Course Vital Signs Vital signs: Vital Signs Temperature 98.2 F 12/09/22 09:11 Pulse 88 12/09/22 09:11 Respiratory Rate 16 12/09/22 09:11 Blood Pressure 170/104 H 12/09/22 09:11 Pulse Oximetry 100 12/09/22 09:11 Temperature 98.2 F 12/09/22 09:11 Temperature Source Tympanic 12/09/22 09:11 Pulse 88 12/09/22 09:11 Respiratory Rate 16 12/09/22 09:11 Blood Pressure 170/104 H 12/09/22 09:11 Blood Pressure Position Supine 12/09/22 09:11 Pulse Oximetry 100 12/09/22 09:11 Oxygen Delivery Method Room Air 12/09/22 09:11 Oxygen Flow Rate 0 12/09/22 09:11 Pain Level 5 12/09/22 09:11
--- NOTE | 2022-12-09 09:45 | DI.CT_ITS ---
Exam(s) CT ABDOMEN PELVIS W EXAM: CT ABDOMEN PELVIS W CLINICAL HISTORY: diffuse abd pain, nausea/diarrhea,idoinated contrast allergy, oral only TECHNIQUE: Imaging Protocol: Axial computed tomography images with coronal and sagittal reformatted images were created and reviewed CONTRAST MATERIAL: Intravenous: Omnipaque 350 Contrast volume:100 mL Oral: Yes COMPARISON: CT CT ABDOMEN PELVIS WO from 03/05/2021 FINDINGS: The patient was pre-medicated for their identity contrast allergy prior to the examination. The examination is limited due to patient motion artifact. ABDOMEN: Lung Bases: Normal where visualized. Liver: Normal density. No measurable mass. Portal, Superior Mesenteric, and Splenic Veins: Unremarkable. Gallbladder and Biliary Tract: No radiodense calculus or dilation. Pancreas: Normal density, no abnormal calcifications or inflammatory process. Spleen: Normal. Adrenals: No masses seen. Kidneys: Normal size, contour and axis. No radiodense stones or obstructive uropathy. There is a tiny hypodensity in the right kidney. It is too small for further characterization but likely reflects a small cyst. No follow-up is recommended. Abdominal Aorta: Abdominal portion non-dilated. There is atherosclerosis present. Bowel: No obstruction or bowel wall thickening. Appendix is unremarkable. Peritoneal Cavity: No ascites, collection or mesenteric inflammatory response. No free air. Lymph Nodes: Within normal limits. Bones: Within normal limits for the patient's age. Soft Tissues: Unremarkable. PELVIS: Bladder: Symmetric distention, no gross wall thickening. Reproductive Organs: Unremarkable as visualized. There is an IUD in good position. Lymph Nodes: Within normal limits. Bones: Within normal limits for the patient's age. IMPRESSION: 1. No acute abdominal or pelvic process. 2. Findings were discussed with the emergency department at 2:27 p.m. on 12/09/2022. RADIATION DOSE DELIVERED: 862.73mGy.cm Total DLP DATA REPOSITORY: All CT scans at this facility are submitted to the National Radiology Data Registry (NRDR) Dose Index Registry (DIR) with the [employer] ([employer]). RADIATION OPTIMIZATION: All CT scans at this facility use at least one of these dose optimization te chniques: automated exposure control; mA and/or kV adjustment per patient size (includes targeted exa ms where dose is matched to clinical indication); or iterative reconstruction.
[2022-12-09 09:56] LABS: Abs Immature Grans 0.03 10^3/uL (0.0-0.06); Absolute Basophil Count 0.06 10^3/uL (0.0-0.2); Absolute Eosinophil Count 0.11 10^3/uL (0.0-0.7); Absolute Lymphocyte Count 2.39 10^3/uL (1.2-3.4); Absolute Monocyte Count 0.75 10^3/uL (0.1-0.8); Absolute Neutrophil Count 5.57 10^3/uL (1.2-6.7); Basophils % 0.7; Eosinophils % 1.2; HGB 17.6 g/dL (11.2-15.7); Immature Grans % 0.3; Lymphocytes % 26.8; MCH 30.1 pg (27.0-33.0); MCHC 35.2 % (32.0-36.0); MCV 86 fL (80-95); MPV 9.7 fL (8.0-11.0); Monocytes % 8.4; Neutrophils % 62.6; Platelet Count 320 10^3/uL (130-400); RBC 5.84 10^6/uL (3.93-5.22); RDW 11.5 % (11.7-14.6); RDW-SD 35.3 fL; WBC 8.91 10^3/uL (4.4-10.8)
[2022-12-09] MEDS: Normal Saline 1,000 ML 1000 ML IV ×2 (10:12→14:57)
[2022-12-09] MEDS: Ondansetron 4 MG/2 ML VIAL IVP (10:16)
[2022-12-09 10:18] LABS: ALT 47 U/L (14-59); AST 23 U/L (15-37); Albumin 4.4 g/dL (3.4-5.0); Alkaline Phosphatase 80 U/L (46-116); Anion Gap 11.8 mmol/L (3-11); BUN 14 mg/dL (7-18); CO2 26.2 mmol/L (21.0-32.0); CREATININE 1.1 mg/dL (0.55-1.02); Calcium 9.6 mg/dL (8.5-10.1); Chloride 94 mmol/L (98-107); Estimated GFR 63.15 (mL/min/1.73m2); Glucose 103 mg/dL (74-106); Magnesium 2.1 mg/dL (1.8-2.4); Potassium 3.6 mmol/L (3.5-5.1); Sodium 132 mmol/L (136-145); Total Protein 8.9 g/dL (6.4-8.2); Troponin I < 50 ng/L (<or=60)
[2022-12-09] MEDS: Hydrocortisone SOD SUC. 100 MG VIAL IVP (10:18)
[2022-12-09] MEDS: ACETAMINOPHEN 1,000 MG/100 ML BTL 400 MG IVPB (10:19)
[2022-12-09] MEDS: Omnipaque 350 MG/ML 50 ML BTL PO (10:25)
[2022-12-09] MEDS: Breeza Beverage 473 ML BTL PO ×2 (10:25→10:26)
[2022-12-09] MEDS: Barium Sulfate 2% W/V-Berry Smoothie 450 ML BTL PO ×2 (10:33→10:34)
[2022-12-09 10:42] LABS: Lipase 40 U/L (16-77)
[2022-12-09 10:45] LABS: Bilirubin Negative (Negative); Blood Negative (Negative); Clarity Clear (Clear); Glucose Negative (Negative); Ketones Negative (Negative); Leukocyte Esterase Negative (Negative); Nitrite Negative (Negative); Urobilinogen 0.2 mg/dL (Up to 0.2)
--- NOTE | 2022-12-09 10:51 | NUR.NOTE ---
Nursing Note:Pt awake, A/O X4, engaged in conversation, abdominal cramping reported, continuos monitoring, pt tolerating barium , awaiting CT Scan. Pt's son remains at pt's bedside, appropriate, chatting, with pt.
--- NOTE | 2022-12-09 11:10 | NUR.NOTE ---
Nursing Note: Pt reports increased abdominal cramping, I can't drink this anymore, I'm sorry, pt referring to to CT prep Barium. Pt instructed to pause drinking the Barium, Dr Kim Bettencourt made aware pt reports not tolerating barium and refusing at this time. Dr Mtz reviewed VS, labs. Dr Bettencourt to discuss plan of care with pt.
[2022-12-09 11:17] LABS: COVID-19 PCR Negative (Negative); Influenza A PCR Negative (Negative); Influenza B PCR Negative (Negative); RSV PCR Negative (Negative)
[2022-12-09 11:40] LABS: Source Nasopharynx
[2022-12-09] MEDS: diphenhydrAMINE 50 MG/ML VIAL IVP (11:41)
[2022-12-09] MEDS: methylPREDNISolone SUCC 125 MG VIAL 100 MG IVP (11:44)
[2022-12-09] MEDS: Omnipaque 350 MG/ML 100 ML BTL IJ (14:07)
[2022-12-09] MEDS: Normal Saline - Diluent 50 ML VIAL IJ (14:09)
== END 2022-12-09 15:51 | disposition home or self-care (01) ==
PROVIDERS: Emergency Provider Physician Assistant; PCP Family Medicine
DX: R19.7 Diarrhea, unspecified (principal); R11.0 Nausea; K59.00 Constipation, unspecified; E27.1 Primary adrenocortical insufficiency; R10.9 Unspecified abdominal pain
CPT/HCPCS: 36415; 80053; 81025; 83690; 87637; 93005; 96361; 96374; 96375; 99285; 74177; 81003; 83735; 84484; 85025; 93010; 99284; J0131; J1200; J1720; J2405; J2930; J3490; Q9967

== ENCOUNTER 2024-05-07 01:43 | Outpatient (CLI) | payer MEDICAID, SELFPAY ==
--- NOTE | 2024-05-07 06:30 | DI.US_ITS ---
Exam(s) US PELVIS TRANSVAGINAL EXAM: US PELVIS TRANSVAGINAL CLINICAL HISTORY: anatomy,llq pain, r10.32. TECHNIQUE: Transabdominal and transvaginal pelvic ultrasound was performed using standard protocol. COMPARISON: US US PELVIS TRANSVAGINAL from 01/03/2020 FINDINGS: UTERUS: Position: Anteverted. Size: 7.0 long by 3.8 AP by 4.7 transverse cm Endometrium: 0.5 cm. Normal for patient's menstrual status. There is an IUD which is in good position . Myometrium: There is a question of an isoechoic mass in the anterior body of the uterus suggesting a fibroid. It measures 2.5 x 1.7 x 2.1 cm. Cervix: Unremarkable. OVARIES: The right ovary was not visualized transabdominally or transvaginally. No suspicious right adnexal masses are seen. Left: 2.1 x 2.0 x 2.2 cm Cyst or mass: No suspicious cystic or solid masses. DOPPLER: Color: Symmetric and uniform flow to both ovaries. CUL-DE-SAC: Free fluid: None. Other: None. IMPRESSION: 1. Normal-appearing uterus with endometrial stripe within normal limits. Question of isoechoic fibro id in the anterior body of the uterus. 2. The IUD is in good position. 3. The right ovary was not visualized on this examination. 4. The left ovary is unremarkable. DATA REPOSITORY:
== END 2024-05-07 02:03 ==
LOC: DI 01:43
PROVIDERS: PCP Family Medicine; Visit Provider Obstetrics & Gynecology
DX: R10.32 Left lower quadrant pain (principal)
CPT/HCPCS: 76830; 76856

== ENCOUNTER 2025-02-06 00:15 | Outpatient (CLI) | payer MEDICAID, SELFPAY ==
--- NOTE | 2025-02-06 12:38 | DI.US_ITS ---
Exam(s) US PELVIS TRANSVAGINAL EXAM: US PELVIS TRANSVAGINAL CLINICAL HISTORY: pelvic pain,R10.2. TECHNIQUE: Transabdominal and transvaginal pelvic ultrasound was performed using standard protocol. COMPARISON: US US PELVIS TRANSVAGINAL from 05/07/2024 FINDINGS: UTERUS: Position: Anteverted. Size: 8.5 long by 4.0 AP by 5.4 transverse cm Endometrium: 0.3 cm. Normal for patient's menstrual status. The IUD appears in appropriate position. Myometrium: Unremarkable. No fibroid is identified on this current examination. Cervix: Unremarkable. OVARIES: Right: 4.1 x 2.9 x 3.1 cm Cyst or mass: No suspicious cystic or solid masses. There is a 3.7 x 3.1 x 2.8 cm simple cyst. This is likely physiologic. Left: 3.6 x 2.1 x 3.6 cm Cyst or mass: No suspicious cystic or solid masses. DOPPLER: Color: Symmetric and uniform flow to both ovaries. CUL-DE-SAC: Free fluid: There is a small amount of free fluid in the pelvis which is likely physiologic. Other: None. IMPRESSION: 1. Normal-appearing uterus with endometrial stripe within normal limits. 2. No sonographic evidence uterine fibroid is seen on this examination. 3. The IUD is in appropriate position. 4. 3.7 x 3.1 x 2.8 cm simple cyst. While this is likely physiologic, a follow- up examination in 6 8 weeks may be obtained to document resolution. DATA REPOSITORY:
== END 2025-02-06 00:35 ==
LOC: DI 00:15
PROVIDERS: PCP Family Medicine; Visit Provider Obstetrics & Gynecology
DX: R10.2 Pelvic and perineal pain (principal)
CPT/HCPCS: 76830; 76856

== ENCOUNTER 2025-02-18 09:45 | Outpatient (REF) | payer MEDICAID, SELFPAY ==
[2025-02-21 10:01] LABS: Chlamydia Result Invalid (Negative)
[2025-02-21 10:02] LABS: GC Result Invalid (Negative)
== END 2025-02-18 09:46 | disposition home or self-care (01) ==
LOC: LBN 09:45
PROVIDERS: PCP Family Medicine; Visit Provider Obstetrics & Gynecology
DX: N89.8 Other specified noninflammatory disorders of vagina (principal)
CPT/HCPCS: 87491; 87591; 87480; 87510; 87660

== ENCOUNTER 2025-03-04 10:12 | Outpatient (REF) | payer MEDICAID, SELFPAY ==
[2025-03-05 11:54] LABS: Chlamydia Result Negative (Negative); GC Result Negative (Negative)
== END 2025-03-04 10:13 | disposition home or self-care (01) ==
LOC: LBN 10:12
PROVIDERS: PCP Family Medicine; Visit Provider Obstetrics & Gynecology
DX: N89.8 Other specified noninflammatory disorders of vagina (principal)
CPT/HCPCS: 87491; 87591

== ENCOUNTER 2025-05-13 00:15 | Outpatient (CLI) | payer MEDICAID, SELFPAY ==
--- NOTE | 2025-05-13 07:15 | DI.US_ITS ---
Exam(s) US PELVIS TRANSVAGINAL EXAM: US PELVIS TRANSVAGINAL CLINICAL HISTORY: re-check ovarian cyst,rt,n83.201. TECHNIQUE: Transabdominal and transvaginal pelvic ultrasound was performed using standard protocol. COMPARISON: US US PELVIS TRANSVAGINAL from 02/06/2025 FINDINGS: UTERUS: Position: Anteverted. Size: 9.7 long by 4.3 AP by 5.7 transverse cm Endometrium: 0.4 cm. Normal for patient's menstrual status. There is an IUD which is in good position. Myometrium: Unremarkable. Cervix: Unremarkable. OVARIES: Right: 4.3 x 4.3 x 2.7 cm Cyst or mass: No suspicious cystic or solid masses. There is a 3.3 x 2.5 x 3.2 cm simple cyst on the right ovary. Left: 2.5 x 1.5 x 1.7 cm Cyst or mass: No suspicious cystic or solid masses. DOPPLER: Color: Symmetric and uniform flow to both ovaries. CUL-DE-SAC: Free fluid: None. Other: None. IMPRESSION: 1. Normal-appearing uterus with endometrial stripe within normal limits. 2. The IUD is in good position. 3. 3.3 x 2.5 x 3.2 cm simple right ovarian cyst. DATA REPOSITORY:
== END 2025-05-13 00:35 ==
LOC: DI 00:15
PROVIDERS: PCP Family Medicine; Visit Provider Obstetrics & Gynecology
DX: N83.201 Unspecified ovarian cyst, right side (principal)
CPT/HCPCS: 76830; 76856